=== PATIENT | female | born 1990 | race Caucasian/White ===

== ENCOUNTER → 2018-04-16 11:43 | Outpatient (REF) | payer MEDICAID, SELFPAY ==
[2018-04-17 15:10] LABS: Chlamydia Result Negative; GC Result Negative; Specimen Description CERVIX
== END ==
LOC: LBN 11:43
PROVIDERS: Visit Provider Nurse Practitioner Women's Health
DX: Z11.3 Encounter for screening for infections with a predominantly sexual mode of transmission (principal)
CPT/HCPCS: 87491; 87591

== ENCOUNTER 2018-04-30 14:00 | Emergency (ER) | payer MEDICAID, SELFPAY ==
[2018-04-30 14:02] VITALS: BP 123/85; PULSE 103; RESP 16; TEMP 36.7; O2SAT 100
--- NOTE | 2018-04-30 14:20 | ED.GENADUL ---
Disposition Clinical Impression: Gastritis Disposition: HOME Condition: Good Instructions: Gastritis (ED) Additional Instructions: Begin medication as prescribed. Avoid fatty, fried, spicy, tomato based foods. Avoid eating to 3 hours prior to bedtime. Follow-up with [facility] as you have planned. Return to the emergency department develop fever, vomiting, worsening pain or any other concerns. Prescriptions: Ranitidine HCl [Zantac] 150 mg PO BID #60 tablet Medical Decision Making - Medical Decision Making 27-year-old female presents with intermittent episodes of epigastric discomfort that is primarily brought on by certain foods over 3 years time. She is afebrile, well-appearing, minimally tender epigastrium without rebound or guarding on exam. While considerations of biliary colic, irritable bowel disease are within the differential diagnosis, I do feel this is most consistent with gastritis. I discussed this with her and at this time will move forward with treatment with Zantac twice daily for 30 days. Discussed with her that if she has refractory discomfort that she will mandate further workup including laboratory and or imaging studies. She has prearranged follow-up in [facility]. Patient stable for outpatient management at this time. History of Present Illness - General Chief complaint: Abd Prob Stated complaint: ABD PAIN Time Seen by Provider: 04/30/18 14:13 Source: patient, RN notes reviewed Mode of arrival: ambulatory Limitations: no limitations - History of Present Illness Initial comments: Abdominal pain: 27-year-old female presents from work. She states that she has had 3 years of intermittent episodes of abdominal pain. This been slowly increasing. Occurs primarily after eating food. Today after eating a candy bar she developed burning, constant epigastric pain that did not radiate. There was no associated fever. She did not vomit. She has had some associated loose stool with this discomfort. No change to urination. She has otherwise been well. - Related Data Albuterol Sulfate [Proventil Hfa] 1 - 2 puff IH Q6H PRN inhaler 03/08/14 Ranitidine HCl [Zantac] 150 mg PO BID #60 tablet 04/30/18 Allergies Allergy/AdvReac Type Severity Reaction Status Date / Time No Known Drug Allergies Allergy Unverified 04/30/18 14:05 Review of Systems Other: 6 systems reviewed, otherwise negative Past Medical History - Past Medical History Medical history: asthma lyme disease Surgical history: other (wisdom teeth) - Social History Alcohol use: rarely Drug use: none General Exam - General Limitations: no limitations General appearance: alert, in no apparent distress - Head Head exam: Present: atraumatic, normocephalic - Eye Eye exam: Present: PERRL, EOMI - ENT ENT exam: Present: normal exam - Neck Neck exam: Present: normal inspection, full ROM - Respiratory Respiratory exam: Present: normal lung sounds bilaterally. Absent: respiratory distress - Cardiovascular Cardiovascular Exam: Present: regular rate, normal rhythm - GI/Abdominal GI/Abdominal exam: Present: soft, tenderness, other (Tender in the epigastrium without rebound or guarding. No right upper quadrant tenderness per) - Extremities Exam Extremities exam: Present: normal inspection. Absent: tenderness - Neurological Exam Neurological exam: Present: alert, oriented X3 - Psychiatric Psychiatric exam: Present: normal affect, normal mood - Skin Skin exam: Present: warm, dry, intact Course Vital Signs - 24 hr 04/30/ 14:02 Temperature 36.7 C Pulse 103 H Respiratory 16 Rate Blood Pressure 123/85 Pulse Oximetry 100
== END 2018-04-30 14:40 | disposition home or self-care (01) ==
PROVIDERS: Emergency Provider Emergency Medicine
DX: K29.00 Acute gastritis without bleeding (principal)
CPT/HCPCS: 99283

== ENCOUNTER 2018-05-13 21:30 | Outpatient (REF) | payer MEDICAID, SELFPAY ==
[2018-05-13 22:58] LABS: ALT 21 U/L (12-78); AST 15 U/L (15-37); Albumin 4.1 g/dL (3.4-5.0); Alkaline Phosphatase 55 U/L (46-116); Amylase 63 U/L (25-115); Anion Gap 6.7 mmol/L (3-11); BUN 8 mg/dL (7-18); Bilirubin, Total 0.4 mg/dL (0.2-1.0); CO2 28.3 mmol/L (21.0-32.0); CREATININE 0.81 mg/dL (0.55-1.02); Calcium 8.8 mg/dL (8.5-10.1); Chloride 106 mmol/L (98-107); Glucose 60 mg/dL (70-100); Lipase 235 U/L (73-393); Potassium 3.9 mmol/L (3.5-5.1); Sodium 141 mmol/L (136-145); Total Protein 7.3 g/dL (6.4-8.2)
[2018-05-13 23:09] LABS: Abs Immature Grans 0.01 k/cumm (0.0-0.09); Absolute Basophil Count 0.02 k/cumm (0.0-0.2); Absolute Eosinophil Count 0.08 k/cumm (0.0-0.7); Absolute Lymphocyte Count 1.23 k/cumm (1.2-3.4); Absolute Monocyte Count 0.57 k/cumm (0.11-0.7); Absolute Neutrophil Count 2.14 k/cumm (1.2-6.7); Basophils % 0.5; HCT 40.7 % (36.0-46.0); HGB 13.5 g/dL (12.0-15.5); Immature Grans % 0.2; Lymphocytes % 30.4; Mean Corp. HGB Concentration 33.2 g/dL (32.0-36.0); Mean Corpuscular Volume 93.6 fL (80-95); Mean Platelet Volume 9.6 fL (8.0-11.0); Monocytes % 14.1; Neutrophils % 52.8; Platelet Count 240 x1000/uL (130-400); RBC 4.35 m/cumm (4.00-5.20); White Blood Cell Count 4.05 k/cumm (4.4-10.8)
== END 2018-05-13 21:50 ==
LOC: NCHCN 21:30
PROVIDERS: Visit Provider Nurse Practitioner
DX: R10.84 Generalized abdominal pain (principal)
CPT/HCPCS: 80053; 83690; 82150; 85025

== ENCOUNTER 2018-07-09 11:13 | Outpatient (CLI) | payer MEDICAID, SELFPAY ==
[2018-07-09 12:37] LABS: TSH (W/Ref FT4) 0.87 uIU/mL (0.358-3.74)
== END 2018-07-09 11:33 ==
PROVIDERS: Visit Provider Obstetrics & Gynecology
DX: Z34.91 Encounter for supervision of normal pregnancy, unspecified, first trimester (principal)
CPT/HCPCS: 36415; 84443

== ENCOUNTER 2018-07-23 14:34 | Outpatient (CLI) | payer MEDICAID, SELFPAY ==
[2018-07-23 14:59] LABS: Abs Immature Grans 0.01 k/cumm (0.0-0.09); Absolute Basophil Count 0.03 k/cumm (0.0-0.2); Absolute Eosinophil Count 0.08 k/cumm (0.0-0.7); Absolute Monocyte Count 0.58 k/cumm (0.11-0.7); Absolute Neutrophil Count 5.32 k/cumm (1.2-6.7); Basophils % 0.4; Eosinophils % 1.1; HCT 37.1 % (36.0-46.0); HGB 13.2 g/dL (12.0-15.5); Immature Grans % 0.1; Lymphocytes % 18.9; Mean Corp. HGB Concentration 35.6 g/dL (32.0-36.0); Mean Corpuscular Hemoglobin 32.4 pg (27.0-33.0); Mean Corpuscular Volume 91.2 fL (80-95); Mean Platelet Volume 8.7 fL (8.0-11.0); Monocytes % 7.8; Neutrophils % 71.7; Platelet Count 214 x1000/uL (130-400); RBC 4.07 m/cumm (4.00-5.20); RBC Distribution Width 11.7 % (11.7-14.6); White Blood Cell Count 7.42 k/cumm (4.4-10.8)
[2018-07-24 12:10] LABS: Hepatitis B Surface Ag Negative (NEGAT)
[2018-07-24 12:47] LABS: Rubella IgG Ab (UVM) Positive; Syphilis Serology (RPR) Negative (Negative)
[2018-07-24 13:38] LABS: HIV-1/2 Ag & Ab Screen Negative (NEGAT)
[2018-07-24 13:39] LABS: Hepatitis C Ab w Rflx HCV PCR Negative (NEGAT)
[2018-07-24 14:44] LABS: Varicella IgG Antibody Positive
== END 2018-07-23 14:54 ==
PROVIDERS: Visit Provider Advanced Practice Midwife
DX: Z34.91 Encounter for supervision of normal pregnancy, unspecified, first trimester (principal); Z11.4 Encounter for screening for human immunodeficiency virus [HIV]; Z11.59 Encounter for screening for other viral diseases; Z01.84 Encounter for antibody response examination
CPT/HCPCS: 36415; 80055; 86787; 86803; 86850; 86900; 86901; 87340; 87389; 86592; 86762

== ENCOUNTER 2018-07-23 15:58 | Outpatient (REF) | payer MEDICAID, SELFPAY ==
[2018-07-23 19:07] LABS: *AMPHETAMINES SCREEN URINE Negative (Negative); *BARBITURATES SCREEN URINE Negative (Negative); *BENZODIAZEPINES SCREEN URINE Negative (Negative); Cannabinoids THC Negative (Negative); Cocaine Screen,Urine Negative (Negative); METHADONE URINE SCREEN Negative (Negative); OPIATES URINE SCREEN Negative (Negative)
[2018-07-23 19:24] LABS: Tricyclic Antidepressants Negative (Negative)
[2018-07-27 15:16] LABS: Chlamydia Result Negative; GC Result Negative; Specimen Description CERVIX
[2018-07-28 17:33] LABS: Buprenorphine Negative; Norbuprenorphine Negative
== END 2018-07-23 16:18 ==
LOC: LBN 15:58
PROVIDERS: PCP Nurse Practitioner; Visit Provider Advanced Practice Midwife
DX: Z34.91 Encounter for supervision of normal pregnancy, unspecified, first trimester (principal); Z11.3 Encounter for screening for infections with a predominantly sexual mode of transmission
CPT/HCPCS: 80307; 87491; 87591; 87086; 87480; 87510; 87660

== ENCOUNTER 2018-08-19 08:08 | Emergency (ER) | payer OTHER, MEDICAID, SELFPAY ==
[2018-08-19 08:11] VITALS: BP 119/72; PULSE 134; RESP 18; TEMP 37; O2SAT 100
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
[2018-08-19] MEDS: Acetaminophen 325 MG TAB 650 MG PO (08:46)
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
[2018-08-19 10:18] VITALS: BP 104/59; PULSE 90; RESP 16; TEMP 36.9; O2SAT 98
[2018-08-19 10:39] LABS: Abs Immature Grans 0.01 k/cumm (0.0-0.09); Absolute Basophil Count 0.01 k/cumm (0.0-0.2); Absolute Eosinophil Count 0.03 k/cumm (0.0-0.7); Absolute Monocyte Count 0.61 k/cumm (0.11-0.7); Absolute Neutrophil Count 5.69 k/cumm (1.2-6.7); Basophils % 0.1; Eosinophils % 0.4; HCT 32.5 % (36.0-46.0); HGB 11.8 g/dL (12.0-15.5); Immature Grans % 0.1; Lymphocytes % 13.6; Mean Corp. HGB Concentration 36.3 g/dL (32.0-36.0); Mean Corpuscular Hemoglobin 33.2 pg (27.0-33.0); Mean Corpuscular Volume 91.5 fL (80-95); Mean Platelet Volume 8.6 fL (8.0-11.0); Monocytes % 8.3; Neutrophils % 77.5; Platelet Count 170 x1000/uL (130-400); RBC 3.55 m/cumm (4.00-5.20); RBC Distribution Width 11.9 % (11.7-14.6); White Blood Cell Count 7.35 k/cumm (4.4-10.8)
[2018-08-19 10:50] LABS: ALT 13 U/L (12-78); AST 10 U/L (15-37); Albumin 3.1 g/dL (3.4-5.0); Alkaline Phosphatase 37 U/L (46-116); Anion Gap 6.3 mmol/L (3-11); BUN 4 mg/dL (7-18); Bilirubin, Total 0.3 mg/dL (0.2-1.0); CO2 25.7 mmol/L (21.0-32.0); CREATININE 0.57 mg/dL (0.55-1.02); Calcium 8.6 mg/dL (8.5-10.1); Chloride 105 mmol/L (98-107); Glucose 75 mg/dL (70-100); Potassium 3.8 mmol/L (3.5-5.1); Sodium 137 mmol/L (136-145); Total Protein 6.1 g/dL (6.4-8.2)
[2018-08-19 11:53] VITALS: BP 105/61; PULSE 93; RESP 16; TEMP 36.8; O2SAT 99
== END 2018-08-19 11:58 | disposition home or self-care (01) ==
PROVIDERS: Emergency Provider Physician Assistant; PCP Nurse Practitioner
DX: M54.5 Low back pain (principal); R10.30 Lower abdominal pain, unspecified; V43.52XA Car driver injured in collision with other type car in traffic accident, initial encounter; Z33.1 Pregnant state, incidental; Z3A.15 15 weeks gestation of pregnancy; O99.332 Smoking (tobacco) complicating pregnancy, second trimester; F17.210 Nicotine dependence, cigarettes, uncomplicated
CPT/HCPCS: 36415; 80053; 99284; 76805; 85025; 99285

== ENCOUNTER 2018-08-27 15:22 | Outpatient (REF) | payer MEDICAID, SELFPAY ==
[2018-08-27 21:53] LABS: Abs Immature Grans 0.04 k/cumm (0.0-0.09); Absolute Basophil Count 0.02 k/cumm (0.0-0.2); Absolute Eosinophil Count 0.39 k/cumm (0.0-0.7); Absolute Lymphocyte Count 1.29 k/cumm (1.2-3.4); Absolute Monocyte Count 0.67 k/cumm (0.11-0.7); Absolute Neutrophil Count 5.47 k/cumm (1.2-6.7); Basophils % 0.3; Eosinophils % 4.9; HCT 35.3 % (36.0-46.0); HGB 12.1 g/dL (12.0-15.5); Immature Grans % 0.5; Lymphocytes % 16.4; Mean Corp. HGB Concentration 34.3 g/dL (32.0-36.0); Mean Corpuscular Hemoglobin 31.3 pg (27.0-33.0); Mean Corpuscular Volume 91.2 fL (80-95); Mean Platelet Volume 10.2 fL (8.0-11.0); Monocytes % 8.5; Neutrophils % 69.4; Platelet Count 181 x1000/uL (130-400); RBC 3.87 m/cumm (4.00-5.20); RBC Distribution Width 12.2 % (11.7-14.6); White Blood Cell Count 7.88 k/cumm (4.4-10.8)
== END 2018-08-27 15:42 ==
LOC: NCHCN 15:22
PROVIDERS: PCP Nurse Practitioner; Visit Provider Nurse Practitioner
DX: M54.5 Low back pain (principal); Z33.1 Pregnant state, incidental
CPT/HCPCS: 85025

== ENCOUNTER 2018-09-15 10:53 | Outpatient (CLI) | payer MEDICAID, SELFPAY | END 2018-09-15 11:13 | PROVIDERS: PCP Nurse Practitioner; Visit Provider Nurse Practitioner | DX: O26.892 Other specified pregnancy related conditions, second trimester (principal); R10.11 Right upper quadrant pain; R10.31 Right lower quadrant pain ==

== ENCOUNTER 2018-09-15 11:47 | Observation (INO) | payer MEDICAID, SELFPAY ==
[2018-09-15 12:18] LABS: Bilirubin Negative (Negative); Blood Negative (Negative); Clarity Clear; Glucose Negative (Negative); Ketones Negative (Negative); Leukocyte Esterase Trace (Negative); Nitrite Negative (Negative); Urobilinogen 0.2 EU/dL (Up TO 0.2)
[2018-09-15 12:30] LABS: Epithelial Cells Moderate HPF (Negative); RBC Negative (0-2); WBC 0-2 HPF (0-5)
[2018-09-15 12:31] LABS: Bacteria Few HPF (Negative); C & S Indicated? No/Sq. Contamination; Casts Negative LPF (Negative); Crystals Negative HPF (Negative); Mucus Trace (Negative)
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
== END 2018-09-15 13:30 | disposition home or self-care (01) ==
PROVIDERS: Admitting Provider Nurse Practitioner; PCP Nurse Practitioner; Visit Provider Nurse Practitioner
DX: O26.892 Other specified pregnancy related conditions, second trimester (principal); Z3A.18 18 weeks gestation of pregnancy; R10.30 Lower abdominal pain, unspecified
CPT/HCPCS: 76816; 81003; 81015; G0378

== ENCOUNTER 2018-09-23 01:02 | Outpatient (CLI) | payer MEDICAID, SELFPAY ==
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
== END 2018-09-23 01:22 ==
PROVIDERS: PCP Nurse Practitioner; Visit Provider Nurse Practitioner
DX: Z34.92 Encounter for supervision of normal pregnancy, unspecified, second trimester (principal)
CPT/HCPCS: 76805

== ENCOUNTER 2018-09-24 11:59 | Outpatient (CLI) | payer MEDICAID, SELFPAY ==
[2018-09-28 12:11] LABS: AFP 86.1 ng/mL; Calculated age at EDD 26 years; GA used in risk estimate Dates estimate; IVF Pregnancy No; Initial or repeat testing Initial testing; Insulin dependent diabetes No; Maternal Weight 119 lbs; Number of Fetuses 1; Physician Phone Number 802-748-7300; Prev Pregnancy w/NTD No; RECOMMENDED FOLLOW UP None.; Results Summary Normal risk
[2018-10-26 11:23] LABS: AFP 83.3 ng/mL; Calculated age at EDD 26 years; Down syndrome maternalage risk 1/990; GA used in risk estimate Dates estimate; INHIBIN 259 pg/mL; IVF Pregnancy No; Initial or repeat testing Initial testing; Insulin dependent diabetes No; Maternal Weight 119 lbs; Number of Fetuses 1; Physician Phone Number 802-748-7300; Prev Down(T21)/Trisomy Pregnan No; Prev Pregnancy w/NTD No; RECOMMENDED FOLLOW UP None.; Results Summary Normal risk; hCG, TOTAL 4.5 IU/mL; hCG, TOTAL MoM 0.22 MoM; uE3 1.73 ng/mL; uE3 MoM 0.93 MoM
== END 2018-09-24 12:19 ==
PROVIDERS: Advanced Practice Midwife; PCP Nurse Practitioner; Visit Provider Nurse Practitioner
DX: Z34.92 Encounter for supervision of normal pregnancy, unspecified, second trimester (principal); Z36.89 Encounter for other specified antenatal screening
CPT/HCPCS: 36415; 81511; 82105

== ENCOUNTER 2018-09-29 12:16 | Emergency (ER) | payer MEDICAID, SELFPAY ==
[2018-09-29 12:27] VITALS: BP 122/71; PULSE 104; RESP 16; TEMP 37; O2SAT 100
--- NOTE | 2018-09-29 12:37 | W.ED.GENAD ---
Discharge Plan Disposition Patient Disposition: HOME Condition: Stable Discharge Details Chief Complaint: RespSymp Clinical Impression: Influenza A Primary Care Provider: Sherlyn Orlando ED Provider: Bertin Fox Home Meds and New Rx's Prescriptions: Continued aspirin [Aspir-81] 81 mg tablet,delayed release (DR/EC) 81 mg PO DAILY Qty: 60 RF: 3 Proventil HFA 6.7 GM HFA aerosol inhaler 1 - 2 puff Inhalation Q6H PRN RF: 0 PNV #[id number] 30 mg iron-10 mg iron-1 mg capsule 1 cap PO DAILY Qty: 90 RF: 4 oseltamivir [Tamiflu] 75 mg capsule 75 mg PO BID 5 Days Qty: 10 RF: 0 Discharge Instructions Instructions: Influenza (ED) Medical Decision Making 28 yo at 20 weeks per pt, comes in with severeal days of myalgias, fever, sore throat with coughing, and dry cough. Denies abdominal pain, vaginal bleeding or d/c. No recent travel or rashes. She is speaking in full sentences in no respiratory distress. She has no murmurs or other stigmata of endocarditis and denies ivdu. She has no meningismus or severe headaches so doubt material planning analyst infection. Has clear lung sounds and so doubt pna and do not feel imaging indicated. Suspect viral illness, will test for flu and monitor pt positive for flu, a, will start tamiflu, advised f/u with ob/pcp and return precautions given Differential Diagnosis uri, influenza, cap HPI General Mode of arrival: ambulatory. Date/Time Provider Initiated Documentation: 09/29/18 12:24. Limitations to Documentation: no limitations. Information obtained by: patient. History of Present Illness 28 year old F presents to the emergency department with the chief complaint of fevers and myalgias, described as mild, with intensity rated at 3. Patient started experiencing this day(s) (2) and it has been constant. No relieving factors improve symptom(s), No exacerbating factors reported . Patient notes cough. Patient did receive the following treatments prior to arrival, none Related Data Home Medications Medication Instructions Recorded Confirmed Proventil HFA 1 - 2 puff INHALATION Q6H PRN 03/08/14 09/29/18 inhaler vitamin#30 30 mg iron-10 1 cap PO DAILY #90 cap 06/30/18 09/29/18 mg iron-folic acid 1 mg-omg3 capsule aspirin 81 mg tablet,delayed 81 mg PO DAILY #60 tab 07/23/18 09/29/18 release oseltamivir [Tamiflu] 75 mg PO BID 5 Days #10 cap 09/29/18 Previous Rx's Medication Instructions Recorded vitamin#30 30 mg iron-10 1 cap PO DAILY #90 cap 06/30/18 mg iron-folic acid 1 mg-omg3 capsule aspirin 81 mg tablet,delayed 81 mg PO DAILY #60 tab 07/23/18 release oseltamivir [Tamiflu] 75 mg PO BID 5 Days #10 cap 09/29/18 Allergies Allergy/AdvReac Type Severity Reaction Status Date / Time No Known Drug Allergies Allergy Unverified 09/29/18 12:30 General Stated Complaint: RespSymp SURENDRA: 4 Review of Systems Review of Systems All systems reviewed & are unremarkable except as noted in HPI and below Cardiovascular Denies chest pain and Denies dyspnea Respiratory Denies dyspnea Gastrointestinal Denies abdominal pain, Denies nausea and Denies vomiting Genitourinary Denies dysuria Musculoskeletal Denies joint swelling Integumentary/Breasts Denies rash PFSH Medical History (Acute) Asthma Breast nodule Contraceptive management Lyme disease Family History Grandfather Essential hypertension Father Prostate cancer Diabetes Social History Smoking/Tobacco Use Status: Current-Occasional tobacco type: cigarettes how long ago did patient quit smoking: pt. states she is quitting while alcohol intake: former (occasional wine socially, none since became ) substance use type: does not use 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 History Menstrual control method: none History History 2 Para 1 Hx # Term Pregnancies 1 Multiple births 0 Hx # Pregnancies 0 Ectopic pregnancies 0 AB induced 0 Hx Number of Living Children 1 AB spontaneous 0 Exam Const General: no acute distress Orientation: alert HENMT Head: normal to inspection Ears: external ears normal General nose exam: external nose normal Mouth: moist mucous membranes Eyes General: appearance normal, both eyes and all related structures Neck Neck: normal visual inspection Resp Effort & Inspection: normal respiratory effort and able to speak in complete sentences Cardio Rate: regular rate Skin General skin exam: no rashes or lesions noted Neuro General: alert and oriented x3 Extrem General: normal to inspection Psych Mental Status: mental status grossly normal Course Vital Signs Temperature 37 C 09/29/18 12:27 Pulse 104 H 09/29/18 12:27 Respiratory Rate 16 09/29/18 12:27 Blood Pressure 122/71 09/29/18 12:27 Pulse Oximetry 100 09/29/18 12:27 Temperature 37 C 09/29/18 12:27 Temperature Source Skin 09/29/18 12:27 Pulse 104 H 09/29/18 12:27 Respiratory Rate 16 09/29/18 12:27 Respiratory Effort Non-Labored 09/29/18 12:27 Blood Pressure 122/71 09/29/18 12:27 Blood Pressure Position Sitting 09/29/18 12:27 Pulse Oximetry 100 09/29/18 12:27 Oxygen Delivery Method Room Air 09/29/18 12:27 Oxygen Flow Rate 0 09/29/18 12:27 Pain Level 0 09/29/18 12:27 Lab/Test Results Lab/Test Results: 09/29/18 12:32 Nasopharynx Influenza Types A,B Antigen - Pending
--- NOTE | 2018-09-29 12:40 | ED.GENADUL_ITS ---
Discharge Plan Disposition Patient Disposition: HOME Condition: Stable Discharge Details Chief Complaint: RespSymp Clinical Impression: Influenza A Primary Care Provider: Sherlyn Orlando ED Provider: Bertin Fox Home Meds and New Rx's Prescriptions: Continued aspirin [Aspir-81] 81 mg tablet,delayed release (DR/EC) 81 mg PO DAILY Qty: 60 RF: 3 Proventil HFA 6.7 GM HFA aerosol inhaler 1 - 2 puff Inhalation Q6H PRN RF: 0 PNV #[id number] 30 mg iron-10 mg iron-1 mg capsule 1 cap PO DAILY Qty: 90 RF: 4 oseltamivir [Tamiflu] 75 mg capsule 75 mg PO BID 5 Days Qty: 10 RF: 0 Discharge Instructions Instructions: Influenza (ED) Medical Decision Making 28 yo at 20 weeks per pt, comes in with severeal days of myalgias, fever, sore throat with coughing, and dry cough. Denies abdominal pain, vaginal bleeding or d/c. No recent travel or rashes. She is speaking in full sentences in no respiratory distress. She has no murmurs or other stigmata of endocarditis and denies ivdu. She has no meningismus or severe headaches so doubt plant anatomist infection. Has clear lung sounds and so doubt pna and do not feel imaging indicated. Suspect viral illness, will test for flu and monitor pt positive for flu, a, will start tamiflu, advised f/u with ob/pcp and return precautions given Differential Diagnosis uri, influenza, cap HPI General Mode of arrival: ambulatory . Date/Time Provider Initiated Documentation: 09/29/18 12:24 . Limitations to Documentation: no limitations . Information obtained by: patient . History of Present Illness 28 year old F presents to the emergency department with the chief complaint of fevers and myalgias, described as mild, with intensity rated at 3. Patient started experiencing this day(s) (2) and it has been constant. No relieving factors improve symptom(s), No exacerbating factors reported . Patient notes cough. Patient did receive the following treatments prior to arrival, none Related Data Home Medications Medication Instructions Recorded Confirmed Proventil HFA 1 - 2 puff INHALATION Q6H PRN 03/08/14 09/29/18 inhaler vitamin#30 30 mg iron-10 1 cap PO DAILY #90 cap 06/30/18 09/29/18 mg iron-folic acid 1 mg-omg3 capsule aspirin 81 mg tablet,delayed 81 mg PO DAILY #60 tab 07/23/18 09/29/18 release oseltamivir [Tamiflu] 75 mg PO BID 5 Days #10 cap 09/29/18 Previous Rx's Medication Instructions Recorded vitamin#30 30 mg iron-10 1 cap PO DAILY #90 cap 06/30/18 mg iron-folic acid 1 mg-omg3 capsule aspirin 81 mg tablet,delayed 81 mg PO DAILY #60 tab 07/23/18 release oseltamivir [Tamiflu] 75 mg PO BID 5 Days #10 cap 09/29/18 Allergies Allergy/AdvReac Type Severity Reaction Status Date / Time No Known Drug Allergies Allergy Unverified 09/29/18 12:30 General Stated Complaint: RespSymp SURENDRA: 4 Review of Systems Review of Systems All systems reviewed & are unremarkable except as noted in HPI and below Cardiovascular Denies chest pain and Denies dyspnea Respiratory Denies dyspnea Gastrointestinal Denies abdominal pain, Denies nausea and Denies vomiting Genitourinary Denies dysuria Musculoskeletal Denies joint swelling Integumentary/Breasts Denies rash PFSH Medical History (Acute) Asthma Breast nodule Contraceptive management Lyme disease Family History Grandfather Essential hypertension Father Prostate cancer Diabetes Social History Smoking/Tobacco Use Status: Current-Occasional tobacco type: cigarettes how long ago did patient quit smoking: pt. states she is quitting while alcohol intake: former (occasional wine socially, none since became ) substance use type: does not use 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 History Menstrual control method: none History History 2 Para 1 Hx # Term Pregnancies 1 Multiple births 0 Hx # Pregnancies 0 Ectopic pregnancies 0 AB induced 0 Hx Number of Living Children 1 AB spontaneous 0 Exam Const General: no acute distress Orientation: alert HENMT Head: normal to inspection Ears: external ears normal General nose exam: external nose normal Mouth: moist mucous membranes Eyes General: appearance normal, both eyes and all related structures Neck Neck: normal visual inspection Resp Effort & Inspection: normal respiratory effort and able to speak in complete sentences Cardio Rate: regular rate Skin General skin exam: no rashes or lesions noted Neuro General: alert and oriented x3 Extrem General: normal to inspection Psych Mental Status: mental status grossly normal Course Vital Signs Temperature 37 C 09/29/18 12:27 Pulse 104 H 09/29/18 12:27 Respiratory Rate 16 09/29/18 12:27 Blood Pressure 122/71 09/29/18 12:27 Pulse Oximetry 100 09/29/18 12:27 Temperature 37 C 09/29/18 12:27 Temperature Source Skin 09/29/18 12:27 Pulse 104 H 09/29/18 12:27 Respiratory Rate 16 09/29/18 12:27 Respiratory Effort Non-Labored 09/29/18 12:27 Blood Pressure 122/71 09/29/18 12:27 Blood Pressure Position Sitting 09/29/18 12:27 Pulse Oximetry 100 09/29/18 12:27 Oxygen Delivery Method Room Air 09/29/18 12:27 Oxygen Flow Rate 0 09/29/18 12:27 Pain Level 0 09/29/18 12:27 Lab/Test Results Lab/Test Results: 09/29/18 12:32 Nasopharynx Influenza Types A,B Antigen - Pending
== END 2018-09-29 13:17 | disposition home or self-care (01) ==
PROVIDERS: Emergency Provider Emergency Medicine; PCP Nurse Practitioner
DX: O99.89 Other specified diseases and conditions complicating pregnancy, childbirth and the puerperium (principal); J10.1 Influenza due to other identified influenza virus with other respiratory manifestations; Z3A.20 20 weeks gestation of pregnancy
CPT/HCPCS: 87449; 99283

== ENCOUNTER 2018-10-08 09:51 | Inpatient (IN) | payer MEDICAID, SELFPAY ==
[2018-10-08] VITALS (39 sets, daily range): BP systolic 90–117; BP diastolic 50–90; PULSE 86–128; RESP 13–47; TEMP 36.5–36.8; O2SAT 94–98
--- NOTE | 2018-10-08 10:30 | DI.RAD_ITS ---
SYMPTOM/DIAGNOSIS: COUGH, FEVER, TACHYCARDIA PA AND LATERAL CHEST: Comparison is made with thoracic spine dated 12/21/09. The heart size is normal. There are streaky densities seen on the PA view overlying the heart shadow which may represent a small infiltrate versus superimposed structures. No effusions are seen. IMPRESSION: Question of a lingular infiltrate.
--- NOTE | 2018-10-08 10:32 | W.ED.GENAD ---
Discharge Plan Disposition Condition: Improving Discharge Details Chief Complaint: RespSymp Reason For Visit: PNEUMONIA Admit Date/Time: 10/08/18 13:56 Admit Provider: Zac Crow Attending Provider: Zac Crow Primary Care Provider: Sherlyn Orlando ED Provider: Jamaal Tabor Discharge Instructions Activity:: No strenuous activity Equipment/Supplies:: No Equipment Needed Diet:: As Tolerated Discharge Orders Discharge Orders: Discharge Order (Routine); Ordered 10/09/18 Ordered By: Zac Crow Discharge Data Discharge Date/Time-TO BE ENTERED AT DEPARTURE: 10/08/18 15:09 Medical Decision Making 10:35 --28-year-old at 21 recently diagnosed with flu and treated with Tamiflu, had persistent cough over the past week but was feeling better until yesterday when she developed recurrent fever and chills. Patient is tachycardic. She is in no respiratory distress and saturating well but does have rales on exam. Concern for persistent viral illness and bronchitis versus pneumonia. Plan to check chest x-ray. Patient provides informed consent to chest x-ray. She is tachycardic. We will give IV fluid and check lactate as well as blood cultures. 13:19 --chest x-ray interpreted by radiology: Left lower lobe infiltrate. Patient reassessed and remains tachycardic although improved after 1 L of crystalloid. I called and spoke with OB land economist, she recommends admission to medicine service on IV antibiotics. Will give ceftriaxone and azithromycin and admit. -- Spoke with hospitalist who will admit. Care transitioned to hospitalist. HPI General Mode of arrival: ambulatory. Date/Time Provider Initiated Documentation: 10/08/18 10:08. Limitations to Documentation: no limitations. Information obtained by: patient. HPI Narrative: 28-year-old female at 21 weeks here with chief complaint of cough. Patient notes she was seen here in the emergency department on 09/29/2018 for myalgias, fever sore throat and cough. She tested positive for flu and was started on Tamiflu. She notes that she improved and in fact was feeling quite well 2-3 days ago. She still had persistent cough. Yesterday she developed recurrent fever, chills and myalgias. Moderate. No modifiers. No associated chest pain, swelling or rash. No urinary symptoms. Related Data Home Medications Medication Instructions Recorded Confirmed Proventil HFA 1 - 2 puff INHALATION Q6H PRN 03/08/14 10/08/18 inhaler vitamin#30 30 mg iron-10 1 cap PO DAILY #90 cap 06/30/18 10/08/18 mg iron-folic acid 1 mg-omg3 capsule aspirin 81 mg tablet,delayed 81 mg PO DAILY #60 tab 07/23/18 10/08/18 release azithromycin 250 mg PO DAILY #3 tab 10/09/18 cefpodoxime 200 mg PO BID #10 tab 10/09/18 prednisone 10 mg PO DAILY #15 tab 10/09/18 Previous Rx's Medication Instructions Recorded vitamin#30 30 mg iron-10 1 cap PO DAILY #90 cap 06/30/18 mg iron-folic acid 1 mg-omg3 capsule aspirin 81 mg tablet,delayed 81 mg PO DAILY #60 tab 07/23/18 release azithromycin 250 mg PO DAILY #3 tab 10/09/18 cefpodoxime 200 mg PO BID #10 tab 10/09/18 prednisone 10 mg PO DAILY #15 tab 10/09/18 Allergies Allergy/AdvReac Type Severity Reaction Status Date / Time No Known Drug Allergies Allergy Unverified 10/08/18 10:09 General Stated Complaint: RespSymp SURENDRA: 3 Review of Systems Review of Systems All systems reviewed & are unremarkable except as noted in HPI and below Constitutional Reports chills and Reports fever(s) Cardiovascular Denies chest pain Respiratory Reports cough Musculoskeletal Reports myalgias PFSH Medical History (Acute) (Acute) Asthma Breast nodule Contraceptive management Lyme disease Family History Grandfather Essential hypertension Father Prostate cancer Diabetes Social History Smoking and Tabacco status: Current-Occasional tobacco type: cigarettes how long ago did patient quit smoking: pt. 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 History Menstrual control method: none History History 2 Para 1 Hx # Term Pregnancies 1 Multiple births 0 Hx # Pregnancies 0 Ectopic pregnancies 0 AB induced 0 Hx Number of Living Children 1 AB spontaneous 0 Exam Const General: cooperative and no acute distress HENMT Head: normocephalic and atraumatic Mouth: moist mucous membranes Eyes Conjunctivae: normal conjunctivae Sclera: normal sclerae EOM: EOM intact bilaterally Neck Neck: trachea midline and supple Resp Effort & Inspection: normal respiratory effort, able to speak in complete sentences and cough Auscultation: rales bilaterally (L>R) Cardio Jugular venous pressure: no JVD Rate: tachycardic Rhythm: regular rhythm GI Palpation: soft, not firm, no guarding, no masses, not rigid and nontender Skin General skin exam: no rashes or lesions noted Neuro General: alert, awake, oriented x3 and tone normal Extrem General: no edema Psych Appearance: grossly normal Speech and Movement: speech and movement normal Course Vital Signs Temperature 36.8 C 10/08/18 10:01 Pulse 128 H 10/08/18 10:01 Respiratory Rate 18 10/08/18 10:01 Blood Pressure 108/66 10/08/18 10:01 Pulse Oximetry 98 10/08/18 10:01 Temperature 36.8 C 10/08/18 10:01 Temperature Source Oral 10/08/18 10:01 Pulse 128 H 10/08/18 10:01 Respiratory Rate 18 10/08/18 10:01 Respiratory Effort Non-Labored 10/08/18 10:29 Respiratory Depth Normal 10/08/18 10:29 Blood Pressure 108/66 10/08/18 10:01 Blood Pressure Position Sitting 10/08/18 10:01 Pulse Oximetry 98 10/08/18 10:01 Oxygen Delivery Method Room Air 10/08/18 10:01 Oxygen Flow Rate 0 10/08/18 10:01 Pain Level 7 10/08/18 10:01
--- NOTE | 2018-10-08 10:38 | ED.GENADUL_ITS ---
Discharge Plan Disposition Condition: Improving Discharge Details Chief Complaint: RespSymp Reason For Visit: PNEUMONIA Admit Date/Time: 10/08/18 13:56 Admit Provider: Zac Crow Attending Provider: Zac Crow Primary Care Provider: Sherlyn Orlando ED Provider: Jamaal Tabor Discharge Instructions Activity:: No strenuous activity Equipment/Supplies:: No Equipment Needed Diet:: As Tolerated Discharge Orders Discharge Orders: Discharge Order (Routine); Ordered 10/09/18 Ordered By: Zac Crow Discharge Data Discharge Date/Time-TO BE ENTERED AT DEPARTURE: 10/08/18 15:09 Medical Decision Making 10:35 --28-year-old at 21 recently diagnosed with flu and treated with Tamiflu, had persistent cough over the past week but was feeling better until yesterday when she developed recurrent fever and chills. Patient is tachycardic. She is in no respiratory distress and saturating well but does have rales on exam. Concern for persistent viral illness and bronchitis versus pneumonia. Plan to check chest x-ray. Patient provides informed consent to chest x-ray. She is tachycardic. We will give IV fluid and check lactate as well as blood cultures. 13:19 --chest x-ray interpreted by radiology: Left lower lobe infiltrate. Patient reassessed and remains tachycardic although improved after 1 L of crystalloid. I called and spoke with OB oncology specialist, she recommends admission to medicine service on IV antibiotics. Will give ceftriaxone and azithromycin and admit. -- Spoke with hospitalist who will admit. Care transitioned to hospitalist. HPI General Mode of arrival: ambulatory . Date/Time Provider Initiated Documentation: 10/08/18 10:08 . Limitations to Documentation: no limitations . Information obtained by: patient . HPI Narrative: 28-year-old female at 21 weeks here with chief complaint of cough. Patient notes she was seen here in the emergency department on 09/29/2018 for myalgias, fever sore throat and cough. She tested positive for flu and was started on Tamiflu. She notes that she improved and in fact was feeling quite well 2-3 days ago. She still had persistent cough. Yesterday she developed recurrent fever, chills and myalgias. Moderate. No modifiers. No associated chest pain, swelling or rash. No ur inary symptoms. Related Data Home Medications Medication Instructions Recorded Confirmed Proventil HFA 1 - 2 puff INHALATION Q6H PRN 03/08/14 10/08/18 inhaler vitamin#30 30 mg iron-10 1 cap PO DAILY #90 cap 06/30/18 10/08/18 mg iron-folic acid 1 mg-omg3 capsule aspirin 81 mg tablet,delayed 81 mg PO DAILY #60 tab 07/23/18 10/08/18 release azithromycin 250 mg PO DAILY #3 tab 10/09/18 cefpodoxime 200 mg PO BID #10 tab 10/09/18 prednisone 10 mg PO DAILY #15 tab 10/09/18 Previous Rx's Medication Instructions Recorded vitamin#30 30 mg iron-10 1 cap PO DAILY #90 cap 06/30/18 mg iron-folic acid 1 mg-omg3 capsule aspirin 81 mg tablet,delayed 81 mg PO DAILY #60 tab 07/23/18 release azithromycin 250 mg PO DAILY #3 tab 10/09/18 cefpodoxime 200 mg PO BID #10 tab 10/09/18 prednisone 10 mg PO DAILY #15 tab 10/09/18 Allergies Allergy/AdvReac Type Severity Reaction Status Date / Time No Known Drug Allergies Allergy Unverified 10/08/18 10:09 General Stated Complaint: RespSymp SURENDRA: 3 Review of Systems Review of Systems All systems reviewed & are unremarkable except as noted in HPI and below Constitutional Reports chills and Reports fever(s) Cardiovascular Denies chest pain Respiratory Reports cough Musculoskeletal Reports myalgias PFSH Medical History (Acute) (Acute) Asthma Breast nodule Contraceptive management Lyme disease Family History Grandfather Essential hypertension Father Prostate cancer Diabetes Social History Smoking and Tabacco status: Current-Occasional tobacco type: cigarettes how long ago did patient quit smoking: pt. 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 History Menstrual control method: none History History 2 Para 1 Hx # Term Pregnancies 1 Multiple births 0 Hx # Pregnancies 0 Ectopic pregnancies 0 AB induced 0 Hx Number of Living Children 1 AB spontaneous 0 Exam Const General: cooperative and no acute distress HENMT Head: normocephalic and atraumatic Mouth: moist mucous membranes Eyes Conjunctivae: normal conjunctivae Sclera: normal sclerae EOM: EOM intact bilaterally Neck Neck: trachea midline and supple Resp Effort & Inspection: normal respiratory effort, able to speak in complete sentences and cough Auscultation: rales bilaterally (L>R) Cardio Jugular venous pressure: no JVD Rate: tachycardic Rhythm: regular rhythm GI Palpation: soft, not firm, no guarding, no masses, not rigid and nontender Skin General skin exam: no rashes or lesions noted Neuro General: alert, awake, oriented x3 and tone normal Extrem General: no edema Psych Appearance: grossly normal Speech and Movement: speech and movement normal Course Vital Signs Temperature 36.8 C 10/08/18 10:01 Pulse 128 H 10/08/18 10:01 Respiratory Rate 18 10/08/18 10:01 Blood Pressure 108/66 10/08/18 10:01 Pulse Oximetry 98 10/08/18 10:01 Temperature 36.8 C 10/08/18 10:01 Temperature Source Oral 10/08/18 10:01 Pulse 128 H 10/08/18 10:01 Respiratory Rate 18 10/08/18 10:01 Respiratory Effort Non-Labored 10/08/18 10:29 Respiratory Depth Normal 10/08/18 10:29 Blood Pressure 108/66 10/08/18 10:01 Blood Pressure Position Sitting 10/08/18 10:01 Pulse Oximetry 98 10/08/18 10:01 Oxygen Delivery Method Room Air 10/08/18 10:01 Oxygen Flow Rate 0 10/08/18 10:01 Pain Level 7 10/08/18 10:01
[2018-10-08] MEDS: Lactated Ringers 1,000 ML 1000 ML IV (11:07)
[2018-10-08 11:23] LABS: Lactate 1.3 mmol/L (0.6-1.4)
[2018-10-08 11:24] LABS: Abs Immature Grans 0.05 k/cumm (0.0-0.09); Absolute Eosinophil Count 0.03 k/cumm (0.0-0.7); Absolute Neutrophil Count 11.23 k/cumm (1.2-6.7); Basophils % 0.2; Eosinophils % 0.2; HCT 32.9 % (36.0-46.0); HGB 11.4 g/dL (12.0-15.5); Immature Grans % 0.4; Lymphocytes % 6.1; Mean Corp. HGB Concentration 34.7 g/dL (32.0-36.0); Mean Corpuscular Hemoglobin 32.5 pg (27.0-33.0); Mean Corpuscular Volume 93.7 fL (80-95); Mean Platelet Volume 8.8 fL (8.0-11.0); Monocytes % 7.5; Neutrophils % 85.6; Platelet Count 263 x1000/uL (130-400); RBC 3.51 m/cumm (4.00-5.20); RBC Distribution Width 12.4 % (11.7-14.6); White Blood Cell Count 13.12 k/cumm (4.4-10.8)
[2018-10-08 11:27] LABS: Absolute Basophil Count 0.03 k/cumm (0.0-0.2); Absolute Monocyte Count 0.98 k/cumm (0.11-0.7)
[2018-10-08 11:39] LABS: ALT 24 U/L (12-78); AST 16 U/L (15-37); Albumin 2.7 g/dL (3.4-5.0); Alkaline Phosphatase 70 U/L (46-116); BUN 5 mg/dL (7-18); Bilirubin, Total 0.4 mg/dL (0.2-1.0); CREATININE 0.57 mg/dL (0.55-1.02); Calcium 8.7 mg/dL (8.5-10.1); Chloride 104 mmol/L (98-107); Glucose 81 mg/dL (70-100); Potassium 3.3 mmol/L (3.5-5.1); Sodium 140 mmol/L (136-145); Total Protein 6.9 g/dL (6.4-8.2)
[2018-10-08] MEDS: Potassium Chloride 10 MEQ TABCR 20 MEQ PO (13:01)
[2018-10-08] MEDS: AZITHROMYCIN 500 MG in Normal Saline 250 ML 250 MG IVPB (13:55)
[2018-10-08] MEDS: Lactated Ringers 500 ML IV (14:00)
[2018-10-08] MEDS: Normal Saline 1,000 ML 150 ML IV (16:20)
--- NOTE | 2018-10-08 16:36 | W.OBCONSULT ---
Date of service: 10/08/18 Time of Service: 16:36 Assessment and Plan (1) Influenza A: Current visit: Yes Status: Acute (2) Pneumonia affecting : Current visit: Yes Status: Acute has completed course tamiflu on iv antibiotics continue to monitor respiratory status nebulizers as ordered if needed she can have IV steroids assessment with FHR q shift- 21 weeks previable History of Present Illness Chief Complaint: influenza superimposed pneumonia Narrative: 28 yo female 21 weeks dx with influenza and given tamiflu in ER she returned today complaining of increased cough fever her xray + pneumonia she has been admitted to the medicine service and has been started on Vancomycin and ceftriaxone nebulizer treatment have been initiated and her O2 sats remain in the high 90's she states her has been otherwise uncomplicated normal survey US and she reports good movement no ctx, no lof Review of Systems Review of Systems All systems reviewed & are unremarkable except as noted in HPI and below PFSH Medical History (Acute) Asthma Breast nodule Contraceptive management Lyme disease Family History Grandfather Essential hypertension Father Prostate cancer Diabetes Social History Smoking/Tobacco Use Status: Current-Occasional tobacco type: cigarettes how long ago did patient quit smoking: pt. states she is quitting while alcohol intake: former (occasional wine socially, none since became ) substance use type: does not use 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 History Menstrual control method: none History History 2 Para 1 Hx # Term Pregnancies 1 Multiple births 0 Hx # Pregnancies 0 Ectopic pregnancies 0 AB induced 0 Hx Number of Living Children 1 AB spontaneous 0 Exam Narrative Exam Narrative: comfortable appearing on room air Const General: cooperative and healthy appearing Neck Neck: normal visual inspection Chest Chest: normal inspection of the chest Resp Effort & Inspection: normal respiratory effort Auscultation: diminished lung sounds (at bases no wheeze no crackles) GI Inspection: normal to inspection Palpation: soft Other: fundus umbilicus +1 uterus nontender + FHT in ER will have RN check FHT q shift Results Last Vital Signs Temp 36.5 C 10/08/18 15:36 Pulse 98 H 10/08/18 15:46 Resp 23 01/31/19 15:19 BP 106/68 10/08/18 15:46 Pulse Ox 98 10/08/18 15:19 Labs : 10/08/18 11:07 10/08/18 11:07 Laboratory Results - last 24 hr 10/08/18 10/08/18 10/08/18 11:07 11:07 11:07 WBC 13.12 H RBC 3.51 L Hgb 11.4 L Hct 32.9 L MCV 93.7 MCH 32.5 MCHC 34.7 RDW 12.4 Plt Count 263 MPV 8.8 Immature Gran % 0.4 Neutrophils % 85.6 Lymphocytes % 6.1 Monocytes % 7.5 Eosinophils % 0.2 Basophils % 0.2 Absolute Neutrophils 11.23 H Absolute Lymphocytes 0.80 L Absolute Monocytes 0.98 H Absolute Eosinophils 0.03 Absolute Basophils 0.03 Sodium 140 Potassium 3.3 L Chloride 104 Carbon Dioxide 26.0 Anion Gap 10.0 BUN 5 L Creatinine 0.57 Estimated GFR/1.73 m2 >= 60.00 Glucose 81 Lactate 1.3 Calcium 8.7 Total Bilirubin 0.4 AST 16 ALT 24 Alkaline Phosphatase 70 Total Protein 6.9 Albumin 2.7 L
--- NOTE | 2018-10-08 17:13 | HPE_ITS ---
Date of service: 10/08/18 Time of Service: 17:12 Assessment and Plan (1) Pneumonia: Current visit: No Status: Acute Post-influenza PNA. With question of a lingular infiltrate on x-ray and leukocytosis in the setting of recent treatment with Tamiflu for Influenza (completed on 10/04/18). CHIROPRACTIC CARE consulted and agrees with treatment with IV Vancomycin and Ceftriaxone, nebulizer treatments as needed, IV steroids and IV fluids. (2) Influenza A: Current visit: No Status: Acute Influenza swab positive on 09/29/18. Completed Tamiflu course on 10/04/18. (3) Hypokalemia: Current visit: No Status: Acute Replete and monitor. (4) : Current visit: No Status: Acute , currently at 21 weeks gestation. OB nursing to assess heart tones q shift. (5) History of gestational hypertension: Current visit: No Status: Acute History of gestational hypertension, on daily ASA per OB provider. (6) DVT prophylaxis: Current visit: No Status: Acute SCDs for mechanical prophylaxis, encourage hydration and ambulation. This case was discussed with Dr. Crow who is in agreement. History of Present Illness Chief Complaint: Cough, fever, body aches Narrative: Isabella Whyte is a very pleasant 28 year old female, currently at 21 weeks gestation, who was recently treated for influenza with Tamiflu times 5 days, treatment ended on 10/04/2018, 4 days ago. She felt better initially until yesterday when she began to have fevers, persistent cough and body aches. She presented back to the emergency department today and was found to have leukocytosis and chest x-ray s ignificant for lingular infiltrate. She was tachycardic after bolus in the ED. She was admitted to the ICU as med/surg overflow, she was started on IV antibiotics including Vanco and Ceftriaxone. She denies shortness of breath, she cannot take deep breaths without coughing. She does not feel wheezy. She continues with nonproductive cough, her chest hurts from coughing. She denies any chest pressure or palpitations. Her appetite is good, she is eating and drinking and tolerating her diet without nausea, vomiting or diarrhea. She reports frequent movement. She denies edema to her extremities. She offers no other complaints. CHIROPRACTIC CARE is consulted and Dr. Llamas has seen her and made recommendations for her treatment. Review of Systems Review of Systems All systems reviewed & are unremarkable except as noted in HPI and below PFSH Medical History (Acute) (Acute) Asthma Breast nodule Contraceptive management Lyme disease Family History Grandfather Essential hypertension Father Prostate cancer Diabetes Social History Smoking/Tobacco Use Status: Current-Occasional tobacco type: cigarettes how long ago did patient quit smoking: pt. 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 History Menstrual control method: none History History 2 Para 1 Hx # Term Pregnancies 1 Multiple births 0 Hx # Pregnancies 0 Ectopic pregnancies 0 AB induced 0 Hx Number of Living Children 1 AB spontaneous 0 Meds Home Medications Medication Instructions Recorded Confirmed Type Proventil HFA 1 - 2 puff INHALATION Q6H PRN 03/08/14 10/08/18 History inhaler vitamin#30 30 mg iron-10 1 cap PO DAILY #90 cap 06/30/18 10/08/18 Rx mg iron-folic acid 1 mg-omg3 capsule aspirin 81 mg tablet,delayed 81 mg PO DAILY #60 tab 07/23/18 10/08/18 Rx release Allergies Allergy/AdvReac Type Severity Reaction Status Date / Time No Known Drug Allergies Allergy Unverified 10/08/18 10:09 Exam Narrative Exam Narrative: General: Sitting up in bed, appears comfortable, speaking in full sentences without shortness of breath, appears fatigued, in no acute distress. HEENT: Normocephalic, atraumatic, pupils equal and round, mucous membranes moist. Neck: Supple, no JVD. Respiratory: Respirations appear unlabored, lungs sound tight and diminished throughout, with few scattered wheezes noted throughout. Cardiovascular: heart has regular rate and rhythm, no murmur appreciated. Abdomen: protuberant/gravid, soft, non-tender on gentle palpation, normoactive bowel sounds. Extremities: well perfused without clubbing, cyanosis or edema. Results Labs : 10/09/18 06:33 10/09/18 06:33 Laboratory Results - last 24 hr 10/08/18 10/08/18 10/08/18 11:07 11:07 11:07 WBC 13.12 H RBC 3.51 L Hgb 11.4 L Hct 32.9 L MCV 93.7 MCH 32.5 MCHC 34.7 RDW 12.4 Plt Count 263 MPV 8.8 Immature Gran % 0.4 Neutrophils % 85.6 Lymphocytes % 6.1 Monocytes % 7.5 Eosinophils % 0.2 Basophils % 0.2 Absolute Neutrophils 11.23 H Absolute Lymphocytes 0.80 L Absolute Monocytes 0.98 H Absolute Eosinophils 0.03 Absolute Basophils 0.03 Sodium 140 Potassium 3.3 L Chloride 104 Carbon Dioxide 26.0 Anion Gap 10.0 BUN 5 L Creatinine 0.57 Estimated GFR/1.73 m2 >= 60.00 Glucose 81 Lactate 1.3 Calcium 8.7 Total Bilirubin 0.4 AST 16 ALT 24 Alkaline Phosphatase 70 Total Protein 6.9 Albumin 2.7 L Last Vital Signs Temp 36.5 C 10/08/18 15:36 Pulse 90 10/08/18 16:30 Resp 23 10/08/18 15:19 BP 107/66 10/08/18 16:30 Pulse Ox 98 10/08/18 15:19
--- NOTE | 2018-10-08 18:04 | NUR.NOTE ---
Pt reports that Dr. Llamas had dropped her cell phone on the floor and now it is broken and does not work. Pt was provided with the ICU room phone.
[2018-10-08] MEDS: methylPREDNISolone SUCC 125 MG VIAL 60 MG IVP (18:22)
[2018-10-09] VITALS (11 sets, daily range): BP systolic 108–125; BP diastolic 60–74; PULSE 84–114; RESP 18–22; TEMP 35.5–36.4; O2SAT 94–99
[2018-10-09] MEDS: methylPREDNISolone SUCC 125 MG VIAL 60 MG IVP ×2 (01:17→10:05)
[2018-10-09] MEDS: Normal Saline 1,000 ML 150 ML IV ×2 (01:18→10:06)
[2018-10-09 07:20] LABS: Abs Immature Grans 0.08 k/cumm (0.0-0.09); Absolute Basophil Count 0.01 k/cumm (0.0-0.2); Absolute Lymphocyte Count 0.71 k/cumm (1.2-3.4); Basophils % 0.1; HCT 29.7 % (36.0-46.0); Immature Grans % 0.7; Lymphocytes % 5.9; Mean Corp. HGB Concentration 33.7 g/dL (32.0-36.0); Mean Corpuscular Hemoglobin 31.5 pg (27.0-33.0); Mean Corpuscular Volume 93.7 fL (80-95); Monocytes % 2.3; Platelet Count 262 x1000/uL (130-400); RBC 3.17 m/cumm (4.00-5.20); RBC Distribution Width 12.3 % (11.7-14.6); White Blood Cell Count 11.98 k/cumm (4.4-10.8)
[2018-10-09 07:21] LABS: Absolute Monocyte Count 0.28 k/cumm (0.11-0.7)
[2018-10-09 07:30] LABS: Anion Gap 8.7 mmol/L (3-11); BUN 3 mg/dL (7-18); CO2 23.3 mmol/L (21.0-32.0); CREATININE 0.46 mg/dL (0.55-1.02); Calcium 8.2 mg/dL (8.5-10.1); Chloride 108 mmol/L (98-107); Glucose 113 mg/dL (70-100); Magnesium 1.6 mg/dL (1.8-2.4); Potassium 3.6 mmol/L (3.5-5.1); Sodium 140 mmol/L (136-145)
[2018-10-09] MEDS: Prenatal Multivitamin w/CA,FE TAB 1 TAB PO (08:35)
[2018-10-09] MEDS: Aspirin E.C. 81 MG TABEC PO (08:35)
[2018-10-09] MEDS: Magnesium Oxide 400 MG TAB 800 MG PO (10:05)
[2018-10-09] MEDS: Potassium Chloride 20 MEQ TABCR 40 MEQ PO (10:05)
--- NOTE | 2018-10-09 10:52 | PDOC.CMIN ---
- If Service Date Differs Date of service: 10/09/18 Time of Service: 10:52 Care Management Initial Assess REASON FOR HOSPITALIZATION:: Pneumonia PAST MEDICAL HISTORY/PAST SURGICAL HISTORY:: Gestational DM, influenza, PREVIOUS FUNCTIONAL STATUS/SOCIAL/FAMILY SUPPORTS:: Isabella lives in [place], [place] with her Grandparents she has a seven year old daughter. Isabella works fulltime at an [employer]. She is indepedent at baseline she receives her care here. CURRENT FUNCTIONAL STATUS:: Isabella is engaged with assesment she states she has been sick for about a week. She thought she was recovering when she developed a cough and body aches. She states today she is feeling better however her cough is bothering her. She states that the baby is moving well. ADVANCE DIRECTIVES:: None on file Has patient been provided with information about the portal?: Yes Did the patient sign up for the portal?: No CODE STATUS:: Full Code INSURANCE COVERAGE / FINANCIAL ISSUES:: Medicaid CURRENT HOME/COMMUNITY SERVICES/EQUIPMENT:: No services PRIMARY CARE PHYSICIAN:: Sherlyn Orlando POTENTIAL DISCHARGE NEEDS:: Follow up appointment with pcp, obgyn, and oral antibiotic PATIENT/FAMILY EDUCATION NEEDS:: Charge education, limitations, follow-up plan of care asked me 3 and self-management. ANTICIPATED BARRIERS TO DISCHARGE:: None identified at this time TRANSPORTATION:: Via private car with self at time of discharge. PLAN:: Isabella is receiving IV antibiotics she will transition to oral antibiotics and be discharged home anticipate this afternoon.
--- NOTE | 2018-10-09 14:32 | DSE_ITS ---
Date of service: 10/09/18 Time of Service: 14:32 DS: Diagnosis Discharge Diagnosis (1) Pneumonia: Status: Acute (2) Influenza A: Status: Acute (3) : Status: Acute (4) DVT prophylaxis: Status: Acute Discharge Plan Disposition Patient Disposition: HOME Condition: Improving Discharge Details Reason For Visit: PNEUMONIA Admit Date/Time: 10/08/18 13:56 Admit Provider: Zac Crow Attending Provider: Zac Crow Primary Care Provider: Sherlyn Orlando Hospital Course Hospital Course: Very pleasant 28 year old woman, admitted from [facility] Emergency Department on 10/08 with a diagnosis of post-influenza pneumonia. Isabella Whyte is currently at 21 weeks gestation, who was recently treated for influenza with Tamiflu times 5 days, with treatment ending on 10/04/2018. She felt improved initially until the day prior to her admission when she began to have fevers, persistent cough and body aches. She presented back to the ED and was found to have leukocytosis and chest x-ray significant for a lingular infiltrate. She was tachycardic as well. Given her presentation she was admitted for further evaluation and treatment. Hospital Course: (1) Pneumonia: Post-influenza PNA, with question of a lingular infiltrate on x-ray and leukocytosis in the setting of recent treatment with Tamiflu for Influenza (completed on 10/04/18). Initially maintained on Vancomycin, Azithromycin, and Ceftriaxone the patient's Vanc was discontinued this morning. This morning Ms. Whyte feels vastly improved. She is no longer tachycardic at rest, but becomes mildly so with ambulation. She has no oxygen requirement at rest or with activity. Her leukocytosis has improved, and she is requesting to go home. She is reporting a very mild rash on her cheeks, which may be a reaction to her medications, but otherwise has no complaints of urticaria, pruritis, tongue swelling, or difficulty breathing. Discussed that optimally she should be monitored overnight, but she is stating that she feels well and is requesting to go home. Plan will be for continuation of antibiotic therapy with Cefpodoxime and Azithromycin. Will also continue relatively low dose prednisone to help with her breathing as well as with the rash in case it is a drug reaction. Asked patient to return to the ED if her symptoms worsened or failed to resolve. Patient is being discharged cautionsly with recommendations to avoid strenuous activity and work, and see her primary care provider or PHARMACIST ASSISTANT within a few days of discharge. Of note, patient was initially started on Vancomycin. However, although she has the diagnosis of post-influenza pneumonia, there was no evidence of severe or necrotizing pneumonia by imaging. Likely does not require MRSA coverage, but will need close monitoring as an outpatient. (2) History of gestational hypertension: Current visit: No Status: Acute History of gestational hypertension, on daily ASA per OB provider. Home Meds and New Rx's Prescriptions: New cefpodoxime 200 mg tablet 200 mg PO BID Qty: 10 RF: 0 azithromycin 250 mg tablet 250 mg PO DAILY Qty: 3 RF: 0 prednisone 10 mg tablet 10 mg PO DAILY Qty: 15 RF: 0 Continued aspirin [Aspir-81] 81 mg tablet,delayed release (DR/EC) 81 mg PO DAILY Qty: 60 RF: 3 Proventil HFA 6.7 GM HFA aerosol inhaler 1 - 2 puff Inhalation Q6H PRN RF: 0 PNV #[id number] [id number] 30 mg iron-10 mg iron-1 mg capsule 1 cap PO DAILY Qty: 90 RF: 4 Discharge Instructions Instructions: Pneumonia (DC) Additional Instructions: Please see either your primary care provider or your OB within the next week. Please complete your antibiotic therapy. Return to the hospital if your symptoms worsen. Activity:: No strenuous activity Equipment/Supplies:: No Equipment Needed Diet:: As Tolerated Discharge Orders Discharge Orders: Discharge Order (Routine); Ordered 10/09/18 Ordered By: Zac Crow Exam Narrative Exam Narrative: General: Patient appears comfortable, AAOX3, NAD Neck: Supple Skin: Fine, mild oval rash over bilateral cheeks, L>R. Appears blanching. Not warm to touch, and does not appear cellulitic. No underlying fluctuance. No other rash over remainder of the body. CV: Regular, nontachycardic, S1S2, No rubs, murmurs, or gallops. Pulmonary: Clear to auscultation bilaterally, no crackles, wheezing, or rhonchi Abdomen: + Bowel Sounds, soft, nontender, nondistended but gravid. Vascular: No lower extremity edema Psych: Normal mood and affect. DS: Data Vitals/I&O Vitals and I&O: Vital Signs Temperature 35.6 C L 10/09/18 12:29 Temperature Source Temporal Artery Scan 10/09/18 12:29 Pulse 114 H 10/09/18 12:29 Pulse Rhythm Regular 10/09/18 08:15 Pulse 107 H 10/08/18 14:40 Respiratory Rate 22 10/09/18 12:29 Respiratory Effort 10/09/18 08:15 Respiratory Depth Normal 10/09/18 08:15 Respiratory Pattern Normal 10/09/18 08:15 Blood Pressure 125/74 10/09/18 12:29 Blood Pressure Mean 87 10/09/18 12:29 Blood Pressure Position Supine 10/09/18 00:05 Pulse Oximetry 99 10/09/18 12:29 Oxygen Delivery Method Room Air 10/09/18 12:29 Oxygen Flow Rate 0 10/09/18 12:29 Pain Level 0 10/09/18 12:29 Intake & Output 10/08/18 10/09/18 10/09/18 23:59 11:59 23:59 Intake Total 2000 / 3000 2380 / 2380 Output Total 1250 / 1250 Balance 2000 / 3000 1130 / 1130 Weight 54.1 kg 54.6 kg Intake: IV 1200 / 2200 2200 / 2200 Oral 800 / 800 180 / 180 Output: Urine 1250 / 1250 Other: Urine Color Yellow Urine Appearance Clear Urine Odor None Comment Void on toilet an unmeasured amount. Void on toilet an unmeasured amount. Voiding Methods Toilet Toilet Completed studies during hospitalization [Text1]: Exam(s) a RAD:XR chest 2V PA & lateral SYMPTOM/DIAGNOSIS: COUGH, FEVER, TACHYCARDIA PA AND LATERAL CHEST: Comparison is made with thoracic spine dated 12/21/09. The heart size is normal. There are streaky densities seen on the PA view overlying the heart shadow which may represent a small infiltrate versus superimposed structures. No effusions are seen. IMPRESSION: Question of a lingular infiltrate. Labs on day of discharge: Labs from last 24 hours 10/09/18 10/09/18 10/09/18 15:00 06:33 06:33 WBC 11.98 H RBC 3.17 L Hgb 10.0 L Hct 29.7 L MCV 93.7 MCH 31.5 MCHC 33.7 RDW 12.3 Plt Count 262 MPV 9.0 Immature Gran % 0.7 Neutrophils % 91.0 Lymphocytes % 5.9 Monocytes % 2.3 Eosinophils % 0.0 Basophils % 0.1 Absolute Neutrophils 10.90 H Absolute Lymphocytes 0.71 L Absolute Monocytes 0.28 Absolute Eosinophils 0.00 Absolute Basophils 0.01 Sodium 140 Potassium 3.6 Chloride 108 H Carbon Dioxide 23.3 Anion Gap 8.7 BUN 3 L Creatinine 0.46 L Estimated GFR/1.73 m2 >= 60.00 Glucose 113 H Calcium 8.2 L Magnesium 1.6 L Vancomycin Trough Cancelled Preliminary micro results at discharge 10/08/18 11:36 Blood Culture - Preliminary Blood NO GROWTH 24 HOURS 10/08/18 11:07 Blood Culture - Preliminary Blood NO GROWTH 24 HOURS PFSH Medical History (Acute) (Acute) Asthma Breast nodule Contraceptive management Lyme disease Family History Grandfather Essential hypertension Father Prostate cancer Diabetes Social History Smoking/Tobacco Use Status: Current-Occasional tobacco type: cigarettes how long ago did patient quit smoking: pt. 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
[2018-10-09] MEDS: AZITHROMYCIN 500 MG in Normal Saline 250 ML 250 MG IVPB (14:34)
== END 2018-10-09 15:30 | disposition home or self-care (01) | DRG 831 ==
LOC: ER 15:09 → ICU 15:16
PROVIDERS: Admitting Provider Internal Medicine; Emergency Provider Student in an Organized Health Care Education/Training Program; PCP Nurse Practitioner; Visit Provider Internal Medicine
DX: O99.512 Diseases of the respiratory system complicating pregnancy, second trimester (principal); J10.00 Influenza due to other identified influenza virus with unspecified type of pneumonia; Z3A.21 21 weeks gestation of pregnancy; R00.0 Tachycardia, unspecified; L27.1 Localized skin eruption due to drugs and medicaments taken internally; O09.292 Supervision of pregnancy with other poor reproductive or obstetric history, second trimester; O99.332 Smoking (tobacco) complicating pregnancy, second trimester; O99.282 Endocrine, nutritional and metabolic diseases complicating pregnancy, second trimester; Z79.2 Long term (current) use of antibiotics; Z72.0 Tobacco use; E87.6 Hypokalemia
CPT/HCPCS: 36415; 80048; 80053; 87040; 96361; 96365; 96367; 99222; 99239; 99254; 99285; 71046; 80202; 83605; 83735; 85025; J0456; J0696; J2930

== ENCOUNTER 2018-11-11 12:14 | Emergency (ER) | payer MEDICAID, SELFPAY ==
[2018-11-11 12:27] VITALS: BP 120/64; PULSE 98; RESP 16; TEMP 36.6; O2SAT 100
[2018-11-11 12:42] VITALS: BP 115/68; PULSE 100
--- NOTE | 2018-11-11 13:01 | W.ED.GENAD ---
Discharge Plan Disposition Patient Disposition: HOME Condition: Good Discharge Details Chief Complaint: Cellulitis Clinical Impression: , Bilateral leg edema, Skin irritation Primary Care Provider: Sherlyn Orlando ED Provider: Sudhir Ybarra Meds and New Rx's Prescriptions: Continued aspirin [Aspir-81] 81 mg tablet,delayed release (DR/EC) 81 mg PO DAILY Qty: 60 RF: 3 albuterol sulfate [Proventil HFA] 6.7 GM HFA aerosol inhaler 1 - 2 puff Inhalation Q6H PRN RF: 0 PNV #[id number] 30 mg iron-10 mg iron-1 mg capsule 1 cap PO DAILY Qty: 90 RF: 4 Discharge Instructions Additional Instructions: Leave the bellybutton ring out. I think this is more irritation than infection. Would keep area clean with peroxide/water and apply antibiotic ointment. If seems to be worse with increased pain, redness, drainage follow-up with primary care or return to ED. Try to keep the legs elevated as much as possible. Your blood pressure was fine here. Your urine looked good but after discussion with brewery representative I have added another lab. They will contact you later today with the results and instructions for follow up. Referrals: Lyn Knowles CNM [[facility] NURSE AUTO DESIGN CHECKER] - Sherlyn Orlando [Primary Care Provider] - Medical Decision Making Bellybutton ring removed by me without difficulty. There is mild erythema more consistent with irritation than infection. There is no drainage or discharge. There is no fluctuance. Recommend keeping clean with hydrogen peroxide and water and applying bacitracin and seeing out does over the next few days. In regards to her bilateral lower extremity and ankle edema it is about 1+. Her blood pressure is normal. She has no headache or visual change. heart rate found to be in the 150 range. Will check urinalysis. Will discuss with brewery representative on-call. Urinalysis is negative there is no protein present. Patient discussed with brewery representative. Protein to creatinine ratio added to the urine. Patient discussed with brewery representative. She can be discharged and brewery representative will follow up on results of protein/creatinine and call the patient. Lab Data Lab results reviewed: Yes I reviewed the patient's lab results. HPI General Mode of arrival: ambulatory. Date/Time Provider Initiated Documentation: 11/11/18 12:33. Limitations to Documentation: no limitations. Information obtained by: patient. HPI Narrative: Patient presents to ED because of pain and some redness in the area of her bellybutton ring. She has been unable to remove it. She has had no fever. She is 26 weeks . She has had some increased leg and ankle swelling. She has had some tightening in the pelvic region. She does not think she has had contractions. She has had no discharge or bleeding. She has no change in vision or headache. Related Data Home Medications Medication Instructions Recorded Confirmed albuterol sulfate [Proventil HFA] 1 - 2 puff INHALATION Q6H PRN 03/08/14 11/11/18 inhaler vitamin#30 30 mg iron-10 1 cap PO DAILY #90 cap 06/30/18 11/11/18 mg iron-folic acid 1 mg-omg3 capsule aspirin 81 mg tablet,delayed 81 mg PO DAILY #60 tab 07/23/18 11/11/18 release Previous Rx's Medication Instructions Recorded vitamin#30 30 mg iron-10 1 cap PO DAILY #90 cap 06/30/18 mg iron-folic acid 1 mg-omg3 capsule aspirin 81 mg tablet,delayed 81 mg PO DAILY #60 tab 07/23/18 release Allergies Allergy/AdvReac Type Severity Reaction Status Date / Time No Known Drug Allergies Allergy Unverified 11/11/18 12:30 General Stated Complaint: Cellulitis SURENDRA: 4 Review of Systems Constitutional Denies chills and Denies fever(s) Cardiovascular Denies chest pain, Denies syncope, Reports leg edema and Denies dyspnea Respiratory Denies cough and Denies dyspnea Gastrointestinal Denies abdominal pain, Denies diarrhea, Denies nausea and Denies vomiting Genitourinary Denies abnormal vaginal bleeding, Denies dysuria, Reports pelvic pain (Tightening but not specific contractions) and Denies flank pain Integumentary/Breasts Reports erythema and Denies rash Comments: Minimal erythema at site of bellybutton ring. Neurologic Denies syncope [facility] Medical History (Acute) Asthma (Chronic) Breast nodule (Chronic) Contraceptive management (Chronic) Lyme disease (Chronic) Social History Smoking and Tabacco status: Current-Occasional tobacco type: cigarettes how long ago did patient quit smoking: pt. 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 No tenderness. Skin Other: Bellybutton ring removed by me without any difficulty. There is no drainage or discharge. There is mild erythema on one side of the entrance. There is no fluctuance. Neuro General: alert, oriented x3, gait normal, no focal motor deficits and CN's II-XI intact bilaterally Gait: normal gait Motor: muscle tone normal throughout Extrem General: no calf tenderness and edema (Bilateral ankle and lower extremity edema 1+) Course Vital Signs Temperature 97.9 F 11/11/18 12:27 Pulse 98 H 11/11/18 12:27 Respiratory Rate 16 11/11/18 12:27 Blood Pressure 120/64 11/11/18 12:27 Pulse Oximetry 100 11/11/18 12:27 Temperature 97.9 F 11/11/18 12:27 Temperature Source Temporal Artery Scan 11/11/18 12:27 Pulse 100 H 11/11/18 12:42 Respiratory Rate 16 11/11/18 12:27 Blood Pressure 115/68 11/11/18 12:42 Blood Pressure Position Sitting 11/11/18 12:27 Pulse Oximetry 100 11/11/18 12:27 Oxygen Delivery Method Room Air 11/11/18 12:27 Oxygen Flow Rate 0 11/11/18 12:27 Pain Level 5 11/11/18 12:27
[2018-11-11 13:37] LABS: Bilirubin Negative (Negative); Blood Negative (Negative); Clarity Clear; Glucose Negative (Negative); Ketones Negative (Negative); Leukocyte Esterase Negative (Negative); Nitrite Negative (Negative); Urobilinogen 0.2 EU/dL (Up TO 0.2)
[2018-11-11 15:02] LABS: PROTEIN < 6.0 mg/dL
[2018-11-11 15:07] LABS: COMMENT (LAB VIEW ONLY) 30.64 mg/dL
== END 2018-11-11 14:50 | disposition home or self-care (01) ==
PROVIDERS: Emergency Provider Emergency Medicine; PCP Nurse Practitioner
DX: O12.02 Gestational edema, second trimester (principal); L98.9 Disorder of the skin and subcutaneous tissue, unspecified; Z3A.26 26 weeks gestation of pregnancy
CPT/HCPCS: 99284; 81003; 82565; 84156

== ENCOUNTER 2018-11-17 10:34 | Outpatient (CLI) | payer MEDICAID, SELFPAY | END 2018-11-17 10:54 | PROVIDERS: PCP Nurse Practitioner; Visit Provider Advanced Practice Midwife | DX: O26.893 Other specified pregnancy related conditions, third trimester (principal); R51 Headache; O09.293 Supervision of pregnancy with other poor reproductive or obstetric history, third trimester; Z3A.29 29 weeks gestation of pregnancy | CPT/HCPCS: 59025; 87480; 87510; 87660 ==

== ENCOUNTER 2018-11-19 11:57 | Outpatient (CLI) | payer MEDICAID, SELFPAY ==
[2018-11-19 13:01] LABS: Glucose,1 Hr (Glucola) 107 mg/dL (80-140)
== END 2018-11-19 12:17 ==
PROVIDERS: Advanced Practice Midwife; PCP Nurse Practitioner; Visit Provider Advanced Practice Midwife
DX: Z34.92 Encounter for supervision of normal pregnancy, unspecified, second trimester (principal)
CPT/HCPCS: 36415; 82950

== ENCOUNTER 2018-11-24 07:18 | Outpatient (CLI) | payer MEDICAID, SELFPAY ==
--- NOTE | 2018-11-24 08:33 | DI.US_ITS ---
SYMPTOM/DIAGNOSIS: FLANK PAIN AT 28 WEEKS GESTATION R10.9 RENAL ULTRASOUND: The right kidney measures 10.5 cm. The left kidney 10.6 cm. There is normal cortical thickness. There is no evidence of a cyst, mass, nephrolithiasis or hydronephrosis. The Pre-void bladder contains 104 cc. The post-void bladder contains -0- The left ureteral jet was visualized. The right ureteral jet is not seen. SUMMARY: Normal renal ultrasound.
== END 2018-11-24 07:38 ==
PROVIDERS: PCP Nurse Practitioner; Visit Provider Advanced Practice Midwife
DX: R10.84 Generalized abdominal pain (principal); Z34.93 Encounter for supervision of normal pregnancy, unspecified, third trimester
CPT/HCPCS: 76770

== ENCOUNTER 2018-12-04 01:09 | Observation (INO) | payer MEDICAID, SELFPAY ==
[2018-12-04] MEDS: Butalbital/Acetaminophen/Caffeine 50/325/40 TAB PO (02:40)
[2018-12-04] MEDS: Promethazine 25 MG TAB PO (02:40)
[2018-12-04 02:45] LABS: HCT 26.5 % (36.0-46.0); HGB 9.1 g/dL (12.0-15.5); Mean Corp. HGB Concentration 34.3 g/dL (32.0-36.0); Mean Corpuscular Hemoglobin 30.7 pg (27.0-33.0); Mean Corpuscular Volume 89.5 fL (80-95); Mean Platelet Volume 8.8 fL (8.0-11.0); Platelet Count 209 x1000/uL (130-400); RBC 2.96 m/cumm (4.00-5.20); RBC Distribution Width 11.6 % (11.7-14.6); White Blood Cell Count 7.24 k/cumm (4.4-10.8)
[2018-12-04] MEDS: Aspirin 81 MG CHEW CH (02:46)
[2018-12-04 02:57] LABS: ALT 11 U/L (12-78); AST 12 U/L (15-37); Albumin 2.6 g/dL (3.4-5.0); Alkaline Phosphatase 81 U/L (46-116); Bilirubin, Direct 0.06 mg/dL (0.00-0.20); Bilirubin, Total 0.2 mg/dL (0.2-1.0); Total Protein 6.1 g/dL (6.4-8.2); Uric Acid 2.5 mg/dL (2.6-6.0)
[2018-12-04 03:41] LABS: PROTEIN < 6.0 mg/dL
[2018-12-04 03:47] LABS: COMMENT (LAB VIEW ONLY) 50.65 mg/dL
== END 2018-12-04 04:04 | disposition home or self-care (01) ==
LOC: OBS 01:22
PROVIDERS: Admitting Provider Advanced Practice Midwife; PCP Nurse Practitioner; Visit Provider Advanced Practice Midwife
DX: O26.893 Other specified pregnancy related conditions, third trimester (principal); R51 Headache; Z3A.29 29 weeks gestation of pregnancy
CPT/HCPCS: 36415; 80076; 85027; 82565; 84156; 84550; G0378

== ENCOUNTER 2018-12-31 02:20 | Outpatient (RCR) | payer MEDICAID, SELFPAY ==
[2018-12-24] MEDS: Normal Saline Flush 10 ML SYR IVP (11:04)
[2018-12-24] MEDS: IRON SUCROSE COMPLEX 200 MG in Normal Saline 100 ML 110 MG IVPB (11:04)
[2018-12-31] MEDS: Normal Saline Flush 10 ML SYR IVP (11:15)
[2018-12-31] MEDS: IRON SUCROSE COMPLEX 200 MG in Normal Saline 100 ML 110 MG IVPB (11:29)
== END 2019-01-05 23:59 | disposition home or self-care (01) ==
LOC: INF 02:20
PROVIDERS: PCP Nurse Practitioner; Visit Provider Advanced Practice Midwife
DX: O99.013 Anemia complicating pregnancy, third trimester (principal); Z3A.33 33 weeks gestation of pregnancy
CPT/HCPCS: 96365; J1756

== ENCOUNTER 2019-01-05 14:17 | Emergency (ER) | payer MEDICAID, SELFPAY ==
[2019-01-05 14:23] VITALS: BP 121/79; PULSE 102; RESP 16; TEMP 36.6; O2SAT 100
--- NOTE | 2019-01-05 14:33 | W.ED.GENAD ---
Discharge Plan Disposition Patient Disposition: HOME Condition: Good Discharge Details Chief Complaint: Headache Clinical Impression: Headache Primary Care Provider: Iliana Pradhan ED Provider: J Carlos Hutchison Home Meds and New Rx's Prescriptions: No Action aspirin [Aspir-81] 81 mg tablet,delayed release (DR/EC) 81 mg PO DAILY Qty: 60 RF: 3 Flintstones Complete (iron) tablet,chewable 1 tab PO DAILY RF: 0 albuterol sulfate [Proventil HFA] 6.7 GM HFA aerosol inhaler 1 - 2 puff Inhalation Q6H PRN RF: 0 Discharge Instructions Instructions: General Headache (ED) Additional Instructions: Please drink 10 to 12 cups of water per day. Take Tylenol as needed for the headache. If you notice any worsening of your symptoms, or any new symptoms such as vomiting, diarrhea, fever, chills, shortness of breath, chest pain, numbness, weakness, or fainting , please return immediately to the emergency department for reevaluation. Please follow up with your primary care provider as soon as possible for reassessment and reevaluation. As always, it was a pleasure participating in your medical care today. Discharge Data Discharge Date/Time-TO BE ENTERED AT DEPARTURE: 01/05/19 16:33 Medical Decision Making This is a very pleasant 28-year-old female who is currently 34 weeks with a past medical history of eclampsia during her last who presents today for headache. It was gradual in onset, it is behind her eyes, she describes it as achy. No concerning red flags of history of clots, history of aneurysm, fever, or neck pain. Neurologic exam is normal. Physical exam is benign and notably reassuring. Ultrasound ophthalmologic exam shows no evidence of retinal detachment or papilledema. Signs and symptoms appear clinically inconsistent with intracranial hemorrhage or aneurysm, venous sinus thrombosis, or stroke. Signs and symptoms appear consistent with a mild headache, most likely migraine. We will rehydrate, give Reglan and acetaminophen. She is driving herself and so we will hold off on Benadryl at this time. 3:59 PM Patient's headache has resolved completely. She is feeling much better and would like to go home. There is still pending urinalysis results. With benign-appearing blood pressure, if her protein is normal they feel that she can be safely discharged home. Clinically she shows no signs or symptoms concerning for preeclampsia or severe collapse at this time. I feel her headache is most likely secondary to mild dehydration and migraine. 4:07 PM Patient does demonstrate 30 mg/dL protein, in the setting of normal blood pressure. No signs of severe preeclampsia. Recommend close and prompt follow-up with her obstetrics ed special education teacher. I have extensively reviewed the treatment plan and discharge instructions with the patient. I have addressed all patient concerns at this time. The patient was made aware of what symptoms to monitor for that would warrant a return to the emergency department. Discussed the plan with the patient, they demonstrate verbal understanding and agreement with our assessment and plan at this time. HPI General Date/Time Provider Initiated Documentation: 01/05/19 14:18. HPI Narrative: This is a very pleasant 28-year-old female who is currently 34 weeks with a past medical history eclampsia during her last who presents today for evaluation of headache. Headache started at 2 AM, it was gradual in onset and development. It was not thunderclap in origin. She states that it is gradually continued throughout the day and is not gone away with fluids or rehydration. She describes it as an achy-like sensation behind her eyes. It is not severe nor is it the worst headache of her life. She denies any associated red flags of neck pain, neck stiffness. She does admit to seeing some zigzags in her vision and which she calls crescent movements which seem to come and go. She has had headaches like this previously in the past. He denies any history of blood clots in the past. The patient denies any headache red flags of worst headache of life, thunderclap headache, neck pain, fever, chills, concerning family history of polycystic kidney disease, Marfan syndrome, Mario-Danlos syndrome, abdominal aortic aneurysm, aortic dissection, or intracranial aneurysm. Related Data Home Medications Medication Instructions Recorded Confirmed albuterol sulfate [Proventil HFA] 1 - 2 puff INHALATION Q6H PRN 03/08/14 01/05/19 inhaler aspirin 81 mg tablet,delayed 81 mg PO DAILY #60 tab 07/23/18 01/05/19 release pediatric multivitamin with iron 1 tab PO DAILY 12/17/18 01/05/19 and other minerals chewable tablet Previous Rx's Medication Instructions Recorded aspirin 81 mg tablet,delayed 81 mg PO DAILY #60 tab 07/23/18 release Allergies Allergy/AdvReac Type Severity Reaction Status Date / Time No Known Drug Allergies Allergy Unverified 01/05/19 14:52 General SURENDRA: 4 Review of Systems Review of Systems All systems reviewed & are unremarkable except as noted in HPI and below PFSH Medical History Back pain affecting (Chronic) Anemia affecting second (Acute) Vaginal discharge (Acute 06/10/14) Asthma (Chronic) Breast nodule (Chronic) Contraceptive management (Chronic) Lyme disease (Chronic) Social History Smoking/Tobacco Use Status: Current-Occasional Tobacco Type: cigarettes Alcohol Intake: former Drug use: Never Substance use type: does not use Do you feel safe in your relationship?: Yes 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 Date GA/Weeks # Outcome Route Wgt Sex Labor Lgth Anesthesia Location Prov Complic 05/26/11 No Successful vaginal 3.544 kg Female 10 Delivery Date: 05/26/11 On 07/23/18 @ 13:41 Amada Blanton IOL for gestational HTN, pitocin, unmedicated , 2 hrs of pushing Exam Narrative Exam Narrative: 1.Const: Well-nourished, Well-developed, appearing stated age 2.Eyes: PERRL, no conjunctival injection, and symmetrical lids. 3.ENT: Atraumatic external nose and ears. Moist MM. Neck: Symmetric, trachea midline, No thyromegaly. Patient demonstrates good movement of cervical neck. There is no nuchal rigidity, no nuchal tenderness. Patient is able to flex the neck without any difficulty or significant pain. Negative Kernig's and Brudzinski sign. 4.CVS: +S1/S2, No murmurs or gallops. Peripheral pulses 2+ and equal in all extremities. Brisk capillary refill in all extremities. 5.RESP: Unlabored respiratory effort. Clear to auscultation bilaterally. No wheezes rales or rhonchi 6.GI: Soft, Nontender/Nondistended, No hepatosplenomegaly. No guarding or rebound. 7.MSK: Normocephalic/Atraumatic, Extremities w/o deformity or ttp No cyanosis or clubbing, Normal movement of all extremities 8.Skin: Warm, Dry. No rashes or lesions. 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 Sensation grossly intact, no focal neurologic deficits. All 6 cardinal planes of vision are fully intact. No evidence of rotatory or vertical nystagmus. The patient demonstrated a normal [id number], good dexterity. There was no evidence of dysdiadochokinesia. Patient was able to ambulate without difficulty. There was no wide-based gait. Romberg, and [id number] are both normal on testing. Sensation was intact bilaterally as well as muscle strength bilaterally for all extremities. Patient was able to verbalize butter cup with no slurring, or miss pronunciation. 10.Psych: (AAO) x3. Appropriate mood and affect
--- NOTE | 2019-01-05 14:38 | ED.GENADUL_ITS ---
Discharge Plan Disposition Patient Disposition: HOME Condition: Good Discharge Details Chief Complaint: Headache Clinical Impression: Headache Primary Care Provider: Iliana Pradhan ED Provider: J Carlos Hutchison Home Meds and New Rx's Prescriptions: No Action aspirin [Aspir-81] 81 mg tablet,delayed release (DR/EC) 81 mg PO DAILY Qty: 60 RF: 3 Flintstones Complete (iron) tablet,chewable 1 tab PO DAILY RF: 0 albuterol sulfate [Proventil HFA] 6.7 GM HFA aerosol inhaler 1 - 2 puff Inhalation Q6H PRN RF: 0 Discharge Instructions Instructions: General Headache (ED) Additional Instructions: Please drink 10 to 12 cups of water per day. Take Tylenol as needed for the headache. If you notice any worsening of your symptoms, or any new symptoms such as vomiting, diarrhea, fever, chills, shortness of breath, chest pain, numbness, weakness, or fainting , please return immediately to the emergency department for reevaluation. Please follow up with your primary care provider as soon as possible for reassessment and reevaluation. As always, it was a pleasure participating in your medical care today. Discharge Data Discharge Date/Time-TO BE ENTERED AT DEPARTURE: 01/05/19 16:33 Medical Decision Making This is a very pleasant 28-year-old female who is currently 34 weeks with a past medical history of eclampsia during her last who presents today for headache. It was gradual in onset, it is behind her eyes, she describes it as achy. No concerning red flags of history of clots, history of aneurysm, fever, or neck pain. Neurologic exam is normal. Physical exam is benign and notably reassuring. Ultrasound ophthalmologic exam shows no evidence of retinal detachment or papilledema. Signs and symptoms appear clinically inconsistent with intracranial hemorrhage or aneurysm, venous sinus thrombosis, or stroke. Signs and symptoms appear consistent with a mild headache, most likely migraine. We will rehydrate, give Reglan and acetaminophen. She is driving herself and so we will hold off on Benadryl at this time. 3:59 PM Patient's headache has resolved completely. She is feeling much better and would like to go home. There is still pending urinalysis results. With benign-appearing blood pressure, if her protein is normal they feel that she can be safely discharged home. Clinically she shows no signs or symptoms concerning for preeclampsia or severe collapse at this time. I feel her headache is most likely secondary to mild dehydration and migraine. 4:07 PM Patient does demonstrate 30 mg/dL protein, in the setting of normal blood pressure. No signs of severe preeclampsia. Recommend close and prompt follow- up with her obstetrics rn clinical quality. I have extensively reviewed the treatment plan and discharge instructions with the patient. I have addressed all patient concerns at this time. The patient was made aware of what symptoms to monitor for that would warrant a return to the emergency department. Discussed the plan with the patient, they demonstrate verbal understanding and agreement with our assessment and plan at this time. HPI General Date/Time Provider Initiated Documentation: 01/05/19 14:18 . HPI Narrative: This is a very pleasant 28-year-old female who is currently 34 weeks with a past medical history eclampsia during her last who presents today for evaluation of headache. Headache started at 2 AM, it was gradual in onset and development. It was not thunderclap in origin. She states that it is gradually continued throughout the day and is not gone away with fluids or rehydration. She describes it as an achy-like sensation behind her eyes. It is not severe nor is it the worst headache of her life. She denies any associated red flags of neck pain, neck stiffness. She does admit to seeing some zigzags in her vision and which she calls crescent movements which seem to come and go. She has had headaches like this previously in the past. He denies any history of blood clots in the past. The patient denies any headache red flags of worst headache of life, thunderclap headache, neck pain, fever, chills, concerning family history of polycystic kidney disease, Marfan syndrome, Mario- Danlos syndrome, abdominal aortic aneurysm, aortic dissection, or intracranial aneurysm. Related Data Home Medications Medication Instructions Recorded Confirmed albuterol sulfate [Proventil HFA] 1 - 2 puff INHALATION Q6H PRN 03/08/14 01/05/19 inhaler aspirin 81 mg tablet,delayed 81 mg PO DAILY #60 tab 07/23/18 01/05/19 release pediatric multivitamin with iron 1 tab PO DAILY 12/17/18 01/05/19 and other minerals chewable tablet Previous Rx's Medication Instructions Recorded aspirin 81 mg tablet,delayed 81 mg PO DAILY #60 tab 07/23/18 release Allergies Allergy/AdvReac Type Severity Reaction Status Date / Time No Known Drug Allergies Allergy Unverified 01/05/19 14:52 General SURENDRA: 4 Review of Systems Review of Systems All systems reviewed & are unremarkable except as noted in HPI and below PFSH Medical History Back pain affecting (Chronic) Anemia affecting second (Acute) Vaginal discharge (Acute 06/10/14) Asthma (Chronic) Breast nodule (Chronic) Contraceptive management (Chronic) Lyme disease (Chronic) Social History Smoking/Tobacco Use Status: Current-Occasional Tobacco Type: cigarettes Alcohol Intake: former Drug use: Never Substance use type: does not use Do you feel safe in your relationship?: Yes 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 Date GA/Weeks # Outcome Route Wgt Sex Labor Lgth Anesthesia Location Prov Complic 05/26/11 No Successful vaginal 3.544 kg Female 10 Delivery Date: 05/26/11 On 07/23/18 @ 13:41 Amada Blanton IOL for gestational HTN, pitocin, unmedicated , 2 hrs of pushing Exam Narrative Exam Narrative: 1.Const: Well-nourished, Well-developed, appearing stated age 2.Eyes: PERRL, no conjunctival injection, and symmetrical lids. 3.ENT: Atraumatic external nose and ears. Moist MM. Neck: Symmetric, trachea midline, No thyromegaly. Patient demonstrates good movement of cervical neck. There is no nuchal rigidity, no nuchal tenderness. Patient is able to flex the neck without any difficulty or significant pain. Negative Kernig's and Brudzinski sign. 4.CVS: +S1/S2, No murmurs or gallops. Peripheral pulses 2+ and equal in all extremities. Brisk capillary refill in all extremities. 5.RESP: Unlabored respiratory effort. Clear to auscultation bilaterally. No wheezes rales or rhonchi 6.GI: Soft, Nontender/Nondistended, No hepatosplenomegaly. No guarding or rebound. 7.MSK: Normocephalic/Atraumatic, Extremities w/o deformity or ttp No cyanosis or clubbing, Normal movement of all extremities 8.Skin: Warm, Dry. No rashes or lesions. 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 Sensation grossly intact, no focal neurologic deficits. All 6 cardinal planes of vision are fully intact. No evidence of rotatory or vertical nystagmus. The patient demonstrated a normal fqovrt-gkvr-dcfeuv, good dexterity. There was no evidence of dysdiadochokinesia. Patient was able to ambulate without difficulty. There was no wide-based gait. Romberg, and ebpd-jw-[id number] are both normal on testing. Sensation was intact bilaterally as well as muscle strength bilaterally for all extremities. Patient was able to verbalize butter cup with no slurring, or miss pronunciation. 10.Psych: (AAO) x3. Appropriate mood and affect
[2019-01-05] MEDS: Normal Saline 1,000 ML 1000 ML IV (14:45)
[2019-01-05] MEDS: Metoclopramide 10 MG/2 ML VIAL IVP (14:50)
[2019-01-05] MEDS: Acetaminophen 500 MG TAB 1000 MG PO (14:50)
[2019-01-05 16:02] LABS: Bilirubin Negative (Negative); Blood Negative (Negative); Clarity Clear; Glucose 100 mg/dL (Negative); Ketones Trace mg/dL (Negative); Leukocyte Esterase Negative (Negative); Nitrite Negative (Negative); Specific Gravity >= 1.030 (1.005-1.025); pH 6.5 (5-8)
[2019-01-05 16:18] LABS: Epithelial Cells Few HPF (Negative); RBC 0-2 (0-2)
[2019-01-05 16:19] LABS: Bacteria Negative HPF (Negative); C & S Indicated? No; Casts Negative LPF (Negative); Crystals Mod Calcium Oxalate HPF (Negative); Mucus Moderate (Negative)
== END 2019-01-05 16:33 | disposition home or self-care (01) ==
PROVIDERS: Emergency Provider Student in an Organized Health Care Education/Training Program; PCP Nurse Practitioner Family
DX: O99.89 Other specified diseases and conditions complicating pregnancy, childbirth and the puerperium (principal); R51 Headache; Z3A.34 34 weeks gestation of pregnancy
CPT/HCPCS: 96361; 96374; 99284; 81003; 81015; J2765

== ENCOUNTER 2019-01-07 16:06 | Outpatient (CLI) | payer MEDICAID, SELFPAY ==
[2019-01-07 16:50] LABS: Mean Corp. HGB Concentration 32.3 g/dL (32.0-36.0); Mean Corpuscular Hemoglobin 29.9 pg (27.0-33.0); Mean Corpuscular Volume 92.5 fL (80-95); Mean Platelet Volume 9.2 fL (8.0-11.0); Platelet Count 198 x1000/uL (130-400); RBC 3.35 m/cumm (4.00-5.20); RBC Distribution Width 14.6 % (11.7-14.6)
[2019-01-07 17:09] LABS: PROTEIN 13.3 mg/dL
[2019-01-07 17:33] LABS: COMMENT (LAB VIEW ONLY) 29.73 mg/dL; Prot/Crea Ur Ratio 0.44
[2019-01-07 17:46] LABS: ALT 13 U/L (12-78); AST 10 U/L (15-37); Albumin 2.7 g/dL (3.4-5.0); Alkaline Phosphatase 125 U/L (46-116); Bilirubin, Total 0.2 mg/dL (0.2-1.0); CREATININE 0.54 mg/dL (0.55-1.02)
[2019-01-07 17:56] LABS: Bilirubin, Direct 0.05 mg/dL (0.00-0.20); Uric Acid 2.7 mg/dL (2.6-6.0)
== END 2019-01-07 16:26 ==
PROVIDERS: PCP Nurse Practitioner Family; Visit Provider Advanced Practice Midwife
DX: Z34.93 Encounter for supervision of normal pregnancy, unspecified, third trimester (principal)
CPT/HCPCS: 36415; 80076; 85027; 82565; 84156; 84550

== ENCOUNTER 2019-01-10 05:50 | Outpatient (REF) | payer MEDICAID, SELFPAY ==
[2019-01-11 10:44] LABS: Creatinine,Urine 76.48 mg/dL; PROTEIN 16.2 mg/dL (0.0-11.9)
[2019-01-11 10:46] LABS: Creatinine,24hr Ur 1.07 g/24hr (0.60-1.80); Total Volume 1400 ml
[2019-01-11 10:47] LABS: TOTAL PROTEIN,URINE TIMED 226.8 mg/24hr (0.0-149.1); Total Volume 1400 ml
== END 2019-01-10 06:10 ==
LOC: LBN 05:50
PROVIDERS: PCP Nurse Practitioner Family; Visit Provider Advanced Practice Midwife
DX: Z34.93 Encounter for supervision of normal pregnancy, unspecified, third trimester (principal)
CPT/HCPCS: 81050; 82570; 84155

== ENCOUNTER 2019-01-20 15:22 | Outpatient (CLI) | payer MEDICAID, SELFPAY ==
[2019-01-20 15:47] LABS: HCT 33.1 % (36.0-46.0); HGB 10.8 g/dL (12.0-15.5); Mean Corp. HGB Concentration 32.6 g/dL (32.0-36.0); Mean Corpuscular Hemoglobin 30.6 pg (27.0-33.0); Mean Corpuscular Volume 93.8 fL (80-95); Mean Platelet Volume 8.9 fL (8.0-11.0); Platelet Count 152 x1000/uL (130-400); RBC 3.53 m/cumm (4.00-5.20); RBC Distribution Width 15.7 % (11.7-14.6); White Blood Cell Count 6.47 k/cumm (4.4-10.8)
[2019-01-20 16:05] LABS: ALT 19 U/L (12-78); AST 13 U/L (15-37); Albumin 2.7 g/dL (3.4-5.0); Alkaline Phosphatase 135 U/L (46-116); Bilirubin, Total 0.1 mg/dL (0.2-1.0); CREATININE 0.42 mg/dL (0.55-1.02); Total Protein 6.1 g/dL (6.4-8.2); Uric Acid 3.5 mg/dL (2.6-6.0)
[2019-01-20 16:17] LABS: Bilirubin, Direct < 0.05 mg/dL (0.00-0.20)
[2019-01-20 18:38] LABS: PROTEIN 15.5 mg/dL
[2019-01-20 18:54] LABS: *AMPHETAMINES SCREEN URINE Negative (Negative); *BARBITURATES SCREEN URINE POSITIVE (Negative); *BENZODIAZEPINES SCREEN URINE Negative (Negative); Cannabinoids THC Negative (Negative); Cocaine Screen,Urine Negative (Negative); METHADONE URINE SCREEN Negative (Negative); OPIATES URINE SCREEN Negative (Negative)
[2019-01-20 19:13] LABS: Tricyclic Antidepressants Negative (Negative)
[2019-01-20 19:46] LABS: COMMENT (LAB VIEW ONLY) 69.56 mg/dL; Prot/Crea Ur Ratio 0.22
[2019-01-25 11:03] LABS: Buprenorphine Negative; Norbuprenorphine Negative
== END 2019-01-20 15:42 ==
PROVIDERS: PCP Nurse Practitioner Family; Visit Provider Advanced Practice Midwife
DX: O99.013 Anemia complicating pregnancy, third trimester (principal); Z87.59 Personal history of other complications of pregnancy, childbirth and the puerperium; Z34.93 Encounter for supervision of normal pregnancy, unspecified, third trimester; Z36.85 Encounter for antenatal screening for Streptococcus B
CPT/HCPCS: 36415; 80076; 80307; 85027; 82565; 84156; 84550; 87081

== ENCOUNTER 2019-01-23 10:15 | Outpatient (CLI) | payer MEDICAID, SELFPAY | END 2019-01-23 10:35 | PROVIDERS: PCP Nurse Practitioner Family; Visit Provider Advanced Practice Midwife | DX: R69 Illness, unspecified (principal) | CPT/HCPCS: 99211 ==

== ENCOUNTER 2019-02-03 01:50 | Outpatient (RCR) | payer MEDICAID, SELFPAY ==
[2019-01-08] MEDS: Normal Saline Flush 10 ML SYR IVP (10:57)
[2019-01-08] MEDS: IRON SUCROSE COMPLEX 200 MG in Normal Saline 100 ML 110 MG IVPB (10:57)
[2019-01-13] MEDS: Normal Saline Flush 10 ML SYR IVP (11:17)
[2019-01-13] MEDS: IRON SUCROSE COMPLEX 200 MG in Normal Saline 100 ML 110 MG IVPB (11:17)
[2019-01-20] MEDS: Normal Saline Flush 10 ML SYR IVP (11:22)
[2019-01-20] MEDS: IRON SUCROSE COMPLEX 200 MG in Normal Saline 100 ML 110 MG IVPB (11:22)
[2019-01-27] MEDS: IRON SUCROSE COMPLEX 200 MG in Normal Saline 100 ML 110 MG IVPB (11:17)
[2019-01-27] MEDS: Normal Saline Flush 10 ML SYR IVP (11:17)
[2019-02-03] MEDS: IRON SUCROSE COMPLEX 200 MG in Normal Saline 100 ML 110 MG IVPB (13:20)
[2019-02-03] MEDS: Normal Saline Flush 10 ML SYR IVP (13:21)
== END 2019-02-05 23:59 | disposition home or self-care (01) ==
LOC: INF 01:50
PROVIDERS: PCP Nurse Practitioner Family; Visit Provider Advanced Practice Midwife
DX: O99.013 Anemia complicating pregnancy, third trimester (principal); Z87.59 Personal history of other complications of pregnancy, childbirth and the puerperium; Z34.93 Encounter for supervision of normal pregnancy, unspecified, third trimester; Z36.85 Encounter for antenatal screening for Streptococcus B
CPT/HCPCS: 36415; 80076; 80307; 85027; 96365; 82565; 84156; 84550; 87081; J1756

== ENCOUNTER 2019-02-09 15:38 | Outpatient (REF) | payer MEDICAID, SELFPAY ==
[2019-02-09 15:14] LABS: *AMPHETAMINES SCREEN URINE Negative (Negative); *BARBITURATES SCREEN URINE Negative (Negative); *BENZODIAZEPINES SCREEN URINE Negative (Negative); Cannabinoids THC Negative (Negative); Cocaine Screen,Urine Negative (Negative); METHADONE URINE SCREEN Negative (Negative); OPIATES URINE SCREEN Negative (Negative)
[2019-02-09 15:20] LABS: Tricyclic Antidepressants Negative (Negative)
[2019-02-15 07:54] LABS: Buprenorphine Negative; Norbuprenorphine Negative
== END 2019-02-09 15:58 ==
LOC: LBN 15:38
PROVIDERS: PCP Nurse Practitioner Family; Visit Provider Advanced Practice Midwife
DX: Z34.93 Encounter for supervision of normal pregnancy, unspecified, third trimester (principal)
CPT/HCPCS: 80307

== ENCOUNTER 2019-02-17 01:12 | Outpatient (RCR) | payer MEDICAID, SELFPAY ==
[2019-02-10] MEDS: IRON SUCROSE COMPLEX 200 MG in Normal Saline 100 ML 110 MG IVPB (13:06)
[2019-02-10] MEDS: Normal Saline Flush 10 ML SYR IVP (13:50)
[2019-02-17] MEDS: Normal Saline Flush 10 ML SYR IVP (13:04)
[2019-02-17] MEDS: IRON SUCROSE COMPLEX 200 MG in Normal Saline 100 ML 110 MG IVPB (13:04)
== END 2019-03-07 23:59 | disposition home or self-care (01) ==
LOC: INF 01:12
PROVIDERS: PCP Nurse Practitioner Family; Visit Provider Advanced Practice Midwife
DX: O99.013 Anemia complicating pregnancy, third trimester (principal); Z3A.40 40 weeks gestation of pregnancy
CPT/HCPCS: 80307; 96365; J1756

== ENCOUNTER 2019-02-20 07:39 | Outpatient (CLI) | payer MEDICAID, SELFPAY | END 2019-02-20 07:59 | PROVIDERS: PCP Nurse Practitioner Family; Visit Provider Advanced Practice Midwife | DX: O26.893 Other specified pregnancy related conditions, third trimester (principal); R60.0 Localized edema; Z3A.40 40 weeks gestation of pregnancy | CPT/HCPCS: 99211; 59025 ==

== ENCOUNTER 2019-02-20 11:17 | Observation (INO) | payer MEDICAID, SELFPAY ==
[2019-02-20 11:59] LABS: HCT 34.9 % (36.0-46.0); HGB 11.9 g/dL (12.0-15.5); Mean Corp. HGB Concentration 34.1 g/dL (32.0-36.0); Mean Corpuscular Hemoglobin 31.4 pg (27.0-33.0); Mean Corpuscular Volume 92.1 fL (80-95); Mean Platelet Volume 9.4 fL (8.0-11.0); Platelet Count 136 x1000/uL (130-400); RBC 3.79 m/cumm (4.00-5.20); RBC Distribution Width 14.9 % (11.7-14.6); White Blood Cell Count 8.44 k/cumm (4.4-10.8)
[2019-02-20 12:00] LABS: PROTEIN < 6.0 mg/dL
[2019-02-20 12:05] LABS: COMMENT (LAB VIEW ONLY) 20.58 mg/dL
[2019-02-20 12:16] LABS: Uric Acid 3.7 mg/dL (2.6-6.0)
[2019-02-20 12:19] LABS: ALT 13 U/L (12-78); AST 12 U/L (15-37); Albumin 2.7 g/dL (3.4-5.0); Alkaline Phosphatase 177 U/L (46-116); Anion Gap 8.9 mmol/L (3-11); BUN 5 mg/dL (7-18); Bilirubin, Total 0.1 mg/dL (0.2-1.0); CO2 25.1 mmol/L (21.0-32.0); CREATININE 0.48 mg/dL (0.55-1.02); Calcium 9.2 mg/dL (8.5-10.1); Chloride 105 mmol/L (98-107); Glucose 61 mg/dL (70-100); Potassium 3.8 mmol/L (3.5-5.1); Sodium 139 mmol/L (136-145); Total Protein 6.4 g/dL (6.4-8.2)
== END 2019-02-20 12:50 | disposition home or self-care (01) ==
PROVIDERS: Admitting Provider Advanced Practice Midwife; PCP Nurse Practitioner Family; Visit Provider Advanced Practice Midwife
DX: O12.03 Gestational edema, third trimester (principal); Z3A.40 40 weeks gestation of pregnancy; O48.0 Post-term pregnancy
CPT/HCPCS: 36415; 80053; 85027; 82565; 84156; 84550; G0378

== ENCOUNTER 2019-02-22 17:49 | Inpatient (IN) | payer MEDICAID, SELFPAY ==
[2019-02-22] MEDS: miSOPROStol 25 MCG TAB 50 MCG PO (19:39)
[2019-02-22 19:55] LABS: HCT 36.3 % (36.0-46.0); HGB 12.6 g/dL (12.0-15.5); Mean Corp. HGB Concentration 34.7 g/dL (32.0-36.0); Mean Corpuscular Hemoglobin 31.7 pg (27.0-33.0); Mean Corpuscular Volume 91.4 fL (80-95); Mean Platelet Volume 9.7 fL (8.0-11.0); Platelet Count 166 x1000/uL (130-400); RBC 3.97 m/cumm (4.00-5.20); RBC Distribution Width 14.9 % (11.7-14.6); White Blood Cell Count 7.78 k/cumm (4.4-10.8)
[2019-02-23] MEDS: miSOPROStol 25 MCG TAB 50 MCG PO (00:05)
[2019-02-23] MEDS: Lidocaine 2% Jelly 6 ML SYR TP (05:30)
[2019-02-23] MEDS: Oxytocin 10 UNITS/ML VIAL IM (05:35)
[2019-02-23] MEDS: Hamamelis Leaf/Glycerin 100 EACH BOX PR (06:30)
[2019-02-23] MEDS: Acetaminophen 325 MG TAB 650 MG PO ×3 (06:34→21:29)
[2019-02-23] MEDS: Ibuprofen 600 MG TAB PO ×3 (06:34→21:29)
[2019-02-24 07:04] LABS: HCT 38.1 % (36.0-46.0); HGB 12.9 g/dL (12.0-15.5); Mean Corp. HGB Concentration 33.9 g/dL (32.0-36.0); Mean Corpuscular Hemoglobin 30.9 pg (27.0-33.0); Mean Corpuscular Volume 91.4 fL (80-95); Mean Platelet Volume 9.7 fL (8.0-11.0); Platelet Count 170 x1000/uL (130-400); RBC 4.17 m/cumm (4.00-5.20); RBC Distribution Width 15.1 % (11.7-14.6); White Blood Cell Count 10.05 k/cumm (4.4-10.8)
[2019-02-24] MEDS: Ibuprofen 600 MG TAB PO ×2 (11:14→21:12)
[2019-02-24] MEDS: Acetaminophen 325 MG TAB 650 MG PO ×2 (11:14→21:12)
[2019-02-24] MEDS: Hamamelis Leaf/Glycerin 100 EACH BOX PR (11:17)
[2019-02-25] MEDS: Acetaminophen 325 MG TAB 650 MG PO (08:47)
[2019-02-25] MEDS: Ibuprofen 600 MG TAB PO (08:47)
--- NOTE | 2019-02-25 14:40 | DI.US_ITS ---
SYMPTOMS/DIAGNOSIS: MASS IN LEFT AXILLA/BREAST ULTRASOUND OF THE LEFT AXILLA: There is a reasonably well-circumscribed ovoid 5 x 1.1 x 3.2 cm mass in the left axilla. A central sonolucent region could represent fluid and the mass is hyperemic. These findings to be correlated with the patient's clinical status. If appropriate, further evaluation with an ultrasound-guided biopsy could also be considered.
== END 2019-02-25 17:50 | disposition home or self-care (01) | DRG 806 ==
PROVIDERS: Admitting Provider Advanced Practice Midwife; PCP Nurse Practitioner Family; Visit Provider Advanced Practice Midwife
DX: O48.0 Post-term pregnancy (principal); A69.20 Lyme disease, unspecified; Z37.0 Single live birth; O98.82 Other maternal infectious and parasitic diseases complicating childbirth; Z3A.41 41 weeks gestation of pregnancy; O70.0 First degree perineal laceration during delivery; O99.02 Anemia complicating childbirth; D64.9 Anemia, unspecified; R22.2 Localized swelling, mass and lump, trunk; O99.419 Diseases of the circulatory system complicating pregnancy, unspecified trimester; Z67.10 Type A blood, Rh positive
CPT/HCPCS: 36415; 76642; 85027; 86850; 86900; 86901; 59200; J2590; J3490

== ENCOUNTER 2019-03-30 00:27 | Outpatient (CLI) | payer MEDICAID, SELFPAY ==
--- NOTE | 2019-03-30 14:40 | DI.MRI_ITS ---
SYMPTOMS/DIAGNOSIS: LOW BACK PAIN, M54.5 MRI OF THE LUMBAR SPINE: Routine noncontrast examination. No priors for comparison. The conus medullaris has a normal appearance and location. There is normal marrow signal. Normal signal of the intervertebral discs is noted. No focal disc herniation, central spinal canal or neural foraminal stenosis is seen in the lumbar spine. IMPRESSION: Negative MRI of the lumbar spine.
== END 2019-03-30 00:47 ==
PROVIDERS: PCP Nurse Practitioner Family; Visit Provider Family Medicine
DX: M54.5 Low back pain (principal)
CPT/HCPCS: 72148

== ENCOUNTER 2019-05-17 17:09 | Emergency (ER) | payer MEDICAID, SELFPAY ==
[2019-05-17 17:27] VITALS: BP 121/79; PULSE 101; RESP 18; TEMP 36.6; O2SAT 100
[2019-05-17 17:51] LABS: Bilirubin Negative (Negative); Blood Trace-intact (Negative); Clarity Clear (Clear); Glucose 100 mg/dL (Negative); Ketones Negative (Negative); Leukocyte Esterase Trace (Negative); Nitrite Positive (Negative); Specific Gravity 1.025 (1.005-1.025); pH 6.5 (5-8)
[2019-05-17 17:58] LABS: Bacteria Moderate HPF (Negative); C & S Indicated? Yes; Casts Negative LPF (Negative); Crystals Negative HPF (Negative); Epithelial Cells Negative HPF (Negative); Mucus Negative (Negative); Other Cells Negative (Negative); WBC >50 HPF (0-5)
--- NOTE | 2019-05-17 18:08 | ED.GENADUL_ITS ---
Discharge Plan Disposition Patient Disposition: HOME Condition: Good Discharge Details Chief Complaint: Urinary Clinical Impression: UTI (urinary tract infection) Primary Care Provider: Iliana Pradhan ED Provider: J Carlos Hutchison Home Meds and New Rx's Prescriptions: New cephalexin [Keflex] 500 mg capsule 500 mg PO QID 7 Days Qty: 28 RF: 0 No Action Nexplanon 68 mg implant 1 implant SBD ONCE RF: 0 Flintstones Complete (iron) tablet,chewable 1 tab PO DAILY RF: 0 ranitidine HCl [Zantac] 150 mg tablet 150 mg PO BID Qty: 60 RF: 0 albuterol sulfate [Proventil HFA] 6.7 GM HFA aerosol inhaler 1 - 2 puff Inhalation Q6H PRN RF: 0 Discharge Instructions Instructions: Urinary Tract Infection in Women (ED) Additional Instructions: You have a notable urinary tract infection, please take the antibiotic as directed. Please drink 10 to 12 cups of water per day. Please take cranberry supplements. If you notice any worsening of your symptoms, or any new symptoms such as vomiting, diarrhea, fever, chills, shortness of breath, chest pain, numbness, weakness, or fainting , please return immediately to the emergency department for reevaluation. Please follow up with your primary care provider as soon as possible for reassessment and reevaluation. As always, it was a pleasure participating in your medical care today. Referrals: Iliana Pradhan [Primary Care Provider] - Discharge Data Discharge Date/Time-TO BE ENTERED AT DEPARTURE: 05/17/19 18:17 Medical Decision Making This is a pleasant 28-year-old female who presents today for dysuria for the last 4 days. She has taken [id number] Azo but this is not improved her symptoms. She does admit to mild flank achiness, but denies any fever, chills, or generalized abdominal pain. Physical exam demonstrates no signs or symptoms consistent with an acute surgical abdomen, no evidence of right lower quadrant or appendiceal pain. No pain at McBurney's point, negative Walden sign. No vaginal complaints whatsoever. Urinalysis demonstrates evidence of a notable urinary tract infection, signs and symptoms are clinically consistent with urinary tract infection. With no fevers, severe tachycardia, hypotension, I do not feel that inpatient IV antibiotics are indicated at this time. Will prescribe Keflex for home use. Discussed red flags which to return. I have extensively reviewed the treatment plan and discharge instructions with the patient. I have addressed all patient concerns at this time. The patient was made aware of what symptoms to monitor for that would warrant a return to the emergency department. Discussed the plan with the patient, they demonstrate verbal understanding and agreement with our assessment and plan at this time. HPI General Date/Time Provider Initiated Documentation: 05/17/19 17:37 . HPI Narrative: This is a pleasant 28-year-old female with a past medical history of asthma who presents today for evaluation of dysuria. Symptoms have been present for the last 4 days. Mild to moderate burning with urination, not improved with Azo. She does admit to minimal pain to her flanks, but denies any pain in the right or left lower signs of the abdomen. She does admit to mild suprapubic pressure. She denies any vaginal discharge, vaginal bleeding. She denies any nausea vomiting or diarrhea. She denies any fever, chills. She has no other complaints at this time. He states that her symptoms feel identical to previous urinary tract infections that she has had. Related Data Home Medications Medication Instructions Recorded Confirmed albuterol sulfate [Proventil HFA] 1 - 2 puff INHALATION Q6H PRN 03/08/14 04/16/19 inhaler pediatric [id number] 1 tab PO DAILY 12/17/18 04/16/19 ranitidine HCl 150 mg tablet 150 mg PO BID #60 tab 01/27/19 04/16/19 etonogestrel 68 mg subdermal 1 implant SBD ONCE 04/16/19 04/16/19 implant cephalexin [Keflex] 500 mg PO QID 7 Days #28 cap 05/17/19 Previous Rx's Medication Instructions Recorded ranitidine HCl 150 mg tablet 150 mg PO BID #60 tab 01/27/19 cephalexin [Keflex] 500 mg PO QID 7 Days #28 cap 05/17/19 Allergies Allergy/AdvReac Type Severity Reaction Status Date / Time No Known Drug Allergies Allergy Unverified 05/17/19 18:18 General Stated Complaint: Urinary SURENDRA: 4 Review of Systems Review of Systems All systems reviewed & are unremarkable except as noted in HPI and below PFSH Medical History (Updated 04/16/19 @ 11:25 by Amada Blanton) Anemia affecting second (Acute) Asthma (Chronic) Back pain affecting (Chronic) Breast nodule (Chronic) R sided. 1cm 8 o'clock position. Nl breast u/s 03/28/17. Contraceptive management (Chronic) 2010 Mirena IUD # 1 placed PP. 06/10/14 Mirena IUD fell out and #2 reinserted. 07/27/2014. IUD was removed to attempt . 03/2016 IUD #3 inserted after she changed partners and decided against pregn charles. 02/2017 Mirena IUD removed secondary to AUB. Lyme disease (Chronic) Tobacco dependence (Acute) Vaginal discharge (Acute 06/10/14) + BV. will treat. 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 History Menstrual control method: implanted (Nexplanon, placed 04/16/2019) History History 2 Para 2 Hx # Term Pregnancies 2 Multiple births 0 Hx # Pregnancies 0 Ectopic pregnancies 0 AB induced 0 Hx Number of Living Children 2 AB spontaneous 0 Past Pregnancies Del. Date GA/Weeks # Outcome Route Wgt Sex Labor Lgth Anesthes ia Location Prov Complic 05/26/11 39 No Successful vaginal 3.544 kg Female 10 02/23/19 40 No Successful vaginal 3.629 kg Male Naomy Blanton CNM Delivery Date: 05/26/11 On 01/27/19 @ 10:15 Lyn Knowles IOL for gestational HTN, pitocin, unmedicated , 2 hrs of pushing Delivery Date: 02/23/19 No notes to display Exam Narrative Exam Narrative: 1.Const: Well-nourished, Well-developed, appearing stated age 2.Eyes: PERRL, no conjunctival injection, and symmetrical lids. 3.ENT: Atraumatic external nose and ears. Moist MM. Neck: Symmetric, trachea midline, No thyromegaly. 4.CVS: +S1/S2, No murmurs or gallops. Peripheral pulses 2+ and equal in all extremities. Brisk capillary refill in all extremities. 5.RESP: Unlabored respiratory effort. Clear to auscultation bilaterally. No wheezes rales or rhonchi 6.GI: Soft, Nontender/Nondistended, No hepatosplenomegaly. No guarding or rebound. No pain in the right lower quadrant, no pain at McBurney's point, negative Walden sign. No evidence of an acute surgical abdomen. No significant flank or CVA tenderness. 7.MSK: Normocephalic/Atraumatic, Extremities w/o deformity or ttp No cyanosis or clubbing, Normal movement of all extremities 8.Skin: Warm, Dry. No rashes or lesions. 9.Neuro: automatic mounter II-XII grossly intact. Sensation grossly intact, no focal neurologic deficits. 10.Psych: (AAO) x3. Appropriate mood and affect Course Vital Signs Temperature 36.6 C 05/17/19 17:27 Pulse 101 H 05/17/19 17:27 Respiratory Rate 18 05/17/19 17:27 Blood Pressure 121/79 05/17/19 17:27 Pulse Oximetry 100 05/17/19 17:27 Temperature 36.6 C 05/17/19 17:27 Temperature Source Skin 05/17/19 17:27 Pulse 101 H 05/17/19 17:27 Respiratory Rate 18 05/17/19 17:27 Blood Pressure 121/79 05/17/19 17:27 Blood Pressure Position Sitting 05/17/19 17:27 Pulse Oximetry 100 05/17/19 17:27 Oxygen Delivery Method Room Air 05/17/19 17:27 Oxygen Flow Rate 0 05/17/19 17:27 Pain Level 5 05/17/19 17:27 Lab/Test Results Lab/Test Results: 05/17/19 17:45 Urine - Reflex from Ua Urine Culture - Pending Laboratory Tests Range/Units 05/17/19 17:45 Urine Color (Yellow) Yellow Urine Clarity (Clear) Clear Urine pH (5-8) 6.5 Ur Specific Slemp (1.005-1.025) 1.025 Urine Protein (Negative) mg/dL 30 H Urine Ketones (Negative) mg/dL Negative Urine Blood (Negative) Trace-intact H Urine Nitrite (Negative) Positive H Urine Bilirubin (Negative) Negative Urine Urobilinogen (Up TO 0.2) EU/dL 1.0 H Ur Leukocyte Esterase (Negative) Trace H Urine RBC (0-2) 10-20 H Urine WBC (0-5) HPF >50 Ur Epithelial Cells (Negative) HPF Negative Urine Crystals (Negative) HPF Negative Urine Bacteria (Negative) HPF Moderate Urine Casts (Negative) LPF Negative Urine Mucus (Negative) Negative Urine Other (Negative) Negative Ur Culture Indicated? Yes Urine Glucose (Negative) mg/dL 100
[2019-05-17 18:15] VITALS: BP 112/74; PULSE 76; RESP 18; TEMP 36.4; O2SAT 99
== END 2019-05-17 18:17 | disposition home or self-care (01) ==
PROVIDERS: Emergency Provider Student in an Organized Health Care Education/Training Program; PCP Nurse Practitioner Family
DX: N39.0 Urinary tract infection, site not specified (principal); B96.20 Unspecified Escherichia coli [E. coli] as the cause of diseases classified elsewhere; Z87.440 Personal history of urinary (tract) infections
CPT/HCPCS: 87077; 99283; 81003; 81015; 87086; 87186

== ENCOUNTER 2019-07-22 01:18 | Outpatient (CLI) | payer MEDICAID, SELFPAY ==
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
== END 2019-07-22 01:38 ==
PROVIDERS: PCP Nurse Practitioner Family; Visit Provider Obstetrics & Gynecology Gynecology
DX: R10.32 Left lower quadrant pain (principal); K59.00 Constipation, unspecified
CPT/HCPCS: 74177

== ENCOUNTER 2019-08-19 07:41 | Emergency (ER) | payer MEDICAID, SELFPAY ==
[2019-08-19 07:46] VITALS: BP 128/78; PULSE 119; RESP 18; TEMP 36; O2SAT 97
--- NOTE | 2019-08-19 07:49 | ED.GENADUL_ITS ---
Discharge Plan Disposition Patient Disposition: HOME Condition: Good Discharge Details Chief Complaint: Urinary Clinical Impression: UTI (urinary tract infection) Primary Care Provider: Iliana Pradhan ED Provider: Kika Hernandez Home Meds and New Rx's Prescriptions: New cephalexin [Keflex] 500 mg capsule 500 mg PO BID Qty: 10 RF: 0 phenazopyridine [Pyridium] 100 mg tablet 100 mg PO TID PRN (Reason: pain) Qty: 6 RF: 0 Continued Nexplanon 68 mg implant 1 implant SBD ONCE RF: 0 albuterol sulfate [Proventil HFA] 6.7 GM HFA aerosol inhaler 1 - 2 puff Inhalation Q6H PRN RF: 0 Discharge Instructions Instructions: Urinary Tract Infection in Women (ED) Additional Instructions: Encourage hydration. Please take the antibiotics as prescribed. Even if symptoms improve, please take the entire course. You may take the Pyridium as prescribed to help with symptomatic management. If you develop fever/chills, back pain or other new/worsening symptoms please seek care urgently once again. Otherwise, please follow-up with primary care next week if symptoms have not completely resolved. Referrals: Iliana Pradhan [Primary Care Provider] - Medical Decision Making Patient is a 29 year old female with c/c of dysurea, increased urinaray frequency and urgency x 4 days. States that this feels like when she has had UTI historically. Denies any fevers or chills. Denies abdominal pain. Denies any CVA tenderness. No nausea, vomiting or diarrhea. Has not noted hematuria. Was treated in May with UTI. Patient and I did identify some lifestyle modifying options to help prevent this in the future. Encourage hydration. Urinalysis shows positive nitrites, leukocyte esterase. This has been sent for culture. Encourage hydration. Patient will be treated with Keflex. This was based on sensitivity results from her recent urinary culture. Patient prescribed Pyridium to help with symptomatic management. She was given strict return precautions. Advise follow-up with primary care if not improved over the next week. All of her questions and concerns were addressed and she is in agreement this plan. HPI General Mode of arrival: ambulatory . Date/Time Provider Initiated Documentation: 08/19/19 07:46 . Limitations to Documentation: no limitations . Information obtained by: patient and RN notes reviewed . History of Present Illness 29 year old F presents to the emergency department with the chief complaint of UTI, described as moderate and similar to prior episodes, Quality is described as burning (with urination), Patient reports no radiation. Patient started experiencing this day(s) (4) and it has been constant. No relieving factors improve symptom(s), No exacerbating factors reported . Patient notes no other symptoms.; denies chest pain, cough, diaphoresis, fever/chills, loss of appetite, nausea/vomiting, rash and shortness of breath. Patient did receive the following treatments prior to arrival, none Related Data Home Medications Medication Instructions Recorded Confirmed albuterol sulfate [Proventil HFA] 1 - 2 puff INHALATION Q6H PRN 03/08/14 08/19/19 inhaler etonogestrel 68 mg subdermal 1 implant SBD ONCE 04/16/19 08/19/19 implant cephalexin [Keflex] 500 mg PO BID #10 cap 08/19/19 phenazopyridine [Pyridium] 100 mg PO TID PRN #6 tab 08/19/19 Previous Rx's Medication Instructions Recorded cephalexin [Keflex] 500 mg PO BID #10 cap 08/19/19 phenazopyridine [Pyridium] 100 mg PO TID PRN #6 tab 08/19/19 Allergies Allergy/AdvReac Type Severity Reaction Status Date / Time No Known Drug Allergies Allergy Unverified 08/19/19 07:49 General Stated Complaint: Urinary SURENDRA: 4 Review of Systems Constitutional Constitutional: Reports as per HPI, Denies chills, Denies fever(s) and Denies poor appetite Cardiovascular Cardiovascular: Denies chest pain Respiratory Respiratory: Denies cough Gastrointestinal Gastrointestinal: Denies abdominal pain, Denies change in bowel habits, Denies nausea and Denies vomiting Genitourinary Genitourinary: Reports as per HPI Musculoskeletal Musculoskeletal: Reports as per HPI and Denies back pain Integumentary/Breasts Skin/Breast: Reports as per HPI and Denies rash [facility] Medical History Anemia affecting second (Acute) Asthma (Chronic) Back pain affecting (Inactive) Breast nodule (Chronic) R sided. 1cm 8 o'clock position. Nl breast u/s 03/28/17. Chronic back pain (Chronic) Reports pain since she was a teenager. 2019 negative MRI of lumbar spine. PT not helpful, pain clinic injection not helpful. Has been evaluated by rheumatology in the past Contraceptive management (Chronic) 2010 Mirena IUD # 1 placed PP. 06/10/14 Mirena IUD fell out and #2 reinserted. 07/27/2014. IUD was removed to attempt . 03/2016 IUD #3 inserted after she changed partners and decided against . 02/2017 Mirena IUD removed secondary to AUB. 02/2019 Nexplanon inserted. DVT prophylaxis (Inactive) History of gestational hypertension (Inactive) Hypokalemia (Resolved) Influenza A (Resolved) Lyme disease (Chronic) Pneumonia affecting (Resolved) (Resolved) Tobacco dependence (Acute) Vaginal discharge (Acute 06/10/14) + BV. will treat. 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 Date GA/Weeks # Outcome Route Wgt Sex Labor Lgth Anesthes ia Location Prov [facility] 05/26/11 39 No Successful vaginal 3.544 kg Female 10 02/23/19 40 No Successful vaginal 3.629 kg Male Naomy Blanton CNM Delivery Date: 05/26/11 On 01/27/19 @ 10:15 Lyn Knowles IOL for gestational HTN, pitocin, unmedicated , 2 hrs of pushing Delivery Date: 02/23/19 No notes to display Exam Const General: cooperative, healthy appearing, comfortable, no acute distress, well developed and well groomed Nutritional Appearance: average body habitus and well nourished Orientation: alert and awake Resp Effort & Inspection: normal respiratory effort and no respiratory distress Auscultation: clear to auscultation bilaterally, no rales, no rhonchi and no wheezes Cardio Rate: regular rate Rhythm: regular rhythm Heart Sounds: S1 normal and S2 normal GI Inspection: normal to inspection Palpation: soft, no hepatosplenomegaly, not firm, no guarding, not rigid and nontender Back/Spine/Pelvis Back: no CVA tenderness Skin General skin exam: no rashes or lesions noted Trauma: no lacerations or abrasions Neuro General: alert and awake Cognition: normal cognition Speech: speech normal Gait: normal gait Psych Appearance: grossly normal and well kempt Mental Status: mental status grossly normal Speech and Movement: speech and movement normal Course Vital Signs Vital signs: Vital Signs Temperature 36.0 C L 08/19/19 07:46 Pulse 119 H 08/19/19 07:46 Respiratory Rate 18 08/19/19 07:46 Blood Pressure 128/78 08/19/19 07:46 Pulse Oximetry 97 08/19/19 07:46 Temperature 36.0 C L 08/19/19 07:46 Temperature Source Temporal Artery Scan 08/19/19 07:46 Pulse 119 H 08/19/19 07:46 Respiratory Rate 18 08/19/19 07:46 Respiratory Effort Non-Labored 08/19/19 07:46 Blood Pressure 128/78 08/19/19 07:46 Pulse Oximetry 97 08/19/19 07:46 Oxygen Delivery Method Room Air 08/19/19 07:46 Oxygen Flow Rate 0 08/19/19 07:46 Pain Level 0 08/19/19 07:46
[2019-08-19 08:00] LABS: Bilirubin Small (Negative); Blood Large (Negative); Clarity Clear (Clear); Glucose Negative (Negative); Ketones Negative (Negative); Leukocyte Esterase Small (Negative); Nitrite Positive (Negative); Specific Gravity 1.025 (1.005-1.025); Urobilinogen 0.2 EU/dL (Up TO 0.2)
[2019-08-19 08:11] LABS: RBC >50 HPF (0-2)
[2019-08-19 08:12] LABS: C & S Indicated? Yes
== END 2019-08-19 08:17 | disposition home or self-care (01) ==
PROVIDERS: Emergency Provider Physician Assistant; PCP Nurse Practitioner Family
DX: N39.0 Urinary tract infection, site not specified (principal); Z87.440 Personal history of urinary (tract) infections
CPT/HCPCS: 81025; 99283; 81003; 81015; 87086

== ENCOUNTER 2020-01-25 14:41 | Outpatient (REF) | payer MEDICAID, SELFPAY ==
[2020-01-25 20:09] LABS: Abs Immature Grans 0.01 k/cumm (0.0-0.09); Absolute Basophil Count 0.01 k/cumm (0.0-0.2); Absolute Eosinophil Count 0.07 k/cumm (0.0-0.7); Absolute Lymphocyte Count 1.82 k/cumm (1.2-3.4); Absolute Monocyte Count 0.52 k/cumm (0.11-0.7); Absolute Neutrophil Count 3.03 k/cumm (1.2-6.7); Basophils % 0.2; Eosinophils % 1.3; HCT 42.8 % (36.0-46.0); HGB 14.8 g/dL (12.0-15.5); Immature Grans % 0.2 %; Lymphocytes % 33.3; Mean Corp. HGB Concentration 34.6 g/dL (32.0-36.0); Mean Corpuscular Volume 92.4 fL (80-95); Mean Platelet Volume 9.4 fL (8.0-11.0); Monocytes % 9.5; Neutrophils % 55.5; Platelet Count 258 x1000/uL (130-400); RBC 4.63 m/cumm (4.00-5.20); RBC Distribution Width 12.3 % (11.7-14.6); White Blood Cell Count 5.46 k/cumm (4.4-10.8)
[2020-01-25 20:23] LABS: Iron 119 ug/dL (50-170); Total Iron Binding Capacity 223 ug/dL (250-450); Transferrin Sat 53 % (15-50)
== END 2020-01-25 15:01 ==
LOC: NCHCN 14:41
PROVIDERS: PCP Nurse Practitioner Family; Visit Provider Nurse Practitioner Family
DX: N92.6 Irregular menstruation, unspecified (principal); F41.9 Anxiety disorder, unspecified; J45.990 Exercise induced bronchospasm; L20.9 Atopic dermatitis, unspecified
CPT/HCPCS: 83540; 83550; 85025

== ENCOUNTER 2020-05-12 07:21 | Outpatient (CLI) | payer MEDICAID, SELFPAY ==
[2020-05-14 17:04] LABS: Patient Race White; SARS-CoV-2 RNA Undetected (Undetected); SARS-CoV-2 Specimen Source Nasopharynx
== END 2020-05-12 07:41 ==
PROVIDERS: PCP Nurse Practitioner Family; Visit Provider Nurse Practitioner Family
DX: R05 Cough (principal)
CPT/HCPCS: U0003

== ENCOUNTER 2020-08-06 15:37 | Emergency (ER) | payer MEDICAID, SELFPAY ==
[2020-08-06 15:42] VITALS: BP 113/84; PULSE 110; RESP 16; TEMP 36.5; O2SAT 95
--- NOTE | 2020-08-06 15:56 | ED.GENADUL_ITS ---
Discharge Plan Disposition Patient Disposition: HOME Condition: Improving Discharge Details Clinical Impression: Low back strain Primary Care Provider: Iliana Pradhan ED Provider: Avery Latif Home Meds and New Rx's Prescriptions: New prednisone 50 mg tablet 50 mg PO DAILY 5 Days Qty: 5 RF: 0 methocarbamol 500 mg tablet 500 mg PO Q6H PRN (Reason: Back pain or spasm) Qty: 14 RF: 0 No Action albuterol sulfate [Proventil HFA] 6.7 GM HFA aerosol inhaler 1 - 2 puff Inhalation Q6H PRN RF: 0 Control Shot [id number] RF: 0 Discharge Instructions Instructions: Low Back Strain (ED) Additional Instructions: Please stay liberally hydrated with small, frequent sips of fluids. Fresh fruit and vegetables to ensure trace minerals such as magnesium in the diet. Methocarbamol as needed for back pain or spasm. Prednisone daily as prescribed until finished. May continue Tylenol and ibuprofen as needed for pain. May obtain further Lidoderm patches at local pharmacy. Remove current patch in 12 hours time. Return to develop increasing pain, weakness or numbness of the lower extremity, or any other acute concerns. Medical Decision Making 30-year-old female with a history of chronic back pain, states she was bent over with flexed knees, flexed waist, lifting a heavy hay elevator when she abruptly developed a low back pain that goes into both hips. No incontinence, no n umbness or weakness. She took ibuprofen at home. She arrives afebrile, well-appearing, slightly tachycardic on initial presentation. Given acetaminophen and referred for x-ray to rule out bony cyst or fracture. X-rays are normal without evidence of acute fracture. Discussed with her that may be slight disc bulge versus deep back muscle spasm. We will trial prednisone for its anti-inflammatory properties, small number of Robaxin to be used as needed. She understands homecare, indications to seek reevaluation as well as anticipated course of resolution. She is stable and appropriate for outpatient management at this time. HPI General Mode of arrival: ambulatory . Date/Time Provider Initiated Documentation: 08/06/20 15:40 . Limitations to Documentation: no limitations . Information obtained by: patient . History of Present Illness 30 year old F presents to the emergency department with the chief complaint of Low back pain after heavy lifting, described as moderate, Quality is described as dull and constant, and is localized to the back. Patient reports no radiation. Patient started experiencing this hour(s) and it has been constant. Rest improves symptom(s), Movement worsens symptoms . Patient notes denies weakness and other (No numbness). Patient did receive the following treatments prior to arrival, NSAID Related Data Home Medications Medication Instructions Recorded Confirmed albuterol sulfate [Proventil HFA] 1 - 2 puff INHALATION Q6H PRN 03/08/14 08/06/20 inhaler Control Shot [id number] 08/06/20 methocarbamol 500 mg PO Q6H PRN #14 tab 08/06/20 prednisone 50 mg PO DAILY 5 Days #5 tab 08/06/20 Previous Rx's Medication Instructions Recorded methocarbamol 500 mg PO Q6H PRN #14 tab 08/06/20 prednisone 50 mg PO DAILY 5 Days #5 tab 08/06/20 Allergies Allergy/AdvReac Type Severity Reaction Status Date / Time No Known Drug Allergies Allergy Unverified 08/06/20 15:46 General Stated Complaint: Nk/Back Pain SURENDRA: 4 Review of Systems Narrative: No numbness or weakness of the lower extremity, no incontinence. P ain is somewhat worse with movement, relieved by certain positions. No recent illness. She has otherwise been well. [facility] Medical History (Updated 08/06/20 @ 16:54 by Avery Latif MD) Anemia affecting second Asthma Back pain affecting Breast nodule R sided. 1cm 8 o'clock position. Nl breast u/s 03/28/17. Chronic back pain Reports pain since she was a teenager. 2018 negative MRI of lumbar spine. PT not helpful, pain clinic injection not helpful. Has been evaluated by rheumatology in the past Contraceptive management 2010 Mirena IUD # 1 placed PP. 06/10/14 Mirena IUD fell out and #2 reinserted. 07/27/2014. IUD was removed to attempt . 03/2016 IUD #3 inserted after she changed partners and decided against . 02/2017 Mirena IUD removed secondary to AUB. 02/2019 Nexplanon inserted. DVT prophylaxis History of gestational hypertension Hypokalemia Influenza A Lyme disease Pneumonia affecting Tobacco dependence Vaginal discharge (06/10/14) + BV. will treat. 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 Date GA/Weeks # Outcome Route Wgt Sex Labor Lgth Anesthes ia Location Prov Complic 05/26/11 39 No Successful vaginal 3543.69 g Female 10 02/23/19 40 No Successful vaginal 3628.739 g Male Amada BlantonRAFAT Delivery Date: 05/26/11 IOL for gestational HTN, pitocin, unmedicated , 2 hrs of pushing AlirezaLyn escoto Delivery Date: 02/23/19 No notes to display Exam Narrative Exam Narrative: GEN: awake, alert, oriented 3. Pleasant, well groomed, interactive. HEAD: Normocephalic, atraumatic ENT: Mucous membranes moist, External ear exam unremarkable EYES: PERRL, EOMI NECK: Full ROM, no KEYANA, no menigismus CHEST/RESP: Nontender, clear to auscultation bilateral, no wheeze/rhonchi/rales CARDIOVASCULAR: RRR, no murmur, rub yane. 2+ Rad pulse bilateral ABDOMEN: Soft, nontender, no mass. +Bowel sounds Back: No midline tenderness, step-off or deformity. Minimal paraspinous tenderness of the musculature bilaterally. Minimal spasm present. EXT: Full ROM, no edema, no rash. Normal sensation throughout including saddle distribution. Motor is 5 out of 5. Patellar reflexes brisk and symmetric, graded 2+ Neuro: Grossly normal neurologic exam, conversant, interactive. Psych: Speech fluent, thoughts congruent, affect normal Course Vital Signs Vital signs: Vital Signs Temperature 36.5 C 08/06/20 15:42 Pulse 110 H 08/06/20 15:42 Respiratory Rate 16 08/06/20 15:42 Blood Pressure 113/84 08/06/20 15:42 Pulse Oximetry 95 08/06/20 15:42 Temperature 36.5 C 08/06/20 15:42 Temperature Source Skin 08/06/20 15:42 Pulse 110 H 08/06/20 15:42 Respiratory Rate 16 08/06/20 15:42 Respiratory Effort Non-Labored 08/06/20 15:42 Blood Pressure 113/84 08/06/20 15:42 Blood Pressure Position Sitting 08/06/20 15:42 Pulse Oximetry 95 08/06/20 15:42 Oxygen Delivery Method Room Air 08/06/20 15:42 Oxygen Flow Rate 0 08/06/20 15:42 Pain Level 7 08/06/20 15:42
[2020-08-06] MEDS: Acetaminophen 500 MG TAB 1000 MG PO (16:25)
--- NOTE | 2020-08-06 16:33 | DI.RAD_ITS ---
EXAM: XR LUMBAR SPINE AP, LAT CLINICAL HISTORY: pain after heavy lifting. TECHNIQUE: 2D digital imaging was performed. COMPARISON: CR LUMBAR SPINE COMPLETE from 12/21/2009 FINDINGS: No evidence of fracture nor listhesis nor pars defects. No disc space narrowing. No scoliosis. Sac roiliac joints unremarkable. Bone density normal. No osseous lesions. IMPRESSION: No significant radiographic findings nor significant change compared to December 2009. DATA REPOSITORY: RADIATION DOSE DELIVERED:
--- NOTE | 2020-08-06 16:39 | DI.VRAD_ITS ---
PROCEDURE INFORMATION: Exam: XR Lumbosacral Spine, 2 or 3 Views Exam date and time: 08/06/2020 3:56 PM Age: 30 years old Clinical indication: Injury or trauma; Other: PT states lifting injury; Blunt trauma (contusions or hematomas) TECHNIQUE: Imaging protocol: XR of the lumbosacral spine, 2 or 3 views. COMPARISON: MR L-SPINE^ROUTINE WO 03/30/2019 2:15 PM FINDINGS: Bones/joints: Normal. No acute fracture. Normal alignment. Soft tissues: Unremarkable. IMPRESSION: No evidence for acute abnormality. Dictated and Authenticated by: Sasha Cross MD. Ordering:BROOKE Varela MD
[2020-08-06] MEDS: Lidocaine 5% Patch 1 PATCH TP (17:17)
[2020-08-06] MEDS: Methocarbamol 500 MG TAB 1000 MG PO (17:17)
[2020-08-06] MEDS: predniSONE 40 MG, predniSONE 10 MG 50 MG PO (17:17)
== END 2020-08-06 17:50 | disposition home or self-care (01) ==
PROVIDERS: Emergency Provider Emergency Medicine; PCP Nurse Practitioner Family
DX: S39.012A Strain of muscle, fascia and tendon of lower back, initial encounter (principal); X50.0XXA Overexertion from strenuous movement or load, initial encounter
CPT/HCPCS: 99283; 72100; J7512

== ENCOUNTER 2020-09-21 14:51 | Outpatient (REF) | payer MEDICAID, SELFPAY ==
[2020-09-21 21:19] LABS: Abs Immature Grans 0.01 10^3/uL (0.0-0.06); Absolute Basophil Count 0.04 10^3/uL (0.0-0.2); Absolute Eosinophil Count 0.08 10^3/uL (0.0-0.7); Absolute Lymphocyte Count 1.97 10^3/uL (1.2-3.4); Absolute Monocyte Count 0.56 10^3/uL (0.1-0.8); Absolute Neutrophil Count 2.54 10^3/uL (1.2-6.7); Basophils % 0.8; Eosinophils % 1.5; HGB 14.3 g/dL (11.2-15.7); Immature Grans % 0.2; Lymphocytes % 37.9; MCHC 33.3 % (32.0-36.0); MCV 93.3 fL (80-95); MPV 9.2 fL (8.0-11.0); Monocytes % 10.8; Neutrophils % 48.8; Nucleated RBC 0 %; Platelet Count 224 10^3/uL (130-400); RBC 4.61 10^6/uL (3.93-5.22); RDW 11.6 % (11.7-14.6); RDW-SD 39.9 fL
[2020-09-21 21:26] LABS: Iron 137 ug/dL (50-170)
[2020-09-21 21:39] LABS: Ferritin 115 ng/mL (8-252); TSH (W/Ref FT4) 1.32 uIU/mL (0.36-3.74)
[2020-09-25 14:04] LABS: Lyme Ab w Rflx to Lyme Confirm Negative (Negative)
[2020-09-25 17:33] LABS: Anaplasma phagocytophilum Negative (Negative); B. miyamotoi PCR Negative (Negative); Babesia divergens/MO-1 Negative (Negative); Babesia duncani Negative (Negative); Babesia microti Negative (Negative); Ehrlichia chaffeensis Negative (Negative); Ehrlichia ewingii/canis Negative (Negative); Ehrlichia muris eauclairensis Negative (Negative)
== END 2020-09-21 15:11 ==
LOC: NCHCN 14:51
PROVIDERS: PCP Nurse Practitioner Family; Visit Provider Nurse Practitioner Family
DX: R53.83 Other fatigue (principal)
CPT/HCPCS: 87798; 82728; 83540; 84443; 85025; 86618

== ENCOUNTER 2020-09-25 18:02 | Outpatient (REF) | payer MEDICAID, SELFPAY ==
[2020-09-25 21:11] LABS: ALT 22 U/L (14-59); AST 13 U/L (15-37); Albumin 4.4 g/dL (3.4-5.0); Alkaline Phosphatase 48 U/L (46-116); Anion Gap 7.8 mmol/L (3-11); BUN 8 mg/dL (7-18); Bilirubin, Total 0.4 mg/dL (0.2-1.0); CO2 27.2 mmol/L (21.0-32.0); CREATININE 0.81 mg/dL (0.55-1.02); Calcium 9.1 mg/dL (8.5-10.1); Chloride 106 mmol/L (98-107); Glucose 78 mg/dL (74-106); Sodium 141 mmol/L (136-145); Total Protein 7.6 g/dL (6.4-8.2)
== END 2020-09-25 18:22 ==
LOC: NCHCN 18:02
PROVIDERS: PCP Nurse Practitioner Family; Visit Provider Nurse Practitioner Family
DX: R10.13 Epigastric pain (principal); R61 Generalized hyperhidrosis; M79.602 Pain in left arm; Z86.19 Personal history of other infectious and parasitic diseases
CPT/HCPCS: 80053

== ENCOUNTER 2020-10-03 02:38 | Outpatient (CLI) | payer MEDICAID, SELFPAY ==
[2020-10-03] MEDS: Omnipaque 350 MG/ML 50 ML BTL PO (09:27)
[2020-10-03] MEDS: Omnipaque 350 MG/ML 100 ML BTL IJ (10:14)
[2020-10-03] MEDS: Normal Saline - Diluent 50 ML VIAL IV (10:28)
--- NOTE | 2020-10-03 10:28 | DI.CT_ITS ---
EXAM: CT ABDOMEN PELVIS W CLINICAL HISTORY: EPIGASTRIC ABD PAIN, R10.13, FATIGUE,R53.83. TECHNIQUE: Imaging Protocol: Axial computed tomography images with coronal and sagittal reformatted images were created and reviewed CONTRAST MATERIAL: Intravenous: Omnipaque 350 Contrast volume:structured data in ml Oral: yes / no COMPARISON: CT CT ABDOMEN PELVIS W from 07/22/2019 FINDINGS: ABDOMEN: Lung Bases: Normal where visualized. Liver: Normal density. No measurable mass. Gallbladder and biliary tract: No radiodense calculus or dilation. Pancreas: Normal density, no abnormal calcifications or inflammatory process. Spleen: Normal. Kidneys: Normal size, contour and axis. No radiodense stones or obstructive uropathy. No masses seen. Adrenal glands: No masses seen. Abdominal Aorta: Abdominal portion non-dilated. PELVIS: Bladder: Symmetric distention, no gross wall thickening. Bowel: No obstruction or bowel wall thickening. Normal appendix. Normal quantity of stool. Peritoneal cavity: No ascites, collection or mesenteric inflammatory response. Bones: Within normal limits. Reproductive organs: Within normal limits. Lymph nodes: Unremarkable. Impression: Unremarkable CT scan of the abdomen and pelvis. RADIATION DOSE DELIVERED: 564.13mGy.cm Total DLP DATA REPOSITORY: All CT scans at this facility are submitted to the National Radiology Data Registry (NRDR) Dose Index Registry (DIR) with the [employer] (ACR). RADIATION OPTIMIZATION: All CT scans at this facility use at least one of these dose optimization te chniques: automated exposure control; mA and/or kV adjustment per patient size (includes targeted exa ms where dose is matched to clinical indication); or iterative reconstruction.
== END 2020-10-03 02:58 ==
PROVIDERS: PCP Nurse Practitioner Family; Visit Provider Nurse Practitioner Family
DX: R10.13 Epigastric pain (principal); R53.83 Other fatigue
CPT/HCPCS: 74177; J3490; Q9967

== ENCOUNTER 2020-10-11 02:39 | Outpatient (CLI) | payer MEDICAID, SELFPAY ==
--- NOTE | 2020-10-11 | DI.US_ITS ---
EXAM: US PELVIS TRANSVAGINAL CLINICAL HISTORY: IRREGULAR MENSES,N92.6. TECHNIQUE: Transabdominal and transvaginal pelvic ultrasound was performed using standard protocol. COMPARISON: CT CT ABDOMEN PELVIS W from 10/03/2020 FINDINGS: KIDNEYS: Kidneys are symmetric in size. No evidence of renal calculi. No evidence of hydronephrosis. No renal mass or cyst identified. UTERUS: Position: Anteverted. Size: 8.1 long by 4.5 AP by 6.0 transverse cm Endometrium: 0.8 cm. Normal for patient's menstrual status. There is a small amount of fluid seen wit hin the endometrial canal. Myometrium: Unremarkable. Cervix: Unremarkable. OVARIES: Right: 2.1 x 1.8 x 2.0 cm Cyst or mass: Small functional cysts are present. Left: 3.8 x 2.9 x 2.7 cm Cyst or mass: Functional cysts are present. The largest is a simple cyst measuring 2.7 x 2.6 x 2.1 c m. DOPPLER: Color: Symmetric and uniform flow to both ovaries. No hyperemia. Duplex: Normal ovarian arterial waveforms visualized. CUL-DE-SAC: Free fluid: None. Other: There are prominent parametrial vessels, left greater than right. They increased slightly in size with Valsalva. This may represent pelvic congestion. IMPRESSION: 1. Normal sonographic appearance of the kidneys. 2. Normal-appearing uterus with endometrial stripe within normal limits. 3. Small amount of fluid within the endometrial canal. 4. Bilateral functional simple ovarian cysts. The largest is on the left and measures 2.7 x 2.6 x 2. 1 cm. 5. Prominent parametrial vessels as described above. This may represent pelvic congestion. DATA REPOSITORY:
== END 2020-10-11 02:40 | disposition home or self-care (01) ==
LOC: DI 02:39
PROVIDERS: PCP Nurse Practitioner Family; Visit Provider Nurse Practitioner Family
DX: N92.6 Irregular menstruation, unspecified (principal); N83.292 Other ovarian cyst, left side; N83.291 Other ovarian cyst, right side
CPT/HCPCS: 76830; 76856

== ENCOUNTER 2020-10-25 08:17 | Outpatient (CLI) | payer MEDICAID, SELFPAY ==
--- NOTE | 2020-10-25 10:15 | DI.RAD_ITS ---
EXAM: XR KNEE RT 3V AP,LAT,LOLA CLINICAL HISTORY: left knee pain. TECHNIQUE: 2D digital imaging was performed. COMPARISON: No exams were available for comparison FINDINGS: There is no evidence of fracture or joint effusion. No joint space narrowing. No patellar displacem ent. Bone density is normal. No degenerative changes. IMPRESSION: DATA REPOSITORY: RADIATION DOSE DELIVERED:
--- NOTE | 2020-10-25 10:15 | DI.RAD_ITS ---
EXAM: XR KNEE LT 3V AP,LAT,LOLA CLINICAL HISTORY: right knee pain. TECHNIQUE: 2D digital imaging was performed. COMPARISON: CR XR KNEE RT 3V AP,LAT,LOLA from 10/25/2020 FINDINGS: There is no evidence of fracture nor joint effusion. No degenerative changes. No patellar displacem ent. No osseous lesions. Bone density is normal. IMPRESSION: DATA REPOSITORY: RADIATION DOSE DELIVERED:
== END 2020-10-25 08:18 | disposition home or self-care (01) ==
LOC: DIORS 10-26 08:18
PROVIDERS: PCP Nurse Practitioner Family; Visit Provider Student in an Organized Health Care Education/Training Program
DX: M25.562 Pain in left knee (principal); M25.561 Pain in right knee
CPT/HCPCS: 73562

== ENCOUNTER 2020-11-07 02:00 | Outpatient (CLI) | payer MEDICAID, SELFPAY ==
--- NOTE | 2020-11-07 09:35 | DI.MRI_ITS ---
EXAM: MR LOWER JOINT LT WO CLINICAL HISTORY: INTERNAL DERANGEMENT,patellofemoral syndrome lt knee, pain,m22.2x2 TECHNIQUE: Multiplanar multisequence MRI was performed.. COMPARISON: No exams were available for comparison FINDINGS: MR examination of the knee was performed according to the usual protocol. There is a trace knee joint effusion, nonspecific.. No significant bony signal abnormality seen. Medial tibiofemoral joint: The articular cartilage of the femur and tibia appears well maintained. T he meniscus and attachments appear intact. The medial collateral ligament appears intact. 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 Lateral tibiofemoral joint: The articular cartilage of the femur and tibia appears well maintained. The meniscus and attachments appear intact. The lateral collateral ligament complex and posterolater al corner structures appear intact. Patellofemoral joint and extensor mechanism: The articular cartilage of the patellofemoral joint appe ars intact. The superior and inferior patellar fat pads appear normal with no signal abnormality. The quadriceps tendon and patellar tendon appear intact with no evidence of a tear or significant abril ma. The medial and lateral retinacula appear intact. Cruciate ligaments: Cruciate ligaments and attachments appear normal with no evidence of a tear. Tibiofibular joint: No specific abnormality involving the tibiofibular joint. IMPRESSION: Negative knee MRI. DATA REPOSITORY:
== END 2020-11-07 02:20 ==
PROVIDERS: PCP Nurse Practitioner Family; Visit Provider Student in an Organized Health Care Education/Training Program
DX: M25.562 Pain in left knee (principal); M22.2X2 Patellofemoral disorders, left knee
CPT/HCPCS: 73721

== ENCOUNTER 2020-11-22 15:06 | Outpatient (CLI) | payer MEDICAID, SELFPAY ==
--- NOTE | 2020-11-22 15:00 | DI.RAD_ITS ---
EXAM: XR HIP PELVIS ADULT BL CLINICAL HISTORY: f/u. TECHNIQUE: 2D digital imaging was performed. COMPARISON: CR LUMBAR SPINE COMPLETE from 12/24/2017 FINDINGS: No evidence of pelvic fracture. No hip fracture. No degenerative changes in the hips nor avascular necrosis. Sacroiliac joints appear unremarkable as does the symphysis pubis. Metallic umbilical orn ament is noted. Bone density is age-appropriate. IMPRESSION: DATA REPOSITORY: RADIATION DOSE DELIVERED:
== END 2020-11-22 15:07 | disposition home or self-care (01) ==
LOC: DIORS 15:06
PROVIDERS: PCP Nurse Practitioner Family; Referring Provider Nurse Practitioner Family; Visit Provider Student in an Organized Health Care Education/Training Program
DX: M25.851 Other specified joint disorders, right hip (principal); M25.852 Other specified joint disorders, left hip
CPT/HCPCS: 73521

== ENCOUNTER 2020-12-21 15:02 | Outpatient (REF) | payer MEDICAID, SELFPAY ==
[2020-12-22 10:39] LABS: COVID-19 RT-PCR UVMMC Result Negative (Negative)
== END 2020-12-21 15:03 | disposition home or self-care (01) ==
LOC: NCHCN 15:02
PROVIDERS: PCP Nurse Practitioner Family; Visit Provider Nurse Practitioner Family
DX: Z20.822 Contact with and (suspected) exposure to COVID-19 (principal)
CPT/HCPCS: U0003

== ENCOUNTER 2020-12-28 21:59 | Emergency (ER) | payer MEDICAID, SELFPAY ==
--- NOTE | 2020-12-28 00:22 | DI.RAD_ITS ---
EXAM: 2D digital imaging was performed. CLINICAL HISTORY: abd pain. COMPARISON: CT CT ABDOMEN PELVIS W from 10/03/2020 TECHNIQUE: Supine and uprightSupine and Lateral views of the abdomen was performed. FINDINGS: BOWEL GAS PATTERN: Nondistended.No free air. Normal quantity of stool. CALCIFICATIONS: No radiopaque calcifications. OSSEOUS STRUCTURES: Normal for age. OTHER FINDINGS: Lung bases are clear. Any elongated right lobe of the liver is again noted. IMPRESSION: 1. Nonobstructive bowel gas pattern. 2. No radiopaque calculi. 3. No free air. DATA REPOSITORY: RADIATION DOSE DELIVERED:
[2020-12-28 22:03] VITALS: BP 152/80; PULSE 98; RESP 18; TEMP 37.2; O2SAT 99
[2020-12-28] MEDS: Ketorolac 15 MG/ML VIAL IVP (22:35)
[2020-12-28 22:36] LABS: Abs Immature Grans 0.01 10^3/uL (0.0-0.06); Absolute Basophil Count 0.04 10^3/uL (0.0-0.2); Absolute Eosinophil Count 0.13 10^3/uL (0.0-0.7); Absolute Lymphocyte Count 3.36 10^3/uL (1.2-3.4); Absolute Monocyte Count 0.71 10^3/uL (0.1-0.8); Basophils % 0.6; Eosinophils % 1.8; HCT 39.3 % (36.0-46.0); HGB 13.4 g/dL (11.2-15.7); Immature Grans % 0.1; Lymphocytes % 46.3; MCH 31.6 pg (27.0-33.0); MCHC 34.1 % (32.0-36.0); MCV 92.7 fL (80-95); MPV 8.8 fL (8.0-11.0); Monocytes % 9.8; Neutrophils % 41.4; Nucleated RBC 0 %; Platelet Count 238 10^3/uL (130-400); RBC 4.24 10^6/uL (3.93-5.22); RDW 11.1 % (11.7-14.6); RDW-SD 37.7 fL; WBC 7.25 10^3/uL (4.4-10.8)
[2020-12-28 22:48] LABS: ALT 17 U/L (14-59); AST 11 U/L (15-37); Alkaline Phosphatase 50 U/L (46-116); Anion Gap 8.3 mmol/L (3-11); BUN 8 mg/dL (7-18); Bilirubin, Total 0.3 mg/dL (0.2-1.0); CO2 26.7 mmol/L (21.0-32.0); CREATININE 0.8 mg/dL (0.55-1.02); Calcium 8.8 mg/dL (8.5-10.1); Chloride 107 mmol/L (98-107); Glucose 87 mg/dL (74-106); Lipase 144 U/L (73-393); Potassium 3.5 mmol/L (3.5-5.1); Sodium 142 mmol/L (136-145)
--- NOTE | 2020-12-28 22:57 | W.ED.GENAD ---
Discharge Plan Disposition Patient Disposition: HOME Condition: Good Discharge Details Clinical Impression: Abdominal pain Primary Care Provider: Iliana Pradhan ED Provider: Marsha Taylor Home Meds and New Rx's Prescriptions: New dicyclomine 10 mg capsule 10 mg PO QID Qty: 14 RF: 0 No Action albuterol sulfate [Proventil HFA] 6.7 GM HFA aerosol inhaler 1 - 2 puff Inhalation Q6H PRN RF: 0 norgestimate-ethinyl estradiol [Estarylla] 0.25-35 mg-mcg tablet 1 tab PO DAILY RF: 0 Discharge Instructions Instructions: Abdominal Pain (ED) Additional Instructions: Please follow-up with your primary care physician, should he have persistent or worsening pain, I recommend reevaluation and possible additional imaging at that time You may try taking Bentyl as needed for discomfort Ibuprofen and Tylenol for pain control Please return earlier should you have new or worsening complaints Recheck in 24 to 48 hours recommended Discharge Data Discharge Date/Time-TO BE ENTERED AT DEPARTURE: 12/29/20 00:37 Medical Decision Making Patient has mild tenderness without rebound or guarding, no leukocytosis, mild elevation in ALT, 11, no indication for CT imaging at this time and I think it would be more of a risk than benefit We will attempt Bentyl and close outpatient follow-up X-ray does not show acute pathology per my review, pending radiology interpretation, specifically no air-fluid levels or free air on film Negative test Given low threshold to return should she have new or worsening complaints Discharged home in stable condition with stable vitals Will trial Bentyl Recheck in 24 hours recommended HPI This 30-year-old female with history of abdominal pain, chronic back pain presents with report of left upper quadrant pain. She denies any fever or chills. She denies chest pain or shortness of breath. The pain started this morning. She has been exacerbating leading factors. She has nausea, vomiting, diarrhea. She denies alcohol use. She did she has a history of ongoing abdominal issues but not pain in the site before. She not had any [id number] medication. Denies that she has a . Denies any pelvic pain or abnormal vaginal discharge. General Date/Time Provider Initiated Documentation: 12/28/20 22:04. Related Data Home Medications Medication Instructions Recorded Confirmed albuterol sulfate [Proventil HFA] 1 - 2 puff INHALATION Q6H PRN 03/08/14 08/06/20 inhaler norgestimate-ethinyl estradiol 1 tab PO DAILY 12/28/20 12/28/20 [Estarylla] dicyclomine 10 mg PO QID #14 cap 12/29/20 Previous Rx's Medication Instructions Recorded dicyclomine 10 mg PO QID #14 cap 12/29/20 Allergies Allergy/AdvReac Type Severity Reaction Status Date / Time No Known Drug Allergies Allergy Unverified 11/22/20 15:00 General Stated Complaint: Abd Prob SURENDRA: 3 Review of Systems Narrative: Review of systems obtained x7 aside from where indicated in HPI [facility] Medical History Asthma Back pain affecting Breast nodule R sided. 1cm 8 o'clock position. Nl breast u/s 03/28/17. Chronic back pain Reports pain since she was a teenager. 2018 negative MRI of lumbar spine. PT not helpful, pain clinic injection not helpful. Has been evaluated by rheumatology in the past Contraceptive management 2010 Mirena IUD # 1 placed PP. 06/10/14 Mirena IUD fell out and #2 reinserted. 07/27/2014. IUD was removed to attempt . 03/2016 IUD #3 inserted after she changed partners and decided against . 02/2017 Mirena IUD removed secondary to AUB. 02/2019 Nexplanon. D/C'd 10/10 AUB. 2020. DepoProvera. DVT prophylaxis History of gestational hypertension Hypokalemia Influenza A Left lower quadrant abdominal pain since 2017. neg imaging studies. Lyme disease Pneumonia affecting Tobacco dependence Vaginal discharge (06/10/14) + BV. will treat. Recurred 11/2018 and treated Family History Grandfather Essential hypertension Father Prostate cancer 2017 Diabetes Type 2 Social History Smoking/Tobacco Use Status: Current every day Tobacco Type: cigarettes Smoking risk assessment performed?: Yes Alcohol Intake: current Alcohol Intake frequency: holidays/special occasions only Drug use: Never Substance use type: does not use Household members: other Details: Not in a relationship. 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 [employer] [employer] [facility] Current gender identity: female Do you feel safe at home: Yes Do you feel safe in your relationship?: Yes Additional Social history: Customer [employer] [employer]. 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 Date GA/Weeks # Outcome Route Wgt Sex Labor Lgth Anesthesia Location Prov Complic 05/26/11 39 No Successful vaginal 3543.69 g Female 10 02/23/19 40 No Successful vaginal 3628.739 g Male Amada [facility] Delivery Date: 05/26/11 IOL for gestational HTN, pitocin, unmedicated , 2 hrs of pushing Lyn Knowles Delivery Date: 02/23/19 No notes to display Exam Const General: cooperative and comfortable HENMT Other: Moist mucous membranes Eyes Pupils: PERRL Chest Chest: normal inspection of the chest Resp Effort & Inspection: normal respiratory effort Auscultation: clear to auscultation bilaterally Cardio Rate: regular rate Rhythm: regular rhythm GI Inspection: normal to inspection Auscultation: normal bowel sounds Other: Mild tenderness in left upper quadrant, no rebound or guarding, no peritoneal findings, no CVA tenderness Skin General skin exam: no rashes or lesions noted Neuro General: patient alert and patient oriented x3 Extrem Other: No calf tenderness or swelling appreciated Course Vital Signs Vital signs: Vital Signs Temperature 37.2 C 12/28/20 22:03 Pulse 98 H 12/28/20 22:03 Respiratory Rate 18 12/28/20 22:03 Blood Pressure 152/80 H 12/28/20 22:03 Pulse Oximetry 99 12/28/20 22:03 Temperature 37.2 C 12/28/20 22:03 Temperature Source Temporal Artery Scan 12/28/20 22:03 Pulse 98 H 12/28/20 22:03 Respiratory Rate 18 12/28/20 22:03 Respiratory Effort 12/28/20 22:13 Blood Pressure 152/80 H 12/28/20 22:03 Blood Pressure Position Sitting 12/28/20 22:03 Pulse Oximetry 99 04/22/21 22:03 Oxygen Delivery Method Room Air 04/22/21 22:03 Oxygen Flow Rate 0 12/28/20 22:03 Lab/Test Results Lab/Test Results: Laboratory Tests Range/Units 12/28/20 12/28/20 12/28/20 22:23 22:28 22:28 WBC (4.4-10.8) 10^3/uL 7.25 RBC (3.93-5.22) 10^6/uL 4.24 Hgb (11.2-15.7) g/dL 13.4 Hct (36.0-46.0) % 39.3 MCV (80-95) fL 92.7 MCH (27.0-33.0) pg 31.6 MCHC (32.0-36.0) % 34.1 RDW (11.7-14.6) % 11.1 L Plt Count (130-400) 10^3/uL 238 MPV (8.0-11.0) fL 8.8 Immature Gran % 0.1 Neutrophils % 41.4 Lymphocytes % 46.3 Monocytes % 9.8 Eosinophils % 1.8 Basophils % 0.6 Nucleated RBC % % 0 Absolute Neutrophils (1.2-6.7) 10^3/uL 3.00 Absolute Lymphocytes (1.2-3.4) 10^3/uL 3.36 Absolute Monocytes (0.1-0.8) 10^3/uL 0.71 Absolute Eosinophils (0.0-0.7) 10^3/uL 0.13 Absolute Basophils (0.0-0.2) 10^3/uL 0.04 Sodium (136-145) mmol/L 142 Potassium (3.5-5.1) mmol/L 3.5 Chloride (98-107) mmol/L 107 Carbon Dioxide (21.0-32.0) mmol/L 26.7 Anion Gap (3-11) mmol/L 8.3 BUN (7-18) mg/dL 8 Creatinine (0.55-1.02) mg/dL 0.8 Estimated GFR/1.73 m2 (mL/min/1.73m2) >= 60.00 Glucose (74-106) mg/dL 87 Calcium (8.5-10.1) mg/dL 8.8 Total Bilirubin (0.2-1.0) mg/dL 0.3 AST (15-37) U/L 11 L ALT (14-59) U/L 17 Alkaline Phosphatase (46-116) U/L 50 Total Protein (6.4-8.2) g/dL 7.0 Albumin (3.4-5.0) g/dL 4.0 Lipase (73-393) U/L 144 SARS-CoV-2 (PCR) Cancelled Nasopharyn COVID-19 PCR Cancelled Ref Test Perform Site Cancelled
[2020-12-28 23:17] LABS: Bilirubin Negative (Negative); Blood Negative (Negative); Clarity Clear (Clear); Glucose Negative (Negative); Ketones Negative (Negative); Leukocyte Esterase Negative (Negative); Nitrite Negative (Negative); Specific Gravity 1.025 (1.005-1.025); Urobilinogen 0.2 EU/dL (Up TO 0.2)
[2020-12-28] MEDS: Lidocaine 2% Viscous 15 ML CUP (23:22)
[2020-12-29 00:35] VITALS: BP 132/64; PULSE 64; RESP 18; O2SAT 99
[2020-12-29] MEDS: Dicyclomine 20 MG TAB PO (00:35)
--- NOTE | 2020-12-29 00:42 | DI.VRAD_ITS ---
PROCEDURE INFORMATION: Exam: XR Abdomen Exam date and time: 12/28/2020 12:19 AM Age: 30 years old Clinical indication: Abdominal pain; Generalized TECHNIQUE: Imaging protocol: XR of the abdomen. Views: 2 Views. Upright and supine views. Total images: 3 COMPARISON: CT ABDOMEN PELVIS W 10/03/2020 10:01 AM FINDINGS: Gastrointestinal tract: No small or large bowel dilatation. Moderate fecal loading. Intraperitoneal space: Normal. No free air. Bones/joints: No significant bony abnormality. Soft tissues: No intra-abdominal mass effect. No opaque calculi. IMPRESSION: No acute finding. Dictated and Authenticated by: Avery Mcdermott MD. Ordering:STEFAN Larson MD
== END 2020-12-29 00:37 | disposition home or self-care (01) ==
PROVIDERS: Emergency Provider Physician Assistant; PCP Nurse Practitioner Family
DX: R10.13 Epigastric pain (principal); R11.2 Nausea with vomiting, unspecified
CPT/HCPCS: 80053; 81025; 83690; 96374; 99284; U0003; 74019; 81003; 85025; J1885

== ENCOUNTER 2021-01-01 15:49 | Outpatient (REF) | payer MEDICAID, SELFPAY ==
[2021-01-03 13:32] LABS: COVID-19 RT-PCR UVMMC Result Negative (Negative)
== END 2021-01-01 15:50 | disposition home or self-care (01) ==
LOC: NCHCN 15:49
PROVIDERS: PCP Nurse Practitioner Family; Visit Provider Nurse Practitioner Family
DX: Z20.822 Contact with and (suspected) exposure to COVID-19 (principal); J06.9 Acute upper respiratory infection, unspecified
CPT/HCPCS: U0003

== ENCOUNTER 2021-08-07 19:41 | Emergency (ER) | payer MEDICAID, SELFPAY ==
[2021-08-07 19:44] VITALS: BP 133/92; PULSE 107; RESP 18; TEMP 36.7; O2SAT 99
--- NOTE | 2021-08-07 20:15 | DI.RAD_ITS ---
Exam(s) XR ABDOMEN FLAT UPRIGHT EXAM: 2D digital imaging was performed. CLINICAL HISTORY: abd pain. COMPARISON: CR,XR XR ABDOMEN FLAT UPRIGHT from 12/29/2020 TECHNIQUE: Supine and upright views of the abdomen was performed. FINDINGS: LUNG BASES: Clear. BOWEL GAS PATTERN: Nondistended. There is a moderate amount of retained stool in the colon. FREE AIR: None. CALCIFICATIONS: No radiopaque calcifications. OSSEOUS STRUCTURES: Normal for age. OTHER FINDINGS: None. IMPRESSION: 1. No evidence of an acute abdomen. 2. Moderate amount of retained stool in the colon. DATA REPOSITORY: RADIATION DOSE DELIVERED:
--- NOTE | 2021-08-07 20:18 | ED.GENADUL_ITS ---
Discharge Plan Disposition Patient Disposition: HOME Condition: Good Discharge Details Clinical Impression: Abdominal pain Primary Care Provider: Iliana Pradhan ED Provider: Marsha Taylor Home Meds and New Rx's Prescriptions: New famotidine [Pepcid] 20 mg tablet 20 mg PO DAILY Qty: 30 RF: 0 sucralfate [Carafate] 1 gram tablet 1 g PO BID Qty: 60 RF: 0 Continued albuterol sulfate [Proventil HFA] 6.7 GM HFA aerosol inhaler 1 - 2 puff Inhalation Q6H PRN RF: 0 Discontinued norgestimate-ethinyl estradiol [Estarylla] 0.25-35 mg-mcg tablet 1 tab PO DAILY RF: 0 dicyclomine 10 mg capsule 10 mg PO QID Qty: 14 RF: 0 Discharge Instructions Instructions: Abdominal Pain (ED) Additional Instructions: I recommend discontinuing that Imodium Follow-up with primary care provider Recommend increasing daily fiber, metameucil, prunes, green leafy vegetables Take the Carafate and Pepcid as prescribed Recommend outpatient endoscopy and colonoscopy per discretion of the provider Please return with fever, chills, worsening pain, or should new concerns arrive Referrals: Cari Costa MD [ [facility] STAFF PHYSICIAN] - Iliana Pradhan [Primary Care Provider] - Medical Decision Making I evaluated this patient several months prior for similar symptoms She did CT scan in September that did not show any evidence of acute abnormality, I ordered an x-ray of the knee show moderate volume stool No evidence of free air or bowel obstruction Patient examined relatively benign, I think ordering can with radiation risk outweighs benefit The differential for this patient include some sort of food allergy versus gastritis or ulcer She will need outpatient reassessment and likely EGD and colonoscopy at the discretion of her provider I will start her on Carafate and Pepcid S Urine clear Her test was negative PID, however patient has no suprapubic lower abdominal tenderness Instructed to return should she have new or worsening complaints Medical Records Medical records reviewed: Yes I reviewed the patient's medical records. Lab Data Lab results reviewed: Yes I reviewed the patient's lab results. HPI General Mode of arrival: ambulatory . Date/Time Provider Initiated Documentation: 08/07/21 19:42 . Limitations to Documentation: no limitations . Information obtained by: patient . HPI Narrative: This 31-year-old female presents with report of abdominal pain. History of pain in the past. Denies any alcohol consumption. Denies any chest pain or shortness of breath. Denies any dizziness or weakness. States the pain has been intermittent for the past several months but is going over the past 3 weeks. She states the pain comes and goes. She states sometimes when she eats or drinks certain foods precipitate an event. She was under a great deal of stress secondary to a court date today and feels that the pain is worse. She denies any mucus or blood in her stools. She denies any history of gluten intolerance that her. She denies any current nausea or vomiting. She denies any chance of . She denies attempted any [id number] medications aside from Imodium actually does help alleviate her pain per patient. She denies any urinary complaints. She denies any fever or chills. denies risk of stds or vaginal discharge. She has been pain or shortness of breath. She denies any history of pancreatitis or hematuria. She denies any urinary frequency. She has not had a colonoscopy or endoscopy in the past although was scheduled for these tests when she became . She has yet to have them completed. Related Data Home Medications Medication Instructions Recorded Confirmed albuterol sulfate [Proventil HFA] 1 - 2 puff INHALATION Q6H PRN 03/08/14 08/07/21 inhaler famotidine [Pepcid] 20 mg PO DAILY #30 tab 08/07/21 sucralfate [Carafate] 1 g PO BID #60 tab 08/07/21 Previous Rx's Medication Instructions Recorded famotidine [Pepcid] 20 mg PO DAILY #30 tab 08/07/21 sucralfate [Carafate] 1 g PO BID #60 tab 08/07/21 Allergies Allergy/AdvReac Type Severity Reaction Status Date / Time No Known Drug Allergies Allergy Unverified 08/07/21 19:49 General Stated Complaint: Abd Prob SURENDRA: 3 Review of Systems All systems reviewed & are unremarkable except as noted in HPI and below PFSH Medical History Asthma Back pain affecting Breast nodule R sided. 1cm 8 o'clock position. Nl breast u/s 03/28/17. Chronic back pain Reports pain since she was a teenager. 2019 negative MRI of lumbar spine. PT not helpful, pain clinic injection not helpful. Has been evaluated by rheumatology in the past Contraceptive management 2010 Mirena IUD # 1 placed PP. 06/10/14 Mirena IUD fell out and #2 reinserted. 07/27/2014. IUD was removed to attempt . 03/2016 IUD #3 inserted after she changed partners and decided against . 02/2017 Mirena IUD removed secondary to AUB. 02/2019 Nexplanon. D/C'd 10/10 AUB. 2020. DepoProvera. DVT prophylaxis History of gestational hypertension Hypokalemia Influenza A Left lower quadrant abdominal pain since 2017. neg imaging studies. Lyme disease Pneumonia affecting Tobacco dependence Vaginal discharge (06/10/14) + BV. will treat. Recurred 11/2018 and treated Family History Grandfather Essential hypertension Father Prostate cancer 2017 Diabetes Type 2 Social History Smoking/Tobacco Use Status: Current every day Tobacco Type: cigarettes Smoking risk assessment performed?: Yes Alcohol Intake: current Alcohol Intake frequency: holidays/special occasions only Drug use: Never Substance use type: does not use Household members: other Details: Not in a relationship. Number of Children: 2 current occupation: [employer] Current gender identity: female Do you feel safe at home: Yes Do you feel safe in your relationship?: Yes Additional Social history: [employer]. 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 Date GA/Weeks # Outcome Route Wgt Sex Labor Lgth Anesthes ia Location Prov Complic 05/26/11 39 No Successful vaginal 3543.69 g Female 10 02/23/19 40 No Successful vaginal 3628.739 g Male Amada Blanton CNM Delivery Date: 05/26/11 IOL for gestational HTN, pitocin, unmedicated , 2 hrs of pushing Lyn Knowles Delivery Date: 02/23/19 No notes to display Exam Const General: cooperative, comfortable and no acute distress Eyes Sclera: sclerae normal Resp Effort & Inspection: normal respiratory effort Cardio Rate: regular rate GI Other: mild tenderness LUQ and LLQ without rebound or guarding no cva tenderness Skin General skin exam: no rashes or lesions noted Neuro General: patient alert and patient oriented x3 Extrem Other: distal pulses intact Course Vital Signs Vital signs: Vital Signs Temperature 36.7 C 08/07/21 19:44 Pulse 107 H 08/07/21 19:44 Respiratory Rate 18 08/07/21 19:44 Blood Pressure 133/92 H 08/07/21 19:44 Pulse Oximetry 99 08/07/21 19:44 Temperature 36.7 C 08/07/21 19:44 Temperature Source Tympanic 08/07/21 19:44 Pulse 107 H 08/07/21 19:44 Respiratory Rate 18 08/07/21 19:44 Respiratory Effort 08/07/21 19:50 Blood Pressure 133/92 H 08/07/21 19:44 Blood Pressure Position Sitting 08/07/21 19:44 Pulse Oximetry 99 08/07/21 19:44 Oxygen Delivery Method Room Air 08/07/21 19:44 Oxygen Flow Rate 0 08/07/21 19:44 Pain Level 6 08/07/21 19:44 PAWSS Have you Been Recently Intoxicated or Drunk Within the Last 30 days?: No Have you Ever Experienced Previous Episodes of Alcohol Withdrawal?: No Have you ever Experienced Withdrawal Seizures?: No Have you ever Experienced Delirium Tremens(DT)s?: No Have you ever undergone Alcohol Rehabilitation Treatment (i.e, inpt ot outpatient treatment programs)?: No Have you ever Experienced Blackouts?: No Have you ever Combined Alcohol with any other Substance of Abuse during the last 90 days?: No Result: 0
[2021-08-07] MEDS: Famotidine 20 MG TAB PO (20:28)
[2021-08-07] MEDS: Sucralfate 1 GM TAB PO (20:28)
[2021-08-07 20:51] LABS: Bilirubin Negative (Negative); Blood Negative (Negative); Clarity Cloudy (Clear); Glucose Negative (Negative); Ketones Negative (Negative); Leukocyte Esterase Negative (Negative); Nitrite Negative (Negative); Urobilinogen 0.2 EU/dL (Up TO 0.2)
--- NOTE | 2021-08-07 21:04 | DI.VRAD_ITS ---
PROCEDURE INFORMATION: Exam: XR Abdomen Exam date and time: 08/07/2021 8:17 PM Age: 31 years old Clinical indication: Abdominal pain; Generalized; Patient HX: Abd pain and diarrhea for about 5 months TECHNIQUE: Imaging protocol: XR of the abdomen. Views: 2 Views. Upright and supine views. COMPARISON: CR XR ABDOMEN FLAT UPRIGHT 12/29/2020 12:13 AM FINDINGS: Gastrointestinal tract: The bowel gas pattern is normal. There is a small to moderate amount of stool throughout the colon. Intraperitoneal space: There is no free intraperitoneal air. Bones/joints: Unremarkable for age. IMPRESSION: Normal bowel gas pattern. Dictated and Authenticated by: Herb Houser MD. Ordering:STEFAN Larson MD
[2021-08-07 21:25] VITALS: BP 116/78; PULSE 81; RESP 16; O2SAT 100
== END 2021-08-07 21:33 | disposition home or self-care (01) ==
PROVIDERS: Emergency Provider Physician Assistant; PCP Nurse Practitioner Family
DX: R10.12 Left upper quadrant pain (principal); R10.32 Left lower quadrant pain
CPT/HCPCS: 81025; 99283; 74019; 81003

== ENCOUNTER 2021-10-31 16:04 | Outpatient (REF) | payer MEDICAID, SELFPAY ==
[2021-10-31 22:12] LABS: Abs Immature Grans 0.02 10^3/uL (0.0-0.06); Absolute Basophil Count 0.04 10^3/uL (0.0-0.2); Absolute Eosinophil Count 0.12 10^3/uL (0.0-0.7); Absolute Monocyte Count 0.58 10^3/uL (0.1-0.8); Absolute Neutrophil Count 2.76 10^3/uL (1.2-6.7); Basophils % 0.7; ESR < 1 mm/hr (0-20); Eosinophils % 2.1; HCT 42.5 % (36.0-46.0); HGB 14.1 g/dL (11.2-15.7); Immature Grans % 0.4; Lymphocytes % 37.4; MCH 31.8 pg (27.0-33.0); MCHC 33.2 % (32.0-36.0); MCV 95.7 fL (80-95); MPV 9.1 fL (8.0-11.0); Monocytes % 10.3; Neutrophils % 49.1; Nucleated RBC 0 %; Platelet Count 238 10^3/uL (130-400); RBC 4.44 10^6/uL (3.93-5.22); RDW 11.6 % (11.7-14.6); RDW-SD 41.1 fL; WBC 5.62 10^3/uL (4.4-10.8)
[2021-10-31 22:35] LABS: ALT 16 U/L (14-59); AST 11 U/L (15-37); Albumin 3.9 g/dL (3.4-5.0); Alkaline Phosphatase 49 U/L (46-116); Anion Gap 8.6 mmol/L (3-11); BUN 9 mg/dL (7-18); Bilirubin, Total 0.2 mg/dL (0.2-1.0); CO2 26.4 mmol/L (21.0-32.0); CREATININE 0.7 mg/dL (0.55-1.02); Calcium 8.7 mg/dL (8.5-10.1); Chloride 105 mmol/L (98-107); Glucose 144 mg/dL (74-106); Lipase 102 U/L (73-393); Sodium 140 mmol/L (136-145); Total Protein 6.7 g/dL (6.4-8.2)
[2021-11-05 13:53] LABS: IgA 114 mg/dL (85-499); Interpretation (See Note); Tissue Transglutaminase IgA <1.2 U/mL (<4.0)
== END 2021-10-31 16:05 | disposition home or self-care (01) ==
LOC: NCHCN 16:04
PROVIDERS: PCP Nurse Practitioner Family; Visit Provider Family Medicine
DX: R10.32 Left lower quadrant pain (principal); R19.7 Diarrhea, unspecified; K21.9 Gastro-esophageal reflux disease without esophagitis
CPT/HCPCS: 80053; 82784; 83516; 83690; 85652; 85025

== ENCOUNTER 2022-01-08 19:47 | Outpatient (REF) | payer MEDICAID, SELFPAY | END 2022-01-08 19:48 | disposition home or self-care (01) | LOC: LBN 19:47 | PROVIDERS: PCP Nurse Practitioner Family; Visit Provider Obstetrics & Gynecology | DX: R10.2 Pelvic and perineal pain (principal) | CPT/HCPCS: 87086 ==

== ENCOUNTER 2022-10-21 18:39 | Emergency (ER) | payer MEDICAID, SELFPAY ==
[2022-10-21 18:43] VITALS: BP 152/94; PULSE 113; RESP 18; TEMP 36.8; O2SAT 100
--- NOTE | 2022-10-21 18:45 | RT.EKG_ITS ---
APPROVED REPORT Exam: Resting ECG Reason for Exam: palpitations Patient Location: E HR:85 bpm ECG Measurements Heart Rate 85 AXIS MN 150 P 82 QRSd 64 QRS 76 QT 365 T 60 QTc 434 Conclusion Sinus rhythm...normal P axis, V-rate 60- 99 Probable left atrial enlargement...P >50mS, <-0.10mV V1. Sinus. Normal axis. No STEMI. I have reviewed and interpreted ECG and agree with software generated interpretation.
--- NOTE | 2022-10-21 19:57 | ED.GENADUL_ITS ---
Discharge Plan Disposition Patient Disposition: Home Condition: Improving Discharge Details Clinical Impression: Anxiety Primary Care Provider: Iliana Pradhan ED Provider: Rafaela Martell Home Meds and New Rx's Prescriptions: Continued albuterol sulfate [Proventil HFA] 6.7 GM HFA aerosol inhaler 1 - 2 puff Inhalation Q6H PRN Patient Comments: used for exercised induced asthma. 08/28/15 rl famotidine [Pepcid] 20 mg tablet 20 mg PO DAILY Qty: 30 0RF sucralfate [Carafate] 1 gram tablet 1 g PO BID Qty: 60 0RF Discharge Instructions Instructions: Anxiety (ED) Additional Instructions: Your blood tests, EKG and imaging today are reassuring and show no evidence of acute concerning or significant findings. Your COVID, influenza and RSV tests today are negative. Take the Ativan as needed and directed for feelings of stress, anxiety or difficulty sleeping. Follow-up with your primary care doctor in 1 week. Return to the emergency department with any worsening or new concerning symptoms. Discharge Data Discharge Physician: Rafaela Martell Medical Decision Making 1899 -- 32-year-old female with a history of anxiety presents for palpitations and chest tightness and feelings of anxiety for the past 2 days. Patient appears anxious and tearful. Heart rate 110s on arrival. Blood pressure hypertensive at 152/94. Remainder of vitals within normal limits. Would suspect anxiety as she is tearful and crying throughout exam, but as she is tachycardic, also consider thyroid disease, PE, anemia, arrhythmia, dehydration, COVID or influenza. Will obtain screening labs, FLUVID, D-dimer, chest x-ray and give a bolus of IV fluids. Patient states she drove herself here and cannot get a ride home so we will hold on Ativan at this time. Labs and imaging reviewed and unremarkable. Negative troponin. He has a negative D-dimer. FLUVID negative. TSH within normal limits. Chest x-ray negative. 2229 --patient reassessed and she feels much better would like to go home. We will send with a few tabs of Ativan to take as needed. Advised to follow up with the primary care doctor for re-evaluation. Usual and customary return precautions given prior to discharge. Medical Records Medical records reviewed: Yes I reviewed the patient's medical records. Imaging Data Radiologic Study: Radiologist's impression: XR Chest Exam date and time: 10/21/2022 8:20 PM Age: 32 years old Clinical indication: Other: Chest pain, R/O acute disease TECHNIQUE: Imaging protocol: Radiologic exam of the chest. Views: 2 views. COMPARISON: CR XR CHEST 2V PA LATERAL 10/08/2018 12:01 PM FINDINGS: Lungs: Unremarkable. No consolidation. Pleural spaces: Unremarkable. No pleural effusion. No pneumothorax. Heart/Mediastinum: Unremarkable. No cardiomegaly. Bones/joints: Unremarkable. IMPRESSION: No acute findings. Lab Data Lab results reviewed: Yes I reviewed the patient's lab results. Labs: Laboratory Tests Range/Units 10/21/22 10/21/22 10/21/22 20:30 20:30 20:30 WBC (4.4-10.8) 10^3/uL 10.24 RBC (3.93-5.22) 10^6/uL 4.86 Hgb (11.2-15.7) g/dL 14.6 Hct (36.0-46.0) % 43.9 MCV (80-95) fL 90 MCH (27.0-33.0) pg 30.0 MCHC (32.0-36.0) % 33.3 RDW (11.7-14.6) % 11.5 L Plt Count (130-400) 10^3/uL 294 MPV (8.0-11.0) fL 8.5 Immature Gran % 0.2 Neutrophils % 76.8 Lymphocytes % 15.2 Monocytes % 6.3 Eosinophils % 0.9 Basophils % 0.6 Nucleated RBC % (0.0-0.3) % 0.0 Absolute Neutrophils (1.2-6.7) 10^3/uL 7.86 H Absolute Lymphocytes (1.2-3.4) 10^3/uL 1.56 Absolute Monocytes (0.1-0.8) 10^3/uL 0.65 Absolute Eosinophils (0.0-0.7) 10^3/uL 0.09 Absolute Basophils (0.0-0.2) 10^3/uL 0.06 D-Dimer (<500) ng/mlFEU 110 Sodium (136-145) mmol/L 141 Potassium (3.5-5.1) mmol/L 3.5 Chloride (98-107) mmol/L 103 Carbon Dioxide (21.0-32.0) mmol/L 27.5 Anion Gap (3-11) mmol/L 10.5 BUN (7-18) mg/dL 7 Creatinine (0.55-1.02) mg/dL 0.9 Est GFR (CKD-EPI 2020) (mL/min/1.73m2) 88.20 Glucose (74-106) mg/dL 97 Calcium (8.5-10.1) mg/dL 9.3 Magnesium (1.8-2.4) mg/dL 2.0 Total Bilirubin (0.2-1.0) mg/dL 0.4 AST (15-37) U/L 17 ALT (14-59) U/L 18 Alkaline Phosphatase (46-116) U/L 65 Troponin I (<or=60) ng/L < 50 Total Protein (6.4-8.2) g/dL 8.6 H Albumin (3.4-5.0) g/dL 4.8 TSH (0.36-3.74) uIU/mL 1.33 COVID-19 Source SARS-CoV-2 (PCR) (Negative) Influenza Type A (PCR) (Negative) Influenza Type B (PCR) (Negative) RSV (PCR) (Negative) Range/Units 10/21/22 20:30 WBC (4.4-10.8) 10^3/uL RBC (3.93-5.22) 10^6/uL Hgb (11.2-15.7) g/dL Hct (36.0-46.0) % MCV (80-95) fL MCH (27.0-33.0) pg MCHC (32.0-36.0) % RDW (11.7-14.6) % Plt Count (130-400) 10^3/uL MPV (8.0-11.0) fL Immature Gran % Neutrophils % Lymphocytes % Monocytes % Eosinophils % Basophils % Nucleated RBC % (0.0-0.3) % Absolute Neutrophils (1.2-6.7) 10^3/uL Absolute Lymphocytes (1.2-3.4) 10^3/uL Absolute Monocytes (0.1-0.8) 10^3/uL Absolute Eosinophils (0.0-0.7) 10^3/uL Absolute Basophils (0.0-0.2) 10^3/uL D-Dimer (<500) ng/mlFEU Sodium (136-145) mmol/L Potassium (3.5-5.1) mmol/L Chloride (98-107) mmol/L Carbon Dioxide (21.0-32.0) mmol/L Anion Gap (3-11) mmol/L BUN (7-18) mg/dL Creatinine (0.55-1.02) mg/dL Est GFR (CKD-EPI 2020) (mL/min/1.73m2) Glucose (74-106) mg/dL Calcium (8.5-10.1) mg/dL Magnesium (1.8-2.4) mg/dL Total Bilirubin (0.2-1.0) mg/dL AST (15-37) U/L ALT (14-59) U/L Alkaline Phosphatase (46-116) U/L Troponin I (<or=60) ng/L Total Protein (6.4-8.2) g/dL Albumin (3.4-5.0) g/dL TSH (0.36-3.74) uIU/mL COVID-19 Source Nasopharynx SARS-CoV-2 (PCR) (Negative) Negative Influenza Type A (PCR) (Negative) Negative Influenza Type B (PCR) (Negative) Negative RSV (PCR) (Negative) Negative ECG Data Attestation: I personally reviewed and interpreted this ECG (s) as follows: Interpretation: Rate of 85, sinus, normal axis, no STEMI. HPI General Mode of arrival: ambulatory . Date/Time Provider Initiated Documentation: 10/21/22 18:53 . Limitations to Documentation: no limitations . Information obtained by: patient . HPI Narrative: Pt is a 32yo F w/ a h/o anxiety who presents to the ED w/ a c/o palpitations and chest tightness for the past 2 days. Patient states she has felt similar with anxiety in the past but states this is more intense. She states she had 1 glass of wine prior to onset of symptoms but states she was drinking at home and denies any possible ingestion. She denies any drug use. She states she had been feeling well prior to onset of symptoms 2 days ago. Patient states she had been on Zoloft in the past for her anxiety but does not like to take medication so stopped. She states she took BuSpar that is 3 years old for her symptoms over the past 2 days but had no relief. She did admit to some left-sided sore throat 2 days ago so became nervous about the symptoms and thinks this may have contributed. Patient states she has severe anxiety about any symptoms she ever develops due to the possible cause. She does admit to some mild frontal headache. She denies fever, difficulty breathing, abdominal pain, nausea, vomiting or diarrhea. She denies any suicidal or homicidal ideation. Related Data Home Medications Medication Instructions Recorded Confirmed albuterol sulfate 90 mcg/actuation 1 - 2 puff inhalation Q6H PRN 03/08/14 08/07/21 aerosol inhaler (Proventil HFA) famotidine 20 mg tablet (Pepcid) 20 mg PO DAILY #30 tabs 08/07/21 sucralfate 1 gram tablet (Carafate) 1 g PO BID #60 tabs 08/07/21 Previous Rx's Medication Instructions Recorded famotidine 20 mg tablet (Pepcid) 20 mg PO DAILY #30 tabs 08/07/21 sucralfate 1 gram tablet (Carafate) 1 g PO BID #60 tabs 08/07/21 Allergies Allergy/AdvReac Type Severity Reaction Status Date / Time No Known Drug Allergies Allergy Unverified 01/08/22 13:39 General Stated Complaint: Anxiety SURENDRA: 3 Review of Systems All systems reviewed & are unremarkable except as noted in HPI and below Constitutional Constitutional: Reports as per HPI, Denies chills and Denies fever(s) Eyes Eyes: Denies blurry vision ENT Ears, Nose, Mouth, and Throat: Denies dizziness, Denies sore throat and Denies throat swelling Cardiovascular Cardiovascular: Denies chest pain, Reports palpitations and Denies dyspnea Respiratory Respiratory: Denies cough and Denies dyspnea Gastrointestinal Gastrointestinal: Denies abdominal pain, Denies diarrhea and Denies vomiting Genitourinary Genitourinary: Denies hematuria and Denies dysuria Musculoskeletal Musculoskeletal: Denies back pain and Denies numbness Integumentary/Breasts Skin/Breast: Denies lesions and Denies rash Neurologic Neurologic: Denies dizziness, Denies localized weakness and Denies numbness Psychiatric Psychiatric: Reports anxiety Endocrine Endocrine: Reports palpitations Allergic/Immunologic Allergic/Immunologic: Denies throat swelling PFSH All Active Problems (Updated 10/21/22 @ 22:43 by Rafaela Martell DO) Anxiety (Chronic) Pelvic pain (Acute) Abdominal pain (Acute) Patellofemoral syndrome of left knee (Acute) Patellofemoral syndrome of right knee (Acute) Femoroacetabular impingement of right hip (Acute) Femoroacetabular impingement of left hip (Acute) Chronic back pain (Chronic) Reports pain since she was a teenager. 2019 negative MRI of lumbar spine. PT not helpful, pain clinic injection not helpful. Has been evaluated by rheumatology in the past Tobacco dependence (Acute) Medical History Asthma Back pain affecting Breast nodule R sided. 1cm 8 o'clock position. Nl breast u/s 03/28/17. Contraceptive management 2010 Mirena IUD # 1 placed PP. 06/10/14 Mirena IUD fell out and #2 reinserted. 07/27/2014. IUD was removed to attempt . 03/2016 IUD #3 inserted after she changed partners and decided against . 02/2017 Mirena IUD removed secondary to AUB. 02/2019 Nexplanon. D/C'd 10/10 AUB. 2020. DepoProvera. Cyst of right breast (02/18/17) 1cm @ 8 o'clock position. 03/28/17 Nodularity c/w benign glandular tissue. DVT prophylaxis History of gestational hypertension Hypokalemia Influenza A Lyme disease Pneumonia affecting Family History Grandfather Essential hypertension Father Prostate cancer 2017 Diabetes Type 2 Social History Smoking/Tobacco Use Status: Former Tobacco Use Smoking risk assessment performed?: Yes Alcohol Intake: current Alcohol Intake frequency: holidays/special occasions only Drug use: Never Substance use type: does not use Household members: other Details: Not in a relationship. Number of Children: 2 current occupation: [employer] Current gender identity: female Do you feel safe at home: Yes Do you feel safe in your relationship?: Yes Additional Social history: [employer]. 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 Date GA/Weeks # Preg Succ Route Wgt Sex Labor Lgth Anesth esia Location Prov Complic 05/26/11 39 No vaginal 3543.69 g Female 10 02/23/19 40 No vaginal 3628.739 g Male Amada Blanton CNM Delivery Date: 05/26/11 Last Updated by: Lyn Knowles CNM IOL for gestational HTN, pitocin, unmedicated , 2 hrs of pushing Exam Const General: cooperative and anxious Orientation: alert, awake and oriented x3 HENMT Head: normal to inspection Ears: hearing grossly normal bilaterally and external ears normal Face and sinus: normal facial exam Mouth: oral mucosae normal Throat: posterior oropharynx normal, uvula midline and no peritonsillar masses Eyes General: appearance normal, both eyes and all related structures Pupils: PERRL EOM: EOM intact bilaterally Neck Neck: normal visual inspection and No submandibular swelling Lymphatic: no lymphadenopathy noted Chest Chest: normal inspection of the chest and no tenderness Resp Effort & Inspection: normal respiratory effort and able to speak in complete sentences Auscultation: clear to auscultation bilaterally Cardio Rate: tachycardic Rhythm: regular rhythm GI Inspection: normal to inspection Palpation: soft, not firm, not rigid and nontender Auscultation: hypoactive bowel sounds Skin General skin exam: no rashes or lesions noted Neuro General: patient alert, patient awake and patient oriented x3 Cognition: normal cognition Speech: speech normal Motor: muscle tone normal throughout Sensory Exam: no sensory deficits noted Extrem General: normal to inspection, full ROM, capillary refill normal, no calf tenderness bilaterally and no edema Psych Appearance: grossly normal Mental Status: mental status grossly normal Speech and Movement: speech and movement normal Affect: normal affect Course Vital Signs Vital signs: Vital Signs Temperature 98.2 F 10/21/22 18:43 Pulse 113 H 10/21/22 18:43 Respiratory Rate 18 10/21/22 18:43 Blood Pressure 152/94 H 10/21/22 18:43 Pulse Oximetry 100 10/21/22 18:43 Temperature 98.2 F 10/21/22 18:43 Temperature Source Tympanic 10/21/22 18:43 Pulse 113 H 10/21/22 18:43 Respiratory Rate 18 10/21/22 18:43 Respiratory Effort Normal 10/21/22 18:48 Blood Pressure 152/94 H 10/21/22 18:43 Blood Pressure Position Sitting 10/21/22 18:43 Pulse Oximetry 100 10/21/22 18:43 Oxygen Delivery Method Room Air 10/21/22 18:43 Oxygen Flow Rate 0 10/21/22 18:43 Pain Level 0 10/21/22 18:43 Lab/Test Results Lab/Test Results: POC- Test(urine) Negative PAWSS Have you Been Recently Intoxicated or Drunk Within the Last 30 days?: No Have you Ever Experienced Previous Episodes of Alcohol Withdrawal?: No Have you ever Experienced Withdrawal Seizures?: No Have you ever Experienced Delirium Tremens(DT)s?: No Have you ever undergone Alcohol Rehabilitation Treatment (i.e, inpt ot outpatient treatment programs)?: No Have you ever Experienced Blackouts?: No Have you ever Combined Alcohol with other Downers within the last 90 days?: No Have you ever Combined Alcohol with any other Substance of Abuse during the last 90 days?: No Positive Blood Alcohol level on Presentation? [PCS.BAL]: No Evidence of Increased Autonomic Activity (i.e. HR>120, tremor, sweating, agitation, nausea)?: Yes Result: 1
--- NOTE | 2022-10-21 20:00 | DI.RAD_ITS ---
Exam(s) XR CHEST 2V PA LATERAL EXAM: XR CHEST 2V PA LATERAL CLINICAL HISTORY: chest pain, r/o acute disease. TECHNIQUE: 2D digital imaging was performed. COMPARISON: No exams were available for comparison FINDINGS: 2 views: Heart size is normal. The mediastinum is not widened. Lungs are clear. No infiltrates nor pleural effusions. IMPRESSION: No acute pulmonary findings. DATA REPOSITORY: RADIATION DOSE DELIVERED:
--- NOTE | 2022-10-21 20:28 | DI.VRAD_ITS ---
PROCEDURE INFORMATION: Exam: XR Chest Exam date and time: 10/21/2022 8:20 PM Age: 32 years old Clinical indication: Other: Chest pain, R/O acute disease TECHNIQUE: Imaging protocol: Radiologic exam of the chest. Views: 2 views. COMPARISON: CR XR CHEST 2V PA LATERAL 10/08/2018 12:01 PM FINDINGS: Lungs: Unremarkable. No consolidation. Pleural spaces: Unremarkable. No pleural effusion. No pneumothorax. Heart/Mediastinum: Unremarkable. No cardiomegaly. Bones/joints: Unremarkable. IMPRESSION: No acute findings. Dictated and Authenticated by: Toni Martin MD. Ordering:THAO Russo MD
[2022-10-21 20:42] LABS: Abs Immature Grans 0.02 10^3/uL (0.0-0.06); Absolute Basophil Count 0.06 10^3/uL (0.0-0.2); Absolute Eosinophil Count 0.09 10^3/uL (0.0-0.7); Absolute Lymphocyte Count 1.56 10^3/uL (1.2-3.4); Absolute Monocyte Count 0.65 10^3/uL (0.1-0.8); Absolute Neutrophil Count 7.86 10^3/uL (1.2-6.7); Basophils % 0.6; Eosinophils % 0.9; HCT 43.9 % (36.0-46.0); HGB 14.6 g/dL (11.2-15.7); Immature Grans % 0.2; Lymphocytes % 15.2; MCHC 33.3 % (32.0-36.0); MCV 90 fL (80-95); MPV 8.5 fL (8.0-11.0); Monocytes % 6.3; Neutrophils % 76.8; Platelet Count 294 10^3/uL (130-400); RBC 4.86 10^6/uL (3.93-5.22); RDW 11.5 % (11.7-14.6); RDW-SD 37.9 fL; WBC 10.24 10^3/uL (4.4-10.8)
[2022-10-21] MEDS: ACETAMINOPHEN 1,000 MG/100 ML BTL 400 MG IVPB (20:47)
[2022-10-21] MEDS: Normal Saline 1,000 ML 1000 ML IV (20:48)
[2022-10-21 21:06] LABS: ALT 18 U/L (14-59); AST 17 U/L (15-37); Albumin 4.8 g/dL (3.4-5.0); Alkaline Phosphatase 65 U/L (46-116); Anion Gap 10.5 mmol/L (3-11); BUN 7 mg/dL (7-18); Bilirubin, Total 0.4 mg/dL (0.2-1.0); CO2 27.5 mmol/L (21.0-32.0); CREATININE 0.9 mg/dL (0.55-1.02); Calcium 9.3 mg/dL (8.5-10.1); Chloride 103 mmol/L (98-107); Glucose 97 mg/dL (74-106); Potassium 3.5 mmol/L (3.5-5.1); Sodium 141 mmol/L (136-145); TSH (W/Ref FT4) 1.33 uIU/mL (0.36-3.74); Total Protein 8.6 g/dL (6.4-8.2); Troponin I < 50 ng/L (<or=60)
[2022-10-21 21:12] LABS: D-Dimer 110 ng/mlFEU (<500)
[2022-10-21 21:28] LABS: COVID-19 PCR Negative (Negative); Influenza A PCR Negative (Negative); Influenza B PCR Negative (Negative); RSV PCR Negative (Negative)
[2022-10-21 21:30] LABS: Source Nasopharynx
[2022-10-21] MEDS: LORazepam 0.5 MG TAB 2 MG PO (23:23)
[2022-10-21 23:28] VITALS: PULSE 70; RESP 16; TEMP 36.2
== END 2022-10-21 23:31 | disposition home or self-care (01) ==
PROVIDERS: Emergency Provider Physician Assistant; PCP Nurse Practitioner Family
DX: F41.9 Anxiety disorder, unspecified (principal); J45.909 Unspecified asthma, uncomplicated; Z20.822 Contact with and (suspected) exposure to COVID-19
CPT/HCPCS: 80053; 81025; 87637; 93005; 96361; 96374; 99284; 71046; 83735; 84443; 84484; 85025; 85379; 93010; 99285; J0131

== ENCOUNTER 2022-10-26 20:05 | Emergency (ER) | payer MEDICAID, SELFPAY ==
[2022-10-26 20:13] VITALS: BP 136/88; PULSE 98; RESP 16; TEMP 36.6; O2SAT 99
--- NOTE | 2022-10-26 21:00 | DI.CT_ITS ---
Exam(s) CT HEAD WO EXAM: CT HEAD WO CLINICAL HISTORY: headache, r/o acute process. TECHNIQUE: Imaging Protocol: Axial computed tomography images with coronal and sagittal reformatted images were created and reviewed COMPARISON: No exams were available for comparison FINDINGS: Ventricles and Extra axial spaces: Normal in size and morphology for the patient's age. Hemorrhage: None. Cerebral parenchyma: Normal. Midline shift: None. Brainstem/Cerebellum: Normal. Calvarium: Normal. Visualized Paranasal sinuses/Mastoids: Clear. Soft Tissues: Unremarkable. IMPRESSION: No acute intracranial process. RADIATION DOSE DELIVERED: 688.89mGy.cm Total DLP DATA REPOSITORY: All CT scans at this facility are submitted to the National Radiology Data Registry (NRDR) Dose Index Registry (DIR) with the [employer] (ACR). RADIATION OPTIMIZATION: All CT scans at this facility use at least one of these dose optimization te chniques: automated exposure control; mA and/or kV adjustment per patient size (includes targeted exa ms where dose is matched to clinical indication); or iterative reconstruction.
--- NOTE | 2022-10-26 21:08 | ED.GENADUL_ITS ---
Discharge Plan Disposition Patient Disposition: Home Condition: Stable Discharge Details Clinical Impression: Anxiety Primary Care Provider: Iliana Pradhan ED Provider: Rafaela Martell Home Meds and New Rx's Prescriptions: Continued albuterol sulfate [Proventil HFA] 6.7 GM HFA aerosol inhaler 1 - 2 puff Inhalation Q6H PRN Patient Comments: used for exercised induced asthma. 08/28/15 rl famotidine [Pepcid] 20 mg tablet 20 mg PO DAILY Qty: 30 0RF sucralfate [Carafate] 1 gram tablet 1 g PO BID Qty: 60 0RF Discharge Instructions Instructions: Anxiety (ED), General Headache (ED) Additional Instructions: The CT scan of your head today is reassuring and shows no evidence of acute concerning or significant findings. Drink plenty of fluids and get plenty of rest. Alternate tylenol and motrin as needed and directed for pain. Take Ativan as needed and directed for feelings of anxiety or to help with sleep. Follow-up with your upcoming appointment with your primary care doctor for reevaluation and for referral for MRI brain if your symptoms do not improve or worsen. Follow-up with your scheduled appointment with your eye doctor. Return immediately to the emergency department if you develop any worsening or new concerning symptoms. Discharge Data Discharge Physician: Rafaela Martell Medical Decision Making 32-year-old female with a history of anxiety presents for worsening anxiety since quitting smoking 2 days ago. Also complains of forehead pressure which she has had for the last week which is now resolved. Also complained of bilateral eye pressure for which she saw I care this week and had reassuring eye exam and diagnosed with likely eyestrain secondary to not wearing her glasses and started on fluorometholone eyedrops. Of note, patient was seen here 5 days ago for symptoms of anxiety but also complained of chest pain and palpitations at that time which she now denies. She had a reassuring work-up at that time with unremarkable labs including troponin, D-dimer, negative FLUVID and negative chest x-ray. Patient is tearful and crying throughout exam. She has no focal deficits or meningeal signs. History and presentation does not appear consistent with CVA, subarachnoid hemorrhage, meningitis. As she recently had labs which are reassuring, do not see an indication for repeat blood work at this time. Patient states she does have anxiety about her forehead pressure so we will proceed with CT head. She states she drove herself here and cannot get a ride home so we will hold on any treatment for anxiety at this time. She was given Ativan to go 5 days ago and has only been taking it as needed for sleep at night. I do feel that her quitting smoking 2 days ago may be contributing to her symptoms. CT head reviewed and negative. Discussed at length with patient regarding her symptoms and that she could consider treatment modalities that can help with quitting smoking such as Nicotrol inhaler, Nicorette gum or NicoDerm CQ as withdrawal may be contributing to her symptoms. Patient feels comfortable going home. We will send with a few more tabs of Ativan as needed. Discussed that she may need to be started on a daily antianxiety medication such as an SSRI or SNRI.She has an appointment with [facility] for follow-up on November 04. We will place patient on [facility] to potentially arrange for an earlier follow-up appointment. She also has a follow-up appointment which should be eye care for reevaluation. Usual and customary return precautions given prior to discharge. Medical Records Medical records reviewed: Yes I reviewed the patient's medical records. Imaging Data Radiologic Study: Radiologist's impression: CT Head Without Contrast Exam date and time: 10/26/2022 9:16 PM Age: 32 years old Clinical indication: Other: Headache, R/O acute process TECHNIQUE: Imaging protocol: Computed tomography of the head without contrast. COMPARISON: CR MANDIBLE COMPLETE 01/12/2018 2:46 PM FINDINGS: Brain: Normal. No hemorrhage. Unremarkable white matter. No mass effect. Cerebral ventricles: No ventriculomegaly. Paranasal sinuses: Trace fluid in the left sphenoidal sinus. Mastoid air cells: Visualized mastoid air cells are well aerated. Bones/joints: Unremarkable. No acute fracture. Soft tissues: Unremarkable. IMPRESSION: No acute intracranial abnormality. Lab Data Labs: Urine test negative HPI General Mode of arrival: ambulatory . Date/Time Provider Initiated Documentation: 10/26/22 20:07 . Limitations to Documentation: no limitations . Information obtained by: patient . HPI Narrative: Patient is a 32-year-old female with history of anxiety presents for feelings of anxiety, difficulty sleeping with occasional head and eye pressure. Patient also feels all the symptoms have worsened since quitting smoking 2 days ago. Patient states she quit smoking for her health. She states her head pressure is minimal and currently not present. She states it is usually 1/10 and is associated with pressure behind both of her eyes. Patient states she was prescribed glasses but states she does not wear them regularly. She states she saw [facility] eye care for her symptoms recently and had a reassuring eye exam and was diagnosed with likely eyestrain and started on fluorometholone eye drops which she has been taking. Patient denies any fever, blurry vision, flashes of lights in eyes, ear pain, sore throat, runny nose, chest pain, shortness of breath, abdominal pain, nausea, vomiting, abdominal pain, neck pain, speech changes or extremity numbness or weakness. Of note, patient was seen here 5 days ago for the same complaint but had complained of chest tightness and palpitations at that time which she now denies. She denies any alcohol or drug use or other new [id number]-rjosisy medications. She states she is not on control. Related Data Home Medications Medication Instructions Recorded Confirmed albuterol sulfate 90 mcg/actuation 1 - 2 puff inhalation Q6H PRN 03/08/14 10/26/22 aerosol inhaler (Proventil HFA) famotidine 20 mg tablet (Pepcid) 20 mg PO DAILY #30 tabs 08/07/21 10/26/22 sucralfate 1 gram tablet (Carafate) 1 g PO BID #60 tabs 08/07/21 10/26/22 Previous Rx's Medication Instructions Recorded famotidine 20 mg tablet (Pepcid) 20 mg PO DAILY #30 tabs 08/07/21 sucralfate 1 gram tablet (Carafate) 1 g PO BID #60 tabs 08/07/21 Allergies Allergy/AdvReac Type Severity Reaction Status Date / Time No Known Drug Allergies Allergy Unverified 10/26/22 20:18 General Stated Complaint: Anxiety SURENDRA: 3 Review of Systems All systems reviewed & are unremarkable except as noted in HPI and below Constitutional Constitutional: Reports as per HPI, Denies chills, Denies fever(s) and Reports headache(s) (forehead pressure) Eyes Eyes: Denies blurry vision and Reports eye pain (bilateral eye pressure) ENT Ears, Nose, Mouth, and Throat: Denies dizziness, Reports headache(s) (forehead pressure), Denies sore throat and Denies throat swelling Cardiovascular Cardiovascular: Denies chest pain and Denies dyspnea Respiratory Respiratory: Denies cough and Denies dyspnea Gastrointestinal Gastrointestinal: Denies abdominal pain, Denies diarrhea and Denies vomiting Genitourinary Genitourinary: Denies hematuria and Denies dysuria Musculoskeletal Musculoskeletal: Denies back pain and Denies numbness Integumentary/Breasts Skin/Breast: Denies lesions and Denies rash Neurologic Neurologic: Denies dizziness, Reports headache(s) (forehead pressure), Denies localized weakness and Denies numbness Allergic/Immunologic Allergic/Immunologic: Denies throat swelling PFSH All Active Problems (Updated 10/26/22 @ 22:38 by Rafaela Martell DO) Anxiety (Chronic) Anxiety (Chronic) Pelvic pain (Acute) Abdominal pain (Acute) Patellofemoral syndrome of left knee (Acute) Patellofemoral syndrome of right knee (Acute) Femoroacetabular impingement of right hip (Acute) Femoroacetabular impingement of left hip (Acute) Tobacco dependence (Acute) Medical History (Updated 10/26/22 @ 22:38 by Rafaela Martell DO) Asthma Chronic back pain Reports pain since she was a teenager. 2019 negative MRI of lumbar spine. PT not helpful, pain clinic injection not helpful. Has been evaluated by rheumatology in the past History of gestational hypertension Lyme disease Surgical History (Updated 10/26/22 @ 22:38 by Rafaela Martell DO) No significant past surgical history Family History Grandfather Essential hypertension Father Prostate cancer 2017 Diabetes Type 2 Social History Smoking/Tobacco Use Status: Former Tobacco Use Smoking risk assessment performed?: Yes Alcohol Intake: current Alcohol Intake frequency: holidays/special occasions only Drug use: Never Substance use type: does not use Household members: other Details: Not in a relationship. Number of Children: 2 current occupation: [employer] Current gender identity: female Do you feel safe at home: Yes Do you feel safe in your relationship?: Yes Additional Social history: [employer] [facility] [employer] 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 Date GA/Weeks # Preg Succ Route Wgt Sex Labor Lgth Anesth esia Location Prov Complic 05/26/11 39 No vaginal 3543.69 g Female 10 02/23/19 40 No vaginal 3628.739 g Male Amada Blanton CNM Delivery Date: 05/26/11 Last Updated by: Lyn Knowles CNM IOL for gestational HTN, pitocin, unmedicated , 2 hrs of pushing Exam Const General: cooperative, healthy appearing and anxious Orientation: alert, awake and oriented x3 HENMT Head: normal to inspection Ears: hearing grossly normal bilaterally, external ears normal and TM's normal bilaterally Face and sinus: normal facial exam and no sinus tenderness Mouth: oral mucosae normal Throat: posterior oropharynx normal Eyes General: appearance normal, both eyes and all related structures Pupils: PERRL EOM: EOM intact bilaterally Neck Neck: normal visual inspection and No submandibular swelling Lymphatic: no lymphadenopathy noted Chest Chest: normal inspection of the chest and no tenderness Resp Effort & Inspection: normal respiratory effort and able to speak in complete sentences Auscultation: clear to auscultation bilaterally Cardio Rate: regular rate Rhythm: regular rhythm GI Inspection: normal to inspection Palpation: soft, not firm, not rigid and nontender Auscultation: hypoactive bowel sounds Skin General skin exam: no rashes or lesions noted Neuro General: patient alert, patient awake, patient oriented x3, moves all extremities and no meningeal signs Cranial Nerves: CN's II-XI intact bilaterally, PERRL, EOM intact bilaterally and no nystagmus Cognition: normal cognition Speech: speech normal Motor: muscle tone normal throughout and strength 5/5 throughout Sensory Exam: no sensory deficits noted Extrem General: normal to inspection, full ROM, capillary refill normal, no calf tenderness bilaterally and no edema Psych Appearance: grossly normal Mental Status: mental status grossly normal Speech and Movement: speech and movement normal Affect: normal affect Course Vital Signs Vital signs: Vital Signs Temperature 97.9 F 10/26/22 20:13 Pulse 98 H 10/26/22 20:13 Respiratory Rate 16 10/26/22 20:13 Blood Pressure 136/88 10/26/22 20:13 Pulse Oximetry 99 10/26/22 20:13 Temperature 97.9 F 10/26/22 20:13 Temperature Source Temporal Artery Scan 10/26/22 20:13 Pulse 98 H 10/26/22 20:13 Respiratory Rate 16 10/26/22 20:13 Respiratory Effort Normal 10/26/22 20:13 Blood Pressure 136/88 10/26/22 20:13 Pulse Oximetry 99 10/26/22 20:13 Oxygen Delivery Method Room Air 10/26/22 20:13 Oxygen Flow Rate 0 10/26/22 20:13 Pain Level 1 10/26/22 20:13 Lab/Test Results Lab/Test Results: POC- Test(urine) Negative
--- NOTE | 2022-10-26 21:36 | DI.VRAD_ITS ---
PROCEDURE INFORMATION: Exam: CT Head Without Contrast Exam date and time: 10/26/2022 9:16 PM Age: 32 years old Clinical indication: Other: Headache, R/O acute process TECHNIQUE: Imaging protocol: Computed tomography of the head without contrast. COMPARISON: CR MANDIBLE COMPLETE 01/12/2018 2:46 PM FINDINGS: Brain: Normal. No hemorrhage. Unremarkable white matter. No mass effect. Cerebral ventricles: No ventriculomegaly. Paranasal sinuses: Trace fluid in the left sphenoidal sinus. Mastoid air cells: Visualized mastoid air cells are well aerated. Bones/joints: Unremarkable. No acute fracture. Soft tissues: Unremarkable. IMPRESSION: No acute intracranial abnormality. Dictated and Authenticated by: Keshawn Langford MD. Ordering:THAO Russo MD
[2022-10-26 22:37] VITALS: BP 112/64; PULSE 89; RESP 18; TEMP 36.7; O2SAT 98
[2022-10-26 22:38] VITALS: RESP 18
== END 2022-10-26 22:40 | disposition home or self-care (01) ==
PROVIDERS: Emergency Provider Physician Assistant; PCP Nurse Practitioner Family
DX: F41.9 Anxiety disorder, unspecified (principal); J45.909 Unspecified asthma, uncomplicated; Z87.891 Personal history of nicotine dependence
CPT/HCPCS: 81025; 99284; 70450

== ENCOUNTER 2022-11-27 01:57 | Outpatient (CLI) | payer MEDICAID, SELFPAY ==
--- NOTE | 2022-11-27 | DI.US_ITS ---
Exam(s) US SOFT TISS ABD WALL/LOW BACK EXAM: US SOFT TISS ABD WALL/LOW BACK CLINICAL HISTORY: SOFT TISSUE MASS, M79.9. TECHNIQUE: Ultrasound was performed using standard protocol. COMPARISON: No exams were available for comparison FINDINGS: Sonographic assessment utilizing grayscale and color Doppler imaging was performed and targeted to th e area of clinical concern. No cystic or solid mass is seen in the soft tissues in the targeted area. IMPRESSION: No cystic or solid mass is seen sonographically. DATA REPOSITORY:
== END 2022-11-27 02:17 ==
LOC: DI 01:58
PROVIDERS: PCP Nurse Practitioner Family; Visit Provider Nurse Practitioner Family
DX: M79.89 Other specified soft tissue disorders (principal); R22.2 Localized swelling, mass and lump, trunk
CPT/HCPCS: 76705

== ENCOUNTER 2022-12-22 15:11 | Emergency (ER) | payer MEDICAID, SELFPAY ==
[2022-12-22 15:21] VITALS: PULSE 132; RESP 18; TEMP 36.8; O2SAT 94
[2022-12-22 15:29] VITALS: BP 117/79
[2022-12-22] MEDS: Normal Saline 1,000 ML 1000 ML IV (15:49)
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
[2022-12-22 16:02] LABS: Abs Immature Grans 0.02 10^3/uL (0.0-0.06); Absolute Basophil Count 0.01 10^3/uL (0.0-0.2); Absolute Lymphocyte Count 0.28 10^3/uL (1.2-3.4); Absolute Neutrophil Count 4.95 10^3/uL (1.2-6.7); Basophils % 0.2; HCT 43.3 % (36.0-46.0); HGB 14.9 g/dL (11.2-15.7); Immature Grans % 0.3; Lymphocytes % 4.7; MCH 30.5 pg (27.0-33.0); MCHC 34.4 % (32.0-36.0); MCV 89 fL (80-95); MPV 8.5 fL (8.0-11.0); Monocytes % 11.7; Neutrophils % 83.1; Platelet Count 277 10^3/uL (130-400); RBC 4.89 10^6/uL (3.93-5.22); RDW 11.5 % (11.7-14.6); RDW-SD 37.1 fL; WBC 5.96 10^3/uL (4.4-10.8)
[2022-12-22] MEDS: Ondansetron 4 MG/2 ML VIAL IVP (16:15)
[2022-12-22 16:19] LABS: HCG Qual (Serum) Negative
[2022-12-22 16:22] LABS: ALT 711 U/L (14-59); AST 549 U/L (15-37); Albumin 4.1 g/dL (3.4-5.0); Alkaline Phosphatase 119 U/L (46-116); Anion Gap 13.9 mmol/L (3-11); BUN 10 mg/dL (7-18); Bilirubin, Total 0.5 mg/dL (0.2-1.0); CO2 24.1 mmol/L (21.0-32.0); CREATININE 0.8 mg/dL (0.55-1.02); Calcium 8.9 mg/dL (8.5-10.1); Chloride 105 mmol/L (98-107); Estimated GFR 101.59 (mL/min/1.73m2); Glucose 91 mg/dL (74-106); Lipase 28 U/L (16-77); Potassium 3.3 mmol/L (3.5-5.1); Sodium 143 mmol/L (136-145); Total Protein 8.2 g/dL (6.4-8.2)
[2022-12-22 17:18] LABS: COVID-19 PCR Negative (Negative); Influenza A PCR Negative (Negative); Influenza B PCR Negative (Negative); RSV PCR Negative (Negative)
[2022-12-22 17:20] LABS: Source Nasopharynx
[2022-12-22 17:50] VITALS: PULSE 102; RESP 18; O2SAT 96
--- NOTE | 2022-12-24 09:08 | NUR.NOTE ---
Nursing Note: Accessed chart to look up whether or not on antibiotic.
--- NOTE | 2022-12-24 09:40 | W.ED.FU ---
Date of service: 12/22/22 Follow Up Plan: Contacted patient to go over positive urine culture. Of notation though urine culture result does say probable contaminated collection. Patient denies any urinary symptoms and states that she never had any. She does state slight improvement from day of her visit but not fully recovered from suspected GI illness. Given that patient is asymptomatic I do not feel that putting her on antibiotics is appropriate at this time but patient was encouraged to monitor symptoms and have recheck of her urine if she develops symptoms or does not improve. Patient is in agreement with this plan of care and stated no further questions after our conversation.
[2022-12-24 10:43] LABS: Hepatitis A Antibody IgM Negative (Negative); Hepatitis B Core Antibody Negative (Negative); Hepatitis B surface Ag Negative (Negative); Hepatitis C Ab w Rflx HCV PCR Negative (Negative)
== END 2022-12-22 17:51 | disposition home or self-care (01) ==
PROVIDERS: Emergency Provider Emergency Medicine; PCP Nurse Practitioner Family
DX: R11.2 Nausea with vomiting, unspecified (principal); R00.0 Tachycardia, unspecified; R79.89 Other specified abnormal findings of blood chemistry; J45.909 Unspecified asthma, uncomplicated; Z79.51 Long term (current) use of inhaled steroids
CPT/HCPCS: 80053; 83690; 86704; 86709; 86803; 87340; 87637; 96361; 96374; 99284; 81003; 83735; 84703; 85025; 87086; J2405

== ENCOUNTER 2022-12-27 08:41 | Outpatient (CLI) | payer MEDICAID, SELFPAY ==
[2022-12-27 11:40] LABS: ALT 151 U/L (14-59); AST 46 U/L (15-37); Alkaline Phosphatase 70 U/L (46-116); Anion Gap 6.6 mmol/L (3-11); BUN 6 mg/dL (7-18); Bilirubin, Total 0.2 mg/dL (0.2-1.0); CO2 32.4 mmol/L (21.0-32.0); CREATININE 0.7 mg/dL (0.55-1.02); Calcium 8.6 mg/dL (8.5-10.1); Chloride 105 mmol/L (98-107); Estimated GFR 119.24 (mL/min/1.73m2); Glucose 62 mg/dL (74-106); Sodium 144 mmol/L (136-145); Total Protein 7.9 g/dL (6.4-8.2)
[2022-12-30 11:22] LABS: Hepatitis A Antibody IgM Negative (Negative); Hepatitis B Core Antibody Negative (Negative); Hepatitis B surface Ag Negative (Negative); Hepatitis C Ab w Rflx HCV PCR Negative (Negative)
== END 2022-12-27 08:42 | disposition home or self-care (01) ==
LOC: LBO 08:41
PROVIDERS: PCP Nurse Practitioner Family; Visit Provider Nurse Practitioner Family
DX: R79.89 Other specified abnormal findings of blood chemistry (principal)
CPT/HCPCS: 36415; 80053; 86704; 86709; 86803; 87340

== ENCOUNTER 2023-01-06 04:41 | Outpatient (CLI) | payer MEDICAID, SELFPAY ==
[2023-01-06 12:54] LABS: ALT 38 U/L (14-59); AST 15 U/L (15-37); Albumin 4.1 g/dL (3.4-5.0); Alkaline Phosphatase 62 U/L (46-116); Anion Gap 8.5 mmol/L (3-11); BUN 7 mg/dL (7-18); Bilirubin, Total 0.3 mg/dL (0.2-1.0); CO2 27.5 mmol/L (21.0-32.0); CREATININE 0.8 mg/dL (0.55-1.02); Calcium 8.8 mg/dL (8.5-10.1); Chloride 108 mmol/L (98-107); Estimated GFR 101.59 (mL/min/1.73m2); Glucose 109 mg/dL (74-106); Potassium 3.5 mmol/L (3.5-5.1); Sodium 144 mmol/L (136-145); Total Protein 7.9 g/dL (6.4-8.2)
[2023-01-06 14:37] LABS: Bilirubin Negative (Negative); Blood Negative (Negative); Clarity Clear (Clear); Glucose Negative (Negative); Ketones Negative (Negative); Leukocyte Esterase Negative (Negative); Nitrite Negative (Negative); Specific Gravity >= 1.030 (1.005-1.025); Urobilinogen 0.2 mg/dL (Up to 0.2)
[2023-01-06 17:01] LABS: HCG Qual (Urine) Negative
== END 2023-01-06 04:42 | disposition home or self-care (01) ==
PROVIDERS: PCP Nurse Practitioner Family; Visit Provider Nurse Practitioner Family
DX: R79.89 Other specified abnormal findings of blood chemistry (principal); R10.30 Lower abdominal pain, unspecified
CPT/HCPCS: 36415; 80053; 81003; 81025

== ENCOUNTER 2023-04-09 16:09 | Outpatient (REF) | payer MEDICAID, SELFPAY ==
--- NOTE | 2023-04-09 10:45 | PAPFT_PTH ---
PATIENT: Isabella Whyte LOC: [facility]#:[id number] AGE/SX: 32/F ROOM: RE04/09/[address]: Devora Quezada : 1990 BED: DIS: 04/09/2023 SPEC #: [id number] RECD: 04/09/23 17:53 STATUS: NAVARRO RECarmen #: [id number] BI: 04/09/23 10:[address]: Devora Quezada DEPT: [facility] Cytology RECD BY: Marsha Contreras ENTERED: 04/09/23 17:53 SP TYPE: PAPFT ISAI DR: Selena Cloud Tissues: 1 - CX/ENDOCX FOR PAP SMEARS Procedures: PAP THIN PREP/UVM Screening HPV DNA PROBE Comments: [id number] (HPV 16 & 18/45)
== END 2023-04-09 16:10 | disposition home or self-care (01) ==
LOC: NCHCN 16:09
PROVIDERS: PCP Nurse Practitioner Family; Visit Provider Family Medicine
DX: Z12.4 Encounter for screening for malignant neoplasm of cervix (principal); R87.610 Atypical squamous cells of undetermined significance on cytologic smear of cervix (ASC-US); Z11.51 Encounter for screening for human papillomavirus (HPV); R87.810 Cervical high risk human papillomavirus (HPV) DNA test positive
CPT/HCPCS: 88142; 87624

== ENCOUNTER 2023-04-30 12:22 | Outpatient (REF) | payer MEDICAID, SELFPAY ==
--- NOTE | 2023-04-30 10:45 | CER_PTH ---
PATIENT: Isabella Whyte LOC: N U#:[id number] AGE/SX: 32/F ROOM: RE04/30/[address]: Azul Montero MD : [id number] BED: DIS: 04/30/2023 SPEC #: [id number] RECD: 04/30/23 13:07 STATUS: NAVARRO REQ #: [id number] BI: 04/30/23 10:[address]: Azul Montero DEPT: Surgical Specimen RECD BY: Marsha Contreras ENTERED: 04/30/23 13:08 SP TYPE: CER OTHR DR: Selena Cloud Tissues: 1 - CERVICAL BIOPSY Procedures: GROSS AND MICRO LEVEL 4 Comments: [id number]
== END 2023-04-30 12:23 | disposition home or self-care (01) ==
LOC: LBN 12:22
PROVIDERS: PCP Nurse Practitioner Family; Visit Provider Obstetrics & Gynecology
DX: R87.610 Atypical squamous cells of undetermined significance on cytologic smear of cervix (ASC-US) (principal); R87.810 Cervical high risk human papillomavirus (HPV) DNA test positive; N87.9 Dysplasia of cervix uteri, unspecified
CPT/HCPCS: 88305

== ENCOUNTER 2023-05-08 18:53 | Outpatient (REF) | payer MEDICAID, SELFPAY ==
[2023-05-08 19:02] LABS: Bilirubin Negative (Negative); Blood Large (Negative); Clarity Sl Cloudy (Clear); Glucose Negative (Negative); Ketones Negative (Negative); Leukocyte Esterase Moderate (Negative); Nitrite Negative (Negative); Urobilinogen 0.2 mg/dL (Up to 0.2)
[2023-05-08 19:11] LABS: Bacteria Few HPF (Negative); C & S Indicated? C&S Done As Ordered; Casts Negative LPF (Negative); Crystals Negative HPF (Negative); Epithelial Cells Moderate HPF (Negative); Mucus Negative (Negative); WBC >50 HPF (0-5)
== END 2023-05-08 18:54 | disposition home or self-care (01) ==
LOC: NCHCN 18:53
PROVIDERS: PCP Nurse Practitioner Family; Visit Provider Nurse Practitioner Family
DX: N39.0 Urinary tract infection, site not specified (principal)
CPT/HCPCS: 81003; 81015; 87086

== ENCOUNTER 2023-07-16 11:15 | Outpatient (REF) | payer MEDICAID, SELFPAY ==
[2023-07-18 15:33] LABS: Chlamydia Result Negative (Negative); GC Result Negative (Negative)
== END 2023-07-16 11:16 | disposition home or self-care (01) ==
LOC: LBN 11:15
PROVIDERS: PCP Nurse Practitioner Family; Visit Provider Obstetrics & Gynecology
DX: R10.2 Pelvic and perineal pain (principal); R10.9 Unspecified abdominal pain
CPT/HCPCS: 87491; 87591; 87480; 87510; 87660

== ENCOUNTER 2023-08-01 01:31 | Outpatient (CLI) | payer MEDICAID, SELFPAY ==
[2023-08-04 11:07] LABS: HIV-1/2 Ag & Ab Screen Negative (Negative)
[2023-08-04 11:46] LABS: Syphilis Serology (RPR) Negative (Negative)
[2023-08-04 13:21] LABS: HBs Antibody, Qual Negative (See Note); HBs Antibody, Quant 3.8 mIU/mL (See Note); Hepatitis B Core Antibody Negative (Negative); Hepatitis B surface Ag Negative (Negative); Hepatitis C Ab w Rflx HCV PCR Negative (Negative)
== END 2023-08-01 01:32 | disposition home or self-care (01) ==
LOC: LBO 01:31
PROVIDERS: PCP Nurse Practitioner Family; Visit Provider Obstetrics & Gynecology
DX: Z11.3 Encounter for screening for infections with a predominantly sexual mode of transmission (principal)
CPT/HCPCS: 36415; 86704; 86706; 86803; 87340; 87389; 86592

== ENCOUNTER → 2023-11-21 01:27 | Outpatient (CLI) | payer MEDICAID, SELFPAY ==
--- NOTE | 2023-11-21 06:30 | DI.US_ITS ---
Exam(s) US PELVIS TRANSVAGINAL EXAM: US PELVIS TRANSVAGINAL CLINICAL HISTORY: pelvic pain,R10.2 TECHNIQUE: Transabdominal and transvaginal imaging was performed using standard protocol. COMPARISON: CT CT ABDOMEN PELVIS W from 10/03/2020 US US PELVIS TRANSVAGINAL from 10/11/2020 FINDINGS: UTERUS: Anteverted. 6.4 x 4.8 x 4.8 cm Endometrium: 8 mm Myometrium: Unremarkable. Cervix: Small nabothian cyst. OVARIES: Right: Cyst or mass: Involuting follicle. Left: Cyst or mass: None. Mildly prominent pelvic vessels could indicate pelvic congestion syndrome. DOPPLER: Color: Symmetric and uniform flow to both ovaries. No hyperemia. CUL-DE-SAC: Free fluid: None. IMPRESSION: 1. Normal-appearing uterus with endometrial stripe within normal limits. 2. Unremarkable bilateral ovaries. 3. Mildly dilated pelvic vessels could indicate pelvic congestion syndrome. DATA REPOSITORY:
== END ==
PROVIDERS: PCP Nurse Practitioner Family; Visit Provider Obstetrics & Gynecology
DX: R10.2 Pelvic and perineal pain (principal)
CPT/HCPCS: 76830; 76856

== ENCOUNTER 2024-01-28 16:28 | Inpatient (IN) | payer MEDICAID, SELFPAY ==
[2024-01-28 16:33] VITALS: BP 140/113; PULSE 93; RESP 16; TEMP 36.6; O2SAT 99
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
[2024-01-28] MEDS: Normal Saline 1,000 ML 1000 ML IV (17:48)
[2024-01-28] MEDS: Normal Saline 10 ML VIAL IJ (17:48)
[2024-01-28] MEDS: Ondansetron 4 MG/2 ML VIAL IVP (17:49)
[2024-01-28] MEDS: Pantoprazole 40 MG VIAL IVP (17:49)
[2024-01-28 17:51] LABS: Abs Immature Grans 0.04 10^3/uL (0.0-0.06); Absolute Basophil Count 0.02 10^3/uL (0.0-0.2); Absolute Eosinophil Count 0.01 10^3/uL (0.0-0.7); Absolute Neutrophil Count 8.78 10^3/uL (1.2-6.7); Basophils % 0.2 %; Eosinophils % 0.1 %; HCT 41.2 % (36.0-46.0); HGB 14.1 g/dL (11.2-15.7); Immature Grans % 0.4 %; Lymphocytes % 8.7 %; MCH 30.7 pg (27.0-33.0); MCHC 34.2 % (32.0-36.0); MCV 90 fL (80-95); MPV 8.3 fL (8.0-11.0); Monocytes % 5.8 %; Neutrophils % 84.8 %; Platelet Count 256 10^3/uL (130-400); RBC 4.59 10^6/uL (3.93-5.22); RDW 11.6 % (11.7-14.6); RDW-SD 37.6 fL; WBC 10.35 10^3/uL (4.4-10.8)
[2024-01-28 18:01] LABS: Lipase 94 U/L (16-77)
[2024-01-28 18:07] LABS: ALT 25 U/L (14-59); AST 14 U/L (15-37); Albumin 4.1 g/dL (3.4-5.0); Alkaline Phosphatase 69 U/L (46-116); Anion Gap 9.8 mmol/L (3-11); BUN 6 mg/dL (7-18); Bilirubin, Total 0.4 mg/dL (0.2-1.0); CO2 27.2 mmol/L (21.0-32.0); CREATININE 0.7 mg/dL (0.55-1.02); Calcium 9.1 mg/dL (8.5-10.1); Chloride 104 mmol/L (98-107); Estimated GFR 118.51 (mL/min/1.73m2); Glucose 103 mg/dL (74-106); Magnesium 1.8 mg/dL (1.8-2.4); Potassium 3.6 mmol/L (3.5-5.1); Sodium 141 mmol/L (136-145); Total Protein 7.8 g/dL (6.4-8.2)
--- NOTE | 2024-01-28 18:30 | DI.CT_ITS ---
Exam(s) CT ABDOMEN PELVIS W EXAM: CT ABDOMEN PELVIS W CLINICAL HISTORY: epigastric pain, elevated lipase. TECHNIQUE: Imaging Protocol: Axial computed tomography images with coronal and sagittal reformatted images were created and reviewed CONTRAST MATERIAL: Intravenous: Omnipaque-350 100cc Oral: None COMPARISON: CT CT ABDOMEN PELVIS W from 10/03/2020 FINDINGS: VISUALIZED LUNG BASES: No nodules nor pleural effusions evident. ABDOMEN: There is no ascites. LIVER: There are no focal hepatic lesions evident. There few mildly dilated intrahepatic ducts. GALLBLADDER/BILIARY: The gallbladder is somewhat distended and there is some mild pericholecystic flu id suspicious for cholecystitis. No obvious radiopaque gallstones in the gallbladder lumen. CBD nate meter is upper normal. PANCREAS: No evidence of pancreatic mass nor dilatation of the pancreatic duct. SPLEEN: Spleen is not enlarged. No obvious intrasplenic lesions. Splenic and portal veins are paten t. ADRENALS: There are no significant adrenal masses. KIDNEYS:No cysts evident. No solid renal masses. No calculi nor hydronephrosis.. ABDOMINAL AORTA: Abdominal aorta is not enlarged. LYMPH NODES:There is no retroperitoneal nor paraaortic adenopathy. ABDOMINAL WALL: No evidence of significant anterior abdominal wall nor inguinal hernia. GI: There is no evidence of bowel obstruction, free air, nor abscess. PELVIS: GI: No evidence of appendicitis.No evidence of sigmoid diverticulitis. LYMPH NODES: There is no intrapelvic nor inguinal adenopathy. REPRODUCTIVE: Uterus and ovaries are age-appropriate. No free fluid. URINARY BLADDER: There is relatively uniform thickening of the urinary bladder wall, consistent with probable cystitis. There are no radiopaque calculi nor masses nor focal masses in the urinary bladde r. OSSEOUS: No fractures and no significant osseous lesions. IMPRESSION: 1. Findings at the level gallbladder consistent with probable acute cholecystitis, despite absence of radiopaque calculi in the gallbladder lumen. Recommend ultrasound as the next step. CBD is not dil ated. 2. There is uniform thickening of the urinary bladder wall which is probably related to cystitis. Ur inalysis recommended RADIATION DOSE DELIVERED: 659.4mGy.cm Total DLP DATA REPOSITORY: All CT scans at this facility are submitted to the National Radiology Data Registry (NRDR) Dose Index Registry (DIR) with the [employer] (ACR). RADIATION OPTIMIZATION: All CT scans at this facility use at least one of these dose optimization te chniques: automated exposure control; mA and/or kV adjustment per patient size (includes targeted exa ms where dose is matched to clinical indication); or iterative reconstruction.
[2024-01-28] MEDS: Omnipaque 350 MG/ML 100 ML BTL IJ (19:00)
[2024-01-28] MEDS: Normal Saline - Diluent 50 ML VIAL IJ (19:01)
[2024-01-28 19:34] LABS: Bilirubin Negative (Negative); Blood Large (Negative); Clarity Cloudy (Clear); Glucose Negative (Negative); Ketones Negative (Negative); Leukocyte Esterase Negative (Negative); Nitrite Negative (Negative); Specific Gravity 1.025 (1.005-1.025); Urobilinogen 0.2 mg/dL (Up to 0.2)
[2024-01-28 19:47] LABS: Bacteria Rare HPF (Negative); C & S Indicated? No; Casts Negative LPF (Negative); Crystals Moderate Amorphous HPF (Negative); Epithelial Cells Rare HPF (Negative); Mucus Trace (Negative); RBC 0-2 HPF (0-2)
--- NOTE | 2024-01-28 20:06 | DI.VRAD_ITS ---
PROCEDURE INFORMATION: Exam: CT Abdomen And Pelvis With Contrast Exam date and time: 01/28/2024 7:00 PM Age: 33 years old Clinical indication: Other: Epigastir pain, elevated lipase TECHNIQUE: Imaging protocol: Computed tomography of the abdomen and pelvis with contrast. Contrast material: 350; Contrast volume: 100 ml; Contrast route: INTRAVENOUS (IV); COMPARISON: CT ABDOMEN PELVIS W 10/03/2020 10:01 AM FINDINGS: Liver: Normal. No mass. Gallbladder and bile ducts: Gallbladder is mildly distended with mild pericholecystic fluid and biliary ductal dilation. No calcified gallstones. Pancreas: Normal. No ductal dilation. Spleen: Normal. No splenomegaly. Adrenal glands: Normal. No mass. Kidneys and ureters: Normal. No hydronephrosis. Stomach and bowel: Unremarkable. No obstruction. No mucosal thickening. Appendix: The appendix is visualized and appears normal. Intraperitoneal space: Unremarkable. No free air. No significant fluid collection. Vasculature: Unremarkable. No abdominal aortic aneurysm. Lymph nodes: Unremarkable. No enlarged lymph nodes. Urinary bladder: Unremarkable as visualized. Reproductive: Unremarkable as visualized. Bones/joints: Unremarkable. No acute fracture. Soft tissues: Unremarkable. IMPRESSION: Mild pericholecystic fluid and biliary ductal dilation raising suspicion for biliary disease such as cholecystitis. Dictated and Authenticated by: Gonzalez Bledsoe MD. Ordering:BETSY Anand MD
[2024-01-28] MEDS: PIPERACILLIN/TAZO 3.375 GM in Normal Saline 50 ML IVPB (22:02)
[2024-01-28 22:03] VITALS: BP 156/85; PULSE 88; RESP 16; O2SAT 98
[2024-01-28] MEDS: ACETAMINOPHEN 1,000 MG/100 ML BTL 400 MG IVPB (22:39)
[2024-01-28 23:24] VITALS: BP 111/65; PULSE 82; RESP 16; TEMP 37; O2SAT 98
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
[2024-01-29] VITALS (22 sets, daily range): BP systolic 103–158; BP diastolic 65–107; PULSE 76–107; RESP 11–20; TEMP 36.3–37.3; O2SAT 95–100; BMI 23.3
[2024-01-29] MEDS: Lactated Ringers 1,000 ML 125 ML IV ×3 (01:10→23:56)
[2024-01-29] MEDS: PIPERACILLIN/TAZO 3.375 GM in Normal Saline 50 ML IVPB ×3 (05:01→21:46)
[2024-01-29] MEDS: ACETAMINOPHEN 1,000 MG/100 ML BTL 400 MG IVPB ×3 (05:03→21:47)
[2024-01-29] MEDS: Normal Saline Flush 10 ML SYR IVP ×6 (05:05→22:02)
[2024-01-29 07:19] LABS: Platelet Count 203 10^3/uL (130-400)
[2024-01-29 08:05] LABS: ALT 18 U/L (14-59); AST 11 U/L (15-37); Albumin 3.3 g/dL (3.4-5.0); Alkaline Phosphatase 62 U/L (46-116); BUN 5 mg/dL (7-18); Bilirubin, Direct 0.1 mg/dL (0.0-0.2); Bilirubin, Total 0.5 mg/dL (0.2-1.0); CREATININE 0.8 mg/dL (0.55-1.02); Calcium 8.1 mg/dL (8.5-10.1); Chloride 106 mmol/L (98-107); Estimated GFR 100.96 (mL/min/1.73m2); Glucose 86 mg/dL (74-106); Lipase 67 U/L (16-77); Potassium 3.3 mmol/L (3.5-5.1); Sodium 141 mmol/L (136-145); Total Protein 6.4 g/dL (6.4-8.2)
--- NOTE | 2024-01-29 11:09 | DI.US_ITS ---
Exam(s) US ABDOMEN EXAM: US ABDOMEN CLINICAL HISTORY: assess pericholecystic fluid, gallstones, duct dil TECHNIQUE: Ultrasound of complete upper abdomen performed using standard protocol. COMPARISON: US US PELVIS TRANSVAGINAL from 11/21/[address] ABDOMEN PELVIS W from 01/28/2024 FINDINGS: There is no ascites evident. LIVER: There are no hepatic lesions evident nor obvious dilatation of intrahepatic ducts. GALLBLADDER/BILIARY: There are 2 shadowing gallstones noted. Both measure approximately 1.8 cm. Gal lbladder wall is slightly thickened and there is small amount of pericholecystic fluid. The common hepatic duct isnot dilated, measuring 6mm at the level of rae hepatis. PANCREAS: There is no evidence of pancreatic mass nor dilatation of the pancreatic duct. SPLEEN: Spleen size upper normal. KIDNEYS:Kidneys exhibit normal size with no evidence of solid mass, calculus, nor hydronephrosis. No cortical cysts evident. ABDOMINAL AORTA: There is no evidence of abdominal aortic aneurysm. IVC: Normal diameter where visualized. IMPRESSION: 1. Cholelithiasis and evidence of acute cholecystitis. 2. CBD diameter is upper normal, measuring 6 mm. 3. There is no ascites. DATA REPOSITORY:
--- NOTE | 2024-01-29 11:52 | PHA.REVIEW2 ---
Pharmacy Admission Review Admission Clinical Review Admission Pharmacy Review: Acute cholecystitis (Acute) Abdominal pain (Acute) No Known Drug Allergies Allergy (Verified 01/28/24 16:35) na Resuscitation Status Full Code Height 5 ft 5 in Weight 63.503 kg Pharmacy Admission Review Renal Dosing Renal Dosing: BUN 5 mg/dL (7-18) L 01/29/24 07:05 Creatinine 0.8 mg/dL (0.55-1.02) 01/29/24 07:05 Medications needing adjustments: Reviewed (CrCl 102.14 mL/min) List of meds needing interventions: Current medications are okay Anticoagulation Anticoagulation: Hgb 14.1 g/dL (11.2-15.7) 01/28/24 17:40 Hct 41.2 % (36.0-46.0) 01/28/24 17:40 Plt Count 203 10^3/uL (130-400) 01/29/24 06:35 Creatinine 0.8 mg/dL (0.55-1.02) 01/29/24 07:05 DVT Prophylaxis: Reviewed Medications: Heparin (q8h) Opiate Usage Evaluate Pain Scale/Pains Meds: Reviewed (PRN morphine - no doses given) Scheduled Bowel Reg ordered if on Opiates?: No Relevant Labs Relevant Labs: Sodium 141 mmol/L (136-145) 01/29/24 07:05 Potassium 3.3 mmol/L (3.5-5.1) L 01/29/24 07:05 Chloride 106 mmol/L (98-107) 01/29/24 07:05 Magnesium 1.8 mg/dL (1.8-2.4) 01/28/24 17:40 Electrolytes, C-Reactive P, ESR: Reviewed (K 3.3, Albumin decreased from 4.1 to 3.3) Cardiac Review BP, HR, EF%: Reviewed (BP WNL, HR 94) QTc Review QTc: Reviewed (434 from 10/21/22 - most recent EKG on file) IV to PO Switch IV Medications: Reviewed (Currently NPO pending potential procedure today) Home Meds Home Med List reviewed: Reviewed Relevent Home Meds Not ordered & why?: Albuterol, Flovent, loratadine, omeprazole and vitamin B complex Currently NPO - discuss with provider if not ordered after patient is able to take PO meds Current Meds Current Medication Order Review: Intervened Comments: Changed IV access from ER set to admission set Pharmacy Antibiotic Review Relevant Labs: WBC 10.35 10^3/uL (4.4-10.8) 01/28/24 17:40 Temperature 37.1 C Temperature 36.7 C Pharmacy Antibiotic Activity: Reviewed, no change Comments: Patient is on Zosyn 3.375g q6h, day 1 for cholecystitis.
[2024-01-29] MEDS: Heparin 5,000 UNITS/ML VIAL 5000 UNITS SC ×2 (13:58→21:46)
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
--- NOTE | 2024-01-29 16:58 | CHAPLAIN ---
Isabella was in bed when I visited. A friend/family member was with her. She's waiting to have a procedure today or this evening and so can't have anything to eat or drink. She's waiting patiently. I explained my role and offered support.
[2024-01-29] MEDS: Bupivacaine 0.25% Pres-Free 30 ML VIAL (17:02)
--- NOTE | 2024-01-29 17:30 | GB_PTH ---
PATIENT: Isabella Whyte LOC: U#:[id number] AGE/SX: 33/F ROOM: RE01/28/[address]: Kvng Ochoa : 1990 BED: A DIS: 01/31/2024 SPEC #: [id number] RECD: 01/30/24 12:56 STATUS: NAVARRO REQ #: [id number] BI: 01/29/24 17:[address]: Kvng Ochoa DEPT: Surgical Specimen RECD BY: Marsha Contreras ENTERED: 01/30/24 12:56 SP TYPE: GB OTHR DR: Selena Cloud Tissues: 1 - GALLBLADDER Procedures: GROSS AND MICRO LEVEL 3 Comments: [id number]
--- NOTE | 2024-01-29 17:41 | W.PM.OP ---
Date of service: 01/29/24 Time of Service: 18:07 Operative Note Operative Note Refer to Anesthesia Record Procedure Description: Procedures performed: 1. Laparoscopic cholecystectomy Pre-op diagnosis: Acute cholecystitis Postoperative diagnosis: Same Surgeon: Joe Ochoa Anesthesia: [employer] Etcher: Juana Davidson Indication for procedure: 53-year-old woman with acute cholecystitis on imaging FINDINGS: Distended and inflamed gallbladder. Dense adhesions of duodenum and transverse colon against the gallbladder consistent with some degree of chronic disease or repeated episodes. Copious pericholecystic fluid around the gallbladder. Normal biliary anatomy. Specimens: 1. Gallbladder Complications: None Blood loss: 50 cc Urine output: Not measured Implants/drains: None Procedure in detail: Patient gave written consent and was in agreement with the indications, the likely benefits as well as the potential risks of surgery. She was taken back to the operating room where anesthesia was administered which was tolerated well. She was positioned supine on the operating room table and we then prepped and draped in sterile fashion. We confirmed DVT prophylaxis as well as antibiotics had been administered. When we were all in agreement with our timeout we started the procedure. Local anesthetic was injected at the umbilicus. The patient has a very small umbilical hernia and this was used for entry. A small stab incision was made within the umbilicus and a 5 mm trocar was used to enter the abdominal cavity through this and the existing umbilical hernia. Insufflation was performed which was tolerated well. 2 more trocars were placed under direct visualization in the right hemiabdomen. Local anesthetic was also given in each of the sites. A 12 mm port was placed in the epigastrium under visualization. The gallbladder was readily visible and noted to be inflamed and distended. There were adhesions connecting omentum as well as the transverse colon and the duodenum against the gallbladder suggesting chronicity of her condition. These were taken down sharply and electrocautery used for hemostasis. Care was taken to ensure the duodenum and the transverse colon were well away from the dissection planes. After clearing off the adhesions, the gallbladder fundus, infundibulum and the cystic plate were all visible and copious pericholecystic fluid is noted in the tissue. The fundus of the gallbladder was grasped and retracted towards the patient's left shoulder cephalad. This nicely exposed the biliary plate and the relevant anatomy. A combination of blunt and electrocautery dissection was performed isolating the cystic duct and the cystic artery. The entire cystic plate was cleared off confirming only 2 structures seen going into the gallbladder. These were clipped and divided. I then removed the rest of the gallbladder off the liver bed using electrocautery. It was placed in an Endo Catch bag and removed from the abdominal cavity. The specimen was passed off the back table and placed in formalin. I then checked the gallbladder fossa for any bile leaking or any bleeding. Hemostasis was excellent and there was no evidence of any bile leaking from the bed. The 12 mm port site was then closed with 0 Vicryl in the fascia using a Víctor-Emery. I rechecked for hemostasis 1 last time and it remained excellent. We released pneumoperitoneum. I removed the 5 mm trocars. I closed the 5 mm defect within the umbilicus primarily with an 0 Vicryl because of the existing, though small, hernia. The skin was closed with running Monocryl and Dermabond was placed on top of each site. Patient tolerated the procedure well. The sponge, instruments and sharps counts were correct x3 at the end of the procedure. She was extubated and taken to the PACU in hemodynamically stable condition.
[2024-01-29] MEDS: HYDROmorphone 2 MG/ML SYR ×3 (18:45→19:06)
--- NOTE | 2024-01-29 19:19 | W.ANESPOSTOP ---
Postoperative Evaluation Date, Time and Location Date Performed: 01/29/24 Time Performed: 19:19 Patient Location: PACU Vital Signs Most Recent Imported Vital Signs: Most Recent Vital Signs Temp Pulse Resp BP Pulse Ox 37.1 C 96 H 18 130/79 95 01/29/24 19:15 01/29/24 19:15 01/29/24 19:15 01/29/24 19:15 01/29/24 19:15 Pain Score Most Recent Pain Score: Most Recent Pain Score Pain Level 5 01/29/24 19:15 Assessment Mental Status: Arousable with meaningful communication Airway and Respiratory Function: Patent airway with normal (patient baseline) respiratory exam Cardiovascular Function: Hemodynamically Stable Hydration Status: Adequately Hydrated Nausea & Vomiting: No Nausea or Vomiting Pain: Pain is tolerable per patient Peripheral Nerve Block: Patient did not receive a nerve block
[2024-01-29] MEDS: Ondansetron 4 MG/2 ML VIAL IVP (22:02)
[2024-01-30] MEDS: Normal Saline Flush 10 ML SYR IVP ×7 (02:02→22:12)
[2024-01-30] MEDS: MORPHine 2 MG/ML SYR IVP (02:03)
[2024-01-30] MEDS: PIPERACILLIN/TAZO 3.375 GM in Normal Saline 50 ML IVPB ×4 (04:37→22:11)
[2024-01-30] MEDS: Heparin 5,000 UNITS/ML VIAL 5000 UNITS SC ×3 (05:33→22:52)
[2024-01-30] MEDS: ACETAMINOPHEN 1,000 MG/100 ML BTL 400 MG IVPB ×3 (05:33→21:27)
[2024-01-30] MEDS: Ketorolac 30 MG/ML VIAL IVP ×3 (07:20→21:27)
--- NOTE | 2024-01-30 07:52 | W.PM.PROGNOT ---
Date of Service Date of service: 01/30/24 Time of Service: 07:52 Assessment and Plan Assessment and plan (1) Acute cholecystitis: Status: Acute Assessment and plan: POD # 1 s/p Lap. Cholecystectomy with Dr. Ochoa. Post-op Diet Pain is poorly controlled for she is wanting to avoid narcotics. WIll add Toradol to see if this helps. Encouraged repositioning and continued use of ice packs. Ambulation and sitting in the chair throughout the day Abx IVF until P.O intake improves Will reassess later this morning/afternoon regarding pain control. Subjective Subjective Interval history since last seen: Isabella reports pain control through the night. She wishes to avoid narcotics. Currently getting tylenol. Reports her discomfort in the epigastric region that is impacting her activity level. Exam Const General: cooperative, healthy appearing and comfortable Orientation: alert and oriented x3 Resp Effort & Inspection: normal respiratory effort, no audible wheezes and no cough GI Inspection: normal to inspection Palpation: soft, guarding and tender in the epigastrum Other: Incisions are well approximated, skin a fix in place Objective Last Vital Signs Temp 36.7 C 01/29/24 23:26 Pulse 90 01/29/24 23:26 Resp 16 01/29/24 23:26 BP 136/92 H 01/29/24 23:26 Pulse Ox 98 01/29/24 23:26 Laboratory Results - last 24 hr 01/29/24 07:05 Sodium 141 Potassium 3.3 L Chloride 106 Carbon Dioxide 27.0 Anion Gap 8.0 BUN 5 L Creatinine 0.8 Est GFR (CKD-EPI 2020) 100.96 Glucose 86 Calcium 8.1 L Total Bilirubin 0.5 Conjugated Bilirubin 0.1 AST 11 L ALT 18 Alkaline Phosphatase 62 Total Protein 6.4 Albumin 3.3 L Lipase 67 Time Spent with Patient Time Spent with Patient: <25 minutes Time was spent: preparing to see the patient(eg.review tests), obtaining and/or reviewing separately otained hiistory and counseling the patient
[2024-01-30 08:09] VITALS: BP 132/87; PULSE 72; RESP 16; TEMP 37.3; O2SAT 98
[2024-01-30] MEDS: Lactated Ringers 1,000 ML 125 ML IV ×2 (09:11→19:50)
--- NOTE | 2024-01-30 14:09 | PDOC.CMPRO ---
Date of service: 01/30/24 Time of Service: 14:09 Care Management Progress Note Progress Note Text Progress Note Text: Lia was lying in bed with her sister at her bedside. She is POD # 1 s/p Lap. Cholecystectomy with Dr. Ochoa. Her pain level is 6 out of 10, ice is applied to abdomen and she is receiving IV Acetaminophen . She does not want narcotic pain medication, stating that she doesn't do narcotics, no reason provided. Per pt, shes had 2 babies without pain meds and this is worse. She does not appear to be in any distress from pain and is trying to get some rest. Discharge Potential Discharge Needs: PCP F/U Appt and Surgical F/U Appt Anticipated Barriers to Discharge: None Identified Patient/Family Education Needs: Review discharge instructions, discuss Ask Me Three Transportation: Private vehicle Plan: Isabella will discharge home via private vehicle with her sister when medically ready to discharge. She will follow up with community providers and her discharge plan of care as instructed. No new services are anticipated at this time. CM will follow. SDOH(Care Management) Screening Will the Patient Participate in the Screening?: Declined to provide Problems where you live: no known problems In the past 12 months, have you had to go without electric, gas, oil or water in your home?: choose not to answer Have you or anyone in your house had to go without enough food to eat?: choose not to answer Has lack of transportation kept you from medical appointments or from doing things needed for daily living?: choose not to answer Has anyone in your support network made you feel unsafe for any reason?: choose not to answer
[2024-01-30 15:00] VITALS: BP 127/83; PULSE 83; RESP 17; TEMP 37.3; O2SAT 98
[2024-01-30] MEDS: Cyclobenzaprine 10 MG TAB PO ×2 (15:15→21:37)
[2024-01-30 19:45] VITALS: BP 120/88; PULSE 81; RESP 16; TEMP 36.9; O2SAT 96
[2024-01-30 23:00] VITALS: BP 108/66; PULSE 75; RESP 16; TEMP 36.8; O2SAT 99
[2024-01-31] MEDS: PIPERACILLIN/TAZO 3.375 GM in Normal Saline 50 ML IVPB (04:52)
[2024-01-31] MEDS: ACETAMINOPHEN 1,000 MG/100 ML BTL 400 MG IVPB (05:41)
[2024-01-31] MEDS: Heparin 5,000 UNITS/ML VIAL 5000 UNITS SC (06:19)
[2024-01-31] MEDS: Lactated Ringers 1,000 ML 125 ML IV (06:19)
[2024-01-31 06:34] LABS: HCT 34.2 % (36.0-46.0); HGB 11.5 g/dL (11.2-15.7); MCH 30.6 pg (27.0-33.0); MCHC 33.6 % (32.0-36.0); MCV 91 fL (80-95); MPV 8.5 fL (8.0-11.0); Platelet Count 179 10^3/uL (130-400); RBC 3.76 10^6/uL (3.93-5.22); RDW 11.6 % (11.7-14.6); RDW-SD 38.5 fL; WBC 4.48 10^3/uL (4.4-10.8)
[2024-01-31 07:04] LABS: ALT 29 U/L (14-59); AST 21 U/L (15-37); Albumin 3.1 g/dL (3.4-5.0); Alkaline Phosphatase 49 U/L (46-116); Anion Gap 7.6 mmol/L (3-11); BUN 7 mg/dL (7-18); Bilirubin, Direct 0.1 mg/dL (0.0-0.2); Bilirubin, Total 0.4 mg/dL (0.2-1.0); CO2 28.4 mmol/L (21.0-32.0); CREATININE 0.8 mg/dL (0.55-1.02); Chloride 106 mmol/L (98-107); Estimated GFR 100.96 (mL/min/1.73m2); Glucose 85 mg/dL (74-106); Lipase 53 U/L (16-77); Potassium 3.6 mmol/L (3.5-5.1); Sodium 142 mmol/L (136-145); Total Protein 6.2 g/dL (6.4-8.2)
[2024-01-31 07:35] VITALS: BP 119/83; PULSE 72; RESP 16; TEMP 37.1; O2SAT 99
--- NOTE | 2024-01-31 10:02 | W.PM.PROGNOT ---
Date of Service Date of service: 01/31/24 Time of Service: 10:02 Assessment and Plan Assessment and plan (1) Abdominal pain: Status: Acute Assessment and plan: With normal vital signs and labs, I am reassured that she is making an okay recovery from her cholecystectomy. I will advance her diet today, and add some lidocaine patches to see if that helps with incisional pain. Assuming that goes okay, we will discharge home this afternoon. Subjective Subjective Interval history since last seen: He will he still having a fair amount of postoperative pain, but her vital signs are all normal, labs are normal, and she does say she is a little better today compared to yesterday. She has been able to get up out of the bed and moved to the bathroom and walk around a little bit. Exam GI Other: Abdomen is soft and nondistended. She is just a tiny bit tympanitic. Incisions are clean, and I do not see any signs of infection or anything worrisome. Objective Last Vital Signs Temp 98.8 F 01/31/24 07:35 Pulse 72 01/31/24 07:35 Resp 16 01/31/24 07:35 BP 119/83 01/31/24 07:35 Pulse Ox 99 01/31/24 07:35 Laboratory Results - last 24 hr 01/31/24 06:30 WBC 4.48 RBC 3.76 L Hgb 11.5 D Hct 34.2 L MCV 91 MCH 30.6 MCHC 33.6 RDW 11.6 L Plt Count 179 MPV 8.5 Sodium 142 Potassium 3.6 Chloride 106 Carbon Dioxide 28.4 Anion Gap 7.6 BUN 7 Creatinine 0.8 Est GFR (CKD-EPI 2020) 100.96 Glucose 85 Calcium 8.0 L Total Bilirubin 0.4 Conjugated Bilirubin 0.1 AST 21 ALT 29 Alkaline Phosphatase 49 Total Protein 6.2 L Albumin 3.1 L Lipase 53 Time Spent with Patient Time Spent with Patient: 25-34 minutes Time was spent: preparing to see the patient(eg.review tests), indepentently interpreting results, counseling the patient and care coordination
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
--- NOTE | 2024-01-31 12:31 | NUR.NOTE ---
Nursing Note: assumed care, report received from KAREL Goins
--- NOTE | 2024-01-31 15:58 | NUR.NOTE ---
Nursing Note: Pt DC home with grandparents via private vehicle, she has all her personal belongings and has no further questions regarding DC instructions, pt did state she was having mild 3/10 pain in ABD at DC, denies nausea, afebrile, VSS, escorted to main entrance by this nurse via WC.
== END 2024-01-31 15:40 | disposition home or self-care (01) | DRG 419 ==
LOC: ER 20:34 → MS 23:12
PROVIDERS: Surgery; Admitting Provider Student in an Organized Health Care Education/Training Program; Emergency Provider Physician Assistant; PCP Nurse Practitioner Family; Visit Provider Student in an Organized Health Care Education/Training Program
PROC: 0FT44ZZ Resection of Gallbladder, Percutaneous Endoscopic Approach (ICD-10-PCS; CPT 47562; principal; 2024-01-29 15:15)
DX: K80.12 Calculus of gallbladder with acute and chronic cholecystitis without obstruction (principal); K21.9 Gastro-esophageal reflux disease without esophagitis; R06.83 Snoring; F17.210 Nicotine dependence, cigarettes, uncomplicated; M25.852 Other specified joint disorders, left hip; M25.851 Other specified joint disorders, right hip; M22.2X2 Patellofemoral disorders, left knee; R10.2 Pelvic and perineal pain; G89.29 Other chronic pain; M54.9 Dorsalgia, unspecified; J45.909 Unspecified asthma, uncomplicated; G89.18 Other acute postprocedural pain; R10.9 Unspecified abdominal pain; K82.8 Other specified diseases of gallbladder
CPT/HCPCS: 47562; 00123; 36415; 80048; 80053; 80076; 83690; 85027; 96361; 96365; 96367; 96375; 99285; 74177; 76700; 81003; 81015; 83735; 85025; 85049; 88304; J0131; J0665; J1100; J1170; J1171; J1644; J1805; J1885; J2001; J2250; J2270; J2405; J2470; J2543; J2704; J3010; J3490

== ENCOUNTER 2024-02-11 21:00 | Emergency (ER) | payer MEDICAID, SELFPAY ==
[2024-02-11 21:07] VITALS: BP 127/65; PULSE 91; RESP 16; TEMP 36.7; O2SAT 100
--- NOTE | 2024-02-11 21:07 | ED.GENADUL_ITS ---
Discharge Plan Disposition Patient Disposition: Home Condition: Good Discharge Details Clinical Impression: UTI (urinary tract infection) Primary Care Provider: Selena Cloud ED Provider: Sudhir Ybarra Home Meds and New Rx's Prescriptions: New nitrofurantoin monohyd/m-cryst [Macrobid] 100 mg capsule 100 mg PO BID Qty: 8 0RF Rx Instructions: must administer with a meal/food Continued vitamin B complex Capsule 1 cap PO DAILY fluticasone propionate [Flovent HFA] 44 mcg/actuation HFA aerosol inhaler 2 puff inhalation BID Rx Instructions: administer with spacer loratadine [Claritin] 10 mg tablet 10 mg PO DAILY PRN albuterol sulfate [Proventil HFA] 6.7 GM HFA aerosol inhaler 1 - 2 puff Inhalation Q6H PRN Patient Comments: used for exercised induced asthma. 08/28/15 rl omeprazole 20 mg capsule,delayed release(DR/EC) 20 mg PO DAILY Patient Comments: TAKE ONE CAPSULE BY MOUTH EVERY DAY lidocaine 5 % adhesive patch,medicated 1 patch topical DAILY Qty: 15 0RF Rx Instructions: leave on most painful area for up to 12 hrs Discharge Instructions Instructions: Urinary Tract Infection in Women (ED) Additional Instructions: You were seen for dysuria and hematuria associated with UTI. Will start you on Macrobid 1 tablet twice a day for 5 days. You may continue the [id number] Azo for the symptoms. Follow-up with primary care next week if not improving. Return to ED for any back or flank pain, abdominal pain, vomiting, other concerns. Discharge Data Discharge Date/Time-TO BE ENTERED AT DEPARTURE: 02/11/24 21:42 HPI General Mode of arrival: ambulatory . Date/Time Provider Initiated Documentation: 02/11/24 21:07 . Limitations to Documentation: no limitations . Information obtained by: patient and RN notes reviewed . HPI Narrative: Patient presenting to ED with complaints of urinary frequency, dysuria, hematuria. Dysuria and frequency began about 3 days ago. She started taking uivv-ylq-[id number] Azo and was feeling better. Recurrent symptoms this evening associated with hematuria now. Denies any fever, chills, vomiting, abdominal pain, back pain. Has had UTIs in the past similar in presentation to only once previously had hematuria. Status postcholecystectomy a couple weeks ago but has recovered well. Related Data Home Medications Medication Instructions Recorded Confirmed albuterol sulfate 90 mcg/actuation 1 - 2 puff inhalation Q6H PRN 03/08/02/11/24 aerosol inhaler (Proventil HFA) fluticasone propionate 44 2 puff inhalation BID 12/02/22 02/11/24 mcg/actuation HFA aerosol inhaler (Flovent HFA) vitamin B complex 1 cap PO DAILY 12/02/22 02/11/24 loratadine 10 mg tablet (Claritin) 10 mg PO DAILY PRN 12/03/22 02/11/24 omeprazole 20 mg capsule,delayed 20 mg PO DAILY 01/28/24 02/11/24 release lidocaine 5 % topical patch 1 patch topical DAILY #15 ea 01/31/24 02/11/24 nitrofurantoin 100 mg PO BID #8 caps 02/11/24 monohydrate/macrocrystals 100 mg capsule (Macrobid) Previous Rx's Medication Instructions Recorded lidocaine 5 % topical patch 1 patch topical DAILY #15 ea 01/31/24 nitrofurantoin 100 mg PO BID #8 caps 02/11/24 monohydrate/macrocrystals 100 mg capsule (Macrobid) Allergies Allergy/AdvReac Type Severity Reaction Status Date / Time No Known Drug Allergies Allergy na Verified 02/11/24 12:10 General SURENDRA: 3 Review of Systems Narrative: Per HPI Exam Narrative Exam Narrative: Const: WDWN female in NAD. VS per triage. HEENT: NC/AT. Normal facial exam. Neck: Supple. Trachea midline. Lungs: Normal respiratory effort. GI: Soft/ND/NT. Back: No CVAT. Neuro: A+O x 3. Normal speech, mentation, gait. Cranial nerves II - XII grossly intact. No gross motor or sensory deficit. Medical Decision Making Patient presenting to ED with urinary symptoms and tonight hematuria similar to previous UTIs in the past. She looks well and is afebrile. She has no CVAT. She has no abdominal pain or vomiting. test is negative. Urine micro consistent with UTI. Patient be started on Macrobid and may continue the Azo. Follow-up with primary care next week if not improved. Return precautions provided. Lab Data Lab results reviewed: Yes I reviewed the patient's lab results. PFSH All Active Problems Snoring (Acute) Pain in right wrist (Acute) UTI (urinary tract infection) (Acute) Abdominal pain (Acute) Lipoma (Acute) Iliac crest bone pain (Acute) Fatigue (Acute) GERD (gastroesophageal reflux disease) (Chronic) Soft tissue mass (Acute) Pelvic pain (Acute) Abdominal pain (Acute) Patellofemoral syndrome of left knee (Acute) Patellofemoral syndrome of right knee (Acute) Femoroacetabular impingement of right hip (Acute) Femoroacetabular impingement of left hip (Acute) Tobacco dependence (Acute) Medical History Abnormal Pap smear of cervix Apr 2023 (first abnl): ASCUS/HPV+ -->colp: Chronic back pain Reports pain since she was a teenager. 2019 negative MRI of lumbar spine. PT not helpful, pain clinic injection not helpful. Has been evaluated by rheumatology in the past History of gestational hypertension Asthma Lyme disease Surgical History S/P cholecystectomy Family History Grandfather Essential hypertension Father Prostate cancer 2017 Diabetes Type 2 Social History Smoking/Tobacco Use Status: Former Tobacco Use Smoking risk assessment performed?: Yes Alcohol Intake: current Alcohol Intake frequency: holidays/special occasions only Drug use: Never Substance use type: does not use Household members: other Details: Not in a relationship. Housing: apartment Number of Children: 2 current occupation: [employer] Current gender identity: female Do you feel safe at home: Yes Do you feel safe in your relationship?: Yes Additional Social history: [employer]. 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 Date GA/Weeks # Preg Succ Route Wgt Sex Labor Lgth Anesth esia Location Prov Complic 05/26/11 39 No vaginal 3543.69 g Female 10 06/18/19 40 No vaginal 3628.739 g Male Amada Blanton CNM Delivery Date: 05/26/11 Last Updated by: Lyn Knowles CNM IOL for gestational HTN, pitocin, unmedicated , 2 hrs of pushing
[2024-02-11] MEDS: MacroBID 100 MG CAP, 2 CAPS/BTL PO (21:41)
[2024-02-11 21:46] LABS: Clarity Turbid (Clear)
[2024-02-11 21:47] LABS: Bacteria Rare HPF (Negative); Bilirubin Color Interference (Negative); Blood Color Interference (Negative); C & S Indicated? Yes; Casts 3-5 Fine Granular LPF (Negative); Crystals Negative HPF (Negative); Epithelial Cells Rare HPF (Negative); Glucose Color Interference mg/dL (Negative); Ketones Color Interference mg/dL (Negative); Leukocyte Esterase Color Interference (Negative); Mucus Negative (Negative); Nitrite Color Interference (Negative); Other Cells Rare Transitional (Negative); RBC >50 HPF (0-2); Specific Gravity 1.012 (1.005-1.025); Urobilinogen Color Interference mg/dL (Up to 0.2); WBC 20-50 HPF (0-5)
== END 2024-02-11 21:42 | disposition home or self-care (01) ==
PROVIDERS: Emergency Provider Emergency Medicine; PCP Nurse Practitioner Family
DX: N39.0 Urinary tract infection, site not specified (principal); Z87.891 Personal history of nicotine dependence
CPT/HCPCS: 99283; 81003; 81015; 87086

== ENCOUNTER 2024-02-25 09:58 | Outpatient (CLI) | payer MEDICAID, SELFPAY ==
[2024-02-25 10:43] LABS: HCG Quant, Pregnancy 14 mIU/mL (1-3)
== END 2024-02-25 09:59 | disposition home or self-care (01) ==
LOC: LBO 09:58
PROVIDERS: PCP Nurse Practitioner Family; Visit Provider Advanced Practice Midwife
DX: N92.6 Irregular menstruation, unspecified (principal)
CPT/HCPCS: 36415; 84702

== ENCOUNTER 2024-02-27 09:05 | Outpatient (CLI) | payer MEDICAID, SELFPAY ==
[2024-02-27 09:18] LABS: HCG Quant, Pregnancy 10 mIU/mL (1-3)
== END 2024-02-27 09:06 | disposition home or self-care (01) ==
LOC: LBO 09:06
PROVIDERS: PCP Nurse Practitioner Family; Visit Provider Advanced Practice Midwife
DX: O36.80X0 Pregnancy with inconclusive fetal viability, not applicable or unspecified (principal)
CPT/HCPCS: 36415; 84702

== ENCOUNTER 2024-04-04 12:17 | Emergency (ER) | payer MEDICAID, SELFPAY ==
[2024-04-04 12:19] VITALS: BP 109/76; PULSE 99; RESP 16; TEMP 36.6; O2SAT 98
[2024-04-04 12:25] VITALS: BP 109/76; PULSE 99; RESP 16; TEMP 36.6; O2SAT 98
[2024-04-04 12:37] LABS: Blood Large (Negative); Clarity Cloudy (Clear); Leukocyte Esterase Large (Negative)
[2024-04-04 12:49] LABS: Specific Gravity 1.008 (1.005-1.025)
[2024-04-04 12:51] LABS: RBC >50 HPF (0-2); WBC >50 HPF (0-5)
[2024-04-04 12:52] LABS: C & S Indicated? Yes
--- NOTE | 2024-04-04 13:17 | ED.GENADUL_ITS ---
Discharge Plan Disposition Patient Disposition: Home Discharge Details Clinical Impression: Acute UTI Primary Care Provider: Selena Cloud ED Provider: Antonio Corrales Home Meds and New Rx's Prescriptions: New cephalexin 500 mg tablet 500 mg PO BID 5 Days Qty: 10 0RF Continued vitamin B complex Capsule 1 cap PO DAILY fluticasone propionate [Flovent HFA] 44 mcg/actuation HFA aerosol inhaler 2 puff inhalation BID Rx Instructions: administer with spacer loratadine [Claritin] 10 mg tablet 10 mg PO DAILY PRN albuterol sulfate [Proventil HFA] 6.7 GM HFA aerosol inhaler 1 - 2 puff Inhalation Q6H PRN Patient Comments: used for exercised induced asthma. 08/28/15 rl Discharge Instructions Instructions: Urinary Tract Infection, Adult ED Additional Instructions: Please take antibiotics as prescribed. You may continue to take [id number] Azo as directed on packaging and stay well-hydrated If you develop any new or significant worsening of symptoms such as fever chills, vomiting with inability to take antibiotics or flank pain return to the emergency department for reassessment If not improving please follow-up with your primary care provider Referrals: Selena Cloud [Primary Care Provider] - (As needed for reassessment or if not improving) Discharge Data Discharge Date/Time-TO BE ENTERED AT DEPARTURE: 04/04/24 13:51 HPI General Mode of arrival: ambulatory . Date/Time Provider Initiated Documentation: 04/04/24 12:27 . Limitations to Documentation: no limitations . Information obtained by: patient, RN notes reviewed and old records reviewed . History of Present Illness 33 year old F presents to the emergency department with the chief complaint of UTI, described as moderate and similar to prior episodes, Patient started experiencing this day(s) (4) and it has been constant. No relieving factors improve symptom(s), Patient notes no other symptoms.. Patient did receive the following treatments prior to arrival, other (Xmpt-dds-bjdyjjd Azo) Related Data Home Medications ?Medication ?Instructions ?Recorded ?Confirmed albuterol sulfate 90 mcg/actuation 1 - 2 puff inhalation Q6H PRN 03/08/14 04/04/24 aerosol inhaler (Proventil HFA) fluticasone propionate 44 2 puff inhalation BID 12/02/22 04/04/24 mcg/actuation HFA aerosol inhaler (Flovent HFA) vitamin B complex 1 cap PO DAILY 12/02/22 04/04/24 loratadine 10 mg tablet (Claritin) 10 mg PO DAILY PRN 12/03/22 04/04/24 cephalexin 500 mg tablet 500 mg PO BID 5 days #10 tabs 04/04/24 Previous Rx's ?Medication ?Instructions ?Recorded cephalexin 500 mg tablet 500 mg PO BID 5 days #10 tabs 04/04/24 Allergies Allergy/AdvReac Type Severity Reaction Status Date / Time No Known Drug Allergies Allergy na Verified 04/04/24 12:25 General Stated Complaint: Urinary SURENDRA: 4 Review of Systems Constitutional Constitutional: Denies body ache(s), Denies chills, Denies fever(s) and Denies malaise Cardiovascular Cardiovascular: Denies chest pain Respiratory Respiratory: Reports system reviewed and no additional complaints, except as documented Gastrointestinal Gastrointestinal: Denies abdominal pain, Denies nausea and Denies vomiting Genitourinary Genitourinary: Reports as per HPI, Denies hematuria, Reports dysuria and Reports urinary urgency Exam Const General: cooperative and no acute distress Orientation: alert, awake and oriented x3 Resp Effort & Inspection: normal respiratory effort and able to speak in complete sentences GI Palpation: nontender Back/Spine/Pelvis Back: no CVA tenderness Neuro General: patient alert, patient awake and patient oriented x3 Course Vital Signs Vital signs: Vital Signs Temperature 36.6 C 04/04/24 12:19 Pulse 99 H 04/04/24 12:19 Respiratory Rate 16 04/04/24 12:19 Blood Pressure 109/76 04/04/24 12:19 Pulse Oximetry 98 04/04/24 12:19 Temperature 36.6 C 04/04/24 12:25 Temperature Source Temporal Artery Scan 04/04/24 12:25 Pulse 99 H 04/04/24 12:25 Respiratory Rate 16 04/04/24 12:25 Respiratory Effort Normal, Non-Labored 04/04/24 12:21 Blood Pressure 109/76 04/04/24 12:25 Blood Pressure Position Sitting 04/04/24 12:25 Pulse Oximetry 98 04/04/24 12:25 Oxygen Delivery Method Room Air 04/04/24 12:25 Oxygen Flow Rate 0 04/04/24 12:19 Pain Level 0 04/04/24 12:25 Lab/Test Results Lab/Test Results: 04/04/24 12:26 Urine - Reflex from Ua Urine Culture - Pending Laboratory Tests Range/Units 04/04/24 12:26 Urine Color (Yellow) [place] Urine Clarity (Clear) Cloudy Urine pH (5-8) 5.0 Ur Specific [place] (1.005-1.025) 1.008 Urine Protein (Neg-Trace) mg/dL Urine Ketones (Negative) mg/dL Urine Blood (Negative) Large H Urine Nitrite (Negative) Urine Bilirubin (Negative) Urine Urobilinogen (Up to 0.2) mg/dL Ur Leukocyte Esterase (Negative) Large H Urine RBC (0-2) HPF >50 H Urine WBC (0-5) HPF >50 H Ur Epithelial Cells Not Applicable Urine Crystals Not Applicable Urine Bacteria Not Applicable Urine Mucus Not Applicable Ur Culture Indicated? Yes Urine Glucose (Negative) mg/dL POC- Test(urine) Negative Medical Decision Making Pt here for Dysuria. Symptoms for 4 days. denies fever, abd pain, nausea, diarrhea, flank pain or vaginal symptoms. Exam shows no CVA tenderness,no supra- pubic tenderness, otherwise neg exam and pt is non toxic in apperance. ddx to include acute cyctitis/UTI, urethritis, Doubt Pyelonephritis or Infected kidney stone UA shows finding to suggest UTI. PT prescribed Keflex . Follow up and return precautions discussed. After discussion of diagnosis and plan of care patient has no further needs, questions, or concerns and states clear understanding to return to the emergency department for any worsening symptoms. This documentation was generated using [employer] dictation system, please disregard any oddities of phrase or misspellings. Quality:SDOH Health Related Social Needs: No Data to Display PFSH All Active Problems (Updated 04/04/24 @ 13:19 by Antonio Corrales NP) Acute UTI (Acute) (Acute) Encounter to determine viability of (Acute) Snoring (Acute) Pain in right wrist (Acute) Abdominal pain (Acute) Lipoma (Acute) Iliac crest bone pain (Acute) Fatigue (Acute) GERD (gastroesophageal reflux disease) (Chronic) Soft tissue mass (Acute) Pelvic pain (Acute) Abdominal pain (Acute) Patellofemoral syndrome of left knee (Acute) Patellofemoral syndrome of right knee (Acute) Femoroacetabular impingement of right hip (Acute) Femoroacetabular impingement of left hip (Acute) Tobacco dependence (Acute) Medical History (Updated 04/04/24 @ 13:19 by Antonio Corrales NP) Missed menses Abnormal Pap smear of cervix Apr 2023 (first abnl): ASCUS/HPV+ -->colp: Chronic back pain Reports pain since she was a teenager. 2019 negative MRI of lumbar spine. PT not helpful, pain clinic injection not helpful. Has been evaluated by rheumatology in the past History of gestational hypertension Asthma Lyme disease Surgical History S/P cholecystectomy Family History Grandfather Essential hypertension Father Prostate cancer 2017 Diabetes Type 2 Social History Smoking/Tobacco Use Status: Former Tobacco Use Smoking risk assessment performed?: Yes Alcohol Intake: current Alcohol Intake frequency: holidays/special occasions only Drug use: Never Substance use type: does not use Household members: other Details: Not in a relationship. Housing: apartment Number of Children: 2 current occupation: [employer] Current gender identity: female Do you feel safe at home: Yes Do you feel safe in your relationship?: Yes Additional Social history: [employer]. 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 History Menstrual control method: implanted History History 3 Para 2 Hx # Term Pregnancies 2 Multiple births 0 Hx # Pregnancies 0 Ectopic pregnancies 0 AB induced 0 Hx Number of Living Children 2 AB spontaneous 1 Past Pregnancies Del. Date GA/Weeks # Preg Succ Route Wgt Sex Labor Lgth Anesth esia Location Prov Complic 05/26/11 39 No vaginal 3543.69 g Female 10 02/23/19 40 No vaginal 3628.739 g Male 11 Amada Blanton CNM 03/28/24 4 No No Delivery Date: 05/26/11 Last Updated by: Lyn Knowles CNM IOL for gestational HTN, pitocin, unmedicated , 2 hrs of pushing Delivery Date: 02/23/19 Last Updated by: Lyn Richardson CNM induction for post dates
[2024-04-04] MEDS: Cephalexin 500 MG CAP PO (13:50)
--- NOTE | 2024-04-06 09:07 | NUR.NOTE ---
Access chart for antibiotics on discharge for urine culture. Nursing Note:
== END 2024-04-04 13:51 | disposition home or self-care (01) ==
PROVIDERS: Emergency Provider Nurse Practitioner Family; PCP Nurse Practitioner Family
DX: N39.0 Urinary tract infection, site not specified (principal); Z87.891 Personal history of nicotine dependence
CPT/HCPCS: 81025; 99283; 81003; 81015; 87086

== ENCOUNTER 2024-04-22 16:13 | Outpatient (REF) | payer MEDICAID, SELFPAY ==
[2024-04-26 17:44] LABS: Beta-HCG, Quant, Tumor Marker 3.2 IU/L
== END 2024-04-22 16:14 | disposition home or self-care (01) ==
LOC: NCHCN 16:13
PROVIDERS: PCP Nurse Practitioner Family; Visit Provider Nurse Practitioner Family
DX: N91.2 Amenorrhea, unspecified (principal)
CPT/HCPCS: 84702

== ENCOUNTER 2024-04-26 10:40 | Outpatient (CLI) | payer MEDICAID, SELFPAY ==
[2024-04-26 15:40] LABS: HCG Quant, Pregnancy 6 mIU/mL (1-3)
== END 2024-04-26 10:41 | disposition home or self-care (01) ==
LOC: LBO 05-06 10:40
PROVIDERS: PCP Nurse Practitioner Family; Visit Provider Nurse Practitioner Family
DX: N91.2 Amenorrhea, unspecified (principal)
CPT/HCPCS: 36415; 84702

== ENCOUNTER 2024-04-28 01:09 | Outpatient (CLI) | payer MEDICAID, SELFPAY ==
--- NOTE | 2024-04-28 | DI.US_ITS ---
Exam(s) US OB 1ST TRIMESTER EXAM: US OB 1ST TRIMESTER CLINICAL HISTORY: + TEST,? DATES. TECHNIQUE: Transabdominal and transvaginal pelvic ultrasound was performed using standard protocol. COMPARISON: No exams were available for comparison FINDINGS: UTERUS: Position: Anteverted. Size: 8.2 long by 4.2 AP by 5.1 transverse cm Endometrium: 0.3 cm. Normal for patient's menstrual status. No evidence of an intrauterine gestation. Myometrium: Unremarkable. Cervix: Unremarkable. OVARIES: Right: 2.6 x 1.8 x 3.0 cm Cyst or mass: No suspicious cystic or solid masses. Left: 2.7 x 1.2 x 1.6 cm Cyst or mass: No suspicious cystic or solid masses. DOPPLER: Color: Symmetric and uniform flow to both ovaries. CUL-DE-SAC: Free fluid: None. Other: No evidence of an adnexal mass to suggest an ectopic . IMPRESSION: 1. Normal-appearing uterus with normal endometrial stripe. 2. No evidence of an intrauterine or ectopic mammographically. 3. Unremarkable bilateral ovaries. DATA REPOSITORY:
== END 2024-04-28 01:29 ==
LOC: DI 01:10
PROVIDERS: PCP Nurse Practitioner Family; Visit Provider Nurse Practitioner Family
DX: Z32.01 Encounter for pregnancy test, result positive (principal)
CPT/HCPCS: 76801

== ENCOUNTER 2024-04-29 12:25 | Outpatient (REF) | payer MEDICAID, SELFPAY ==
--- NOTE | 2024-04-29 11:40 | PAPFT_PTH ---
PATIENT: Isabella Whyte LOC: [facility] U#:[id number] AGE/SX: 33/F ROOM: RE04/29/[address]: Azul Montero MD : 1990 BED: DIS: 04/29/2024 SPEC #: [id number] RECD: 04/29/24 13:48 STATUS: NAVARRO REQ #: [id number] BI: 04/29/24 11:[address]: Azul Montero DEPT: [facility] Cytology RECD BY: Marsha Contreras ENTERED: 04/29/24 13:49 SP TYPE: PAPFT OTHR DR: Selena Cloud Tissues: 1 - CX/ENDOCX FOR PAP SMEARS Procedures: PAP THIN PREP/UVM Screening HPV DNA PROBE Comments: [id number] (HPV 16 & 18/45)
== END 2024-04-29 12:26 | disposition home or self-care (01) ==
LOC: LBN 12:25
PROVIDERS: PCP Nurse Practitioner Family; Visit Provider Obstetrics & Gynecology
DX: Z12.4 Encounter for screening for malignant neoplasm of cervix (principal); Z72.51 High risk heterosexual behavior
CPT/HCPCS: 88142; 87624

== ENCOUNTER 2024-05-13 04:15 | Outpatient (CLI) | payer MEDICAID, SELFPAY ==
--- NOTE | 2024-05-14 12:09 | W.NUTRFU ---
Date of service: 05/13/24 Time of Service: 09:00 Nutrition Note NOTE: Isabella comes in for referred nutrition visit regarding chronic IBS symptoms - predominated by diarrhea (but can get constipated weekly as well) and generalized post-prandial abdominal pain. Isabella does not take any nutrition-related supplements at home currently. She describes herself as a very picky eater, which was supported more throughout our conversation and food choice recommendations that were suggested. Meds include loratadine, aceytylcystein (which she currently does not take), Bcomplex (currently does not take). Pt denies significant weight changes. She reports GI symptoms improving throughout the course of the day. This is one of the reasons why she reports skipping breakfast routinely. The other reason is I am not a morning person and tells me she will sleep until last minute, giving herself 20 minutes at the most to get out the door to work. 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 Reports usual diet is canned chicken noodle soup at lunch and meat/veg/starch at dinner time. She does not participate in scheduled exercise and activity is limited to everyday ambulation, house chores, etc... Feels she sleeps pretty well, however snoring reported in PMH and wondering if her perception is congruent with actual quality sleep given her chronic state of fatigue and wanting to sleep in. Denies food allergies and has never kept food diary relating to intake and symptoms. We reviewed exampled of elimination diets like FODMAP, gluten free and she is not wanting to experiment with this. She has had courses of Abx in the past for Lyme disease and combined with picky eating history it is plausible that she has some developed dysbiosis which is hard to correct due choosing to avoid legumes, fermented/cultured foods, and generally has a low intake of diverse plant material that would otherwise support a healthy gut. I suggested she try to train her taste buds even at this age and continue to work on exposing herself to a better variety of plant protein choices (nuts, seeds, legumes, soy). She won't eat oats, bananas, seafood and a long list of traditional food choices. I believe it would be in her best interest to take a multivitamin/mineral (preferably qxdq-gg-rlekgamw form like powder or liquid) along with additional vitamin D. She might also benefit from trial of melatonin at night (suggested 3mg) as this has had some efficacy in the literature I have seen at reducing IBS related sx's and pain. Also suggested collagen protein powder to help support healthy gut and contribute to her daily total protein intake to ensure adequate intake towards recommendation of 60grams per day minimum. With chronic diarrhea, magnesium glycinate would be suggested as well due to less chance of contributing to diarrhea and the glycine combined with it tends to be better at helping with anxiety. Also reviewed the role in exercise, sleep and stress mgt in relation to her goals. Encouraged working with lower fiber foods during periods of acute diarrhea but then generally eating more high-fiber choices as tolerated to achieve high-fiber diet. Suggested 1/2tsp ground flax per day and building it up to about 1 tsp three times daily. Gave her resource of menu planning site which she can have plan meals for her based on her omissions of foods/food groups she will not eat but will still help meet her energy needs and protein goal. gave her my card to call/contact with need for any more follow up or resources. Time Spent in Nutritional Counseling and Treatment: 45 minutes
== END 2024-05-13 04:16 | disposition home or self-care (01) ==
LOC: DS 04:16
PROVIDERS: PCP Nurse Practitioner Family; Visit Provider Dietitian, Registered
DX: K58.0 Irritable bowel syndrome with diarrhea (principal)
CPT/HCPCS: 00123; 97802

== ENCOUNTER 2024-05-24 09:44 | Outpatient (CLI) | payer MEDICAID, SELFPAY ==
[2024-05-24 10:44] LABS: HCG Quant, Pregnancy 374 mIU/mL (1-3)
== END 2024-05-24 09:45 | disposition home or self-care (01) ==
LOC: LBO 09:44
PROVIDERS: PCP Nurse Practitioner Family; Visit Provider Obstetrics & Gynecology
DX: O26.859 Spotting complicating pregnancy, unspecified trimester (principal)
CPT/HCPCS: 36415; 84702

== ENCOUNTER 2024-05-27 08:40 | Outpatient (CLI) | payer MEDICAID, SELFPAY ==
[2024-05-27 08:44] LABS: HCG Quant, Pregnancy 943 mIU/mL (1-3)
== END 2024-05-27 08:41 | disposition home or self-care (01) ==
LOC: LBO 08:41
PROVIDERS: PCP Nurse Practitioner Family; Visit Provider Obstetrics & Gynecology
DX: Z87.59 Personal history of other complications of pregnancy, childbirth and the puerperium (principal)
CPT/HCPCS: 36415; 84702

== ENCOUNTER 2024-06-15 19:54 | Emergency (ER) | payer MEDICAID, SELFPAY ==
[2024-06-15 19:56] VITALS: BP 128/83; PULSE 96; TEMP 36.3; O2SAT 100
[2024-06-15 20:01] VITALS: BP 128/83; PULSE 96; TEMP 36.3; O2SAT 100
--- NOTE | 2024-06-15 20:13 | ED.GENADUL_ITS ---
Discharge Plan Disposition Patient Disposition: Home Condition: Stable Discharge Details Clinical Impression: Epigastric abdominal pain, Nausea and vomiting during Primary Care Provider: Selena Cloud ED Provider: Amarilis Johnson Home Meds and New Rx's Prescriptions: No Action vitamin B complex Capsule 1 cap PO DAILY fluticasone propionate [Flovent HFA] 44 mcg/actuation HFA aerosol inhaler 2 puff inhalation BID Rx Instructions: administer with spacer loratadine [Claritin] 10 mg tablet 10 mg PO DAILY PRN albuterol sulfate [Proventil HFA] 6.7 GM HFA aerosol inhaler 1 - 2 puff Inhalation Q6H PRN Patient Comments: used for exercised induced asthma. 08/28/15 rl C-Maykel DHA 28 mg iron-1 mg -200 mg capsule 1 cap PO .daily Qty: 90 6RF Discharge Instructions Instructions: Abdominal Pain, Adult ED, Morning Sickness ED Additional Instructions: Please have a ultrasound done within the next 1 to 2 days. Call radiology to schedule this test. Fortunately ultrasound is not available at this time. This will evaluate your common bile duct and your liver. Take the nausea medications as prescribed approximately 20 to 30 minutes prior to eating or drinking anything. At this time we are unable to rule out urine out urinary tract infection. Please follow-up with your primary care provider if symptoms continue. If you get any worse or unable to keep down fluids or have fever or worsening pain please return to the emergency department. Follow up with primary care provider in 3-5 days. Return to ED sooner if any worsening or concerns. You may also try to take Tums when you have the pain. Thank you for allowing us to care for you today. Referrals: Selena Cloud [Primary Care Provider] - 3 days HPI General Mode of arrival: ambulatory . Date/Time Provider Initiated Documentation: 06/15/24 19:54 . Limitations to Documentation: no limitations . Information obtained by: patient, RN notes reviewed and old records reviewed . HPI Narrative: 33 year old female who is 7 weeks presents with cc of mid epigastric abd pain that began on Friday. She reports episodes lasting approximately 30 to 48 minutes of progressing abdominal pain up to the point until she vomits and then the pain subsides. It has happened multiple times over the last couple of days. She does have a history of a cholecystectomy, denies any radiation of pain denies any problems urinating. She was seen by her BRICK PICKER today and had a bedside ultrasound which showed a 7-week gestation. No other associated symptoms or concerns. Patient does have a PCP appointment tomorrow. Related Data Home Medications ?Medication ?Instructions ?Recorded ?Confirmed albuterol sulfate 90 mcg/actuation 1 - 2 puff inhalation Q6H PRN 03/08/14 06/15/24 aerosol inhaler (Proventil HFA) fluticasone propionate 44 2 puff inhalation BID 12/02/22 06/15/24 mcg/actuation HFA aerosol inhaler (Flovent HFA) vitamin B complex 1 cap PO DAILY 12/02/22 06/15/24 loratadine 10 mg tablet (Claritin) 10 mg PO DAILY PRN 12/03/22 06/15/24 [id number] fum 28 mg 1 cap PO .daily #90 caps 05/24/24 06/15/24 iron-folic acid 1 mg-omg3 200 mg capsule (C-Maykel DHA) Previous Rx's ?Medication ?Instructions ?Recorded [id number] fum 28 mg 1 cap PO .daily #90 caps 05/24/24 iron-folic acid 1 mg-omg3 200 mg capsule (C-Maykel DHA) Allergies Allergy/AdvReac Type Severity Reaction Status Date / Time No Known Drug Allergies Allergy na Verified 06/15/24 20:02 General Stated Complaint: Abd Prob SURENDRA: 3 Review of Systems All systems reviewed & are unremarkable except as noted in HPI and below Gastrointestinal Gastrointestinal: Reports as per HPI, Reports abdominal pain, Reports nausea and Reports vomiting Exam Narrative Exam Narrative: Constitutional: Alert and oriented x3. Appears stated age. Normal body habitus. Head: Normocephalic, no trauma. Eyes: Pupils PERRL, Red reflex noted, EOM's intact. Eyelids symmetrical without lesions, discharge, or swelling. ENT: Bilateral TM's WNL, External ear normal to inspection, no mastoid TTP, swelling, or erythema, Nasal turbinates WNL, no nasal discharge. Normal dentition, Posterior pharynx WNL, no exudate. Chest: RRR, Normal S1, S2, distal pulses intact. Resp: Lungs clear to auscultation bilaterally, no wheezes, rales, or rhonchi. Abdomen: Soft, non-distended, Normoactive bowel sounds all 4 quads. Musculoskeletal: Normal gait, Moves all 4 extremities without difficulty. Skin: No suspicious rashes or lesions. Capillary refill less than 2 sec. Neurologic: Cranial nerves II-XII intact. Alert and oriented x 3. Motor: No deficits noted. Sensory: Intact bilaterally all 4 extremities. Hematologic/Lymphatic: No ecchymosis, no lymphadenopathy. Course Vital Signs Vital signs: Vital Signs Temperature 36.3 C L 06/15/24 19:56 Pulse 96 H 06/15/24 19:56 Blood Pressure 128/83 06/15/24 19:56 Pulse Oximetry 100 06/15/24 19:56 Temperature 36.3 C L 06/15/24 20:01 Pulse 96 H 06/15/24 20:01 Respiratory Effort Normal 06/15/24 20:01 Blood Pressure 128/83 06/15/24 20:01 Blood Pressure Position Sitting 06/15/24 20:01 Pulse Oximetry 100 06/15/24 20:01 Oxygen Delivery Method Room Air 06/15/24 20:01 Oxygen Flow Rate 0 06/15/24 19:56 Pain Level 0 06/15/24 19:56 Medical Decision Making 33 year old female who is 7 weeks presents with cc of mid epigastric abd pain that began on Friday. She reports episodes lasting approximately 30 to 48 minutes of progressing abdominal pain up to the point until she vomits and then the pain subsides. It has happened multiple times over the last couple of days. She does have a history of a cholecystectomy, denies any radiation of pain denies any problems urinating. She was seen by her BRICK PICKER today and had a bedside ultrasound which showed a 7-week gestation. No other associated symptoms or concerns. Patient does have a PCP appointment tomorrow. Labs including CBC CMP lipase and hCG quant ordered, urinalysis ordered. Differential diagnose includes but limited to gallstones, GERD, gastroenteritis, UTI, kidney stone. Patient unable to give us a urine sample at this time. Will order a outpatient US upper Abdomen limited to be done tomorrow or next day. Will send home with Amando CORDERO and have patient follow up with PCP or return to the ER. This text was generated using [employer] system, please disregard any oddities of phrase or misspellings. Medical Records Medical records reviewed: Yes I reviewed the patient's medical records. Lab Data Lab results reviewed: Yes I reviewed the patient's lab results. Labs: Laboratory Tests Range/Units 06/15/24 06/15/24 20:23 21:40 WBC (4.4-10.8) 10^3/uL 6.08 RBC (3.93-5.22) 10^6/uL 4.04 Hgb (11.2-15.7) g/dL 12.7 Hct (36.0-46.0) % 36.3 MCV (80-95) fL 90 MCH (27.0-33.0) pg 31.4 MCHC (32.0-36.0) % 35.0 RDW (11.7-14.6) % 11.0 L Plt Count (130-400) 10^3/uL 229 MPV (8.0-11.0) fL 8.7 Immature Gran % % 0.3 Neutrophils % % 68.1 Lymphocytes % % 20.4 Monocytes % % 10.0 Eosinophils % % 0.7 Basophils % % 0.5 Nucleated RBC % (0.0-0.3) % 0.0 Absolute Neutrophils (1.2-6.7) 10^3/uL 4.14 Absolute Lymphocytes (1.2-3.4) 10^3/uL 1.24 Absolute Monocytes (0.1-0.8) 10^3/uL 0.61 Absolute Eosinophils (0.0-0.7) 10^3/uL 0.04 Absolute Basophils (0.0-0.2) 10^3/uL 0.03 Sodium (136-145) mmol/L 139 Potassium (3.5-5.1) mmol/L 3.4 L Chloride (98-107) mmol/L 104 Carbon Dioxide (21.0-32.0) mmol/L 27.3 Anion Gap (3-11) mmol/L 7.7 BUN (7-18) mg/dL 5 L Creatinine (0.55-1.02) mg/dL 0.7 Est GFR (CKD-EPI 2020) (mL/min/1.73m2) 118.51 Glucose (74-106) mg/dL 96 Calcium (8.5-10.1) mg/dL 9.1 Total Bilirubin (0.2-1.0) mg/dL 0.44 AST (15-37) U/L 78 H ALT (14-59) U/L 64 H Alkaline Phosphatase (46-116) U/L 64 Total Protein (6.4-8.2) g/dL 7.6 Albumin (3.4-5.0) g/dL 4.0 Lipase (16-77) U/L 56 Beta HCG, Quant (1-3) mIU/mL [id number] H Urine Color (Yellow) Yellow Urine Clarity (Clear) Clear Urine pH (5-8) 7.5 Ur Specific [place] (1.005-1.025) 1.015 Urine Protein (Neg-Trace) mg/dL Negative Urine Ketones (Negative) mg/dL Negative Urine Blood (Negative) Negative Urine Nitrite (Negative) Negative Urine Bilirubin (Negative) Negative Urine Urobilinogen (Up to 0.2) mg/dL 0.2 Ur Leukocyte Esterase (Negative) Small H Urine RBC (0-2) HPF 0-2 Urine WBC (0-5) HPF 5-10 Ur Epithelial Cells (Negative) HPF Rare Urine Crystals (Negative) HPF Negative Urine Bacteria (Negative) HPF Rare Urine Casts (Negative) LPF Negative Urine Mucus (Negative) Trace Ur Culture Indicated? No Urine Glucose (Negative) mg/dL Negative Quality:SDOH Health Related Social Needs: No Data to Display PFSH All Active Problems (Updated 06/15/24 @ 21:44 by Amarilis Johnson NP) Nausea and vomiting during (Acute) Epigastric abdominal pain (Acute) (Acute) Snoring (Acute) Pain in right wrist (Acute) Lipoma (Acute) Iliac crest bone pain (Acute) Fatigue (Acute) GERD (gastroesophageal reflux disease) (Chronic) Soft tissue mass (Acute) Abdominal pain (Acute) Patellofemoral syndrome of left knee (Acute) Patellofemoral syndrome of right knee (Acute) Femoroacetabular impingement of right hip (Acute) Femoroacetabular impingement of left hip (Acute) Medical History History of miscarriage History of tobacco use Abnormal Pap smear of cervix Apr 2023 (first abnl): ASCUS/HPV+ -->colp: Chronic back pain Reports pain since she was a teenager. 2019 negative MRI of lumbar spine. PT not helpful, pain clinic injection not helpful. Has been evaluated by rheumatology in the past History of gestational hypertension Asthma Lyme disease Surgical History S/P cholecystectomy Family History Grandfather Essential hypertension Father Prostate cancer 2017 Diabetes Type 2 Social History Smoking/Tobacco Use Status: Former Tobacco Use Smoking risk assessment performed?: Yes Alcohol Intake: current Alcohol Intake frequency: holidays/special occasions only Drug use: Never Substance use type: does not use Household members: other Details: boyfriend Housing: apartment Number of Children: 2 current occupation: [employer] Current gender identity: female Do you feel safe at home: Yes Do you feel safe in your relationship?: Yes Additional Social history: [employer] [place]. 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 History Menstrual control method: implanted History History 3 Para 2 Hx # Term Pregnancies 2 Multiple births 0 Hx # Pregnancies 0 Ectopic pregnancies 0 AB induced 0 Hx Number of Living Children 2 AB spontaneous 1 Past Pregnancies Del. Date GA/Weeks # Preg Succ Route Wgt Sex Labor Lgth Anesth esia Location Prov [facility] 05/26/11 39 No vaginal 3543.69 g Female 10 02/23/19 40 No vaginal 3628.739 g Male 11 Amada Blanton CNM 02/25/24 4 No No Delivery Date: 05/26/11 Last Updated by: Lyn Knowles CNM IOL for gestational HTN, pitocin, unmedicated , 2 hrs of pushing Delivery Date: 02/23/19 Last Updated by: Lyn Richardson CNM induction for post dates
[2024-06-15 20:29] LABS: Abs Immature Grans 0.02 10^3/uL (0.0-0.06); Absolute Basophil Count 0.03 10^3/uL (0.0-0.2); Absolute Eosinophil Count 0.04 10^3/uL (0.0-0.7); Absolute Lymphocyte Count 1.24 10^3/uL (1.2-3.4); Absolute Monocyte Count 0.61 10^3/uL (0.1-0.8); Absolute Neutrophil Count 4.14 10^3/uL (1.2-6.7); Basophils % 0.5 %; Eosinophils % 0.7 %; HCT 36.3 % (36.0-46.0); HGB 12.7 g/dL (11.2-15.7); Immature Grans % 0.3 %; Lymphocytes % 20.4 %; MCH 31.4 pg (27.0-33.0); MCV 90 fL (80-95); MPV 8.7 fL (8.0-11.0); Neutrophils % 68.1 %; Platelet Count 229 10^3/uL (130-400); RBC 4.04 10^6/uL (3.93-5.22); RDW-SD 36.4 fL; WBC 6.08 10^3/uL (4.4-10.8)
[2024-06-15 20:46] LABS: ALT 64 U/L (14-59); AST 78 U/L (15-37); Alkaline Phosphatase 64 U/L (46-116); Anion Gap 7.7 mmol/L (3-11); BUN 5 mg/dL (7-18); Bilirubin, Total 0.44 mg/dL (0.2-1.0); CO2 27.3 mmol/L (21.0-32.0); CREATININE 0.7 mg/dL (0.55-1.02); Chloride 104 mmol/L (98-107); Estimated GFR 118.51 (mL/min/1.73m2); Glucose 96 mg/dL (74-106); Lipase 56 U/L (16-77); Potassium 3.4 mmol/L (3.5-5.1); Sodium 139 mmol/L (136-145); Total Protein 7.6 g/dL (6.4-8.2)
[2024-06-15 20:54] LABS: Calcium 9.1 mg/dL (8.5-10.1)
[2024-06-15 21:47] LABS: Bilirubin Negative (Negative); Blood Negative (Negative); Clarity Clear (Clear); Glucose Negative (Negative); Ketones Negative (Negative); Leukocyte Esterase Small (Negative); Nitrite Negative (Negative); Specific Gravity 1.015 (1.005-1.025); Urobilinogen 0.2 mg/dL (Up to 0.2); pH 7.5 (5-8)
[2024-06-15] MEDS: Ondansetron O.D.T. 4 MG TABEF, 3 TABS/BTL PO (21:50)
[2024-06-15 21:54] LABS: RBC 0-2 HPF (0-2)
[2024-06-15 21:55] LABS: Bacteria Rare HPF (Negative); C & S Indicated? No; Casts Negative LPF (Negative); Crystals Negative HPF (Negative); Epithelial Cells Rare HPF (Negative); Mucus Trace (Negative)
== END 2024-06-15 22:10 | disposition home or self-care (01) ==
PROVIDERS: Emergency Provider Registered Nurse Emergency; PCP Nurse Practitioner Family
DX: R10.13 Epigastric pain (principal); O21.9 Vomiting of pregnancy, unspecified
CPT/HCPCS: 80053; 83690; 99283; 81003; 81015; 84702; 85025

== ENCOUNTER 2024-06-16 08:12 | Outpatient (CLI) | payer MEDICAID, SELFPAY ==
--- NOTE | 2024-06-16 | DI.US_ITS ---
Exam(s) US ABDOMEN LIMITED EXAM: US ABDOMEN LIMITED CLINICAL HISTORY: UPPER ABD PAIN, NAUSEA, VOMITING TECHNIQUE: Ultrasound abdomen performed using standard protocol. COMPARISON: CT CT ABDOMEN PELVIS W from 01/28/2024 US POCUS EXAM from 06/15/2024 FINDINGS: There is no ascites evident. LIVER: There are no hepatic lesions evident nor dilatation of intrahepatic ducts. GALLBLADDER/BILIARY: The gallbladder is now surgically absent. The common hepatic duct ismildly dilated, measuring 7mm at the level of rae hepatis. Probably rela delfina to post cholecystectomy status. PANCREAS: There is no evidence of pancreatic mass nor dilatation of the pancreatic duct. RIGHT KIDNEY:No evidence of solid mass, calculus, nor hydronephrosis. No cortical cysts evident. IMPRESSION: 1. Compared to the CT scan January 2024 there has been interval cholecystectomy. 2. Common hepatic duct diameter is 7 mm most probably commensurate with post cholecystectomy status. There is no abnormal fluid collection in the gallbladder bed region 3. There is no ascites. DATA REPOSITORY:
== END 2024-06-16 08:32 ==
LOC: DI 08:12
PROVIDERS: PCP Nurse Practitioner Family; Visit Provider Registered Nurse Emergency
DX: R10.10 Upper abdominal pain, unspecified (principal)
CPT/HCPCS: 76705

== ENCOUNTER 2024-06-21 19:49 | Emergency (ER) | payer MEDICAID, SELFPAY ==
[2024-06-21 19:52] VITALS: BP 129/91; PULSE 90; RESP 15; TEMP 36.6; O2SAT 98
[2024-06-21 19:57] VITALS: BP 129/91; PULSE 90; RESP 15; TEMP 36.6; O2SAT 98
--- NOTE | 2024-06-21 20:08 | NUR.NOTE ---
Pt Stated unable to urinate at this time, TONEJ
[2024-06-21] MEDS: Ondansetron 4 MG/2 ML VIAL IVP (21:00)
[2024-06-21] MEDS: Famotidine 20 MG/2 ML VIAL IVP (21:00)
[2024-06-21 21:15] VITALS: BP 116/72; PULSE 83; RESP 16; O2SAT 100
[2024-06-21 21:22] LABS: Abs Immature Grans 0.02 10^3/uL (0.0-0.06); Absolute Basophil Count 0.01 10^3/uL (0.0-0.2); Absolute Eosinophil Count 0.04 10^3/uL (0.0-0.7); Absolute Lymphocyte Count 1.01 10^3/uL (1.2-3.4); Absolute Monocyte Count 0.53 10^3/uL (0.1-0.8); Absolute Neutrophil Count 5.15 10^3/uL (1.2-6.7); Basophils % 0.1 %; Eosinophils % 0.6 %; HCT 36.1 % (36.0-46.0); HGB 12.8 g/dL (11.2-15.7); Immature Grans % 0.3 %; Lymphocytes % 14.9 %; MCH 31.6 pg (27.0-33.0); MCHC 35.5 % (32.0-36.0); MCV 89 fL (80-95); MPV 8.8 fL (8.0-11.0); Monocytes % 7.8 %; Neutrophils % 76.3 %; Platelet Count 207 10^3/uL (130-400); RBC 4.05 10^6/uL (3.93-5.22); RDW 11.1 % (11.7-14.6); WBC 6.76 10^3/uL (4.4-10.8)
[2024-06-21 21:37] LABS: ALT 174 U/L (14-59); AST 262 U/L (15-37); Albumin 3.9 g/dL (3.4-5.0); Alkaline Phosphatase 79 U/L (46-116); Anion Gap 8.3 mmol/L (3-11); BUN 5 mg/dL (7-18); Bilirubin, Total 0.69 mg/dL (0.2-1.0); CO2 26.7 mmol/L (21.0-32.0); CREATININE 0.6 mg/dL (0.55-1.02); Chloride 104 mmol/L (98-107); Estimated GFR 122.99 (mL/min/1.73m2); Glucose 92 mg/dL (74-106); Lipase 63 U/L (16-77); Potassium 3.6 mmol/L (3.5-5.1); Sodium 139 mmol/L (136-145); Total Protein 7.4 g/dL (6.4-8.2)
[2024-06-21 21:47] LABS: Calcium 9.2 mg/dL (8.5-10.1)
[2024-06-21 22:26] LABS: C-Reactive Protein < 0.50 mg/dL (<or=0.5)
[2024-06-21 22:30] LABS: Bilirubin Negative (Negative); Blood Negative (Negative); Clarity Clear (Clear); Glucose Negative (Negative); Ketones Negative (Negative); Leukocyte Esterase Trace (Negative); Nitrite Negative (Negative); Specific Gravity 1.015 (1.005-1.025)
[2024-06-21 22:32] LABS: GGT 40 U/L (5-55)
[2024-06-21 22:37] LABS: Bacteria Negative HPF (Negative); C & S Indicated? No; Casts Negative LPF (Negative); Crystals Negative HPF (Negative); Epithelial Cells Rare HPF (Negative); Mucus Negative (Negative); RBC 0-2 HPF (0-2)
[2024-06-21 22:40] LABS: Ferritin 183 ng/mL (8-252)
[2024-06-21 22:43] LABS: Calculated LDL 62 mg/dL (<100); Cholesterol 140 mg/dL (<200); HDL Cholesterol 70 mg/dL (40-60); Triglyceride 43 mg/dL (<150)
[2024-06-21 22:56] VITALS: BP 118/74; PULSE 86; RESP 16; O2SAT 100
[2024-06-21 23:12] VITALS: BP 118/74; PULSE 86; RESP 16; O2SAT 100
--- NOTE | 2024-06-21 23:13 | W.ED.GENAD ---
Discharge Plan Disposition Patient Disposition: Home Condition: Stable Discharge Details Clinical Impression: Acute epigastric pain, , Abnormal transaminases Primary Care Provider: Selena Cloud ED Provider: Marsha Taylor Home Meds and New Rx's Prescriptions: New famotidine [Pepcid] 20 mg tablet 20 mg PO BID Qty: 20 0RF ondansetron HCl 4 mg tablet 4 mg PO TID 5 Days Qty: 15 0RF Continued vitamin B complex Capsule 1 cap PO DAILY fluticasone propionate [Flovent HFA] 44 mcg/actuation HFA aerosol inhaler 2 puff inhalation BID Rx Instructions: administer with spacer loratadine [Claritin] 10 mg tablet 10 mg PO DAILY PRN albuterol sulfate [Proventil HFA] 6.7 GM HFA aerosol inhaler 1 - 2 puff Inhalation Q6H PRN Patient Comments: used for exercised induced asthma. 08/28/15 rl C-Maykel DHA 28 mg iron-1 mg -200 mg capsule 1 cap PO .daily Qty: 90 6RF Discharge Instructions Instructions: Abdominal Pain, Adult ED Additional Instructions: Please follow-up with your primary care physician for repeat liver function test Take Zofran as needed for nausea and vomiting Take Pepcid twice daily Increase fluids Stay away from spicy food, acidic foods, or should any new concerns arise An MRCP has been ordered, you may talk to MOBILE HOME SET UP PERSON about risk benefits for the radiologist as to whether or not this is a good choice for you at this time I do recommend reviewing your liver function tests and see if they are not improving in addition to your exam prior to having additional testing and your PCP should be able to order this in the outpatient setting. Please return immediately should you have new or worsening complaints Referrals: Azul Montero MD [ [facility] STAFF PHYSICIAN] - 2 days Selena Cloud [Primary Care Provider] - 2 days Tati Bajwa DO [OSTEOPATHIC DOCTOR] - 2 days HPI General Date/Time Provider Initiated Documentation: 06/21/24 20:13. HPI Narrative: This 33-year-old female presents 7 weeks with recurrent nausea and vomiting. She has had epigastric pain which she feels precipitates the nausea and vomiting. She has not had any morning sickness per patient. She denies any blood in vomitus. She denies any alcohol, tobacco use, or illicit drug use. She had a normal IUP approximately 1 week ago. Low suspicion clinically for ectopic. She is status postcholecystectomy approximately 5 months ago which was uneventful per patient. She denies any urinary symptoms. Related Data Home Medications ?Medication ?Instructions ?Recorded ?Confirmed albuterol sulfate 90 mcg/actuation 1 - 2 puff inhalation Q6H PRN 03/08/14 06/15/24 aerosol inhaler (Proventil HFA) fluticasone propionate 44 2 puff inhalation BID 12/02/22 06/15/24 mcg/actuation HFA aerosol inhaler (Flovent HFA) vitamin B complex 1 cap PO DAILY 12/02/22 06/15/24 loratadine 10 mg tablet (Claritin) 10 mg PO DAILY PRN 12/03/22 06/15/24 [id number] fum 28 mg 1 cap PO .daily #90 caps 05/24/24 06/15/24 iron-folic acid 1 mg-omg3 200 mg capsule (C-Maykel DHA) famotidine 20 mg tablet (Pepcid) 20 mg PO BID #20 tabs 06/21/24 ondansetron HCl 4 mg tablet 4 mg PO TID 5 days #15 tabs 06/21/24 Previous Rx's ?Medication ?Instructions ?Recorded [id number] fum 28 mg 1 cap PO .daily #90 caps 05/24/24 iron-folic acid 1 mg-omg3 200 mg capsule (C-Maykel DHA) famotidine 20 mg tablet (Pepcid) 20 mg PO BID #20 tabs 06/21/24 ondansetron HCl 4 mg tablet 4 mg PO TID 5 days #15 tabs 06/21/24 Allergies Allergy/AdvReac Type Severity Reaction Status Date / Time No Known Drug Allergies Allergy na Verified 06/15/24 20:02 General Stated Complaint: Abd Prob SURENDRA: 3 Course Vital Signs Vital signs: Vital Signs Temperature 36.6 C 06/21/24 19:52 Pulse 90 06/21/24 19:52 Respiratory Rate 15 06/21/24 19:52 Blood Pressure 129/91 H 06/21/24 19:52 Pulse Oximetry 98 06/21/24 19:52 Temperature 36.6 C 06/21/24 19:57 Temperature Source Oral 06/21/24 19:57 Pulse 86 06/21/24 22:56 Respiratory Rate 16 06/21/24 22:56 Respiratory Effort Normal 06/21/24 19:57 Blood Pressure 118/74 06/21/24 22:56 Blood Pressure Position Sitting 06/21/24 19:57 Pulse Oximetry 100 06/21/24 22:56 Oxygen Delivery Method Room Air 06/21/24 22:56 Oxygen Flow Rate 0 06/21/24 22:56 Lab/Test Results Lab/Test Results: Laboratory Tests Range/Units 06/21/24 06/21/24 21:15 22:18 WBC (4.4-10.8) 10^3/uL 6.76 RBC (3.93-5.22) 10^6/uL 4.05 Hgb (11.2-15.7) g/dL 12.8 Hct (36.0-46.0) % 36.1 MCV (80-95) fL 89 MCH (27.0-33.0) pg 31.6 MCHC (32.0-36.0) % 35.5 RDW (11.7-14.6) % 11.1 L Plt Count (130-400) 10^3/uL 207 MPV (8.0-11.0) fL 8.8 Immature Gran % % 0.3 Neutrophils % % 76.3 Lymphocytes % % 14.9 Monocytes % % 7.8 Eosinophils % % 0.6 Basophils % % 0.1 Nucleated RBC % (0.0-0.3) % 0.0 Absolute Neutrophils (1.2-6.7) 10^3/uL 5.15 Absolute Lymphocytes (1.2-3.4) 10^3/uL 1.01 L Absolute Monocytes (0.1-0.8) 10^3/uL 0.53 Absolute Eosinophils (0.0-0.7) 10^3/uL 0.04 Absolute Basophils (0.0-0.2) 10^3/uL 0.01 PT (9.1-11.1) sec 10.0 INR (0.9-1.1) 1.0 Sodium (136-145) mmol/L 139 Potassium (3.5-5.1) mmol/L 3.6 Chloride (98-107) mmol/L 104 Carbon Dioxide (21.0-32.0) mmol/L 26.7 Anion Gap (3-11) mmol/L 8.3 BUN (7-18) mg/dL 5 L Creatinine (0.55-1.02) mg/dL 0.6 Est GFR (CKD-EPI 2020) (mL/min/1.73m2) 122.99 Glucose (74-106) mg/dL 92 Calcium (8.5-10.1) mg/dL 9.2 Ferritin (8-252) ng/mL 183 Total Bilirubin (0.2-1.0) mg/dL 0.69 GGT (5-55) U/L 40 AST (15-37) U/L 262 H ALT (14-59) U/L 174 H Alkaline Phosphatase (46-116) U/L 79 C-Reactive Protein (<or=0.5) mg/dL < 0.50 Total Protein (6.4-8.2) g/dL 7.4 Albumin (3.4-5.0) g/dL 3.9 Triglycerides (<150) mg/dL 43 Total Cholesterol (<200) mg/dL 140 LDL Cholesterol, Calc (<100) mg/dL 62 HDL Cholesterol (40-60) mg/dL 70 Lipase (16-77) U/L 63 Urine Color (Yellow) Yellow Urine Clarity (Clear) Clear Urine pH (5-8) 7.0 Ur Specific [place] (1.005-1.025) 1.015 Urine Protein (Neg-Trace) mg/dL Negative Urine Ketones (Negative) mg/dL Negative Urine Blood (Negative) Negative Urine Nitrite (Negative) Negative Urine Bilirubin (Negative) Negative Urine Urobilinogen (Up to 0.2) mg/dL 1.0 H Ur Leukocyte Esterase (Negative) Trace H Urine RBC (0-2) HPF 0-2 Urine WBC (0-5) HPF 3-5 Ur Epithelial Cells (Negative) HPF Rare Urine Crystals (Negative) HPF Negative Urine Bacteria (Negative) HPF Negative Urine Casts (Negative) LPF Negative Urine Mucus (Negative) Negative Ur Culture Indicated? No Urine Glucose (Negative) mg/dL Negative POC- Test(urine) Positive Medical Decision Making 33-year-old female with history of epigastric pain with nausea and vomiting. LFTs on prior visit were elevated and patient had a labs ultrasound of right upper quadrant which did not show evidence of acute abnormality, specifically common bile duct was within normal limits. LFTs have doubled which is concerning. Patient is currently pain-free and in no acute distress at time of assessment. CBC within normal limits. I discussed the case with Dr. Bajwa and at this point an MRCP may be warranted. Patient may feel more comfortable ordering repeat LFTs and a repeat assessment with a trial of Pepcid and Zofran to see if she has improvement in symptoms prior to MRCP. I think this is a risk-benefit discussion with MOBILE HOME SET UP PERSON and patient as she is in the first trimester. At this time I think patient stable for discharge home. I will administer Pepcid and Zofran. She has an appointment with Dr. Guzmán who I also spoke with on the phone within the next week so she has very close outpatient follow-up. I think stable to have LFTs rechecked by her primary care physician within the next 2 to [address] her on the list for follow-up. Return precautions reviewed and patient expressed understanding, discharged home in stable condition with stable vitals, Quality:SDOH Health Related Social Needs: No Data to Display PFSH All Active Problems (Updated 06/21/24 @ 22:58 by ELAINA Gao) Abnormal transaminases (Acute) (Acute) Acute epigastric pain (Acute) Nausea with vomiting, unspecified (Acute) Elevated LFTs (Acute) RUQ abdominal pain (Acute) Nausea and vomiting during (Acute) Epigastric abdominal pain (Acute) (Acute) Snoring (Acute) Pain in right wrist (Acute) Lipoma (Acute) Iliac crest bone pain (Acute) Fatigue (Acute) GERD (gastroesophageal reflux disease) (Chronic) Soft tissue mass (Acute) Abdominal pain (Acute) Patellofemoral syndrome of left knee (Acute) Patellofemoral syndrome of right knee (Acute) Femoroacetabular impingement of right hip (Acute) Femoroacetabular impingement of left hip (Acute) Medical History History of miscarriage History of tobacco use Abnormal Pap smear of cervix Apr 2023 (first abnl): ASCUS/HPV+ -->colp: Chronic back pain Reports pain since she was a teenager. 2019 negative MRI of lumbar spine. PT not helpful, pain clinic injection not helpful. Has been evaluated by rheumatology in the past History of gestational hypertension Asthma Lyme disease Surgical History S/P cholecystectomy Family History Grandfather Essential hypertension Father Prostate cancer 2017 Diabetes Type 2 Social History Smoking/Tobacco Use Status: Former Tobacco Use Smoking risk assessment performed?: Yes Alcohol Intake: current Alcohol Intake frequency: holidays/special occasions only Drug use: Never Substance use type: does not use Household members: other Details: boyfriend Housing: apartment Number of Children: 2 current occupation: [employer] Current gender identity: female Do you feel safe at home: Yes Do you feel safe in your relationship?: Yes Additional Social history: [employer]. 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 History Menstrual control method: implanted History History 3 Para 2 Hx # Term Pregnancies 2 Multiple births 0 Hx # Pregnancies 0 Ectopic pregnancies 0 AB induced 0 Hx Number of Living Children 2 AB spontaneous 1 Past Pregnancies Del. Date GA/Weeks # Preg Succ Route Wgt Sex Labor Lgth Anesthesia Location Prov [facility] 05/26/11 39 No vaginal 3543.69 g Female 10 02/23/19 40 No vaginal 3628.739 g Male 11 Amada Blanton CNM 02/25/24 4 No No Delivery Date: 05/26/11 Last Updated by: Lyn Knowles CNM IOL for gestational HTN, pitocin, unmedicated , 2 hrs of pushing Delivery Date: 02/23/19 Last Updated by: Lyn Richardson CNM induction for post dates
[2024-06-22 19:19] LABS: Hepatitis A Antibody IgM Negative (Negative); Hepatitis B Core Antibody Negative (Negative); Hepatitis B surface Ag Negative (Negative); Hepatitis C Ab w Rflx HCV PCR Negative (Negative)
== END 2024-06-21 23:36 | disposition home or self-care (01) ==
PROVIDERS: Surgery; Emergency Provider Physician Assistant; PCP Nurse Practitioner Family
DX: O26.891 Other specified pregnancy related conditions, first trimester (principal); R10.13 Epigastric pain; R74.01 Elevation of levels of liver transaminase levels; Z87.891 Personal history of nicotine dependence
CPT/HCPCS: 36415; 80053; 80061; 83690; 86704; 86709; 86803; 87340; 99283; 81003; 81015; 82728; 82977; 85025; 85610; 86140; J2405

== ENCOUNTER 2024-06-23 02:32 | Outpatient (CLI) | payer MEDICAID, SELFPAY ==
--- NOTE | 2024-06-23 14:00 | DI.MRI_ITS ---
Exam(s) MR ABDOMEN WO EXAM: MR ABDOMEN WO CLINICAL HISTORY: GB out/elevated left/ruq pain/N Vr10.11,r11.2,k21.9 TECHNIQUE: Multiplanar multisequence MRI of the Abdomen was performed. COMPARISON: CT CT ABDOMEN PELVIS W from 01/28/2024 US POCUS EXAM from 06/15/2024 US US ABDOMEN LIMITED from 06/16/2024 FINDINGS: Lung bases: Unremarkable. Liver: No evidence of a hepatic mass. No intrahepatic biliary ductal dilatation. Pancreas: The pancreas is of normal signal intensity. The pancreatic duct is unremarkable. No evide nce of a pancreatic mass or peripancreatic fluid collection. Gallbladder and Bile Ducts: Status post cholecystectomy. The common duct measures 7 mm which is with in normal limits. In the common bile duct in the region of the head of the pancreas there is a singl e 2 mm hypointense focus present (series 5001, image 18). This may represent a retained stone. Adrenals: Unremarkable. Kidneys: There is no evidence of a renal mass or hydronephrosis. Spleen: Unremarkable. Bowel: Unremarkable. Aorta: Unremarkable. Soft Tissues: Unremarkable. Bone: Unremarkable. Lymph Nodes: Unremarkable. IMPRESSION: 1. There is a 2 mm hypointense focus present in the common bile duct in the region of the head of the pancreas. Retained stone versus artifact. 2. Status post cholecystectomy. Common duct is within normal limits at 7 mm. 3. Findings were discussed with Dr. Ko at 2:30 p.m. on 06/23/2024. DATA REPOSITORY:
--- NOTE | 2024-06-23 15:57 | DI.VRAD_ITS ---
PROCEDURE INFORMATION: Exam: MR Abdomen Without Contrast And MR Pelvis Without Contrast Exam date and time: 06/23/2024 1:25 PM Age: 33 years old Clinical indication: Abdominal pain; Localized; Right upper quadrant (ruq); Prior surgery; Surgery date: 6+ months; Surgery type: Gallbladder removed January 2024; Patient HX: patient 8 weeks. Patient has ruq pain. TECHNIQUE: Imaging protocol: Magnetic resonance imaging of the abdomen and pelvis without contrast. COMPARISON: CT ABDOMEN PELVIS W 28/01/2024 19:00 FINDINGS: ABDOMEN: Liver: No mass. Gallbladder and biliary ducts: Cholecystectomy. Possible filling defect in the distal common bile duct series 4001, ; series 6001, image 17; series 86879, image 19; and series 14082, images 10-14. The intrahepatic biliary ducts are unremarkable. Pancreas: Unremarkable. No ductal dilation. Spleen: Unremarkable. No splenomegaly. Adrenal glands: Unremarkable. No mass. Kidneys and ureters: Unremarkable. No solid mass. No hydronephrosis. Stomach and bowel: Unremarkable. Intraperitoneal space: No fluid collection. PELVIS: Appendix: No evidence of appendicitis. Urinary bladder: Unremarkable as visualized. Reproductive: uterus measures 10.5 x 8.1 x 9.1 cm. Lymph nodes: No enlarged nodes. Vasculature: No abdominal aortic aneurysm. Bones/joints: Unremarkable. No suspicious lesions. Soft tissues: Unremarkable. IMPRESSION: 1. Possible filling defect in the distal common bile duct as discussed above with flow seen proximal and distal in the common bile duct. 2. uterus. Dictated and Authenticated by: Shruthi Reed MD. Ordering:MARIA G Duffy MD
== END 2024-06-23 02:52 ==
LOC: DI 02:32
PROVIDERS: PCP Nurse Practitioner Family; Visit Provider Surgery
DX: K21.9 Gastro-esophageal reflux disease without esophagitis (principal)
CPT/HCPCS: 74181

== ENCOUNTER 2024-06-23 10:43 | Emergency (ER) | payer MEDICAID, SELFPAY ==
[2024-06-23 10:47] VITALS: BP 146/78; PULSE 114; RESP 18; TEMP 36.8; O2SAT 100
--- NOTE | 2024-06-23 11:05 | ED.GENADUL_ITS ---
Discharge Plan Disposition Patient Disposition: Home Condition: Improving Discharge Details Clinical Impression: Abdominal pain, Elevated LFTs Primary Care Provider: Selena Cloud ED Provider: Kika Hernandez Home Meds and New Rx's Prescriptions: Continued fluticasone propionate [Flovent HFA] 44 mcg/actuation HFA aerosol inhaler 2 puff inhalation BID Rx Instructions: administer with spacer loratadine [Claritin] 10 mg tablet 10 mg PO DAILY PRN albuterol sulfate [Proventil HFA] 6.7 GM HFA aerosol inhaler 1 - 2 puff Inhalation Q6H PRN Patient Comments: used for exercised induced asthma. 08/28/15 rl C-Maykel DHA 28 mg iron-1 mg -200 mg capsule 1 cap PO .daily Qty: 90 6RF famotidine [Pepcid] 20 mg tablet 20 mg PO BID Qty: 20 0RF ondansetron HCl 4 mg tablet 4 mg PO TID 5 Days Qty: 15 0RF Discharge Instructions Instructions: Abdominal Pain, Adult ED Additional Instructions: Your labs are unchanged from recent visit. The recurrent elevation of liver enzymes may be associated with Gilbert syndrome, particularly with reported family history of the same. You may benefit from follow-up with gastr oenterology. However, please discuss this further with your women's health provider as you are going right now to have your urgent MRI and MRCP. After you have had your MRI, please go to women's wellness as they want to discuss the results and come up with continued plan. If you develop fever/chills, inability stay hydrated, consistent pain or other new/worsening symptom please to care urgently once again. Referrals: Azul Montero MD [ [facility] STAFF PHYSICIAN] - Discharge Data Discharge Date/Time-TO BE ENTERED AT DEPARTURE: 06/23/24 13:31 HPI General Date/Time Provider Initiated Documentation: 06/23/24 10:51 . Limitations to Documentation: no limitations . Information obtained by: patient, RN notes reviewed and old records reviewed . History of Present Illness 33 year old F presents to the emergency department with the chief complaint of epigastric pain, described as severe and similar to prior episodes, Quality is described as stabbing, and is localized to the abdomen. Patient reports no radiation. Patient started experiencing this week(s) and it has been intermittent. No relieving factors improve symptom(s), No exacerbating factors reported . Patient notes nausea/vomiting; denies chest pain, cough, fever/chills, loss of appetite, rash and shortness of breath. Patient did receive the following treatments prior to arrival, none Related Data Home Medications ?Medication ?Instructions ?Recorded ?Confirmed albuterol sulfate 90 mcg/actuation 1 - 2 puff inhalation Q6H PRN 03/08/14 06/23/24 aerosol inhaler (Proventil HFA) fluticasone propionate 44 2 puff inhalation BID 12/02/22 06/23/24 mcg/actuation HFA aerosol inhaler (Flovent HFA) loratadine 10 mg tablet (Claritin) 10 mg PO DAILY PRN 12/03/22 06/23/24 [id number] fum 28 mg 1 cap PO .daily #90 caps 05/24/24 06/23/24 iron-folic acid 1 mg-omg3 200 mg capsule (C-Maykel DHA) famotidine 20 mg tablet (Pepcid) 20 mg PO BID #20 tabs 06/21/24 06/23/24 ondansetron HCl 4 mg tablet 4 mg PO TID 5 days #15 tabs 06/21/24 06/23/24 Previous Rx's ?Medication ?Instructions ?Recorded [id number] fum 28 mg 1 cap PO .daily #90 caps 05/24/24 iron-folic acid 1 mg-omg3 200 mg capsule (C-Maykel DHA) famotidine 20 mg tablet (Pepcid) 20 mg PO BID #20 tabs 06/21/24 ondansetron HCl 4 mg tablet 4 mg PO TID 5 days #15 tabs 06/21/24 Allergies Allergy/AdvReac Type Severity Reaction Status Date / Time No Known Drug Allergies Allergy na Verified 06/23/24 14:17 General Stated Complaint: Abd Prob SURENDRA: 3 Review of Systems Constitutional Constitutional: Reports as per HPI, Denies chills, Denies fatigue, Denies fever(s) and Denies headache(s) ENT Ears, Nose, Mouth, and Throat: Denies headache(s) Cardiovascular Cardiovascular: Reports as per HPI, Denies chest pain and Denies dyspnea Respiratory Respiratory: Reports as per HPI, Denies cough and Denies dyspnea Gastrointestinal Gastrointestinal: Reports as per HPI Musculoskeletal Musculoskeletal: Reports as per HPI and Denies back pain Integumentary/Breasts Skin/Breast: Reports as per HPI and Denies rash Neurologic Neurologic: Reports as per HPI and Denies headache(s) Endocrine Endocrine: Denies fatigue Exam Const General: cooperative, healthy appearing, comfortable, no acute distress and well developed Nutritional Appearance: average body habitus and well nourished Orientation: alert and awake [facility] Head: normal to inspection Mouth: moist mucous membranes Resp Effort & Inspection: normal respiratory effort, able to speak in complete sentences and no respiratory distress Auscultation: clear to auscultation bilaterally, no rales, no rhonchi and no wheezes Cardio Rate: regular rate Rhythm: regular rhythm Heart Sounds: S1 normal and S2 normal GI Inspection: normal to inspection Palpation: soft, no hepatosplenomegaly, no guarding, no hepatosplenomegaly, no pulsatile masses, not rigid and tender in the epigastrum Percussion: normal to percussion Auscultation: normal bowel sounds Back/Spine/Pelvis Back: no CVA tenderness Skin General skin exam: no rashes or lesions noted Trauma: no lacerations or abrasions Neuro General: patient alert and patient awake Cognition: normal cognition Speech: speech normal Gait: normal gait Psych Appearance: grossly normal and well kempt Mental Status: mental status grossly normal Speech and Movement: speech and movement normal Course Vital Signs Vital signs: Vital Signs Temperature 36.8 C 06/23/24 10:47 Pulse 114 H 06/23/24 10:47 Respiratory Rate 18 06/23/24 10:47 Blood Pressure 146/78 H 06/23/24 10:47 Pulse Oximetry 100 06/23/24 10:47 Temperature 36.8 C 06/23/24 10:47 Pulse 114 H 06/23/24 10:47 Respiratory Rate 18 06/23/24 10:47 Respiratory Effort Normal 06/23/24 10:49 Blood Pressure 146/78 H 06/23/24 10:47 Pulse Oximetry 100 06/23/24 10:47 Pain Level 10 06/23/24 10:47 Medical Decision Making Patient is a pleasant 33-year-old female presenting today with chief complaint of epigastric pain. Patient is 8 weeks gestation. She was seen here 2 days ago for the same, please see previous note. She reports the pain today is the same as it was 2 days ago, has been having these intermittent episodes of severe epigastric pain that last about 40 minutes, seems to be unrelated to p.o. intake. When she was here 2 days ago, she did have workup which showed elevated liver enzymes. Patient does have MRCP scheduled for today. Patient states that she is not actively nauseated but will randomly vomit, all nonbloody. Unclear what prompts the pain. She not having any lower pain, cramping, vaginal discharge. She has had ups trending quantitative hCG, confirmed intrauterine . She did have a ultrasound 2 days ago revealing at the interval change of a cholecystectomy. Also was concerned for a enlargement of the common hepatic duct however, thought to be associated with her lack of gallbladder. Patient had [id number] ultrasound with [employer] on 06/15/2024 confirming intrauterine . She is not having any lower pain or cramping to suggest ectopic. On exam, patient appears nontoxic. She does appear slightly uncomfortable. She has reproducible epigastric tenderness but no peritoneal findings no pain with palpation elsewhere. Lung sounds are clear. Normal cardiac exam. Based on patient's history, considered issue with her previous cholecystectomy. I do want to make sure that she is able to get to her MRI and has already been scheduled through women's wellness today. Will give her medication to help with discomfort. Also concerned about her LFTs. I did review her previous labs and she has had elevated LFTs in the past, particular around times when she is ill. She was negative for hepatitis when here few years ago as well as more recently. Also considered gastritis, particular if she is , GERD. Will give Mylanta and see if this has any change in her symptoms. Will obtain baseline labs and hydrate the patient. Patient's pain subsided without any type of intervention. I had ordered Mylanta for her. She reports that typically causes her abdominal upset and does not want to have that. Patient symptoms resolved as she predicted, within about 40 minutes after the onset of her discomfort. She has not had any recurrence of her discomfort. She has been reporting that her grandmother has similar issue with her elevated liver enzymes. I did review the patient's chart and see that she has had issues like this historically. On questioning at this time, if she and her grandmother have recurrent transaminitis associated with illness, if the patient may have something like Guilbert syndrome. Imaging is ready for patient to go to her urgently scheduled MRI. This MRI was scheduled through women's health. I will touch base with them and let them know about her coming back in today and ensure close follow-up. Patient has scheduled follow-up with them as well. We discussed leaving the IV in for the MRI and keeping her as an ER patient versus discharging her and patient feels like she is significantly improved and is okay to have the IV removed. Therefore, we will discharge the patient with her to go to her outpatient MRI and continue to follow-up with women's wellness. Spoke with women's wellness. Patient is to go from MRI to their office to discuss results. Relayed this information to the patient. Return precautions discussed. Patient is going from here to the MRI that is been scheduled for her chief complaint. All of her questions and concerns were addressed and she is in agreement this plan. This documentation was generated using [employer] system, please disregard any oddities of phrase or misspellings. Quality:SDOH Health Related Social Needs: No Data to Display PFSH All Active Problems (Updated 06/23/24 @ 13:12 by ELAINA Levy) Abnormal transaminases (Acute) 06/21/24.Suspect stone in bile duct.MRCP ordered. (Acute) Acute epigastric pain (Acute) Nausea with vomiting, unspecified (Acute) Elevated LFTs (Acute) RUQ abdominal pain (Acute) Nausea and vomiting during (Acute) Epigastric abdominal pain (Acute) (Acute) Snoring (Acute) Pain in right wrist (Acute) Lipoma (Acute) Iliac crest bone pain (Acute) Fatigue (Acute) GERD (gastroesophageal reflux disease) (Chronic) Soft tissue mass (Acute) Abdominal pain (Acute) Patellofemoral syndrome of left knee (Acute) Patellofemoral syndrome of right knee (Acute) Femoroacetabular impingement of right hip (Acute) Femoroacetabular impingement of left hip (Acute) Medical History History of miscarriage History of tobacco use Abnormal Pap smear of cervix Apr 2023 (first abnl): ASCUS/HPV+ -->colp: Chronic back pain Reports pain since she was a teenager. 2019 negative MRI of lumbar spine. PT not helpful, pain clinic injection not helpful. Has been evaluated by rheumatology in the past History of gestational hypertension Asthma Lyme disease Surgical History S/P cholecystectomy Family History Grandfather Essential hypertension Father Prostate cancer 2017 Diabetes Type 2 Social History Smoking/Tobacco Use Status: Former Tobacco Use Smoking risk assessment performed?: Yes Alcohol Intake: current Alcohol Intake frequency: holidays/special occasions only Drug use: Never Substance use type: does not use Household members: other Details: boyfriend Housing: apartment Number of Children: 2 current occupation: W[employer] Current gender identity: female Do you feel safe at home: Yes Do you feel safe in your relationship?: Yes Additional Social history: [employer]. 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 History Menstrual control method: implanted History History 3 Para 2 Hx # Term Pregnancies 2 Multiple births 0 Hx # Pregnancies 0 Ectopic pregnancies 0 AB induced 0 Hx Number of Living Children 2 AB spontaneous 1 Past Pregnancies Del. Date GA/Weeks # Preg Succ Route Wgt Sex Labor Lgth Anesth esia Location Prov [facility] 05/26/11 39 No vaginal 3543.69 g Female 10 02/23/19 40 No vaginal 3628.739 g Male 11 Amada Blanton CNM 02/25/24 4 No No Delivery Date: 05/26/11 Last Updated by: Lyn Knowles CNM IOL for gestational HTN, pitocin, unmedicated , 2 hrs of pushing Delivery Date: 02/23/19 Last Updated by: Lyn Richardson CNM induction for post dates
[2024-06-23 12:29] LABS: Abs Immature Grans 0.01 10^3/uL (0.0-0.06); Absolute Basophil Count 0.03 10^3/uL (0.0-0.2); Absolute Eosinophil Count 0.07 10^3/uL (0.0-0.7); Absolute Lymphocyte Count 1.09 10^3/uL (1.2-3.4); Absolute Neutrophil Count 3.29 10^3/uL (1.2-6.7); Basophils % 0.6 %; Eosinophils % 1.4 %; HCT 37.3 % (36.0-46.0); HGB 13.2 g/dL (11.2-15.7); Immature Grans % 0.2 %; Lymphocytes % 22.3 %; MCH 31.3 pg (27.0-33.0); MCHC 35.4 % (32.0-36.0); MCV 88 fL (80-95); MPV 9.1 fL (8.0-11.0); Monocytes % 8.2 %; Neutrophils % 67.3 %; Platelet Count 228 10^3/uL (130-400); RBC 4.22 10^6/uL (3.93-5.22); RDW 11.2 % (11.7-14.6); WBC 4.89 10^3/uL (4.4-10.8)
[2024-06-23] MEDS: Lactated Ringers 1,000 ML 1000 ML IV (12:31)
[2024-06-23] MEDS: Ondansetron 4 MG/2 ML VIAL IVP (12:32)
[2024-06-23 12:37] LABS: Lipase 68 U/L (16-77)
[2024-06-23 12:44] LABS: ALT 155 U/L (14-59); AST 120 U/L (15-37); Albumin 3.9 g/dL (3.4-5.0); Alkaline Phosphatase 91 U/L (46-116); Anion Gap 9.3 mmol/L (3-11); BUN 4 mg/dL (7-18); Bilirubin, Total 0.41 mg/dL (0.2-1.0); CO2 25.7 mmol/L (21.0-32.0); CREATININE 0.6 mg/dL (0.55-1.02); Calcium 9.4 mg/dL (8.5-10.1); Chloride 107 mmol/L (98-107); Estimated GFR 122.99 (mL/min/1.73m2); Glucose 82 mg/dL (74-106); Potassium 3.6 mmol/L (3.5-5.1); Sodium 142 mmol/L (136-145); Total Protein 7.7 g/dL (6.4-8.2)
== END 2024-06-23 13:31 | disposition home or self-care (01) ==
PROVIDERS: Emergency Provider Physician Assistant; PCP Nurse Practitioner Family
DX: R10.13 Epigastric pain (principal); R79.89 Other specified abnormal findings of blood chemistry
CPT/HCPCS: 80053; 83690; 96361; 96374; 99284; 83735; 85025; 99283; J2405

== ENCOUNTER 2024-06-24 11:24 | Outpatient (CLI) | payer MEDICAID, SELFPAY ==
[2024-06-24 11:04] LABS: Abs Immature Grans 0.01 10^3/uL (0.0-0.06); Absolute Basophil Count 0.02 10^3/uL (0.0-0.2); Absolute Eosinophil Count 0.13 10^3/uL (0.0-0.7); Absolute Lymphocyte Count 1.18 10^3/uL (1.2-3.4); Absolute Monocyte Count 0.41 10^3/uL (0.1-0.8); Absolute Neutrophil Count 2.29 10^3/uL (1.2-6.7); Basophils % 0.5 %; Eosinophils % 3.2 %; Immature Grans % 0.2 %; Lymphocytes % 29.2 %; MCH 31.3 pg (27.0-33.0); MCHC 35.3 % (32.0-36.0); MCV 89 fL (80-95); MPV 8.8 fL (8.0-11.0); Monocytes % 10.1 %; Neutrophils % 56.8 %; Platelet Count 200 10^3/uL (130-400); RBC 3.83 10^6/uL (3.93-5.22); RDW 11.4 % (11.7-14.6); RDW-SD 36.5 fL; WBC 4.04 10^3/uL (4.4-10.8)
[2024-06-24 11:20] LABS: ALT 156 U/L (14-59); AST 71 U/L (15-37); Albumin 3.5 g/dL (3.4-5.0); Alkaline Phosphatase 85 U/L (46-116); Bilirubin, Direct 0.1 mg/dL (0.0-0.2); Bilirubin, Total 0.32 mg/dL (0.2-1.0); Lipase 49 U/L (16-77); Total Protein 6.9 g/dL (6.4-8.2)
== END 2024-06-24 11:25 | disposition home or self-care (01) ==
LOC: LBO 11:26
PROVIDERS: PCP Nurse Practitioner Family; Visit Provider Surgery
DX: R74.8 Abnormal levels of other serum enzymes (principal); Z34.91 Encounter for supervision of normal pregnancy, unspecified, first trimester; R11.2 Nausea with vomiting, unspecified
CPT/HCPCS: 36415; 80076; 83690; 85025

== ENCOUNTER 2024-06-28 10:54 | Outpatient (CLI) | payer MEDICAID, SELFPAY ==
[2024-06-28 12:08] LABS: ALT 68 U/L (14-59); AST 20 U/L (15-37); Albumin 3.7 g/dL (3.4-5.0); Alkaline Phosphatase 68 U/L (46-116); Anion Gap 7.6 mmol/L (3-11); BUN 3 mg/dL (7-18); CO2 27.4 mmol/L (21.0-32.0); CREATININE 0.6 mg/dL (0.55-1.02); Chloride 107 mmol/L (98-107); Estimated GFR 122.99 (mL/min/1.73m2); Glucose 92 mg/dL (74-106); Lipase 53 U/L (16-77); Potassium 3.6 mmol/L (3.5-5.1); Sodium 142 mmol/L (136-145); Total Protein 7.3 g/dL (6.4-8.2)
[2024-06-28 12:14] LABS: Calcium 9.1 mg/dL (8.5-10.1)
== END 2024-06-28 10:55 | disposition home or self-care (01) ==
LOC: LBO 10:54
PROVIDERS: PCP Nurse Practitioner Family; Visit Provider Obstetrics & Gynecology
DX: R74.8 Abnormal levels of other serum enzymes (principal); R79.89 Other specified abnormal findings of blood chemistry
CPT/HCPCS: 36415; 80053; 83690

== ENCOUNTER 2024-07-19 03:01 | Outpatient (CLI) | payer MEDICAID, SELFPAY ==
[2024-07-19 12:15] LABS: Panorama Kit Sent via Fed Ex
[2024-07-19 12:19] LABS: Abs Immature Grans 0.02 10^3/uL (0.0-0.06); Absolute Basophil Count 0.02 10^3/uL (0.0-0.2); Absolute Eosinophil Count 0.04 10^3/uL (0.0-0.7); Absolute Lymphocyte Count 1.45 10^3/uL (1.2-3.4); Absolute Monocyte Count 0.53 10^3/uL (0.1-0.8); Absolute Neutrophil Count 3.44 10^3/uL (1.2-6.7); Basophils % 0.4 %; Eosinophils % 0.7 %; HCT 36.8 % (36.0-46.0); HGB 12.7 g/dL (11.2-15.7); Immature Grans % 0.4 %; Lymphocytes % 26.4 %; MCH 30.8 pg (27.0-33.0); MCHC 34.5 % (32.0-36.0); MCV 89 fL (80-95); MPV 8.7 fL (8.0-11.0); Monocytes % 9.6 %; Neutrophils % 62.5 %; Platelet Count 192 10^3/uL (130-400); RBC 4.13 10^6/uL (3.93-5.22); RDW 11.6 % (11.7-14.6); RDW-SD 37.3 fL
[2024-07-19 12:35] LABS: ALT 18 U/L (14-59); AST 11 U/L (15-37); Albumin 3.7 g/dL (3.4-5.0); Alkaline Phosphatase 59 U/L (46-116); Anion Gap 9.1 mmol/L (3-11); BUN 4 mg/dL (7-18); Bilirubin, Total 0.34 mg/dL (0.2-1.0); CO2 26.9 mmol/L (21.0-32.0); CREATININE 0.6 mg/dL (0.55-1.02); Calcium 9.2 mg/dL (8.5-10.1); Chloride 105 mmol/L (98-107); Estimated GFR 122.23 (mL/min/1.73m2); Glucose 83 mg/dL (74-106); Potassium 3.8 mmol/L (3.5-5.1); Sodium 141 mmol/L (136-145); Total Protein 7.5 g/dL (6.4-8.2)
[2024-07-20 09:14] LABS: Hepatitis B Surface Ag Negative (Negative)
[2024-07-20 09:43] LABS: Hepatitis C Ab w Rflx HCV PCR Negative (Negative)
[2024-07-20 09:51] LABS: HIV-1/2 Ag & Ab Screen Negative (Negative)
[2024-07-20 10:27] LABS: Rubella IgG Ab (UVM) Positive (See Note)
[2024-07-20 10:30] LABS: Varicella IgG Antibody Positive (See Note)
[2024-07-21 18:27] LABS: Syphilis IgG w/Reflex Nonreactive (Nonreactive)
== END 2024-07-19 03:02 | disposition home or self-care (01) ==
LOC: LBO 03:01
PROVIDERS: Advanced Practice Midwife; PCP Nurse Practitioner Family; Visit Provider Advanced Practice Midwife
DX: Z34.91 Encounter for supervision of normal pregnancy, unspecified, first trimester
CPT/HCPCS: 36415; 80053; 86787; 86803; 86850; 86900; 86901; 87340; 87389; 85025; 86762; 86780

== ENCOUNTER 2024-07-19 11:41 | Outpatient (REF) | payer MEDICAID, SELFPAY ==
[2024-07-19 13:35] LABS: *AMPHETAMINES SCREEN URINE Negative (Negative); *BARBITURATES SCREEN URINE Negative (Negative); *BENZODIAZEPINES SCREEN URINE Negative (Negative); Cannabinoids THC Negative (Negative); Cocaine Screen,Urine Negative (Negative); METHADONE URINE SCREEN Negative (Negative); OPIATES URINE SCREEN Negative (Negative)
[2024-07-19 13:36] LABS: Tricyclic Antidepressants Negative (Negative)
[2024-07-20 11:38] LABS: Fentanyl Scr w/Rfx Confirm Negative ng/mL (<1)
[2024-07-20 11:47] LABS: Chlamydia Result Negative (Negative); GC Result Negative (Negative)
[2024-07-23 12:18] LABS: Buprenorphine Negative ng/mL (Cutoff: 5.0); Norbuprenorphine Negative ng/mL (Cutoff: 2.5)
== END 2024-07-19 11:42 | disposition home or self-care (01) ==
LOC: LBN 11:41
PROVIDERS: PCP Nurse Practitioner Family; Visit Provider Advanced Practice Midwife
DX: Z34.91 Encounter for supervision of normal pregnancy, unspecified, first trimester (principal); Z3A.12 12 weeks gestation of pregnancy
CPT/HCPCS: 80307; 80348; 87491; 87591; 87086

== ENCOUNTER 2024-07-24 15:52 | Inpatient (IN) | payer MEDICAID, SELFPAY ==
[2024-07-24 15:58] VITALS: BP 138/71; PULSE 115; RESP 20; TEMP 36.6; O2SAT 100
[2024-07-24] MEDS: Ondansetron 4 MG/2 ML VIAL IVP (16:16)
[2024-07-24] MEDS: Acetaminophen 500 MG TAB 1000 MG PO (16:16)
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
[2024-07-24 16:43] LABS: Abs Immature Grans 0.02 10^3/uL (0.0-0.06); Absolute Basophil Count 0.02 10^3/uL (0.0-0.2); Absolute Eosinophil Count 0.02 10^3/uL (0.0-0.7); Absolute Lymphocyte Count 1.17 10^3/uL (1.2-3.4); Absolute Monocyte Count 0.68 10^3/uL (0.1-0.8); Absolute Neutrophil Count 5.83 10^3/uL (1.2-6.7); Basophils % 0.3 %; Eosinophils % 0.3 %; HCT 40.6 % (36.0-46.0); HGB 14.4 g/dL (11.2-15.7); Immature Grans % 0.3 %; Lymphocytes % 15.1 %; MCH 31.5 pg (27.0-33.0); MCHC 35.5 % (32.0-36.0); MCV 89 fL (80-95); MPV 8.7 fL (8.0-11.0); Monocytes % 8.8 %; Neutrophils % 75.2 %; Platelet Count 228 10^3/uL (130-400); RBC 4.57 10^6/uL (3.93-5.22); RDW 11.7 % (11.7-14.6); RDW-SD 37.1 fL; WBC 7.74 10^3/uL (4.4-10.8)
[2024-07-24 17:10] LABS: ALT 173 U/L (14-59); AST 324 U/L (15-37); Albumin 3.9 g/dL (3.4-5.0); Alkaline Phosphatase 133 U/L (46-116); Anion Gap 12.1 mmol/L (3-11); BUN 5 mg/dL (7-18); Bilirubin, Total 1.63 mg/dL (0.2-1.0); CO2 24.9 mmol/L (21.0-32.0); CREATININE 0.7 mg/dL (0.55-1.02); Calcium 9.6 mg/dL (8.5-10.1); Chloride 103 mmol/L (98-107); Estimated GFR 117.77 (mL/min/1.73m2); Glucose 86 mg/dL (74-106); Lipase 44 U/L (16-77); Magnesium 1.9 mg/dL (1.8-2.4); Potassium 3.5 mmol/L (3.5-5.1); Sodium 140 mmol/L (136-145); Total Protein 8.1 g/dL (6.4-8.2)
[2024-07-24 19:04] VITALS: BP 104/54; PULSE 92; RESP 16; O2SAT 100
[2024-07-24 19:05] VITALS: O2SAT 99
[2024-07-24 19:10] VITALS: O2SAT 100
[2024-07-24 19:12] VITALS: BP 104/54; RESP 14; TEMP 36.4; O2SAT 99
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
--- NOTE | 2024-07-24 21:42 | W.PC.ACHO ---
Registration Status: Primary Language: Preferred Language: ED Information & Data Chief Complaint Abd Prob 07/24/24 16:20 Triage Note pt presents stating she is 07/24/24 15:58 having gallstone pain like she has in the past. Started abruptly at 11am, pain in epigastric area. 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 / Surgical History (Last Updated 07/14/24 @ 15:42 by Lyn Knowles CNM) Snoring Pain in right wrist Lipoma Iliac crest bone pain GERD (gastroesophageal reflux disease) Soft tissue mass Patellofemoral syndrome of left knee Patellofemoral syndrome of right knee Femoroacetabular impingement of left hip Femoroacetabular impingement of right hip History of miscarriage History of tobacco use Abnormal Pap smear of cervix Chronic back pain Asthma Lyme disease (Last Reviewed 06/15/24 @ 20:14 by Amarilis Johnson NP) S/P cholecystectomy Most Recent Vital Signs Temperature 36.4 C 07/24/24 19:12 Temperature Source Tympanic 07/24/24 19:12 Pulse 92 H 07/24/24 19:04 Respiratory Rate 14 07/24/24 19:12 Respiratory Effort Normal, Non-Labored 07/24/24 16:01 Blood Pressure 104/54 L 07/24/24 19:12 Blood Pressure Mean 69 07/24/24 19:04 Blood Pressure Position Sitting 07/24/24 15:58 Pulse Oximetry 99 07/24/24 19:12 Oxygen Delivery Method Room Air 07/24/24 19:12 Oxygen Flow Rate 0 07/24/24 19:12 Pain Level 7 07/24/24 15:58 Allergies No Known Drug Allergies Allergy (Verified 07/24/24 16:00) na Precautions Isolation Standard precaution 07/24/24 16:01 IV IV Catheter Type [Left Forearm Peripheral IV ] IV Catheter Gauge [Left 20 Forearm] Diet Orders Category Date Time Status Fat Restricted [DIET] Nutrition 07/25/24 Breakfast Ordered Diagnostics 07/24/24 07/24/24 Range/Units 16:34 16:34 WBC 7.74 (4.4-10.8) 10^3/uL RBC 4.57 (3.93-5.22) 10^6/uL Hgb 14.4 (11.2-15.7) g/dL Hct 40.6 (36.0-46.0) % MCV 89 (80-95) fL MCH 31.5 (27.0-33.0) pg MCHC 35.5 (32.0-36.0) % RDW 11.7 (11.7-14.6) % Plt Count 228 (130-400) 10^3/uL MPV 8.7 (8.0-11.0) fL Immature Gran % 0.3 % Neutrophils % 75.2 % Lymphocytes % 15.1 % Monocytes % 8.8 % Eosinophils % 0.3 % Basophils % 0.3 % Nucleated RBC % 0.0 (0.0-0.3) % Absolute Neutrophils 5.83 (1.2-6.7) 10^3/uL Absolute Lymphocytes 1.17 L (1.2-3.4) 10^3/uL Absolute Monocytes 0.68 (0.1-0.8) 10^3/uL Absolute Eosinophils 0.02 (0.0-0.7) 10^3/uL Absolute Basophils 0.02 (0.0-0.2) 10^3/uL Sodium 140 (136-145) mmol/L Potassium 3.5 (3.5-5.1) mmol/L Chloride 103 (98-107) mmol/L Carbon Dioxide 24.9 (21.0-32.0) mmol/L Anion Gap 12.1 H (3-11) mmol/L BUN 5 L (7-18) mg/dL Creatinine 0.7 (0.55-1.02) mg/dL Est GFR (CKD-EPI 2020) 117.77 (mL/min/1.73m2) Glucose 86 (74-106) mg/dL Calcium 9.6 (8.5-10.1) mg/dL Magnesium 1.9 (1.8-2.4) mg/dL Total Bilirubin 1.63 H (0.2-1.0) mg/dL AST 324 H (15-37) U/L ALT 173 H (14-59) U/L Alkaline Phosphatase 133 H (46-116) U/L Total Protein 8.1 (6.4-8.2) g/dL Albumin 3.9 (3.4-5.0) g/dL Lipase Cancelled 44 (16-77) U/L Intake and Output - 24 Hour Total 07/24/24 15:52 thru 11/16/24 15:58 Weight 54.431 kg Falls Risk Assessment History of Falls No History 07/24/24 18:54 Fall Total Score 0 07/24/24 18:54 Level of Risk Standard/Low Risk 07/24/24 18:54 Problems (Last Updated 07/14/24 @ 15:42 by Lyn Knowles CNM) Choledocholithiasis (Acute) (Acute) v v v v v v v v v Sending and/or Receiving Nurses: Please use comment section below to note any information pertinent to the patient hand-off not included above. Information / Comments: c/o RUQ pain, , 12 weeks . Gallbladder removed recently. Pain started at 11am. Ultrasound done, gallstone in CBD. No signs of infection, but liver enzymes elevated. 1000mg tylenol. A and O. Pain decreased. Afebrile. Vitals decent. ? if [place] [facility] [place] Report received from: Simeon Dominique RN. 07/24/24 [id number]
[2024-07-24 21:56] VITALS: BP 111/69; PULSE 92; RESP 16; TEMP 37; O2SAT 100
[2024-07-25 06:02] VITALS: BP 101/65; PULSE 86; RESP 16; TEMP 37.7; O2SAT 98
[2024-07-25 06:12] LABS: HCT 32.4 % (36.0-46.0); HGB 11.6 g/dL (11.2-15.7); MCH 31.4 pg (27.0-33.0); MCHC 35.8 % (32.0-36.0); MCV 88 fL (80-95); Platelet Count 199 10^3/uL (130-400); RBC 3.69 10^6/uL (3.93-5.22); RDW 11.8 % (11.7-14.6); RDW-SD 37.3 fL
[2024-07-25 06:41] LABS: ALT 240 U/L (14-59); AST 270 U/L (15-37); Alkaline Phosphatase 112 U/L (46-116); Anion Gap 9.1 mmol/L (3-11); BUN 5 mg/dL (7-18); Bilirubin, Total 0.83 mg/dL (0.2-1.0); CO2 24.9 mmol/L (21.0-32.0); CREATININE 0.6 mg/dL (0.55-1.02); Calcium 8.5 mg/dL (8.5-10.1); Chloride 107 mmol/L (98-107); Estimated GFR 122.23 (mL/min/1.73m2); Glucose 79 mg/dL (74-106); Magnesium 1.8 mg/dL (1.8-2.4); Potassium 3.5 mmol/L (3.5-5.1); Sodium 141 mmol/L (136-145); Total Protein 6.2 g/dL (6.4-8.2)
[2024-07-25] MEDS: Famotidine 20 MG TAB PO (08:13)
[2024-07-25] MEDS: Prenatal Multivitamin w/CA,FE TAB 1 TAB PO (08:13)
[2024-07-25] MEDS: Normal Saline Flush 10 ML SYR IVP (08:14)
[2024-07-25 08:27] VITALS: BP 104/70; PULSE 84; RESP 18; TEMP 36.9; O2SAT 97
[2024-07-25 11:18] VITALS: BP 106/74; PULSE 93; RESP 18; TEMP 36.6; O2SAT 98
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
--- NOTE | 2024-07-25 12:17 | CMDISCH_ITS ---
Date of service: 07/25/24 Time of Service: 12:17 LACE Index Scoring Tool Questions: Length of Stay (in days): 1 Was the patient admitted via the E.D.?: Yes E.D. Visits: 7 Answers: Total Score: 8 Risk of Readmission: Low Risk Care Management Discharge Plan Reason for Hospitalization: Choledocholithiasis, Discharge Plan: Isabella is medically cleared per provider and is discharged home via private vehicle with family. Pt will follow up with community providers and discharge plan of care as recommended. Outpatient referral was made to [facility] [place]. No [facility] services are indicated at the time of discharge. Patient/Family Education Needs: Review discharge instructions, limitations, medications and plan to follow up with community providers. Discuss ask me three. SDOH Health Related Social Needs: No Data to Display
== END 2024-07-25 12:28 | disposition home or self-care (01) | DRG 832 ==
LOC: ER 21:47 → MS 21:48
PROVIDERS: Admitting Provider Family Medicine; Emergency Provider Emergency Medicine; PCP Nurse Practitioner Family; Visit Provider Family Medicine
DX: O26.611 Liver and biliary tract disorders in pregnancy, first trimester (principal); K91.86 Retained cholelithiasis following cholecystectomy; K83.8 Other specified diseases of biliary tract; O99.511 Diseases of the respiratory system complicating pregnancy, first trimester; O99.611 Diseases of the digestive system complicating pregnancy, first trimester; J45.909 Unspecified asthma, uncomplicated; Z87.891 Personal history of nicotine dependence; O26.891 Other specified pregnancy related conditions, first trimester; G89.29 Other chronic pain; M54.9 Dorsalgia, unspecified; Z3A.12 12 weeks gestation of pregnancy; K21.9 Gastro-esophageal reflux disease without esophagitis; M25.852 Other specified joint disorders, left hip; M25.851 Other specified joint disorders, right hip
CPT/HCPCS: 00123; 36415; 76815; 80053; 83690; 85027; 96374; 99285; 83735; 85025; 99223; 99239; J2405

== ENCOUNTER 2024-08-16 12:11 | Outpatient (CLI) | payer MEDICAID, SELFPAY ==
[2024-08-18 13:55] LABS: AFP 33.9 ng/mL; Calculated age at EDD 32 years; Cigarette smoking status non-Smoker; GA used in risk estimate Dates estimate; IVF Pregnancy No; Initial or repeat testing Initial testing; Insulin dependent diabetes No; Maternal Weight 128 lbs; Number of Fetuses 1; Physician Phone Number 802-748-7300; Prev Pregnancy w/NTD No; RECOMMENDED FOLLOW UP None.; Results Summary Normal risk
== END 2024-08-16 12:12 | disposition home or self-care (01) ==
LOC: LBO 12:12
PROVIDERS: PCP Nurse Practitioner Family; Visit Provider Advanced Practice Midwife
DX: Z34.91 Encounter for supervision of normal pregnancy, unspecified, first trimester (principal)
CPT/HCPCS: 36415; 82105

== ENCOUNTER 2024-09-07 01:26 | Outpatient (CLI) | payer MEDICAID, SELFPAY ==
--- NOTE | 2024-09-07 06:30 | DI.US_ITS ---
Exam(s) US OB 2-3 TRIMESTER EXAM: US OB 2-3 TRIMESTER CLINICAL HISTORY: survey ,z34.90. TECHNIQUE: Transabdominal obstetrical ultrasound was performed. COMPARISON: US POCUS EXAM from 07/24/2024 FINDINGS: There is a single viable intrauterine gestation with cardiac activity identified-142 bpm. Amniotic fluid: There is a normal amount of amniotic fluid. Placental location: The placenta is posterior grade 0,with no evidence of placenta previa.This is fro m the tip of the placenta to the internal cervical os is 4.2 cm. The distance between the edge of th e placenta/placental margin and the cord insertion is 3.1 cm. ANATOMY: A 3 vessel umbilical cord is seen. A four-chamber cardiac view was obtained. Right and left ventricular outflow tracts were imaged. There are no obvious abnormalities of the spinal column evident. There is no obvious abnormal ity of the anterior abdominal wall. stomach and urinary bladder are identified and there is no evidence of hydronephrosis. No abnormalities of the upper lip region are identified. No evidence of choroid plexus cysts i n the brain. Dating parameters place this at approximately 19 weeks and 4 days gestational age. BPD measures 19 weeks and 4 days HC measures 19 weeks and 3 days AC measures 20 weeks and 4 days FL measures 18 weeks and 5 days Estimated weight is 310 gm-0 pounds 11 ounces Fetus is at the 76th percentile on the Hadlock scale. IMPRESSION:: Single viable intrauterine gestation which is approximately 19 weeks and 4 days gestati onal age, implying an DRE of January 28, 2025. There are no obvious anomalies evident on today's study. The placenta is posterior with no evidence of placenta previa. There is a normal amount of amniotic fluid. DATA REPOSITORY:
== END 2024-09-07 01:46 ==
LOC: DI 01:27
PROVIDERS: PCP Nurse Practitioner Family; Visit Provider Advanced Practice Midwife
DX: Z34.92 Encounter for supervision of normal pregnancy, unspecified, second trimester (principal); Z3A.20 20 weeks gestation of pregnancy
CPT/HCPCS: 76805

== ENCOUNTER 2024-09-07 14:53 | Outpatient (CLI) | payer MEDICAID, SELFPAY ==
[2024-09-07 09:55] LABS: HCT 36.1 % (36.0-46.0); HGB 12.1 g/dL (11.2-15.7); MCH 31.3 pg (27.0-33.0); MCHC 33.5 % (32.0-36.0); MCV 93 fL (80-95); MPV 8.6 fL (8.0-11.0); Platelet Count 207 10^3/uL (130-400); RBC 3.87 10^6/uL (3.93-5.22); RDW 12.9 % (11.7-14.6); RDW-SD 44.5 fL
== END 2024-09-07 14:54 | disposition home or self-care (01) ==
LOC: LBO 14:55
PROVIDERS: PCP Nurse Practitioner Family; Visit Provider Advanced Practice Midwife
DX: Z34.91 Encounter for supervision of normal pregnancy, unspecified, first trimester (principal)
CPT/HCPCS: 36415; 85027

== ENCOUNTER 2024-09-24 09:06 | Outpatient (REF) | payer MEDICAID, SELFPAY | END 2024-09-24 09:07 | disposition home or self-care (01) | LOC: LBN 09:06 | PROVIDERS: PCP Nurse Practitioner Family; Visit Provider Advanced Practice Midwife | DX: R10.2 Pelvic and perineal pain (principal) | CPT/HCPCS: 87086; 87480; 87510; 87660 ==

== ENCOUNTER 2024-10-27 12:54 | Outpatient (CLI) | payer MEDICAID, SELFPAY ==
--- NOTE | 2024-10-27 13:44 | W.OBNST ---
Date of service: 10/27/24 Time of Service: 13:45 NST Evaluation Reason for NST Reasons for Nonstress Test: LABOR Vital Signs Blood Pressure: 115/73 Pulse: 98 Temperature: 36.6 F Urine Results Urine Protein: Negative Urine Ketones: Negative Urine Glucose: Negative Urine Blood: Negative NST Information Date on Monitor: 10/27/24 Time on Monitor: 12:50 Time off Monitor: 13:37 NST Interventions: None Contraction Frequency: irritability NST Evaluation Patient States Movement: Present FHR Baseline: 150 Variability: Moderate 6-25 bpm Accelerations: 10x10 Decelerations: None NST Results: Reactive Note Ultrasound Done: N/A. NST Note Note: at 26w2d here for evaluation of contractions. She had 12 contractions in 1 hour starting the morning. Describes pain in her lower abdomen, denies leaking of fluid or bleeding. Active baby. Denies painful urination or new sexual partners. Denies recent stressful event or drug use. No recent illness. She had a labor evaluation on 09/24/24 and was found to have Bacterial Vaginosis. Urine dip today with +leukocytes. Urine culture, GC/CT, Vaginal Pathogen screen all pending. Reactive NST for gestational age, no contractions palpated during 40 minutes of evaluation. Labor ruled out. Discharged to home in stable condition and undelivered. Keep scheduled visits at [facility]. FU with lab results. NST Reviewed and Verified by: Kandy Rivera
[2024-10-27 13:57] VITALS: BP 115/73; PULSE 98; TEMP 2.6; TEMP 36.6
[2024-10-27 15:19] LABS: Bilirubin Negative (Negative); Blood Negative (Negative); Clarity Clear (Clear); Glucose 100 mg/dL (Negative); Ketones Negative (Negative); Leukocyte Esterase Moderate (Negative); Nitrite Negative (Negative); Specific Gravity <= 1.005 (1.005-1.025); Urobilinogen 0.2 mg/dL (Up to 0.2)
[2024-10-27 15:27] LABS: Bacteria Few HPF (Negative); C & S Indicated? No/Sq. Contamination; Crystals Negative HPF (Negative); Epithelial Cells Many HPF (Negative); Mucus Negative (Negative); RBC 0-2 HPF (0-2)
[2024-10-28 12:10] LABS: Chlamydia Result Negative (Negative); GC Result Negative (Negative)
== END 2024-10-27 13:59 ==
LOC: BCD 12:56 → OBS 13:00
PROVIDERS: PCP Nurse Practitioner Family; Visit Provider Advanced Practice Midwife
DX: O99.891 Other specified diseases and conditions complicating pregnancy (principal); R10.30 Lower abdominal pain, unspecified; Z3A.26 26 weeks gestation of pregnancy
CPT/HCPCS: 59025; 87491; 87591; 81003; 81015; 87086; 87480; 87510; 87660

== ENCOUNTER 2024-11-02 02:38 | Outpatient (CLI) | payer MEDICAID, SELFPAY ==
[2024-11-02 10:35] LABS: HCT 31.8 % (36.0-46.0); HGB 10.5 g/dL (11.2-15.7); MCH 30.3 pg (27.0-33.0); MCV 92 fL (80-95); Platelet Count 220 10^3/uL (130-400); RBC 3.47 10^6/uL (3.93-5.22); RDW 11.7 % (11.7-14.6); RDW-SD 39.2 fL; WBC 7.27 10^3/uL (4.4-10.8)
[2024-11-02 11:00] LABS: Glucose,1 Hr (Glucola) 134 mg/dL (80-140)
== END 2024-11-02 02:39 | disposition home or self-care (01) ==
PROVIDERS: PCP Nurse Practitioner Family; Visit Provider Advanced Practice Midwife
DX: Z34.92 Encounter for supervision of normal pregnancy, unspecified, second trimester (principal)
CPT/HCPCS: 36415; 82950; 85027

== ENCOUNTER 2024-11-30 13:09 | Outpatient (CLI) | payer MEDICAID, SELFPAY ==
[2024-11-30 13:30] VITALS: BP 112/64; PULSE 102
[2024-11-30 14:22] VITALS: BP 112/64; PULSE 102; TEMP 36.8
[2024-11-30 14:36] LABS: Abs Immature Grans 0.08 10^3/uL (0.0-0.06); Absolute Basophil Count 0.03 10^3/uL (0.0-0.2); Absolute Eosinophil Count 0.11 10^3/uL (0.0-0.7); Absolute Lymphocyte Count 1.27 10^3/uL (1.2-3.4); Absolute Monocyte Count 0.85 10^3/uL (0.1-0.8); Basophils % 0.4 %; Eosinophils % 1.6 %; HCT 31.7 % (36.0-46.0); HGB 10.2 g/dL (11.2-15.7); Immature Grans % 1.2 %; Lymphocytes % 18.8 %; MCH 28.7 pg (27.0-33.0); MCHC 32.2 % (32.0-36.0); MCV 89 fL (80-95); MPV 8.9 fL (8.0-11.0); Monocytes % 12.6 %; Neutrophils % 65.4 %; Platelet Count 220 10^3/uL (130-400); RBC 3.56 10^6/uL (3.93-5.22); RDW 11.8 % (11.7-14.6); RDW-SD 37.8 fL; WBC 6.74 10^3/uL (4.4-10.8)
[2024-11-30 15:00] LABS: ALT 11 U/L (14-59); AST 11 U/L (15-37); Albumin 2.6 g/dL (3.4-5.0); Alkaline Phosphatase 101 U/L (46-116); Anion Gap 9.2 mmol/L (3-11); BUN 6 mg/dL (7-18); Bilirubin, Total 0.2 mg/dL (0.2-1.0); CO2 24.8 mmol/L (21.0-32.0); CREATININE 0.5 mg/dL (0.55-1.02); Calcium 8.9 mg/dL (8.5-10.1); Chloride 107 mmol/L (98-107); Estimated GFR 127.72 (mL/min/1.73m2); Glucose 83 mg/dL (74-106); Potassium 3.8 mmol/L (3.5-5.1); Sodium 141 mmol/L (136-145); TSH (W/Ref FT4) 0.91 uIU/mL (0.36-3.74); Total Protein 6.6 g/dL (6.4-8.2)
[2024-11-30 15:01] LABS: Hemoglobin A1C 5.2 % (<5.7)
--- NOTE | 2024-11-30 15:25 | W.OBNST ---
Date of service: 11/30/24 Time of Service: 15:25 NST Evaluation Reason for NST Reasons for Nonstress Test: DECREASED MOVEMENT Gestational Age Gestational Age in Weeks and Days: 31 Weeks and 1Days Test and Monitor Explained Test/Monitor Explained: Test Explained, Monitor Explained and Patient Verbalized Understanding Vital Signs Blood Pressure: 112/64 Pulse: 102 Temperature: 98.2 F Urine Results Urine Protein: Negative Urine Ketones: Negative Urine Glucose: Negative Urine Blood: Negative NST Information Date on Monitor: 11/30/24 Time on Monitor: 13:40 Date off Monitor: 11/30/24 Time off Monitor: 14:49 Total Time on Monitor: 69 NST Interventions: PO Hydration and Notify Provider Contraction Frequency: None NST Evaluation Patient States Movement: Present and Decreased FHR Baseline: 140 Variability: Moderate 6-25 bpm Accelerations: 15x15 Decelerations: None NST Results: Reactive Note Ultrasound Done: N/A. NST Note Note: Hgb 10.2, CMP nml, glucose 83 Pt now feeling FM D/s to home, f/up as scheduled NST Reviewed and Verified by: Licha Blanton
[2024-11-30 15:26] VITALS: BP 112/64; PULSE 102; TEMP 36.8
== END 2024-11-30 15:18 ==
LOC: BCD 13:10 → OBS 13:17
PROVIDERS: PCP Nurse Practitioner Family; Visit Provider Advanced Practice Midwife
DX: O36.8121 Decreased fetal movements, second trimester, fetus 1 (principal); Z3A.31 31 weeks gestation of pregnancy
CPT/HCPCS: 36415; 80053; 59025; 83036; 84443; 85025

== ENCOUNTER 2024-12-07 01:20 | Outpatient (CLI) | payer MEDICAID, SELFPAY ==
--- NOTE | 2024-12-07 06:30 | DI.US_ITS ---
Exam(s) US OB ALEXIS WEIGHT EXAM: US OB ALEXSI WEIGHT CLINICAL HISTORY: growth and ALEXIS,Z34.90. TECHNIQUE: Transabdominal obstetrical ultrasound performed. COMPARISON: US US OB 2-3 TRIMESTER from 09/07/2024 FINDINGS: Number of fetuses: 1 position: CEPHALIC Placental location: There is a grade 2 fundal placenta. No evidence of previa. BIOMETRIC DATA: BPD: 8.23cm, 33weeks 1day HC: 29.72cm, 32weeks 6days AC: 28.79cm, 32weeks 6days FL: 6.15cm, 31weeks 6days EFW: 2,003.05g, 4lb 7.63oz, 53.3% Composite Age: 32weeks 5days DRE: 01/27/2025 Heart Rate: 142bpm Amniotic fluid index: 13.09cm. The largest pocket measures 3.8 cm. IMPRESSION: 1. Single live intrauterine gestation as above. 2. Estimated weight is 2003gms. This is the 53rd percentile. 3. Amniotic fluid index is 13.1 cm. The largest pocket measures 3.8 cm. DATA REPOSITORY:
== END 2024-12-07 01:40 ==
LOC: DI 01:21
PROVIDERS: PCP Nurse Practitioner Family; Visit Provider Advanced Practice Midwife
DX: Z34.93 Encounter for supervision of normal pregnancy, unspecified, third trimester (principal); Z3A.32 32 weeks gestation of pregnancy
CPT/HCPCS: 76816

== ENCOUNTER 2024-12-14 20:19 | Outpatient (CLI) | payer MEDICAID, SELFPAY ==
[2024-12-14 21:08] VITALS: BP 118/71; PULSE 90; TEMP 36.4
[2024-12-14 21:11] VITALS: BP 118/71; BP 118/76; PULSE 90; RESP 16; TEMP 36.4
[2024-12-14 21:56] VITALS: BP 118/76; PULSE 90; TEMP 36.4
--- NOTE | 2024-12-15 09:51 | W.OBNST ---
Date of service: 12/14/24 Time of Service: 09:51 NST Evaluation Reason for NST Reasons for Nonstress Test: OTHER, SEE COMMENT Reason for NST Other: FAll Gestational Age Gestational Age in Weeks and Days: 33 Weeks and 1Days Test and Monitor Explained Test/Monitor Explained: Test Explained Vital Signs Blood Pressure: 118/76 Pulse: 90 Temperature: 97.6 F Urine Results Urine Protein: Negative Urine Ketones: Negative Urine Glucose: Negative Urine Blood: Negative NST Information Date on Monitor: 12/14/24 Time on Monitor: 21:00 Date off Monitor: 12/14/24 Time off Monitor: 22:08 Total Time on Monitor: 68 NST Interventions: Notify Provider Contraction Frequency: irregular NST Evaluation Patient States Movement: Present FHR Baseline: 140 Variability: Moderate 6-25 bpm Accelerations: 15x15 Decelerations: None NST Results: Reactive Note Ultrasound Done: N/A. NST Note Note: Isabella fell earlier this evening, tipping back in her kitchen and then falling to her knees. She complains of slight discomfort in her lower abdomen. She did not strike her abdomen or back. Reactive NST. Ice and rest recommended. Call with signs of labor or concerns. NST Reviewed and Verified by: Lyn Knowles
[2024-12-15 09:53] VITALS: BP 118/76; PULSE 90; TEMP 36.4
== END 2024-12-14 22:40 ==
LOC: BCD 20:19
PROVIDERS: PCP Nurse Practitioner Family; Visit Provider Advanced Practice Midwife
DX: Z3A.33 33 weeks gestation of pregnancy (principal); O9A.213 Injury, poisoning and certain other consequences of external causes complicating pregnancy, third trimester; R10.30 Lower abdominal pain, unspecified; W18.30XA Fall on same level, unspecified, initial encounter
CPT/HCPCS: 59025

== ENCOUNTER 2024-12-27 03:36 | Outpatient (CLI) | payer MEDICAID, SELFPAY ==
[2024-12-27 10:09] LABS: Glucose 1 Hour 188 mg/dL
[2024-12-27 12:17] LABS: Glucose 3 Hour 76 mg/dL
== END 2024-12-27 03:37 | disposition home or self-care (01) ==
LOC: LBO 03:36
PROVIDERS: PCP Nurse Practitioner Family; Visit Provider Advanced Practice Midwife
DX: Z34.93 Encounter for supervision of normal pregnancy, unspecified, third trimester (principal)
CPT/HCPCS: 36415; 82951

== ENCOUNTER 2025-01-03 12:23 | Outpatient (REF) | payer MEDICAID, SELFPAY | END 2025-01-03 12:24 | disposition home or self-care (01) | LOC: LBN 12:23 | PROVIDERS: PCP Nurse Practitioner Family; Visit Provider Advanced Practice Midwife | DX: Z34.93 Encounter for supervision of normal pregnancy, unspecified, third trimester (principal) | CPT/HCPCS: 87081 ==

== ENCOUNTER 2025-01-06 02:39 | Outpatient (CLI) | payer MEDICAID, SELFPAY ==
--- NOTE | 2025-01-06 07:45 | DI.US_ITS ---
Exam(s) US OB ALEXIS WEIGHT EXAM: US OB ALEXIS WEIGHT CLINICAL HISTORY: gest diabetes in ,O24.419. TECHNIQUE: Transabdominal obstetrical ultrasound performed. COMPARISON: US US OB ALXEIS WEIGHT from 12/07/2024 US POCUS EXAM from 01/03/2025 FINDINGS:: Number of fetuses: 1 position: Cephalic Placental location: Fundal no evidence of previa. BIOMETRIC DATA: BPD: 82, 33+1 weeks HC: 297, 32+ 6 weeks AC: 288, 32+ 6 weeks FL: 62, 31+ 6 weeks EFW: 2003 grams, 53 percentile, Composite Age: 32+5 weeks DRE: 27 Jan 2025 Heart Rate: 142 Amniotic fluid index: 13.1. Visually, amount of fluid is within normal limits. IMPRESSION: size and weight are within the expected range. DATA REPOSITORY:
== END 2025-01-06 02:59 ==
LOC: DI 02:40
PROVIDERS: PCP Nurse Practitioner Family; Visit Provider Advanced Practice Midwife
DX: O24.419 Gestational diabetes mellitus in pregnancy, unspecified control (principal); Z3A.37 37 weeks gestation of pregnancy
CPT/HCPCS: 76816

== ENCOUNTER 2025-01-10 02:36 | Outpatient (CLI) | payer MEDICAID, SELFPAY ==
--- NOTE | 2025-01-10 11:52 | W.NUTRFU ---
Date of service: 01/10/25 Time of Service: 11:00 Nutrition Note NOTE: Isabella in for dietary counseling regarding glucose mgt with Dx of GDM at weeks. Pt denies hx of GDM with pregnancies for her two other children. No insulin management at this time. Pt states she is not always consistent but aims for fasting capillary and pre and post prandial glucose. Post prandial glucose is the least consistently measured. She relates that she sees a lot of variation and it doesn't make sense to her - feels like her results with same types of foods can vary. We reviewed that glucose variability depends on her acitvity an such after meals, what else she is eating or drinking along with that food and other influences. Encouraged her to be consistent with diet and let glucose behave as it will. States her glucose has been generally good but shares a post prandial >200 last night after Portuguese (had rice, pototo and noodles at this meal along with a root beer). She notes lower fasting glucose with this morning at 47 which improved to 96 when she checked again before eating brown sugar oatmeal and coffee with sugar and then up to ~115 an hour after eating. Suggested that she wants to aim for less added sugar and processed food (related instant oats vs old fashioned can be a world of difference) and gave her goal of <20g added sugar per day. Also reviewed CHO serving sizes and daily goal for ~180-200g CHO per day and suggested that even at Portuguese last night with large rice portion and additioinal noodels and potatoes she probably consusmed 6-8 servings at one time when it should be more like 3-4 servings. She relates a big jump the other day from eating a donut hole. - Again I stressed reduction in processed foods and also ensure protein snack before bed to avoid hypoglycemia inthe morning. Highlighted added sugar limit and how to view on nutr labels and estimate 1tsp =4grams. Also highlighted balancing plate with lean non carb food choices from animals and plants. gave and emailed isabella sample menu based on some estimated macro recs as well as keeping fiber high and added sugar low. Told her she could reply to my email with any questions, need for more resources or if she'd like to email her intake for comments and more suggestions. Time Spent in Nutritional Counseling and Treatment: 20 min
== END 2025-01-10 02:37 | disposition home or self-care (01) ==
LOC: DS 02:36
PROVIDERS: PCP Nurse Practitioner Family; Visit Provider Dietitian, Registered
DX: O13.3 Gestational [pregnancy-induced] hypertension without significant proteinuria, third trimester (principal); Z3A.37 37 weeks gestation of pregnancy
CPT/HCPCS: 00123; 97802

== ENCOUNTER 2025-01-24 03:03 | Outpatient (RCR) | payer MEDICAID, SELFPAY ==
[2025-01-13] MEDS: Normal Saline Flush 5 ML SYR IVP (12:10)
[2025-01-13] MEDS: IRON SUCROSE COMPLEX 200 MG in Normal Saline 100 ML 440 MG IVPB (12:37)
[2025-01-18 13:49] LABS: HGB 10.6 g/dL (11.2-15.7)
[2025-01-18] MEDS: Normal Saline Flush 10 ML SYR IVP (14:23)
[2025-01-18] MEDS: IRON SUCROSE COMPLEX 200 MG in Normal Saline 100 ML 440 MG IVPB (14:23)
[2025-01-24 10:32] LABS: HGB 11.2 g/dL (11.2-15.7)
[2025-01-24] MEDS: Normal Saline Flush 10 ML SYR IVP (10:35)
== END 2025-02-05 23:59 | disposition home or self-care (01) ==
LOC: INF 03:03
PROVIDERS: PCP Nurse Practitioner Family; Visit Provider Advanced Practice Midwife
DX: D64.9 Anemia, unspecified (principal)
CPT/HCPCS: 36415; 96365; 85018; J1756

== ENCOUNTER 2025-01-26 19:42 | Inpatient (IN) | payer MEDICAID, SELFPAY ==
[2025-01-26 18:59] VITALS: BP 127/72; PULSE 102; RESP 17; TEMP 36.6; O2SAT 98
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
[2025-01-26 20:15] LABS: HCT 33.3 % (36.0-46.0); HGB 10.5 g/dL (11.2-15.7); MCH 26.5 pg (27.0-33.0); MCHC 31.5 % (32.0-36.0); MCV 84 fL (80-95); MPV 9.5 fL (8.0-11.0); Platelet Count 203 10^3/uL (130-400); RBC 3.96 10^6/uL (3.93-5.22); RDW-SD 48.5 fL; WBC 6.54 10^3/uL (4.4-10.8)
[2025-01-27] VITALS (72 sets, daily range): BP systolic 111–136; BP diastolic 72–79; PULSE 0–125; RESP 16; TEMP 36.1–36.7; O2SAT 99
--- NOTE | 2025-01-27 01:41 | W.PM.OBNL1 ---
Date of service: 01/27/25 Time of Service: 23:00 Assessment and Plan Assessment and plan (1) Encounter for induction of labor: Status: Acute Assessment and plan: Isabella was taken off monitor. Rest was encouraged and ambien for sleep was offered and declined. FHTs while awake ordered and will begin cervical ripening in the morning. Objective Abnormal lab results 01/26/25 Range/Units 20:00 Hgb 10.5 L (11.2-15.7) g/dL Hct 33.3 L (36.0-46.0) % MCH 26.5 L (27.0-33.0) pg MCHC 31.5 L (32.0-36.0) % RDW 17.0 H (11.7-14.6) % Temp Pulse Resp BP Pulse Ox 97.9 F 102 H 17 127/72 98 01/26/25 18:59 01/26/25 18:59 01/26/25 18:59 01/26/25 18:59 01/26/25 18:59 Laboratory Results WBC 6.54 10^3/uL (4.4-10.8) 01/26/25 20:00 RBC 3.96 10^6/uL (3.93-5.22) 01/26/25 20:00 Hgb 10.5 g/dL (11.2-15.7) L 01/26/25 20:00 Hct 33.3 % (36.0-46.0) L 01/26/25 20:00 MCV 84 fL (80-95) 01/26/25 20:00 MCH 26.5 pg (27.0-33.0) L 01/26/25 20:00 MCHC 31.5 % (32.0-36.0) L 01/26/25 20:00 RDW 17.0 % (11.7-14.6) H 01/26/25 20:00 Plt Count 203 10^3/uL (130-400) 01/26/25 20:00 MPV 9.5 fL (8.0-11.0) 01/26/25 20:00 Sodium Cancelled 01/26/25 21:11 Potassium Cancelled 01/26/25 21:11 Chloride Cancelled 01/26/25 21:11 Carbon Dioxide Cancelled 01/26/25 21:11 Anion Gap Cancelled 01/26/25 21:11 BUN Cancelled 01/26/25 21:11 Creatinine Cancelled 01/26/25 21:11 Est GFR (CKD-EPI 2020) Cancelled 01/26/25 21:11 Glucose Cancelled 01/26/25 21:11 Calcium Cancelled 01/26/25 21:11 Total Bilirubin Cancelled 01/26/25 21:11 AST Cancelled 01/26/25 21:11 ALT Cancelled 01/26/25 21:11 Alkaline Phosphatase Cancelled 01/26/25 21:11 Total Protein Cancelled 01/26/25 21:11 Albumin Cancelled 01/26/25 21:11 Add-On Test Request Cancelled 01/26/25 Unknown ABO/Rh A Positive 01/26/25 20:00 Antibody Screen NEGATIVE 01/26/25 20:00 Subjective Patient Reports: No new Complaints Interval history since last seen: Due to census on the Center, misoprostol for cervical ripening is not possible at this time. I discussed this with Isabella and will plan to begin cervical ripening in the morning Results Hemoglobin/Hematocrit: Hgb 10.5 g/dL (11.2-15.7) L 01/26/25 20:00 Hct 33.3 % (36.0-46.0) L 01/26/25 20:00 Abnormal Lab Findings: Abnormal Labs 01/26/25 20:00 Hgb 10.5 L Hct 33.3 L MCH 26.5 L MCHC 31.5 L RDW 17.0 H
[2025-01-27] MEDS: miSOPROStol 25 MCG TAB 50 MCG PO (08:14)
--- NOTE | 2025-01-27 12:09 | W.PM.OBNL1 ---
Date of service: 01/27/25 Time of Service: 12:09 Informed Consent Informed Consent: Induction of Labor (for GDM) and Risk,Benefits,Alternatives Discussed Pelvic Exam Dilation: 3 Effacement (%): 60 station: -2 Cervix Position: mid Consistency: soft Contractions Monitor Mode: External Contraction Frequency(min): q4-5 Intensity: Mild/Moderate Fetus A Monitor: External (US) Heart Rate Baseline: 140 Variability: Moderate (6-25 BPM) Categories: Category I Accelerations: Present Decelerations: None Amniotic Membrane Status: Intact Assessment and Plan Assessment and plan (1) Encounter for induction of labor: Status: Acute Assessment and plan: A: 34 yo @ 39+3 wks, GDM diet controlled IOL via cervical ripening, latent phase P: Has had 1 dose of 50 mcg miso PO Will give 25 mcg miso now Anticipate active labor this afternoon and Dr. Montero consulting prn (2) Gestational diabetes mellitus (GDM) affecting third : Status: Acute Assessment and plan: Random fingerstick glucose levels have been nml since admission (3) Anemia affecting : Status: Acute Assessment and plan: Admission hgb 10.5, will have low threshold to treat increased lochia Objective Abnormal lab results 01/26/25 Range/Units 20:00 Hgb 10.5 L (11.2-15.7) g/dL Hct 33.3 L (36.0-46.0) % MCH 26.5 L (27.0-33.0) pg MCHC 31.5 L (32.0-36.0) % RDW 17.0 H (11.7-14.6) % Temp Pulse Resp BP Pulse Ox 97.9 F 89 17 136/72 98 01/26/25 18:59 01/27/25 11:55 01/26/25 18:59 01/27/25 11:55 01/26/25 18:59 Laboratory Results WBC 6.54 10^3/uL (4.4-10.8) 01/26/25 20:00 RBC 3.96 10^6/uL (3.93-5.22) 01/26/25 20:00 Hgb 10.5 g/dL (11.2-15.7) L 01/26/25 20:00 Hct 33.3 % (36.0-46.0) L 01/26/25 20:00 MCV 84 fL (80-95) 01/26/25 20:00 MCH 26.5 pg (27.0-33.0) L 01/26/25 20:00 MCHC 31.5 % (32.0-36.0) L 01/26/25 20:00 RDW 17.0 % (11.7-14.6) H 01/26/25 20:00 Plt Count 203 10^3/uL (130-400) 01/26/25 20:00 MPV 9.5 fL (8.0-11.0) 01/26/25 20:00 Sodium Cancelled 01/26/25 21:11 Potassium Cancelled 01/26/25 21:11 Chloride Cancelled 01/26/25 21:11 Carbon Dioxide Cancelled 01/26/25 21:11 Anion Gap Cancelled 01/26/25 21:11 BUN Cancelled 01/26/25 21:11 Creatinine Cancelled 01/26/25 21:11 Est GFR (CKD-EPI 2020) Cancelled 01/26/25 21:11 Glucose Cancelled 01/26/25 21:11 Calcium Cancelled 01/26/25 21:11 Total Bilirubin Cancelled 01/26/25 21:11 AST Cancelled 01/26/25 21:11 ALT Cancelled 01/26/25 21:11 Alkaline Phosphatase Cancelled 01/26/25 21:11 Total Protein Cancelled 01/26/25 21:11 Albumin Cancelled 01/26/25 21:11 Add-On Test Request Cancelled 01/26/25 Unknown ABO/Rh A Positive 01/26/25 20:00 Antibody Screen NEGATIVE 01/26/25 20:00 Vital Signs Reviewed: Yes Subjective Interval history since last seen: increased cramping since first dose of misoprostel, no nausea, no bleeding, no ROM
[2025-01-27] MEDS: miSOPROStol 50 MCG TAB 25 MCG PO (12:56)
--- NOTE | 2025-01-27 16:21 | W.PM.OBNL1 ---
Date of service: 01/27/25 Time of Service: 16:21 Informed Consent Informed Consent: Induction of Labor (for GDM), Risk,Benefits,Alternatives Discussed and Other (consents to AROM) Pelvic Exam Dilation: 4 Effacement (%): 70 station: -2 Cervix Position: mid Consistency: soft Contractions Monitor Mode: Palpation Contraction Frequency(min): q3-5 Intensity: Mild/Moderate Fetus A Monitor: External (US) Heart Rate Baseline: 150 Variability: Moderate (6-25 BPM) Categories: Category I Accelerations: Present Decelerations: None Amniotic Membrane Status: Ruptured Rupture Method: Artifical Amniotic Fluid: Clear Amount: moderate Date of Membrane Rupture: 01/27/25 Time of Membrane Rupture: 16:17 Assessment and Plan Assessment and plan (1) Encounter for induction of labor: Status: Acute Assessment and plan: A: Marshall score advanced to 9 Pt coping with discomforts well, ambulating, Category 1 tracing P: AROM agreed to by pt, clear fluid returned Comfort measures as pt desires Anticipate Objective Vital Signs Reviewed: Yes
--- NOTE | 2025-01-27 21:31 | W.PM.OBNL1 ---
Date of service: 01/27/25 Time of Service: 21:31 Informed Consent Informed Consent: Augmentation of Labor and Risk,Benefits,Alternatives Discussed Pelvic Exam Dilation: 5 Effacement (%): 80 station: -2 Cervix Position: mid Contractions Monitor Mode: External Contraction Frequency(min): q3-5 Intensity: Mild/Moderate Fetus A Monitor: External (US) Heart Rate Baseline: 140 Variability: Moderate (6-25 BPM) Categories: Category I Accelerations: Present Decelerations: None Amniotic Membrane Status: Ruptured Assessment and Plan Assessment and plan (1) Encounter for induction of labor: Status: Acute Assessment and plan: A: has progressed to 5 cm, contraction pattern inadequate coping well with labor though becoming tired category 1 tracing, pt afebrile, normotensive P: Pitocin augmentation recommended and accepted by pt Unable to initiate at this time due to accuity on the unit Will begin augmentation as soon as unit volume allows Objective Vital Signs Reviewed: Yes Objective Narrative Objective Narrative: pt has been ambulating, using physioball, resting, tolerating PO intake well
[2025-01-28] VITALS (69 sets, daily range): BP systolic 109–138; BP diastolic 58–98; PULSE 78–144; RESP 12–18; TEMP 36.6–37.2; O2SAT 94–100; BMI 25.2
--- NOTE | 2025-01-28 00:31 | PGE_ITS ---
Date of service: 01/28/25 Time of Service: 00:31 Informed Consent Informed Consent: Augmentation of Labor, Regional Anesthesia and Risk,Benefits,Alternatives Discussed Pelvic Exam Dilation: 6 Effacement (%): 80 station: -2 Contractions Monitor Mode: External Contraction Frequency(min): q2-4 Intensity: Moderate Fetus A Monitor: External (US) Heart Rate Baseline: 140 Variability: Moderate (6-25 BPM) Categories: Category I Amniotic Membrane Status: Ruptured Assessment and Plan Assessment and plan (1) Encounter for induction of labor: Status: Acute Assessment and plan: A: Pt increasingly uncomfortable, at 6 cm dilation without augmentation Requesting epidural P: Will initiate IV access, 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
[2025-01-28] MEDS: Lactated Ringers 1,000 ML 125 ML IV (00:50)
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
[2025-01-28] MEDS: fentaNYL 100 MCG/2 ML VIAL EP (01:30)
[2025-01-28] MEDS: Bupivacaine 0.25% Pres-Free 10 ML VIAL EP (01:30)
--- NOTE | 2025-01-28 01:44 | W.ANESNEU ---
Epidural/Spinal Catheter Date Performed: 01/28/25 Procedure Start: 01:17 Procedure Stop: 01:51 Requesting Provider: Licha Blanton Procedure Location: Obstetrics Reason Performed: Labor Epidural Standard Monitors Applied: Blood Pressure, SpO2 and See EMR for corresponding vital signs Patient Position: Sitting Sedation Given (Indicate Dose Given): No Sedation given Patient Mental Status: Awake Sterility: Hand Hygiene, Surgical Cap, Surgical Mask, Sterile Gloves, Sterile Drape/Sheet and Chlorhexidine Procedure Location: L3-L4 Interspace Epidural Needle: Tuohy 18 Gauge Needle Length: 3.5 Inch Needle Approach: Midline Epidural Procedure: Skin Prepped, Sterile Drape Placed, 1% Lidocaine to skin and subcutaneous tissue with 25G needle, Tuohy Needle placed, RODRIGO to Saline Used, Epidural Catheter Placed, Negative Heme, Negative CSF Flow and Tuohy Needle Removed Catheter Placed?: Catheter Placed Test Dose (Indicate Dose Given): 3ml 1.5% Lidocaine with 1:200K Epinephrine Given and Negative Test Dose Loss of Resistance Depth (cm): 6 Catheter depth at skin (cm): 12 Dressing: [place]orbaview Dressing Placed and Mastisol Used Epidural Provider Bolus (Indicate Dose Given): Total bolus dose given in 3-5 ml divided doses and Total Bupivacaine 0.25% Given (ml) Dose:: 7 ml Additives (Indicate Dose Given ): Fentanyl PF Dose:: 100 mcg Infusion Medication: Medication Infusion Began (0145) Medication Infusion: Ropivacaine 0.1% with Fentanyl 2mcg/ml Maintenance Infusion Rate (ml/hour): 10 PCEA Bolus Dose (ml): 5 Block Level: N/A Paresthesia: None Ultrasound: Not Used Number of Attempts (See previous attempts in note section): 2 Procedure Tolerated: No Complications and Patient tolerated well Procedure Outcome: Successful Procedure Comment:: No LE weakness, hot spot on right side so positioned to right lateral, patient states she still feels the contractions on the right only but overall is better. Performed By: Kandy Day
[2025-01-28] MEDS: FentaNYL/ROPIvacaine 2 mcg/ml and 0.1% 200 ML CADD Cassette EP (01:45)
[2025-01-28] MEDS: Oxytocin/Normal Saline 30 UNIT/500 ML BAG 95 UNITS IV (02:51)
[2025-01-28] MEDS: Benzocaine 20% 60 ML CAN (03:00)
--- NOTE | 2025-01-28 03:05 | W.OBDELIVERY ---
Date of service: 01/28/25 Time of Service: 03:05 OB Labor/ Delivery Information Baby A Delivery Delivery Method: Spontaneaous Presentation: Cephalic Cephalic Position: Vertex Vertex Position: Right Occipital Anterior Cord Description-Baby A: 3 Vessels, Nuchal Cord and Reduced Amniotic Fluid: Clear Quantitative Blood Loss: 150 ml Delivery Outcome: Liveborn Infant Transferred: Remains with Mother Note: Pt's pain relief after epidural was fair and not equal on both sides, however pt was able to relax somewhat and quickly progressed to fully and +3 station, excellent maternal efforts resulted in of a vigorous male over intact perineum, loose nuchal cord was reduced over 's head and shoulders delivered easily, infant immediately to mother's arms. pitocin bolus begun, cord ceased pulsating and was clamped then cut by pt's grandmother, cord blood collected, [place] placenta intact with 3VC. Labial laceration approximated with 1 stitch 3.0 Vicryl, fundus firm and lochia was minimal. Strong maternal bonding observed, apgars 9/9, weight 3200 gms. Providers Nurse Motor Carrier Inspector: Licha Blanton Nurse: Bettina Weiss Nurse: Rafaela Blanton Labor/Delivery Information Number of Babies in Womb: 1 Steroids Given: None Reason Steroids Not Administered: N/A Group Beta Strep: Negative Antibiotics Administered: No Rubella Status: Immune Blood Type: A+ Varicella Immunity: Immune Shoulder Dystocia: No Stages of Labor Onset of Labor Date: 01/27/25 Onset of Labor Time: 21:26 Complete Dilatation Date: 01/28/25 Complete Dilatation Time: 02:38 Labor - Stage 1 Duration: 5 hours and 12 minutes ROM Baby A: 01/27/25 ROM Baby A: 16:17 ROM Total Time- Baby A: [id number] Delivery Date-Baby A: 01/28/25 Delivery Time-Baby A: 02:48 Labor Stage 2 Duration: 10 minutes Placenta Delivery Date-Baby A: 01/28/25 Placenta Delivery Time-Baby A: 02:55 Labor-Stage 3 Duration: 7 minutes Total Length of Labor-Baby A: 5 hours and 22 minutes Placenta Cultured: No Placenta Status: Delivered Baby A Infant Gender: Male Gestational Status: Term (39-41.6 wks) Gestational Age in Weeks/Days: 39 Weeks and 4 Days weight: 7 lb 0.877 oz Length-Baby A: 18 in Head Circumference-Baby A: 13 in Score-1 Minute Interval(Baby A) Heart Rate-1 minute: 100 BPM or Greater Respiratory Effort- 1 minute: Spontaneous/Strong Cry Muscle Tone-1 minute: Active Movement Reflex Response-1 minute: Prompt Response Color-1 minute: Bluish Hands or Feet Total Score-1 minute: 9 Score-5 Minute Interval(Baby A) Heart Rate- 5 minute: 100 BPM or Greater Respiratory Effort-5 minute: Spontaneous/Strong Cry Muscle Tone-5 minute: Active Movement Reflex Response-5 minute: Prompt Response Color-5 minute: Bluish Hands or Feet Total Score- 5 minute: 9
[2025-01-28] MEDS: Ibuprofen 600 MG TAB PO ×2 (04:00→12:37)
--- NOTE | 2025-01-28 06:52 | W.ANESPOSTOP ---
Postoperative Evaluation Date, Time and Location Date Performed: 01/28/25 Time Performed: 06:45 Patient Location: Obstetrics Vital Signs Most Recent Imported Vital Signs: Most Recent Vital Signs Temp Pulse Resp BP Pulse Ox 36.9 C 80 16 129/87 97 01/28/25 06:00 01/28/25 06:00 01/28/25 06:00 01/28/25 06:00 01/28/25 06:00 Assessment Mental Status: Awake (Alert & Oriented to Patient Baseline) Airway and Respiratory Function: Patent airway with normal (patient baseline) respiratory exam Cardiovascular Function: Hemodynamically Stable Hydration Status: Adequately Hydrated Nausea & Vomiting: No Nausea or Vomiting Pain: Pain is tolerable per patient Peripheral Nerve Block: Patient did not receive a nerve block
[2025-01-28] MEDS: Acetaminophen 325 MG TAB 650 MG PO ×2 (07:50→12:37)
[2025-01-29 02:00] VITALS: BP 121/86; PULSE 77; TEMP 36.7
[2025-01-29 09:35] VITALS: BP 120/80; PULSE 105; RESP 18; TEMP 37; O2SAT 97
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
== END 2025-01-29 13:50 | disposition home or self-care (01) | DRG 806 ==
PROVIDERS: Admitting Provider Advanced Practice Midwife; PCP Nurse Practitioner Family; Visit Provider Advanced Practice Midwife
DX: O24.410 Gestational diabetes mellitus in pregnancy, diet controlled (principal); Z59.819 Housing instability, housed unspecified; Z37.0 Single live birth; O99.02 Anemia complicating childbirth; Z3A.39 39 weeks gestation of pregnancy; O70.0 First degree perineal laceration during delivery; O69.81X0 Labor and delivery complicated by cord around neck, without compression, not applicable or unspecified; O99.52 Diseases of the respiratory system complicating childbirth; O99.62 Diseases of the digestive system complicating childbirth; D64.9 Anemia, unspecified; K80.50 Calculus of bile duct without cholangitis or cholecystitis without obstruction; O99.344 Other mental disorders complicating childbirth; F43.21 Adjustment disorder with depressed mood; J45.909 Unspecified asthma, uncomplicated; R10.2 Pelvic and perineal pain; G89.29 Other chronic pain; O75.89 Other specified complications of labor and delivery; K21.9 Gastro-esophageal reflux disease without esophagitis
CPT/HCPCS: 36415; 80053; 85027; 86850; 86900; 86901; J0665; J3010; J3490

== ENCOUNTER 2025-04-18 22:24 | Emergency (ER) | payer MEDICAID, SELFPAY ==
--- NOTE | 2025-04-18 22:30 | DI.RAD_ITS ---
Exam(s) XR ELBOW RT COMPLETE EXAM: XR ELBOW RT COMPLETE CLINICAL HISTORY: trauma. TECHNIQUE: 2D digital imaging was performed. Three views. COMPARISON: No exams were available for comparison FINDINGS: BONES: No acute fracture is present. No bony destructive lesion is seen. JOINTS: The elbow is normally aligned. No joint effusion is seen. SOFT TISSUE: Medial and posterior swelling IMPRESSION: No fracture or joint effusion. The preliminary [facility] report was reviewed. DATA REPOSITORY: RADIATION DOSE DELIVERED:
[2025-04-18 22:31] VITALS: PULSE 85; RESP 19; TEMP 36.6; O2SAT 98
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
[2025-04-18] MEDS: Cephalexin 500 MG CAP PO ×2 (23:06→23:16)
--- NOTE | 2025-04-18 23:25 | DI.VRAD_ITS ---
PROCEDURE INFORMATION: Exam: XR Right Elbow Exam date and time: 04/18/2025 10:52 PM Age: 34 years old Clinical indication: Injury or trauma; Fall; Blunt trauma (contusions or hematomas); Elbow; Right; Injury details: PT fell onto cement TECHNIQUE: Imaging protocol: Radiologic exam of the right elbow. Views: 3 or more views. COMPARISON: No relevant prior studies available. FINDINGS: Bones/joints: Normal. Soft tissues: Mild soft tissue swelling dorsal to the proximal ulna. IMPRESSION: No acute fracture. Dictated and Authenticated by: Partha Johnson MD. Orderin Tate Peguero MD
== END 2025-04-18 23:15 | disposition home or self-care (01) ==
PROVIDERS: Emergency Provider Emergency Medicine; PCP Nurse Practitioner Family
DX: L08.9 Local infection of the skin and subcutaneous tissue, unspecified (principal); S50.311A Abrasion of right elbow, initial encounter; W19.XXXA Unspecified fall, initial encounter
CPT/HCPCS: 99283 ×2; 73080

== ENCOUNTER 2025-05-03 13:29 | Outpatient (REF) | payer MEDICAID, SELFPAY ==
--- NOTE | 2025-05-03 13:50 | PAPFT_PTH ---
PATIENT: Isabella Whyte LOC: [facility] U#:[id number] AGE/SX: 34/F ROOM: RE05/03/[address]: Azul Montero MD : 1990 BED: DIS: 05/03/2025 SPEC #: [id number] RECD: 05/03/25 17:52 STATUS: NAVARRO RECarmen #: [id number] BI: 05/03/25 13:[address]: Azul Montero DEPT: [facility] Cytology RECD BY: Marsha Contreras ENTERED: 05/03/25 17:52 SP TYPE: PAPFT OTHR DR: Selena Cloud Tissues: 1 - CX/ENDOCX FOR PAP SMEARS Procedures: PAP THIN PREP/[facility] Screening HPV DNA PROBE Comments: [id number] (HPV 16 & 18/45)
[2025-05-05 11:29] LABS: Chlamydia Result Negative (Negative); GC Result Negative (Negative)
== END 2025-05-03 13:30 | disposition home or self-care (01) ==
LOC: LBN 13:29
PROVIDERS: PCP Nurse Practitioner Family; Visit Provider Obstetrics & Gynecology
DX: Z70.8 Other sex counseling (principal); Z12.4 Encounter for screening for malignant neoplasm of cervix
CPT/HCPCS: 87491; 87591; 88142; 87624

== ENCOUNTER → 2025-08-15 10:36 | Outpatient (CLI) | payer MEDICAID, SELFPAY ==
--- NOTE | 2025-08-15 | DI.RAD_ITS ---
Exam(s) XR HIP PELVIS ADULT BL EXAM: XR HIP PELVIS ADULT BL CLINICAL HISTORY: M25.551,M25.552 Pain rt and left hip. TECHNIQUE: 2D digital imaging was performed. Three views. COMPARISON: CR XR HIP PELVIS ADULT BL from 11/22/2020 FINDINGS: BONES: No acute fracture is present. No bony destructive lesion is seen. JOINTS: No dislocation present. SI joints and pubic symphysis are unremarkable. SOFT TISSUE: Normal. IMPRESSION: Unremarkable radiographs of the bilateral hips. DATA REPOSITORY: RADIATION DOSE DELIVERED:
--- NOTE | 2025-08-15 | DI.RAD_ITS ---
Exam(s) XR LUMBAR SPINE COMPLETE EXAM: XR LUMBAR SPINE COMPLETE CLINICAL HISTORY: M54.50 Low back pain. TECHNIQUE: 2D digital imaging was performed. Five views. COMPARISON: CR,XR XR LUMBAR SPINE AP, LAT from 08/06/2020 FINDINGS: BONES: No fracture or destructive lesion. Vertebral body heights are maintained. No facet hypertrophy identified . DISKS: Intervertebral disc spaces are maintained. ALIGNMENT: Lumbar spinal alignment is within normal limits. SOFT TISSUE: A large quantity of fecal material is noted throughout the colon. Right upper quadrant surgical clips. IMPRESSION: Unremarkable radiographs of the lumbar spine. DATA REPOSITORY: RADIATION DOSE DELIVERED:
== END ==
PROVIDERS: PCP Nurse Practitioner Family; Visit Provider Nurse Practitioner Family
DX: M25.551 Pain in right hip; M25.552 Pain in left hip; M54.50 Low back pain, unspecified
CPT/HCPCS: 73521; 72110